=== PATIENT | female | born 1950 | race Caucasian/White ===

== ENCOUNTER 2021-11-13 15:16 | Inpatient (IN) | payer MEDICARE ==
[2021-11-13] MEDS ORDERED: HEPARIN SODIUM 1,000 UN/ML (10ML VL) IV ONE ×2 (15:51→16:16)
[2021-11-13] MEDS ORDERED: ATORVASTATIN 80 MG TAB PO STA (15:52)
[2021-11-13] MEDS ORDERED: HEPARIN SODIUM 1,000 UN/ML (10ML VL) ONE (15:55)
[2021-11-13] MEDS ORDERED: VERAPAMIL 2.5 MG/ML 2 ML AMP ONE (15:55)
[2021-11-13 16:04] LABS: Anisocytosis Slight; Basophils % (A) 1 %; Eosinophils # (A) 0.1 k/uL (0-0.7); Eosinophils % (A) 2 %; HCT 38.7 % (34.0-46.0); HGB 11.8 gm/dL (11.4-16.0); Hypochromasia Marked; Lymphocytes # (A) 0.8 k/uL (1.0-4.8); Lymphocytes % (A) 12 %; MCH 29.1 pg (25.0-35.0); MCHC 30.4 g/dL (31.0-37.0); MCV 95.6 fL (80.0-100.0); Mean Platelet Volume 7.7; Monocytes # (A) 0.2 k/uL (0-1.0); Monocytes % (A) 4 %; Neutrophils # (A) 5.5 k/uL (1.3-7.7); Neutrophils % (A) 80 %; Platelet Count 269 k/uL (150-450); RBC 4.05 m/uL (3.80-5.40); RDW 16.4 % (11.5-15.5); WBC 6.8 k/uL (3.8-10.6)
--- NOTE | 2021-11-13 16:04 | ED ---
Chest Pain HPI - General Chief Complaint: Chest Pain Stated Complaint: SAM Time Seen by Provider: 11/13/21 15:26 Source: patient, EMS Mode of arrival: EMS Limitations: no limitations - History of Present Illness Initial Comments: Patient complains of chest pain. Her pain has been intermittent all week. Now she states the pain became very severe and constant today. Pain is substernal. It doesn't radiate anywhere. It has been exertional in nature. She has chronic edema in the legs which is unchanged from prior. She is not having any palpitations or shortness of breath. She has no focal weakness. She has no lightheadedness or dizziness. She took no medicine for the chest pain prior to arrival. She has no paresthesias or weakness. - Related Data Allergies Allergy/AdvReac Type Severity Reaction Status Date / Time morphine AdvReac Hallucinati Verified 11/13/21 15:58 ons Review of Systems ROS Statement: Those systems with pertinent positive or pertinent negative responses have been documented in the HPI. ROS Other: All systems not noted in ROS Statement are negative. EKG Findings - EKG Comments: EKG Findings:: Twelve-lead EKG shows ventricular rate 101 bpm, normal [place] interval, normal QRS complexes, there is ST elevation in leads V1 and V2 with reciprocal depressions. Interpreted by me as ST elevation myocardial infarction. Past Medical History Past Medical History: Heart Failure History of Any Multi-Drug Resistant Organisms: None Reported Past Surgical History: Orthopedic Surgery Additional Past Surgical History / Comment(s): knee replacement, hip replacement Past Psychological History: No Psychological Hx Reported Smoking Status: Former smoker Past Alcohol Use History: None Reported Past Drug Use History: None Reported General Exam Limitations: no limitations General appearance: alert, in no apparent distress Head exam: Present: atraumatic, normocephalic, normal inspection Eye exam: Present: normal appearance, PERRL, EOMI. Absent: scleral icterus, conjunctival injection, periorbital swelling ENT exam: Present: normal exam, mucous membranes moist Neck exam: Present: normal inspection. Absent: tenderness, meningismus, lymphadenopathy Respiratory exam: Present: normal lung sounds bilaterally. Absent: respiratory distress, wheezes, rales, rhonchi, stridor Cardiovascular Exam: Present: regular rate, normal rhythm, normal heart sounds. Absent: systolic murmur, diastolic murmur, rubs, gallop, clicks GI/Abdominal exam: Present: soft, normal bowel sounds. Absent: distended, tenderness, guarding, rebound, rigid Extremities exam: Present: full ROM, normal capillary refill, pedal edema, other (Positive for bilateral lower charming lymphedema). Absent: tenderness, joint swelling Back exam: Present: normal inspection Neurological exam: Present: alert, oriented X3, CN II-XII intact Psychiatric exam: Present: normal affect, normal mood Skin exam: Present: warm, dry, intact, normal color. Absent: rash Course Vital Signs 11/13/21 11/13/21 15:19 15:23 Temperature 97.6 F Pulse Rate 107 H Respiratory 18 22 Rate Blood Pressure 122/89 O2 Sat by Pulse 99 Oximetry Chest Pain MDM - MDM Patient presents with chest pain. EKG is concerning for STEMI. I spoke with cardiology. Patient will be admitted to the hospital. Disposition Clinical Impression: ST elevation myocardial infarction (STEMI) Disposition: ADMITTED IP TO THIS HOSP Condition: Serious Is patient prescribed a controlled substance at d/c from ED?: No Referrals: Nonstaff,Physician [Primary Care Provider] - 1-2 days
[2021-11-13] MEDS ORDERED: TEMAZEPAM 15 MG CAP PO PRN (16:06)
[2021-11-13] MEDS ORDERED: MAG HYDROX/AL HYDROX/SIMETH 30 ML CUP PO PRN ×2 (16:06→17:19)
[2021-11-13] MEDS ORDERED: ONDANSETRON 4 MG/2 ML VIAL IVP PRN (16:06)
[2021-11-13] MEDS ORDERED: NALOXONE 0.4 MG/ML 1 ML VIAL IV PRN (16:06)
[2021-11-13 16:10] LABS: Albumin 3.6 g/dL (3.5-5.0); Calcium 8.5 mg/dL (8.4-10.2); Magnesium 1.6 mg/dL (1.6-2.3); Potassium 4.6 mmol/L (3.5-5.1); Total Bilirubin 1.9 mg/dL (0.2-1.3); Total Protein 7.1 g/dL (6.3-8.2)
[2021-11-13 16:12] LABS: INR 1.2 (<1.2); Partial Thromboplastin Time 23.9 sec (22.0-30.0); Prothrombin Time 12.7 sec (9.0-12.0)
[2021-11-13] MEDS ORDERED: LIDOCAINE 1% INJ 10MG/ML (30 ML VIAL-PF) SQ ONE (16:12)
[2021-11-13] MEDS ORDERED: VERAPAMIL SYRINGE (5 MG/10 ML) INTRAARTER ONE (16:13)
[2021-11-13] MEDS ORDERED: MIDAZOLAM 2 MG/2 ML VIAL IV ONE ×2 (16:14→16:23)
[2021-11-13] MEDS ORDERED: SODIUM CHLORIDE 0.9% 1,000 ML IV ONE (16:15)
[2021-11-13] MEDS ORDERED: fentaNYL (PF) 50 MCG/ML 2 ML AMP ONE (16:19)
[2021-11-13] MEDS: fentaNYL (PF) 50 MCG/ML 2 ML AMP IV ONE ×2 (16:21→16:31)
[2021-11-13] MEDS: PHENYLEPHRINE 10 MG/ML VIAL IV ONE ×3 (16:30→16:48)
[2021-11-13] MEDS ORDERED: TICAGRELOR 90 MG TAB ONE (16:41)
[2021-11-13] MEDS ORDERED: ONDANSETRON 4 MG/2 ML VIAL ONE (16:42)
[2021-11-13] MEDS ORDERED: ONDANSETRON 4 MG/2 ML VIAL IVP ONE (16:43)
[2021-11-13] MEDS ORDERED: TICAGRELOR 90 MG TAB PO ONE (16:44)
[2021-11-13] MEDS ORDERED: NOREPINEPHRINE 4 MG in SODIUM CHLORIDE 0.9% 250 ML IV ONE (16:54)
[2021-11-13] MEDS ORDERED: IOPAMIDOL-370 125ML BTL INJ ONE (16:58)
[2021-11-13] MEDS ORDERED: NITROGLYCERIN SL TABS 0.4 MG TAB SUBLINGUAL PRN (17:19)
[2021-11-13] MEDS ORDERED: ZOLPIDEM 5 MG TAB PO PRN (17:19)
[2021-11-13] MEDS ORDERED: ATROPINE SULFATE 0.1 MG/ML 10ML SYRINGE IV PRN (17:19)
[2021-11-13] MEDS ORDERED: RX INFO: IV CONTRAST WAS GIVEN 1 EACH MISC MISCELLANE PRN (17:19)
[2021-11-13] MEDS ORDERED: SODIUM CHLORIDE 0.9% 1,000 ML in EMPTY BAG 1 BAG IV SCH (17:30)
--- NOTE | 2021-11-13 17:34 | P.PCN ---
Date of Procedure: 11/13/21 Operative Findings: CARDIAC CATHETERIZATION AND PERCUTANEOUS CORONARY INTERVENTION PERFORMING PHYSICIAN: Maxim Santos MD, [facility] PROCEDURE PERFORMED: 1. Selective right and left coronary angiogram 2. Left heart catheterization 3. Successful stenting of proximal left anterior descending artery using 4.0 x 23 mm Xience MADIE which with an excellent angiographic results 4. Intravascular ultrasound of the left anterior descending artery 5. Aspiration thrombectomy from the left anterior descending artery INDICATION: Acute anterior ST patient myocardial infarction in this 71-year-old female patient with diabetes and hypertension and dyslipidemia COMPLICATION: None APPROACH: Right radial artery LEVEL OF SEDATION: Moderate with the sedation time off 58 minutes PROCEDURE DESCRIPTION: After obtaining an informed consent the patient was brought to the cardiac laborer [place]. The right radial artery was cannulated using micropuncture technique, the micropuncture wire passed easily then I placed a 6-Greek sheath. The patient was already given 4000 use of heparin IV in the emergency department and we gave her additional 4000 units of heparin IV. Subsequently she was given 2 mg of verapamil IA through the sheath. Selective right and left coronary angiogram was performed using JR4 for the right coronary artery and JL 3.5 for the left coronary system. After that I did intervene on the LAD. After that I did left heart catheterization using 6-Greek pigtail catheter. The procedure was completed without any complication SELECTIVE CORONARY ANGIOGRAM: The right coronary artery: Is chronically occluded by the proximal portion. Fills by collateral from the left coronary system. The RCA is extremely calcified Left main: Is angiographically normal. Bifurcates into a CXR LAD The left circumflex: Is a large caliber vessel. The proximal LCx has mild disease only. It gives rises into an OM branch which seems to be occluded. The left circumflex continues in the AV groove and seems to be occluded distally and seems to be also giving another OM branch which appeared to be occluded. The left anterior descending artery: The proximal LAD appeared to be occluded just after the bifurcation of a large diagonal branch which appeared to be severely diseased. HEMODYNAMICS: The LVEDP was 30 mmHg was no significant gradient across aortic valve PCI OF THE LAD: Anticoagulation was initiated using heparin with continuous ACT monitoring throughout the case. The left main was engaged using JL 3.5 guiding catheter. I did wire the LAD and cross the acute total occlusion using a run-through wire. I did aspiration thrombectomy from the LAD using an export catheter. Subsequently I did balloon angioplasty using 3.5 x 15 mm balloon. The balloon was inflated under 14 siva 2. Attempting advancing 4.0 x 23 mm stent was unsuccessful. I had to use a guide extension was guide liner as an adjunctive measure to get the stent to the proximal LAD. The stent was positioned under fluoroscopy guidance and deployed under 14 siva for 20 seconds. I did postdilated the stent using initially 3.5 mm balloon and subsequently 4.0 mm balloon. Both balloons where non-compliance. The following angiogram showed that the stent approximately appears to be not well deployed. For that reason I did intravascular ultrasound. The intravascular ultrasound showed that the stent is well opposed to the wall and the artery is extremely calcified. The angiogram after the intravascular ultrasound showed or shoulder area in the proximal LAD concerning for thrombus. The ACT was therapeutic. I decided to post-dilate that area again worded postrotation using other 40 by 15 mm balloon which was inflated twice inside the stented segment. The following angiogram showed good angiographic results and the procedure was completed without any complication CONCLUSION: #[address] patient myocardial infarction #2 acute total occlusion of the proximal LAD which is extremely calcified. I performed successful stenting of the proximal LAD. 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
--- NOTE | 2021-11-13 17:39 | P.CRDCN ---
History of Present Illness Consult date: 11/13/21 Chief complaint: Chest discomfort History of present illness: This is a 71-year-old female patient with morbid obesity as well as diabetes and hypertension and dyslipidemia as well as lower extremities arthritis presented to the emergency department complaining of chest discomfort. The patient has been experiencing discomfort for about a week and it was intermittent until last 24 hours when the pain gets worse and decided to come to the emergency department. The chest discomfort was substernal and did not radiate to the arms or neck or shoulders or back and was not associated with any sweating or shortness of breath or dizziness or lightheadedness or presyncope or syncope. The EKG in the emergency department revealed acute anterior ST patient myocardial infarction and for that reason the patient was brought to the cardiac labor commissioner emergently where she underwent a heart catheterization and that revealed acute total occlusion of the LAD with chronic total occlusion of the LCx and RCA. She underwent successful stenting of the LAD with a good angiographic results. The right and left coronary systems are extremely calcified. Also she was noted to have elevated left-sided filling pressure with LVEDP of 30 mmHg. The procedure was performed from right radial approach and the patient tolerated the procedure very well but she was experiencing severe lower back pain. She'll be going to the intensive care unit where she will be on dual antiplatelet therapy along with high intensity statin. An echocardiogram will be ordered to assess EF. Please note that the patient was hypotensive throughout the procedure and we have to start the patient on norepinephrine to support her pressure. She left the labor commissioner on norepinephri ne. Past Medical History Past Medical History: Heart Failure History of Any Multi-Drug Resistant Organisms: None Reported Past Surgical History: Orthopedic Surgery Additional Past Surgical History / Comment(s): knee replacement, hip replacement Past Psychological History: No Psychological Hx Reported Smoking Status: Former smoker Past Alcohol Use History: None Reported Past Drug Use History: None Reported Medications and Allergies Home Medications Medication Instructions Recorded Confirmed Type ALPRAZolam [Xanax] 0.5 mg PO HS 11/13/21 11/13/21 History Calcium Carbonate [Calcium] 600 mg PO DAILY 11/13/21 11/13/21 History Cholecalciferol [Vitamin D3 (25 25 mcg PO DAILY 11/13/21 11/13/21 History Mcg = 1000 Iu)] Ferrous Sulfate [Feosol] 325 mg PO DAILY 11/13/21 11/13/21 History HYDROcodone/APAP 10-325MG [Racine 1 tab PO Q6H PRN 11/13/21 11/13/21 History 10-325] lisinopriL [Zestril] 20 mg PO DAILY 11/13/21 11/13/21 History metFORMIN HCL 500 mg PO BID 11/13/21 11/13/21 History Allergies Allergy/AdvReac Type Severity Reaction Status Date / Time morphine AdvReac Hallucinati Verified 11/13/21 15:58 ons Physical Exam Vitals: Vital Signs Temp Pulse Resp BP Pulse Ox 11/13/21 15:23 22 11/13/21 15:19 97.6 F 107 H 18 122/89 99 Intake and Output 11/13/21 11/13/21 11/13/21 06:59 14:59 22:59 Intake Total 200 Balance 200 Intake: IV 200 Other: Weight 143.789 kg - Constitutional General appearance: no acute distress - Respiratory Respiratory: bilateral: diminished - Cardiovascular Rhythm: regular Heart sounds: normal: S1, S2 Abnormal Heart Sounds: systolic murmur Results 11/13/21 15:50 11/13/21 15:50 Cardiac Enzymes 11/13/21 11/13/21 Range/Units 15:50 15:50 AST 50 H (14-36) U/L Troponin I 0.750 H* (0.000-0.034) ng/mL Coagulation 11/13/21 Range/Units 15:50 PT 12.7 H (9.0-12.0) sec APTT 23.9 (22.0-30.0) sec CBC 11/13/21 Range/Units 15:50 WBC 6.8 (3.8-10.6) k/uL RBC 4.05 (3.80-5.40) m/uL Hgb 11.8 (11.4-16.0) gm/dL Hct 38.7 (34.0-46.0) % Plt Count 269 (150-450) k/uL Comprehensive Metabolic Panel 11/13/21 Range/Units 15:50 Sodium 135 L (137-145) mmol/L Potassium 4.6 (3.5-5.1) mmol/L Chloride 102 (98-107) mmol/L Carbon Dioxide 22 (22-30) mmol/L BUN 24 H (7-17) mg/dL Creatinine 0.81 (0.52-1.04) mg/dL Glucose 185 H (74-99) mg/dL Calcium 8.5 (8.4-10.2) mg/dL AST 50 H (14-36) U/L ALT 22 (4-34) U/L Alkaline Phosphatase 105 (38-126) U/L Total Protein 7.1 (6.3-8.2) g/dL Albumin 3.6 (3.5-5.0) g/dL Current Medications Generic Name Dose Route Start Last Admin Trade Name Freq PRN Reason Stop Dose Admin Hydrocodone Bitart/Acetaminophen 1 each 11/13/21 16:06 Hydrocodone/Apap 5-325mg 1 Each Tab PO Q4HR PRN Moderate Pain Al Hydroxide/Mg Hydroxide 15 ml 11/13/21 16:06 Mag Hydrox/Al Hydrox/Simeth 30 Ml Cup PO Q6HR PRN Indigestion Al Hydroxide/Mg Hydroxide 30 ml 11/13/21 17:19 Mag Hydrox/Al Hydrox/Simeth 30 Ml Cup PO Q4HR PRN Heartburn Alprazolam 0.5 mg 11/13/21 21:00 Alprazolam 0.5 Mg Tab PO HS [place] Aspirin 81 mg 11/14/21 09:00 Aspirin 81 Mg PO DAILY [place] Atropine Sulfate 0.5 mg 11/13/21 17:19 Atropine Sulfate 0.1 Mg/Ml 10ml Syringe IV ONCE PRN Symptomatic Bradycardia Calcium Carbonate/Glycine 500 mg 11/14/21 09:00 Calcium Carbonate 500 Mg Chewable PO DAILY REPLACED BY [facility] Cholecalciferol 25 mcg 11/14/21 09:00 Cholecalciferol 25 Mcg (1000 Iu) Tablet PO DAILY REPLACED BY [facility] Ferrous Sulfate 325 mg 11/14/21 09:00 Ferrous Sulfate 325 Mg Tab PO DAILY REPLACED BY [facility] Sodium Chloride 1,000 ml/ IV 1,000 mls @ 75 mls/hr 11/13/21 17:30 Solution IV 11/13/21 22:31 .[id number] REPLACED BY [facility] Metoprolol Succinate 12.5 mg 11/14/21 09:00 Metoprolol Succinate (Er) 25 Mg Tab.Er.24h PO DAILY REPLACED BY [facility] Miscellaneous Information 1 each 11/13/21 17:19 Rx Info: Iv Contrast Was Given 1 Each Misc MISCELLANE 11/15/21 17:19 DAILY PRN Per Protocol Naloxone HCl 0.2 mg 11/13/21 16:06 Naloxone 0.4 Mg/Ml 1 Ml Vial IV Q2M PRN Opioid Reversal Nitroglycerin 0.4 mg 11/13/21 17:19 Nitroglycerin Sl Tabs 0.4 Mg Tab SUBLINGUAL Q5M PRN Chest Pain Ondansetron HCl 4 mg 11/13/21 16:06 Ondansetron 4 Mg/2 Ml Vial IVP Q8HR PRN Nausea And Vomiting Temazepam 15 mg 11/13/21 16:06 Temazepam 15 Mg Cap PO HS PRN Insomnia Ticagrelor 90 mg 11/13/21 21:00 Ticagrelor 90 Mg Tab PO BID [place] Protocol Zolpidem Tartrate 5 mg 11/13/21 17:19 Zolpidem 5 Mg Tab PO HS PRN Insomnia Intake and Output 11/13/21 11/13/21 11/13/21 06:59 14:59 22:59 Intake Total 200 Balance 200 Intake: IV 200 Other: Weight 143.789 kg Patient Weight 11/14/21 06:59 Weight 143.789 kg 11/13/21 15:50 11/13/21 15:50 Assessment and Plan Assessment: Assessment #[address] patient myocardial infarction #2 acute total occlusion of the LAD. 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 Hold on any BHARTI inhibitor in view of the marginally low blood pressure #4 an echo to assess ejection fraction #5 monitor the kidney function and electrolytes #6 follow-up with the patient
[2021-11-13] MEDS: ALPRAZolam 0.5 MG TAB PO SCH (20:38)
[2021-11-13] MEDS: HYDROcodone/APAP 5-325MG 1 EACH TAB PO PRN (20:38)
[2021-11-13] MEDS: TICAGRELOR 90 MG TAB PO SCH (20:39)
[2021-11-13] MEDS ORDERED: metFORMIN 500 MG TAB PO SCH (21:00)
[2021-11-14 05:07] LABS: Appearance,Urine Clear (Clear); Bacteria,Urine Many /hpf; Bilirubin,Urine 1+ (Negative); Blood,Urine Small (Negative); Color,Urine Yellow; Glucose,Urine (UA) Negative (Negative); Ketones,Urine Negative (Negative); Leukocyte Esterase,Urine Small (Negative); Mucus,Urine Many /hpf; Nitrite,Urine Negative (Negative); PH, Urine 5.5 (5.0-8.0); Protein,Urine 1+ (Negative); RBC,Urine 13 /hpf (0-5); Squamous Epithelial Cell,Urine 3 /hpf (0-4); WBC,Urine 46 /hpf (0-5)
[2021-11-14 05:17] LABS: Specific Gravity,Urine >1.050 (1.001-1.035)
--- NOTE | 2021-11-14 07:36 | P.PN ---
Subjective Progress Note Date: 11/14/21 Principal diagnosis: Acute anterior ST elevation myocardial infarction The patient is a pleasant 71-year-old female patient was borderline diabetes and hypertension and dyslipidemia and obesity presented to the hospital with chest discomfort and was diagnosed with acute anterior ST patient myocardial infarction. She underwent a heart catheterization and that revealed chronic total occlusion of the RCA and LCx an acute total occlusion of the LAD and severe disease involving the large diagonal branch. She underwent successful angioplasty of the LAD which was extremely calcified with a good angiographic results by the end She was seen this morning beach she remains chest pain-free. She remains hemodynamically stable but she remains in normal sinus mechanism. She is on dual antiplatelet therapy along with high intensity statin. She is also on beta ian. We are waiting for the echocardiogram. The right radial site is soft and nontender. The patient can be transferred to the floor and will consider doing PCI of the diagonal either as an inpatient or as an outpatient. Objective - Vital Signs Vital signs: Vital Signs Temp 98.3 F 11/14/21 04:00 Pulse 81 11/14/21 07:00 Resp 12 11/14/21 07:00 BP 118/78 11/14/21 07:00 Pulse Ox 95 11/14/21 07:00 Intake & Output 11/13/21 11/14/21 11/14/21 18:59 06:59 18:59 Intake Total 275 900 75 Output Total 375 Balance 275 525 75 Weight 143.789 kg 142.7 kg Intake: IV 275 900 75 Sodium Chloride 0.9% 1, 75 900 75 000 ml In Empty Bag 1 bag @ 75 mls/hr IV .[id number] [facility] Rx#:[id number] Output: Urine 375 Other: Voiding Method External Catheter # Voids 0 0 0 - Constitutional General appearance: Present: no acute distress - Respiratory Respiratory: bilateral: diminished - Cardiovascular Rhythm: regular Heart sounds: normal: S1, S2 - Labs CBC & Chem 7: 11/13/21 15:50 11/13/21 15:50 Labs: Abnormal Lab Results - Last 24 Hours (Table) 11/13/21 11/13/21 11/13/21 Range/Units 15:50 15:50 15:50 MCHC 30.4 L (31.0-37.0) g/dL RDW 16.4 H (11.5-15.5) % Lymphocytes # 0.8 L (1.0-4.8) k/uL PT 12.7 H (9.0-12.0) sec INR 1.2 H (<1.2) D-Dimer 2.13 H (<0.60) mg/L FEU Sodium 135 L (137-145) mmol/L BUN 24 H (7-17) mg/dL Glucose 185 H (74-99) mg/dL Total Bilirubin 1.9 H (0.2-1.3) mg/dL AST 50 H (14-36) U/L Troponin I (0.000-0.034) ng/mL Ur Specific [place] (1.001-1.035) Urine Protein (Negative) Urine Blood (Negative) Urine Bilirubin (Negative) Ur Leukocyte Esterase (Negative) Urine RBC (0-5) /hpf Urine WBC (0-5) /hpf Urine Bacteria (None) /hpf Urine Mucus (None) /hpf 11/13/21 11/13/21 11/13/21 Range/Units 15:50 19:08 22:10 MCHC (31.0-37.0) g/dL RDW (11.5-15.5) % Lymphocytes # (1.0-4.8) k/uL PT (9.0-12.0) sec INR (<1.2) D-Dimer (<0.60) mg/L FEU Sodium (137-145) mmol/L BUN (7-17) mg/dL Glucose (74-99) mg/dL Total Bilirubin (0.2-1.3) mg/dL AST (14-36) U/L Troponin I 0.750 H* 101.000 H* 117.000 H* (0.000-0.034) ng/mL Ur Specific [place] (1.001-1.035) Urine Protein (Negative) Urine Blood (Negative) Urine Bilirubin (Negative) Ur Leukocyte Esterase (Negative) Urine RBC (0-5) /hpf Urine WBC (0-5) /hpf Urine Bacteria (None) /hpf Urine Mucus (None) /hpf 11/14/21 Range/Units 04:37 MCHC (31.0-37.0) g/dL RDW (11.5-15.5) % Lymphocytes # (1.0-4.8) k/uL PT (9.0-12.0) sec INR (<1.2) D-Dimer (<0.60) mg/L FEU Sodium (137-145) mmol/L BUN (7-17) mg/dL Glucose (74-99) mg/dL Total Bilirubin (0.2-1.3) mg/dL AST (14-36) U/L Troponin I (0.000-0.034) ng/mL Ur Specific [place] >1.050 H (1.001-1.035) Urine Protein 1+ H (Negative) Urine Blood Small H (Negative) Urine Bilirubin 1+ H (Negative) Ur Leukocyte Esterase Small H (Negative) Urine RBC 13 H (0-5) /hpf Urine WBC 46 H (0-5) /hpf Urine Bacteria Many H (None) /hpf Urine Mucus Many H (None) /hpf Assessment and Plan Assessment: Assessment #[address] patient myocardial infarction #2 acute total occlusion of the LAD. 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 Hold on any BHARTI inhibitor in view of the marginally low blood pressure #4 an echo to assess ejection fraction. The echo was not done this morning #5 monitor the kidney function and electrolytes #6 PCI of the diagonal either as an inpatient or as an outpatient
[2021-11-14 08:29] LABS: Calcium 8.4 mg/dL (8.4-10.2)
[2021-11-14 08:32] LABS: Potassium 4.9 mmol/L (3.5-5.1)
--- NOTE | 2021-11-14 08:36 | P.HPIM ---
History of Present Illness This is a pleasant 71 years old female with past medical history of diabetes mellitus and hypertension. Presents with chest pain found to have anterior septal ST elevation myocardial infarction with low voltage on the EKG with sign ificantly elevated troponin 0.701 and 117. ProBNP was also elevated at 8360. CBC, BMP and liver enzymes show no significant abnormality. Patient underwent urgent cardiac cath by retail planning manager team and found significant critical disease of her LAD status post PCI to LAD in successful stenting. Also patient has chronic disease of the RCA. Postoperatively patient was transiently hypotensive needed pressors. Patient currently on aspirin and Brillinta pt also had some urinary retention about 375 , she underwent straight cath, this could be due to medication effect, pt states normally she pees twice a day but now once a day ,she denies dysuria or urgency or increased frequency pt never smoked and she denies alcohol or illicit drug abuse UA looks concentrated sample Review of Systems CONSTITUTIONAL: No fever, no malaise, no fatigue. HEENT: No recent visual problems or hearing problems. Denied any sore throat. CARDIOVASCULAR: No orthopnea, PND, no palpitations, no syncope. PULMONARY: No shortness of breath, no cough, no hemoptysis. GASTROINTESTINAL: No diarrhea, no nausea, no vomiting, no abdominal pain. Normoactive bowel sounds. NEUROLOGICAL: No headaches, no weakness, no numbness. HEMATOLOGICAL: Denies any bleeding or petechiae. GENITOURINARY: Denies any burning micturition, frequency, or urgency. MUSCULOSKELETAL/RHEUMATOLOGICAL: Denies any joint pain, swelling, or any muscle pain. ENDOCRINE: Denies any polyuria or polydipsia. Past Medical History Past Medical History: Heart Failure, Diabetes Mellitus Additional Past Medical History / Comment(s): Patient told she is "borderline diabetic" History of Any Multi-Drug Resistant Organisms: None Reported Past Surgical History: Adenoidectomy, Appendectomy, Cholecystectomy, Orthopedic Surgery, Tonsillectomy, Tubal Ligation Additional Past Surgical History / Comment(s): knee replacement, hip replacement. Bone spurs removed left foot Smoking Status: Never smoker Medications and Allergies Home Medications Medication Instructions Recorded Confirmed Type ALPRAZolam [Xanax] 0.5 mg PO HS 11/13/21 11/13/21 History Calcium Carbonate [Calcium] 600 mg PO DAILY 11/13/21 11/13/21 History Cholecalciferol [Vitamin D3 (25 25 mcg PO DAILY 11/13/21 11/13/21 History Mcg = 1000 Iu)] Ferrous Sulfate [Feosol] 325 mg PO DAILY 11/13/21 11/13/21 History HYDROcodone/APAP 10-325MG [[place] 1 tab PO Q6H PRN 11/13/21 11/13/21 History 10-325] lisinopriL [Zestril] 20 mg PO DAILY 11/13/21 11/13/21 History metFORMIN HCL 500 mg PO BID 11/13/21 11/13/21 History Allergies Allergy/AdvReac Type Severity Reaction Status Date / Time morphine AdvReac Hallucinati Verified 11/13/21 15:58 ons Physical Exam Vitals: Vital Signs Temp Pulse Resp BP Pulse Ox 11/14/21 07:00 81 12 118/78 95 11/14/21 06:30 75 14 97 11/14/21 06:00 76 13 105/68 96 11/14/21 05:30 76 17 125/75 98 11/14/21 05:00 77 16 110/81 96 11/14/21 04:30 80 16 121/80 97 11/14/21 04:00 98.3 F 76 15 105/67 97 11/14/21 03:30 73 13 99/65 95 11/14/21 03:00 70 13 132/70 99 11/14/21 02:30 75 13 134/87 99 11/14/21 02:00 76 13 127/92 99 11/14/21 01:30 76 14 117/90 99 11/14/21 01:00 77 11 L 130/97 98 11/14/21 00:30 75 10 L 133/99 99 11/14/21 00:00 97.8 F 75 14 125/94 99 11/13/21 23:30 78 13 137/98 98 11/13/21 23:00 77 13 127/84 99 11/13/21 22:30 78 12 97/74 99 11/13/21 22:00 78 12 109/78 99 11/13/21 21:30 80 14 120/89 100 11/13/21 21:00 82 14 109/80 100 11/13/21 20:30 85 21 115/82 97 11/13/21 20:00 98.1 F 85 14 125/88 94 L 11/13/21 19:30 82 13 118/77 98 11/13/21 19:00 84 19 126/82 97 11/13/21 18:30 87 14 100 11/13/21 18:00 84 17 124/85 96 11/13/21 17:30 92 14 132/79 88 L 11/13/21 17:26 97.8 F 93 10 L 11/13/21 15:23 22 11/13/21 15:19 97.6 F 107 H 18 122/89 99 Intake and Output 11/13/21 11/14/21 11/14/21 22:59 06:59 14:59 Intake Total 575 600 75 Output Total 375 Balance 575 225 75 Intake: IV 575 600 75 Sodium Chloride 0.9% 1, 375 600 75 000 ml In Empty Bag 1 bag @ 75 mls/hr IV .[id number] REPLACED BY [facility] Rx#:[id number] Output: Urine 375 Other: Voiding Method External Catheter External Catheter # Voids 0 0 0 Weight 143.789 kg 142.7 kg -GENERAL: The patient is alert and oriented x3, not in any acute distress. obese HEENT: Pupils are round and equally reacting to light. EOMI. No scleral icterus. No conjunctival pallor. Normocephalic, atraumatic. No pharyngeal erythema. No thyromegaly. CARDIOVASCULAR: S1 and S2 present. No murmurs, rubs, or gallops. PULMONARY: Chest is clear to auscultation, no wheezing or crackles. ABDOMEN: Soft, nontender, nondistended, normoactive bowel sounds. No palpable organomegaly. MUSCULOSKELETAL: No joint swelling or deformity. EXTREMITIES: No cyanosis, clubbing, or pedal edema. NEUROLOGICAL: Gross neurological examination did not reveal any focal deficits. SKIN: No rashes. no petechiae. Results CBC & Chem 7: 11/13/21 15:50 11/13/21 15:50 Labs: Abnormal Lab Results - Last 24 Hours (Table) 11/13/21 11/13/21 11/13/21 Range/Units 15:50 15:50 15:50 MCHC 30.4 L (31.0-37.0) g/dL RDW 16.4 H (11.5-15.5) % Lymphocytes # 0.8 L (1.0-4.8) k/uL PT 12.7 H (9.0-12.0) sec INR 1.2 H (<1.2) D-Dimer 2.13 H (<0.60) mg/L FEU Sodium 135 L (137-145) mmol/L BUN 24 H (7-17) mg/dL Glucose 185 H (74-99) mg/dL Total Bilirubin 1.9 H (0.2-1.3) mg/dL AST 50 H (14-36) U/L Troponin I (0.000-0.034) ng/mL Ur Specific [place] (1.001-1.035) Urine Protein (Negative) Urine Blood (Negative) Urine Bilirubin (Negative) Ur Leukocyte Esterase (Negative) Urine RBC (0-5) /hpf Urine WBC (0-5) /hpf Urine Bacteria (None) /hpf Urine Mucus (None) /hpf 11/13/21 11/13/21 11/13/21 Range/Units 15:50 19:08 22:10 MCHC (31.0-37.0) g/dL RDW (11.5-15.5) % Lymphocytes # (1.0-4.8) k/uL PT (9.0-12.0) sec INR (<1.2) D-Dimer (<0.60) mg/L FEU Sodium (137-145) mmol/L BUN (7-17) mg/dL Glucose (74-99) mg/dL Total Bilirubin (0.2-1.3) mg/dL AST (14-36) U/L Troponin I 0.750 H* 101.000 H* 117.000 H* (0.000-0.034) ng/mL Ur Specific [place] (1.001-1.035) Urine Protein (Negative) Urine Blood (Negative) Urine Bilirubin (Negative) Ur Leukocyte Esterase (Negative) Urine RBC (0-5) /hpf Urine WBC (0-5) /hpf Urine Bacteria (None) /hpf Urine Mucus (None) /hpf 11/14/21 Range/Units 04:37 MCHC (31.0-37.0) g/dL RDW (11.5-15.5) % Lymphocytes # (1.0-4.8) k/uL PT (9.0-12.0) sec INR (<1.2) D-Dimer (<0.60) mg/L FEU Sodium (137-145) mmol/L BUN (7-17) mg/dL Glucose (74-99) mg/dL Total Bilirubin (0.2-1.3) mg/dL AST (14-36) U/L Troponin I (0.000-0.034) ng/mL Ur Specific [place] >1.050 H (1.001-1.035) Urine Protein 1+ H (Negative) Urine Blood Small H (Negative) Urine Bilirubin 1+ H (Negative) Ur Leukocyte Esterase Small H (Negative) Urine RBC 13 H (0-5) /hpf Urine WBC 46 H (0-5) /hpf Urine Bacteria Many H (None) /hpf Urine Mucus Many H (None) /hpf Thrombosis Risk Factor Assmnt - Choose All That Apply Each Factor Represents 1 point: Acute UT, Obesity (BMI >25), Swollen legs (current) Other Risk Factors: Yes Each Risk Factor Represents 2 Points: Age 61-74 years, Laparoscopic surgery, Major surgery Thrombosis Risk Factor Assessment Total Risk Factor Score: 9 Thrombosis Risk Factor Assessment Level: High Risk Assessment and Plan Assessment: Acute anterior ST elevation myocardial infarction status post PCI to LAD Diabetes mellitus Hypertension mild urinary retention morbid obesity with BMI of 47.8 Plan: This is a pleasant 71 years old female presents with STEMI status post PCI to LAD Continue with aspirin and [place] Continue with metoprolol Cardiology consult. retail planning manager are planing for another cardiac cath for the RCA keep checking bladder scan resend another sample of UA Labs and medication were reviewed.. Continue same treatment. Continue with symptomatic treatment. Resume home medication. Monitor lytes and vitals. DVT and GI prophylaxis. Further recommendations as per clinical course of the p atient DVT prophylaxis: Aspirin and Brillinta GI Prophylaxis: Beena Pt told me she wants to be a DNR, discussed with staff to inform cardiology team
[2021-11-14] MEDS: TICAGRELOR 90 MG TAB PO SCH ×2 (08:53→21:01)
[2021-11-14] MEDS: FERROUS SULFATE 325 MG TAB PO SCH (08:53)
[2021-11-14] MEDS: ASPIRIN 81 MG PO SCH (08:53)
[2021-11-14] MEDS: CHOLECALCIFEROL 25 MCG (1000 IU) TABLET PO SCH (08:53)
[2021-11-14] MEDS: METOPROLOL SUCCINATE (ER) 25 MG TAB.ER.24H PO SCH (08:54)
[2021-11-14] MEDS: CALCIUM CARBONATE 500 MG CHEWABLE PO SCH (08:56)
[2021-11-14] MEDS: HYDROcodone/APAP 5-325MG 1 EACH TAB PO PRN ×2 (08:59→21:04)
[2021-11-14] MEDS ORDERED: lisinopriL 20 MG TAB PO SCH (09:00)
[2021-11-14 10:58] VITALS: BMI 47.8
--- NOTE | 2021-11-14 14:41 | CA ---
Transthoracic Echo Report Name: Dayana Angel Age: 71 Gender: F : 1950 Exam Date: 11/14/2021 08:18 Exam Location: [facility] Ht (in): 68 Wt (lb): 314 Ordering Physician: Maxim Santos MD ([id number]) Attending/Referring Phys: [employer] Teacher Edith Richards RDCS Procedure CPT: Indications: stemi Cardiac Hx: Technical Quality: Good Contrast 1: Lumason Total Dose (mL): 1 Contrast 2: Total Dose (mL): MEASUREMENTS (Male / Female) Normal Values 2D ECHO LV Diastolic Diameter PLAX 5.6 cm 4.2 - 5.9 / 3.9 - 5.3 cm LV Systolic Diameter PLAX 5.2 cm IVS Diastolic Thickness 1.3 cm 0.6 - 1.0 / 0.6 - 0.9 cm LVPW Diastolic Thickness 1.3 cm 0.6 - 1.0 / 0.6 - 0.9 cm LV Relative Wall Thickness 0.5 RV Internal Dim ED PLAX 3.2 cm M-MODE Aortic Root Diameter MM 3.2 cm LA Systolic Diameter MM 4.3 cm LA Ao Ratio MM 1.4 MV E Point Septal Separation 2.5 cm AV Cusp Separation MM 2.0 cm DOPPLER AV Peak Velocity 64.5 cm/s AV Peak Gradient 1.7 mmHg MV Area PHT 3.2 cm??? MR Peak Velocity 278.5 cm/s MR Peak Gradient 31.0 mmHg Mitral E Point Velocity 66.9 cm/s Mitral A Point Velocity 31.5 cm/s Mitral E to A Ratio 2.1 MV Deceleration Time 240.5 ms TR Peak Velocity 151.7 cm/s TR Peak Gradient 9.2 mmHg Right Ventricular Systolic Press 14.2 mmHg FINDINGS Left Ventricle Mildly increased septal wall thickness. Moderately increased posterior wall thickness. Mildly increased left ventricular diastolic diameter. Left ventricular ejection fraction is estimated at 20-25% Global hypokinesis Right Ventricle The right ventricle is normal in size and function. Right Atrium The right atrium is normal in size. Left Atrium The left atrium is normal in size. Mitral Valve Structurally normal mitral valve without significant stenosis or prolapse. There is mild mitral regurgitation. Aortic Valve Structurally normal aortic valve without significant sclerosis or stenosis. There is no aortic regurgitation. Tricuspid Valve Structurally normal tricuspid valve without significant stenosis. Pulmonary artery systolic pressure is normal. Mild tricuspid regurgitation. Pulmonic Valve Structurally normal pulmonic valve without significant stenosis. There is no pulmonic regurgitation. Pericardium Normal pericardium without effusion. Aorta Normal aortic root dimension. CONCLUSIONS Severe LV dysfunction, anterior wall akinesis Mildly contractile inferior basal LV Previewed by: Dr. Dank Cuba MD (Electronically Signed) Final Date: 14 Nov 2021 14:40
[2021-11-14 20:53] LABS: Glucose,Whole Blood 170 mg/dL (75-99)
[2021-11-14] MEDS: ALPRAZolam 0.5 MG TAB PO SCH (21:01)
[2021-11-15 06:18] LABS: Glucose,Whole Blood 123 mg/dL (75-99)
[2021-11-15 08:13] LABS: Calcium 8.5 mg/dL (8.4-10.2); Potassium 4.6 mmol/L (3.5-5.1)
[2021-11-15] MEDS ORDERED: SPIRONOLACTONE 25 MG TAB PO SCH (09:00)
[2021-11-15] MEDS: SPIRONOLACTONE 25 MG TAB PO SCH (09:09)
[2021-11-15] MEDS: ATORVASTATIN 80 MG TAB PO SCH (09:10)
[2021-11-15] MEDS: CHOLECALCIFEROL 25 MCG (1000 IU) TABLET PO SCH (09:10)
[2021-11-15] MEDS: METOPROLOL SUCCINATE (ER) 25 MG TAB.ER.24H PO SCH (09:10)
[2021-11-15] MEDS: HYDROcodone/APAP 5-325MG 1 EACH TAB PO PRN ×2 (09:10→21:35)
[2021-11-15] MEDS: ASPIRIN 81 MG PO SCH (09:10)
[2021-11-15] MEDS: CALCIUM CARBONATE 500 MG CHEWABLE PO SCH (09:10)
[2021-11-15] MEDS: TICAGRELOR 90 MG TAB PO SCH (09:11)
[2021-11-15] MEDS: FERROUS SULFATE 325 MG TAB PO SCH (09:11)
[2021-11-15] MEDS ORDERED: CLOPIDOGREL 75 MG TAB PO STA (10:49)
[2021-11-15 11:49] LABS: Glucose,Whole Blood 134 mg/dL (75-99)
--- NOTE | 2021-11-15 13:44 | P.PN ---
Subjective This is a 71-year-old female patient with past medical history of morbid obesity, type 2 diabetes, hypertension, dyslipidemia and lower extremities a rthritis. She does not follow regularly with a applications consultant. Patient presented to the emergency department complaining of chest discomfort. EKG revealed acute anterior ST patient myocardial infarction. 11/13/2021 She underwent a heart catheterization with Dr. Santos and that revealed acute total occlusion of the LAD with chronic total occlusion of the LCx and RCA. She underwent successful stenting of the LAD with a good angiographic results. The right and left coronary systems are extremely calcified. Also she was noted to have elevated left-sided filling pressure with LVEDP of 30 mmHg. The patient was hypotensive throughout the procedure and was started on norepinephrine to support her pressure in cathodic protection technician when transferred to ICU. Echocardiogram revealed an EF of 2025%, global hypokinesis, mild contractile inferior basal LV. 11/15/2021 Patient seen at bedside, 3 S. cardiac stepdown unit. She is alert and oriented 3, no complaints this morning. She denies any chest pain or shortness of breath. She remains in normal sinus mechanism. She's currently maintained on dual antiplatelet therapy with aspirin and Brilinta. Metoprolol succinate 12.5 mg daily, atorvastatin 80 mg daily VITALS: Blood pressure 100/57, heart rate 76, afebrile, oxygen saturation is 100% on 1 L GENERAL: Well-appearing, well-nourished and in no acute distress. NECK: Supple without JVD or thyromegaly. LUNGS: Breath sounds clear to auscultation bilaterally. Respiration equal and unlabored. No wheezes, rales or rhonchi. HEART: Regular rate and rhythm without murmurs, rubs or gallops. S1 and S2 heard. EXTREMITIES: Normal range of motion, no edema. No clubbing or cyanosis. P eripheral pulses intact. SKIN: Right radial cath site clean dry intact 2+ pulses ASSESSMENT Acute anterior ST patient myocardial infarction Acute total occlusion of the LAD. 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 Patient will be switched to Plavix Aggressive cholesterol control with high intensity statin Start low dose 2.5mg lisinopril, monitor blood pressure Start spironolactone 12.5mg daily Monitor the kidney function and electrolytes Dr. Santos reviewed patient's cardiac cath films, PCI of the diagonal either as an inpatient or as an outpatient Monitor for additional 24 hours. Hopefully discharge tomorrow if stable. Nurse Practitioner note has been reviewed, I agree with a documented findings and plan of care. Patient was seen and examined. Objective - Vital Signs Vital signs: Vital Signs Temp 97.3 F L 11/15/21 08:00 Pulse 76 11/15/21 12:00 Resp 16 11/15/21 08:00 BP 100/57 11/15/21 12:00 Pulse Ox 100 11/15/21 12:00 Intake & Output 11/14/21 11/15/21 11/15/21 18:59 06:59 18:59 Intake Total 1235 240 Output Total 250 150 Balance 985 -150 240 Weight 142.7 kg 142.5 kg Intake: IV 375 Sodium Chloride 0.9% 1, 375 000 ml In Empty Bag 1 bag @ 75 mls/hr IV .[id number] [facility] Rx#:[id number] Oral 860 240 Output: Urine 250 150 Other: Voiding Method External Catheter External Catheter External Catheter # Voids 0 # Bowel Movements 1 - Labs CBC & Chem 7: 11/13/21 15:50 11/15/21 07:42 Labs: Abnormal Lab Results - Last 24 Hours (Table) 11/14/21 11/15/21 11/15/21 Range/Units 20:32 06:04 07:42 Sodium 136 L (137-145) mmol/L Carbon Dioxide 21 L (22-30) mmol/L BUN 29 H (7-17) mg/dL Glucose 120 H (74-99) mg/dL POC Glucose (mg/dL) 170 H 123 H (75-99) mg/dL 11/15/21 Range/Units 11:38 Sodium (137-145) mmol/L Carbon Dioxide (22-30) mmol/L BUN (7-17) mg/dL Glucose (74-99) mg/dL POC Glucose (mg/dL) 134 H (75-99) mg/dL Microbiology - Last 24 Hours (Table) 11/14/21 04:37 Urine Culture - Preliminary Urine,Voided
--- NOTE | 2021-11-15 13:49 | CDI ---
Documentation Clarification Form Date: 11/15/2021 01:33 PM From: Jackie Lopez RN CCDS Admit Date: 11/13/2021 04:06:00 PM Patient Name: Dayana Angel Visit Number: [id number] Discharge Date: ATTENTION: The Clinical Documentation Specialists (CDI) and [facility] Coding Staff appreciate your assistance in clarifying documentation. Please respond to the clarification below the line at the bottom and electronically sign. The CDI & [facility] Coding staff will review the response and follow-up if needed. Please note: Queries are made part of the Legal Health Record. If you have any questions, please contact the author of this message via ITS. Dr. Maxim Santos Your patient has the documented diagnosis of unspecified Heart failure, 11/13, Cardiology consult. Additional information regarding the type, acuity of CHF is requested. History/Risk Factors: 71-year-old female presents to the ED with chest pain found to have anterior septal ST elevation myocardial infarction. Medical History: Heart Failure, DM and HTN. 11/14, H&P. Clinical Indicators: VS/Pulse OX: 11/13 B/P 122/89; HR 107; Temp 97.6F Oral; SpO2 99% room air. BNP: 11/13 8360 Echocardiogram Results: 11/14 Mildly increased septal wall thickness. Moderately increased posterior wall thickness. Mildly increased left ventricular diastolic diameter. Left ventricular ejection fraction is estimated at 20-25% Global hypokinesis Treatment: 11/14 current Toprol xl 12.5mg PO Daily; 11/15 current Aldactone 25mg PO Daily. In your professional opinion, can you please clarify the acuity and type of heart failure if known? [ ] Chronic Systolic Heart Failure (reduced EF) [ ] Other, please specify [ ] Unable to determine (Template Last Revised: August 2020) MTDD
[2021-11-15 16:44] LABS: Glucose,Whole Blood 208 mg/dL (75-99)
[2021-11-15 20:55] LABS: Glucose,Whole Blood 171 mg/dL (75-99)
[2021-11-15] MEDS: ALPRAZolam 0.5 MG TAB PO SCH (21:36)
[2021-11-15] MEDS: INSULIN ASPART (NovoLOG) 100 UNIT/ML VIAL SQ SCH (21:36)
[2021-11-16] MEDS: INSULIN ASPART (NovoLOG) 100 UNIT/ML VIAL SQ SCH ×2 (06:14→11:55)
[2021-11-16 06:24] LABS: Glucose,Whole Blood 119 mg/dL (75-99)
[2021-11-16 07:52] VITALS: RESP 18
[2021-11-16] MEDS: CHOLECALCIFEROL 25 MCG (1000 IU) TABLET PO SCH (07:53)
[2021-11-16] MEDS: ATORVASTATIN 80 MG TAB PO SCH (07:53)
[2021-11-16] MEDS: ASPIRIN 81 MG PO SCH (07:53)
[2021-11-16] MEDS: METOPROLOL SUCCINATE (ER) 25 MG TAB.ER.24H PO SCH (07:54)
[2021-11-16] MEDS: SPIRONOLACTONE 25 MG TAB PO SCH (07:54)
[2021-11-16] MEDS: FERROUS SULFATE 325 MG TAB PO SCH (07:54)
[2021-11-16] MEDS: CALCIUM CARBONATE 500 MG CHEWABLE PO SCH (07:55)
--- NOTE | 2021-11-16 08:24 | P.PN ---
Subjective Progress Note Date: 11/16/21 Principal diagnosis: Acute anterior ST elevation myocardial infarction The patient is a pleasant 71-year-old female patient was borderline diabetes and hypertension and dyslipidemia and obesity presented to the hospital with chest discomfort and was diagnosed with acute anterior ST patient myocardial infarction. She underwent a heart catheterization and that revealed chronic total occlusion of the RCA and LCx an acute total occlusion of the LAD and severe disease involving the large diagonal branch. She underwent successful angioplasty of the LAD which was extremely calcified with a good angiographic results by the end She was seen this morning beach she is asymptomatic from a cardiac vascular standpoint of view, she is hemodynamically stable beach she would like to go home to have the angioplasty as an outpatient to be done on the diagonal branch. From the cardiac standpoint of view, the patient can be discharged home. I'll follow-up with the patient as an outpatient. She is to be discharged on dual antiplatelet therapy as well as high intensity statin. Objective - Vital Signs Vital signs: Vital Signs Temp 97.3 F L 11/16/21 07:50 Pulse 76 11/16/21 07:50 Resp 18 11/16/21 07:50 BP 101/56 11/16/21 07:50 Pulse Ox 100 11/16/21 07:50 Intake & Output 11/15/21 11/16/21 11/16/21 18:59 06:59 18:59 Intake Total 340 260 Output Total 350 Balance 340 -350 260 Weight 142 kg Intake: IV 20 Invasive Line 1 10 Invasive Line 2 10 Oral 340 240 Output: Urine 350 Other: Voiding Method External Catheter External Catheter External Catheter - Constitutional General appearance: Present: no acute distress - Respiratory Respiratory: bilateral: diminished - Cardiovascular Rhythm: regular Heart sounds: normal: S1, S2 - Labs CBC & Chem 7: 11/13/21 15:50 11/15/21 07:42 Labs: Abnormal Lab Results - Last 24 Hours (Table) 11/15/21 11/15/21 11/15/21 Range/Units 11:38 16:43 20:43 POC Glucose (mg/dL) 134 H 208 H 171 H (75-99) mg/dL 11/16/21 Range/Units 06:12 POC Glucose (mg/dL) 119 H (75-99) mg/dL Microbiology - Last 24 Hours (Table) 11/14/21 04:37 Urine Culture - Preliminary Urine,Voided Gram Neg Bacilli Assessment and Plan Assessment: Assessment #[address] patient myocardial infarction #2 acute total occlusion of the LAD. The patient underwent successful stenting of the LAD #3 chronic total occlusion of the LCx and RCA #4 morbid obesity #5 diabetes type 2 #6 hypertension #7 dyslipidemia #8 lower extremities arthritis #9 Chroni kidney disease #10 multiple comorbid conditions Plan #1 continue the current medical regimen including dual antiplatelet therapy #2 the patient would like to go home which is okay from a cardiac vascular standpoint #3 PCI of the diagonal to be done as an outpatient #4 follow-up with the patient
[2021-11-16] MEDS ORDERED: CLOPIDOGREL 75 MG TAB PO SCH (09:00)
[2021-11-16 11:27] VITALS: BP 113/72; PULSE 72; TEMP 97.6
[2021-11-16 11:43] LABS: Glucose,Whole Blood 173 mg/dL (75-99)
--- NOTE | 2021-11-21 07:17 | CDI ---
Documentation Clarification Form Date: 11/15/2021 01:33:00 PM From: Jackie Lopez RN, CCDS Admit Date: 11/13/2021 04:06:00 PM Patient Name: Dayana Angel Visit Number: [id number] Discharge Date: 11/16/2021 02:37:00 PM ATTENTION: The Clinical Documentation Specialists (CDI) and [facility] Coding Staff appreciate your assistance in clarifying documentation. Please respond to the clarification below the line at the bottom and electronically sign. The CDI & [facility] Coding staff will review the response and follow-up if needed. Please note: Queries are made part of the Legal Health Record. If you have any questions, please contact the author of this message via ITS. Dr. Maxim Santos: Please respond to this query in your documentation or on this form prior to signing. Your patient has the documented diagnosis of unspecified Heart failure, 11/13, Cardiology consult. Additional information regarding the type, acuity of CHF is requested. History/Risk Factors: 71-year-old female presents to the ED with chest pain found to have anterior septal ST elevation myocardial infarction. Medical History: Heart Failure, DM and HTN Clinical Indicators: VS/Pulse OX: 11/13 B/P 122/89; HR 107; Temp 97.6F Oral; SpO2 99% room air. BNP: 11/13 8360 Echocardiogram Results: 11/14 Mildly increased septal wall thickness. Moderately increased posterior wall thickness. Mildly increased left ventricular diastolic diameter. Left ventricular ejection fraction is estimated at 20-25% Global hypokinesis Treatment: 11/14 current Toprol xl 12.5mg PO Daily; 11/15 current Aldactone 25mg PO Daily. In your professional opinion, can you please clarify the acuity and type of heart failure if known? [ ] Chronic Systolic Heart Failure (reduced EF) [ ] Other, please specify [ ] Unable to determine (Template Last Revised: August 2020) KIERSTEND
--- NOTE | 2021-11-25 12:51 | CDI ---
Documentation Clarification Form Date: 11/15/2021 01:33 PM From: Jackie Lopez RN CCDS Admit Date: 11/13/2021 04:06:00 PM Patient Name: Dayana Angel Visit Number: [id number] Discharge Date: ATTENTION: The Clinical Documentation Specialists (CDI) and [facility] Coding Staff appreciate your assistance in clarifying documentation. Please respond to the clarification below the line at the bottom and electronically sign. The CDI & [facility] Coding staff will review the response and follow-up if needed. Please note: Queries are made part of the Legal Health Record. If you have any questions, please contact the author of this message via ITS. Dr. Maxim Santos Your patient has the documented diagnosis of unspecified Heart failure, 11/13, Cardiology consult. Additional information regarding the type, acuity of CHF is requested. History/Risk Factors: 71-year-old female presents to the ED with chest pain found to have anterior septal ST elevation myocardial infarction. Medical History: Heart Failure, DM and HTN. 11/14, H&P. Clinical Indicators: VS/Pulse OX: 11/13 B/P 122/89; HR 107; Temp 97.6F Oral; SpO2 99% room air. BNP: 11/13 8360 Echocardiogram Results: 11/14 Mildly increased septal wall thickness. Moderately increased posterior wall thickness. Mildly increased left ventricular diastolic diameter. Left ventricular ejection fraction is estimated at 20-25% Global hypokinesis Treatment: 11/14 current Toprol xl 12.5mg PO Daily; 11/15 current Aldactone 25mg PO Daily. In your professional opinion, can you please clarify the acuity and type of heart failure if known? [ ] Chronic Systolic Heart Failure (reduced EF) [ ] Other, please specify [ ] Unable to determine (Template Last Revised: August 2020) MTDD
== END 2021-11-16 14:37 | disposition home or self-care (01) | DRG 247 ==
LOC: EC 15:16 → 2SICU 16:06 → 3SCARD 11-14 17:26
PROVIDERS: ADMIT Hospitalist; ATTEND Hospitalist
PROC: B240ZZ3 Ultrasonography of Single Coronary Artery, Intravascular (ICD-10-PCS; 2021-11-13)
PROC: 027034Z Dilation of Coronary Artery, One Artery with Drug-eluting Intraluminal Device, Percutaneous Approach (ICD-10-PCS; principal; 2021-11-13 15:59)
PROC: 02C03ZZ Extirpation of Matter from Coronary Artery, One Artery, Percutaneous Approach (ICD-10-PCS; 2021-11-13 15:59)
PROC: 4A023N7 Measurement of Cardiac Sampling and Pressure, Left Heart, Percutaneous Approach (ICD-10-PCS; 2021-11-13 15:59)
PROC: B2111ZZ Fluoroscopy of Multiple Coronary Arteries using Low Osmolar Contrast (ICD-10-PCS; 2021-11-13 15:59)
DX: I21.09 ST elevation (STEMI) myocardial infarction involving other coronary artery of anterior wall (principal); Z68.42 Body mass index [BMI] 45.0-49.9, adult; E11.9 Type 2 diabetes mellitus without complications; R33.9 Retention of urine, unspecified; Z66 Do not resuscitate; I11.0 Hypertensive heart disease with heart failure; I50.9 Heart failure, unspecified; E66.01 Morbid (severe) obesity due to excess calories; I25.10 Atherosclerotic heart disease of native coronary artery without angina pectoris; M19.90 Unspecified osteoarthritis, unspecified site; E78.5 Hyperlipidemia, unspecified; N28.9 Disorder of kidney and ureter, unspecified; I25.5 Ischemic cardiomyopathy; Z79.82 Long term (current) use of aspirin; Z79.84 Long term (current) use of oral hypoglycemic drugs; Z79.899 Other long term (current) drug therapy; Z87.891 Personal history of nicotine dependence; Z96.649 Presence of unspecified artificial hip joint; Z96.659 Presence of unspecified artificial knee joint; Z90.49 Acquired absence of other specified parts of digestive tract; Z87.19 Personal history of other diseases of the digestive system
CPT/HCPCS: 36415; 80048; 80053; 81001; 83036; 83690; 83735; 83880; 84484; 85025; 85379; 85610; 85730; 87077; 87086; 87186; 92973; 92978; 93005; 93306; 93458; 94760; 99285

== ENCOUNTER 2021-12-04 08:00 | Day surgery (SDC) | payer MEDICARE ==
[~2021-12-04 08:00] MED LIST: ALPRAZolam 0.25 MG TAB PO PRN; ALPRAZolam 0.5 MG TAB PO PRN; ASPIRIN 325 MG TAB PO ONE; ATORVASTATIN 80 MG TAB PO ONE; HEPARIN SODIUM,PORCINE 10,000 UNIT in SODIUM CHLORIDE 0.9% 1,000 ML IRRIGATION PRN; HEPARIN SODIUM,PORCINE 2,500 UNIT in SODIUM CHLORIDE 0.9% 250 ML IRRIGATION PRN; NITROGLYCERIN SL TABS 0.4 MG TAB SUBLINGUAL PRN
[2021-12-04] MEDS: SODIUM CHLORIDE 0.9% 1,000 ML in EMPTY BAG 1 BAG IV SCH ×3 (08:35→21:33)
[2021-12-04 08:48] LABS: Glucose,Whole Blood 119 mg/dL (75-99)
[2021-12-04 09:10] LABS: Calcium 8.5 mg/dL (8.4-10.2)
[2021-12-04] MEDS ORDERED: HEPARIN SODIUM 1,000 UN/ML (10ML VL) ONE (09:26)
[2021-12-04 09:28] LABS: Potassium 4.3 mmol/L (3.5-5.1)
[2021-12-04] MEDS ORDERED: MIDAZOLAM 2 MG/2 ML VIAL IVP ONE (09:40)
[2021-12-04] MEDS ORDERED: LIDOCAINE 1% INJ 10MG/ML (5 ML VIAL-PF) SQ ONE (09:42)
[2021-12-04] MEDS ORDERED: VERAPAMIL SYRINGE (5 MG/10 ML) INTRAARTER ONE (09:44)
[2021-12-04] MEDS: HEPARIN SODIUM 1,000 UN/ML (10ML VL) IVP ONE ×3 (09:45→11:42)
[2021-12-04] MEDS ORDERED: HYDROmorphone 0.5 MG/0.5 ML SYRINGE IVP ONE ×2 (09:58→10:57)
[2021-12-04] MEDS ORDERED: fentaNYL (PF) 50 MCG/ML 2 ML AMP ONE (10:10)
[2021-12-04] MEDS: fentaNYL (PF) 50 MCG/ML 2 ML AMP IVP ONE ×2 (10:12→10:37)
[2021-12-04] MEDS ORDERED: IOPAMIDOL-370 125ML BTL INJ ONE (10:51)
[2021-12-04] MEDS ORDERED: LIDOCAINE 1% INJ 10MG/ML (30 ML VIAL-PF) SQ ONE (11:00)
[2021-12-04] MEDS ORDERED: niCARdipine 25 MG/10 ML VIAL ONE (11:53)
[2021-12-04] MEDS ORDERED: CLOPIDOGREL 75 MG TAB ONE (12:02)
[2021-12-04] MEDS ORDERED: IOPAMIDOL-370 100ML BTL INJ ONE (12:03)
[2021-12-04] MEDS ORDERED: CLOPIDOGREL 75 MG TAB PO ONE (12:03)
[2021-12-04] MEDS ORDERED: ZOLPIDEM 5 MG TAB PO PRN (12:12)
[2021-12-04] MEDS ORDERED: MAG HYDROX/AL HYDROX/SIMETH 30 ML CUP PO PRN (12:12)
[2021-12-04] MEDS ORDERED: RX INFO: IV CONTRAST WAS GIVEN 1 EACH MISC MISCELLANE PRN (12:12)
[2021-12-04] MEDS ORDERED: ATROPINE SULFATE 0.1 MG/ML 10ML SYRINGE IV PRN (12:12)
[2021-12-04] MEDS ORDERED: NITROGLYCERIN SL TABS 0.4 MG TAB SUBLINGUAL PRN (12:12)
[2021-12-04] MEDS ORDERED: SODIUM CHLORIDE 0.9% 1,000 ML in EMPTY BAG 1 BAG IV SCH (12:15)
--- NOTE | 2021-12-04 12:37 | P.PCN ---
Date of Procedure: 12/04/21 Operative Findings: PERCUTANEOUS CORONARY INTERVENTION Performing physician Maxim Santos M.D. Procedure Performed: 1. Successful stenting of the first diagonal branch which is a large diagonal using 3.0 x 23 mm Xience drug-eluting stent with an excellent angiographic results. 2. An atherectomy of the first diagonal branch using the orbital atherectomy device 3. Selective right common femoral artery angiogram 4. Ultrasound-guided access of the right common femoral artery 5. Extremely complex and long case Indication: This is a pleasant 71-year-old female patient was admitted to the hospital a few weeks ago with acute anterior ST patient myocardial infarction which she underwent a PCI of the LAD and was found to have heavily calcified lesion involving a large diagonal branch which work as a dual LAD system. She was brought today for an intervention Approach: Right common femoral artery and right radial artery Complications: None Level of Sedation: Moderate with a sedation length of 2 hours and 48 minutes Procedure Discussion: After obtaining an informed consent the patient was brought to the cardiac landscape laborer. The right radial artery was cannulated using puncture technique, a micropuncture wire passed easily then I placed a 6-Kiswahili 11 cm sheath at the right radial artery. Subsequently the patient was given 6000 use of heparin intra-venous and 2 mg of verapamil into arterial. I did engage the left main using an EBU 3.5 guiding catheter. I did wire the first diagonal branch using a run-through wire. Subsequently I did exchange my run-through wire into the atherectomy wire using microcatheter. After that I did 1 run of atherectomy of the first diagonal branch using a low-speed and atherectomy was for about 15 seconds. Subsequently attempting doing balloon angioplasty of the first diagonal branch was performed after I wire the diagonal again using a yevgeniy wire with a whisper wire. Balloon angioplasty initially was performed using 2.5 mm balloon and subsequently using 3 mm balloon. Attempting advancing the stent which was 3.0 x 23 mm was unsuccessful in spite of using the guide liner and also in spite of changing or wire into a mail man wire. The guide was not giving me a good support and because of that I decided to abort the right radial approach and go from the femoral artery. The right common femoral artery was cannulated using micropuncture technique, under ultrasound guidance, the micropuncture wire passed easily then place a 23 cm bright tip sheath at the right common femoral artery. After that I did engage the left main using an EBU 3.75 guiding catheter. After that guidewire and the first diagonal branch of the LAD using a whisper wire. I did attempt again balloon angioplasty and that was unsuccessful using 3 mm noncompliant balloon. Because of that I decided to do atherectomy of the first diagonal branch. I did do atherectomy after a change my run-through wire into atherectomy wire. I did atherectomy this time and her low-speed 3 times. After that I was able to the deliver 3.0 x 23 mm stent into the first diagonal branch where the stent was positioned under fluoroscopy guidance and deployed under its nominal pressure. The following angiogram showed an excellent angiographic results and the procedure was completed without any complications Postprocedure Management: 1. Dual antiplatelet therapy 2. Aggressive cholesterol control 3. Risk factors modification
[2021-12-04] MEDS: HYDROcodone/APAP 10-325MG 1 EACH TAB PO PRN (16:48)
[2021-12-04 17:45] LABS: Glucose,Whole Blood 149 mg/dL (75-99)
[2021-12-04 19:48] LABS: Glucose,Whole Blood 176 mg/dL (75-99)
[2021-12-04] MEDS ORDERED: METOPROLOL SUCCINATE (ER) 25 MG TAB.ER.24H PO SCH (21:00)
[2021-12-04] MEDS ORDERED: ATORVASTATIN 80 MG TAB PO SCH (21:00)
[2021-12-04] MEDS ORDERED: CLOPIDOGREL 75 MG TAB PO SCH (21:00)
[2021-12-04] MEDS ORDERED: SPIRONOLACTONE 25 MG TAB PO SCH (21:00)
[2021-12-04] MEDS ORDERED: ALPRAZolam 0.5 MG TAB PO SCH (21:00)
[2021-12-05] MEDS: SODIUM CHLORIDE 0.9% 1,000 ML in EMPTY BAG 1 BAG IV SCH (07:10)
[2021-12-05 07:35] LABS: Glucose,Whole Blood 140 mg/dL (75-99)
[2021-12-05] MEDS: HYDROcodone/APAP 10-325MG 1 EACH TAB PO PRN (08:25)
[2021-12-05 08:41] VITALS: BP 109/73; PULSE 77; RESP 18; TEMP 98.6
--- NOTE | 2021-12-05 08:55 | P.DS ---
Providers Attending physician: Maxim Santos Consults: 12/04/21 12:12 Consult Physician Routine Consulting Provider: [facility] Consult Reason/Comments: Post Interventional patient Do you want consulting provider notified?: Already Contacted Primary care physician: Gio Dong MD Hospital Course: The patient is a pleasant 71-year-old female patient with underwent yesterday successful stenting of a very large diagonal branch of the LAD with a good angiographic results with no complication from right radial and the right common femoral approach. The patient was seen this morning beach she is asymptomatic beach she is hemodynamically stable. The patient is going to be discharged home on dual antiplatelet therapy and he'll follow-up with the patient in the office as an outpatient Plan - Discharge Summary Discharge Rx Participant: No New Discharge Prescriptions: No Action Ferrous Sulfate [Iron (65 MG Elemental)] 325 mg PO DAILY Calcium Carbonate [Calcium] 600 mg PO DAILY HYDROcodone/APAP 10-325MG [[place] 10-325] 1 tab PO Q6H PRN PRN Reason: Pain lisinopriL [Zestril] 20 mg PO DAILY Furosemide [Lasix] 20 mg PO DAILY Metoprolol Succinate (ER) [Toprol XL] 12.5 mg PO HS Atorvastatin [Lipitor] 80 mg PO HS metFORMIN HCL 500 mg PO BID ALPRAZolam [Xanax] 0.5 mg PO HS Cholecalciferol [Vitamin D3 (25 Mcg = 1000 Iu)] 25 mcg PO DAILY Aspirin 81 mg PO DAILY 90 Days #90 tab Spironolactone [Aldactone] 25 mg PO HS Clopidogrel [Plavix] 75 mg PO HS Discharge Medication List ALPRAZolam [Xanax] 0.5 mg PO HS 11/13/21 [History] Calcium Carbonate [Calcium] 600 mg PO DAILY 11/13/21 [History] Cholecalciferol [Vitamin D3 (25 Mcg = 1000 Iu)] 25 mcg PO DAILY 11/13/21 [History] Ferrous Sulfate [Iron (65 MG Elemental)] 325 mg PO DAILY 11/13/21 [History] HYDROcodone/APAP 10-325MG [[place] 10-325] 1 tab PO Q6H PRN 11/13/21 [History] metFORMIN HCL 500 mg PO BID 11/13/21 [History] Aspirin 81 mg PO DAILY 90 Days #90 tab 11/15/21 [Rx] Furosemide [Lasix] 20 mg PO DAILY 12/03/21 [History] Spironolactone [Aldactone] 25 mg PO HS 12/03/21 [History] lisinopriL [Zestril] 20 mg PO DAILY 12/03/21 [History] Atorvastatin [Lipitor] 80 mg PO HS 12/04/21 [History] Clopidogrel [Plavix] 75 mg PO HS 12/04/21 [History] Metoprolol Succinate (ER) [Toprol XL] 12.5 mg PO HS 12/04/21 [History]
[2021-12-05] MEDS ORDERED: CHOLECALCIFEROL 25 MCG (1000 IU) TABLET PO SCH (09:00)
[2021-12-05] MEDS ORDERED: lisinopriL 20 MG TAB PO SCH (09:00)
[2021-12-05] MEDS ORDERED: FUROSEMIDE 20 MG TAB PO SCH (09:00)
[2021-12-05] MEDS ORDERED: ASPIRIN 81 MG PO SCH (09:00)
[2021-12-05] MEDS ORDERED: CALCIUM CARBONATE 500 MG CHEWABLE PO SCH (09:00)
[2021-12-05] MEDS ORDERED: FERROUS SULFATE 325 MG TAB PO SCH (09:00)
== END 2021-12-05 10:00 | disposition home or self-care (01) ==
LOC: CATHCVL 08:00 → 6NMEDSUR 12:37 → CATHCVL 12-05 10:00
PROVIDERS: ATTEND Internal Medicine Interventional Cardiology
DX: I25.10 Atherosclerotic heart disease of native coronary artery without angina pectoris (principal); I21.09 ST elevation (STEMI) myocardial infarction involving other coronary artery of anterior wall; Z79.02 Long term (current) use of antithrombotics/antiplatelets; Z79.82 Long term (current) use of aspirin; Z79.84 Long term (current) use of oral hypoglycemic drugs; Z95.5 Presence of coronary angioplasty implant and graft; Z20.822 Contact with and (suspected) exposure to COVID-19
CPT/HCPCS: 37227; 75710; 92924; 80048; 82565; 87635; C9602; C1769 ×7; C1760; C1887 ×5; C1894 ×2; C1725 ×3; C1724; C1874; J2250; J2001 ×2; J3010; J1644; J1170; Q9967 ×2

== ENCOUNTER 2021-12-28 09:39 | Inpatient (IN) | payer MEDICARE ==
--- NOTE | 2021-12-28 09:48 | ED ---
General Adult HPI - General Chief complaint: Shortness of Breath Stated complaint: sob Time Seen by Provider: 12/28/21 09:41 Source: patient, RN notes reviewed Mode of arrival: EMS Limitations: no limitations - History of Present Illness Initial comments: Patient is a pleasant 71-year-old female presenting to the emergency department with difficulty in breathing. Patient was in the hospital a month ago with heart attack. Patient states her breathing has progressively worsened since that time. Rare cough. No fever. Patient does have mild leg swelling however that is fairly chronic for her. No chest pain. Symptoms do worsen with exertion. - Related Data Home Medications Medication Instructions Recorded Confirmed ALPRAZolam [Xanax] 0.5 mg PO HS 11/13/21 12/04/21 Calcium Carbonate [Calcium] 600 mg PO DAILY 11/13/21 12/04/21 Cholecalciferol [Vitamin D3 (25 25 mcg PO DAILY 11/13/21 12/04/21 Mcg = 1000 Iu)] Ferrous Sulfate [Iron (65 MG 325 mg PO DAILY 11/13/21 12/04/21 Elemental)] HYDROcodone/APAP 10-325MG [[place] 1 tab PO Q6H PRN 11/13/21 12/04/21 10-325] Furosemide [Lasix] 20 mg PO DAILY 12/03/21 12/04/21 Spironolactone [Aldactone] 25 mg PO HS 12/03/21 12/04/21 lisinopriL [Zestril] 20 mg PO DAILY 12/03/21 12/04/21 Atorvastatin [Lipitor] 80 mg PO HS 12/04/21 12/04/21 Clopidogrel [Plavix] 75 mg PO HS 12/04/21 12/04/21 Metoprolol Succinate (ER) [Toprol 12.5 mg PO HS 12/04/21 12/04/21 XL] Previous Rx's Medication Instructions Recorded Aspirin 81 mg PO DAILY 90 Days #90 tab 11/15/21 Allergies Allergy/AdvReac Type Severity Reaction Status Date / Time adhesive tape AdvReac skin Verified 12/03/21 08:19 blisters morphine AdvReac Hallucinati Verified 11/13/21 15:58 ons Review of Systems ROS Statement: Those systems with pertinent positive or pertinent negative responses have been documented in the HPI. ROS Other: All systems not noted in ROS Statement are negative. Constitutional: Denies: fever Eyes: Denies: eye pain ENT: Denies: ear pain Respiratory: Reports: as per HPI, dyspnea Cardiovascular: Denies: chest pain Endocrine: Denies: fatigue Gastrointestinal: Denies: abdominal pain Genitourinary: Denies: dysuria Musculoskeletal: Denies: back pain Skin: Denies: rash Neurological: Denies: weakness Past Medical History Past Medical History: Heart Failure, Diabetes Mellitus, Hyperlipidemia, Hypertension, Myocardial Infarction ([place]) Additional Past Medical History / Comment(s): Patient told she is "borderline diabetic", recent adm. w/chest pain & had Heart attack per pt. Last Myocardial Infarction Date:: 11-13-21 History of Any Multi-Drug Resistant Organisms: None Reported Past Surgical History: Adenoidectomy, Appendectomy, Bariatric Surgery, Cholecystectomy, Heart Catheterization With Stent, Joint Replacement, Orthopedic Surgery, Tonsillectomy, Tubal Ligation Additional Past Surgical History / Comment(s): left knee replacement, left hip replacement. Bone spurs removed left foot, gastric bypass, tummy tuck Past Anesthesia/Blood Transfusion Reactions: No Reported Reaction Date of Last Stent Placement:: 11-13-21 Past Psychological History: Anxiety, Depression Smoking Status: Never smoker Past Alcohol Use History: None Reported Past Drug Use History: None Reported General Exam Limitations: no limitations General appearance: alert, in no apparent distress Head exam: Present: normocephalic Eye exam: Present: normal appearance Neck exam: Present: normal inspection Respiratory exam: Present: decreased breath sounds (Bilateral bases) Cardiovascular Exam: Present: regular rate, normal rhythm GI/Abdominal exam: Present: soft. Absent: tenderness Extremities exam: Present: pedal edema. Absent: calf tenderness Neurological exam: Present: alert Psychiatric exam: Present: normal affect, normal mood Skin exam: Present: normal color Course Vital Signs 12/28/21 12/28/21 09:41 11:13 Temperature 99.2 F Pulse Rate 121 H 112 H Respiratory 30 H 26 H Rate Blood Pressure 135/94 117/65 O2 Sat by Pulse 98 98 Oximetry EKG Findings - EKG Comments: EKG Findings:: Sinus rhythm at 67. CT 181. QRS 95. QT 310. QTc 325. Right axis. Septal Q waves. No acute ST change. Medical Decision Making - Medical Decision Making Patient reevaluated and updated. Case was discussed with Dr. He, who will admit covering hospital call. Cardiology will be placed on consult. Patient will need V/Q scan. - Lab Data Result diagrams: 12/28/21 10:39 Lab Results 12/28/21 12/28/21 12/28/21 Range/Units 10:21 10:21 10:39 WBC 10.3 (3.8-10.6) k/uL RBC 4.20 (3.80-5.40) m/uL Hgb 12.2 (11.4-16.0) gm/dL Hct 39.2 (34.0-46.0) % MCV 93.4 (80.0-100.0) fL MCH 29.0 (25.0-35.0) pg MCHC 31.1 (31.0-37.0) g/dL RDW 17.6 H (11.5-15.5) % Plt Count 257 (150-450) k/uL MPV 8.0 Neutrophils % 90 % Lymphocytes % 5 % Monocytes % 4 % Eosinophils % 1 % Basophils % 1 % Neutrophils # 9.2 H (1.3-7.7) k/uL Lymphocytes # 0.5 L (1.0-4.8) k/uL Monocytes # 0.4 (0-1.0) k/uL Eosinophils # 0.1 (0-0.7) k/uL Basophils # 0.1 (0-0.2) k/uL Hypochromasia Marked Anisocytosis Slight PT (9.0-12.0) sec INR (<1.2) APTT (22.0-30.0) sec D-Dimer (<0.60) mg/L FEU Plasma Lactic Acid Myles (0.7-2.0) mmol/L NT-Pro-B Natriuret Pep pg/mL Coronavirus (PCR) Not Detected (Not Detectd) Influenza Type A RNA Not Detected (Not Detectd) Influenza Type B (PCR) Not Detected (Not Detectd) 12/28/21 12/28/21 12/28/21 Range/Units 10:39 10:39 10:39 WBC (3.8-10.6) k/uL RBC (3.80-5.40) m/uL Hgb (11.4-16.0) gm/dL Hct (34.0-46.0) % MCV (80.0-100.0) fL MCH (25.0-35.0) pg MCHC (31.0-37.0) g/dL RDW (11.5-15.5) % Plt Count (150-450) k/uL MPV Neutrophils % % Lymphocytes % % Monocytes % % Eosinophils % % Basophils % % Neutrophils # (1.3-7.7) k/uL Lymphocytes # (1.0-4.8) k/uL Monocytes # (0-1.0) k/uL Eosinophils # (0-0.7) k/uL Basophils # (0-0.2) k/uL Hypochromasia Anisocytosis PT 11.9 (9.0-12.0) sec INR 1.1 (<1.2) APTT 22.8 (22.0-30.0) sec D-Dimer 6.19 H (<0.60) mg/L FEU Plasma Lactic Acid Myles 2.5 H* (0.7-2.0) mmol/L NT-Pro-B Natriuret Pep 8840 pg/mL Coronavirus (PCR) (Not Detectd) Influenza Type A RNA (Not Detectd) Influenza Type B (PCR) (Not Detectd) - Radiology Data Radiology results: image reviewed (Chest x-ray shows CHF, left effusion) Disposition Clinical Impression: Congestive heart failure Disposition: ADMITTED IP TO THIS HOSP Is patient prescribed a controlled substance at d/c from ED?: No Referrals: Nonstaff,Physician [Primary Care Provider] - 1-2 days Time of Disposition: 12:43
--- NOTE | 2021-12-28 11:13 | XR ---
EXAMINATION TYPE: XR chest 2V DATE OF EXAM: 12/28/2021 COMPARISON: NONE HISTORY: Difficulty breathing, shortness of breath TECHNIQUE: Frontal and lateral views of the chest are obtained. FINDINGS: Interstitium and central vascularity are prominent. Heart is enlarged. There is blunting t he left costophrenic angle, the left hemidiaphragm is obscured due to increased retrocardiac density. There are overlying artifacts. IMPRESSION: Correlate for pulmonary venous hypertension and interstitial edema, congestive heart shashi lure, probable left pleural effusion and associated edema versus atelectasis, difficult to exclude pn eumonia
[2021-12-28] MEDS ORDERED: HYDROcodone/APAP 5-325MG 1 EACH TAB PO STA (11:19)
[2021-12-28 11:26] LABS: Anisocytosis Slight; Basophils # (A) 0.1 k/uL (0-0.2); Basophils % (A) 1 %; Eosinophils # (A) 0.1 k/uL (0-0.7); Eosinophils % (A) 1 %; HCT 39.2 % (34.0-46.0); HGB 12.2 gm/dL (11.4-16.0); Hypochromasia Marked; Lymphocytes # (A) 0.5 k/uL (1.0-4.8); Lymphocytes % (A) 5 %; MCHC 31.1 g/dL (31.0-37.0); MCV 93.4 fL (80.0-100.0); Monocytes # (A) 0.4 k/uL (0-1.0); Monocytes % (A) 4 %; Neutrophils # (A) 9.2 k/uL (1.3-7.7); Neutrophils % (A) 90 %; Platelet Count 257 k/uL (150-450); RDW 17.6 % (11.5-15.5); WBC 10.3 k/uL (3.8-10.6)
[2021-12-28 11:50] LABS: INR 1.1 (<1.2); Partial Thromboplastin Time 22.8 sec (22.0-30.0); Prothrombin Time 11.9 sec (9.0-12.0)
[2021-12-28] MEDS ORDERED: ASPIRIN 325 MG TAB PO STA (12:43)
[2021-12-28] MEDS ORDERED: FUROSEMIDE 10 MG/ML 4 ML VIAL IV SCH (12:45)
[2021-12-28 13:12] LABS: ALT 10 U/L (4-34); AST 22 U/L (14-36); African American GFR (CKD) >90 (>60 ml/min/1.73 sqM); Albumin 3.7 g/dL (3.5-5.0); Alkaline Phosphatase 195 U/L (38-126); Anion Gap 8 mmol/L; Blood Urea Nitrogen 12 mg/dL (7-17); Calcium 8.6 mg/dL (8.4-10.2); Carbon Dioxide 26 mmol/L (22-30); Chloride 102 mmol/L (98-107); Glucose 129 mg/dL (74-99); Non-African American GFR(CKD) >90 (>60 ml/min/1.73 sqM); Potassium 4.1 mmol/L (3.5-5.1); Sodium 136 mmol/L (137-145); Total Bilirubin 2.5 mg/dL (0.2-1.3); Total Protein 7.3 g/dL (6.3-8.2)
[2021-12-28] MEDS: NITROGLYCERIN OINT 1 INCH/GM PACKET TOPICAL SCH ×3 (13:59→20:59)
[2021-12-28] MEDS: lisinopriL 20 MG TAB PO SCH (17:12)
--- NOTE | 2021-12-28 17:14 | CT ---
EXAMINATION TYPE: CT chest angio for PE DATE OF EXAM: 12/28/2021 COMPARISON: None HISTORY: SOB, CHF CT DLP: 767 mGycm Automated exposure control for dose reduction was used. CONTRAST: Performed with IV Contrast, patient injected with 100 mL of Isovue 370. Images obtained from the thoracic inlet through the diaphragm with IV contrast. There are Three-D pos tprocessed images. There are moderate-sized bilateral pleural effusions. Heart is enlarged. No pericardial effusion. The re are no hilar masses. No mediastinal adenopathy. There is normal contrast opacification of the pulmonary arteries. No filling defect. There is some pu lmonary interstitial edema. Bony thorax is intact. No compression fracture. Sternum appears intact. There is moderate arthritic c hange in the shoulder joints. There is some contrast refluxed into the inferior vena cava and the hep atic veins. IMPRESSION: No evidence of pulmonary embolism. Congestive heart failure with pleural effusions and pulmonary interstitial and airspace edema. Atelec tasis at the lung bases.
[2021-12-28] MEDS: FUROSEMIDE 10 MG/ML 4 ML VIAL IV SCH (17:38)
[2021-12-28] MEDS ORDERED: HEPARIN SODIUM 1,000 UN/ML (10ML VL) IV ONE (20:22)
[2021-12-28] MEDS ORDERED: HEPARIN SODIUM 1,000 UN/ML (10ML VL) IV PRN (20:22)
[2021-12-28] MEDS ORDERED: HEPARIN SOD,PORK IN 0.45% NACL 25,000 UNIT in 0.45% NACL 1 250ML.BAG IV SCH (20:30)
[2021-12-28] MEDS: CLOPIDOGREL 75 MG TAB PO SCH (20:59)
[2021-12-28] MEDS: ATORVASTATIN 80 MG TAB PO SCH (20:59)
[2021-12-28] MEDS: METOPROLOL SUCCINATE (ER) 25 MG TAB.ER.24H PO SCH (20:59)
[2021-12-28] MEDS: SPIRONOLACTONE 25 MG TAB PO SCH (20:59)
[2021-12-28] MEDS: HYDROcodone/APAP 10-325MG 1 EACH TAB PO PRN (23:03)
[2021-12-28 23:20] LABS: INR 1.4 (<1.2); Prothrombin Time 14.8 sec (9.0-12.0)
[2021-12-28 23:25] LABS: Anisocytosis Slight; Basophils % (A) 0 %; Eosinophils % (A) 0 %; HCT 36.2 % (34.0-46.0); HGB 11.3 gm/dL (11.4-16.0); Hypochromasia Marked; Lymphocytes # (A) 0.5 k/uL (1.0-4.8); Lymphocytes % (A) 5 %; MCHC 31.2 g/dL (31.0-37.0); MCV 92.9 fL (80.0-100.0); Mean Platelet Volume 7.8; Monocytes # (A) 0.4 k/uL (0-1.0); Monocytes % (A) 3 %; Neutrophils # (A) 9.2 k/uL (1.3-7.7); Neutrophils % (A) 90 %; Platelet Count 269 k/uL (150-450); RBC 3.89 m/uL (3.80-5.40); RDW 17.9 % (11.5-15.5); WBC 10.2 k/uL (3.8-10.6)
--- NOTE | 2021-12-29 01:25 | P.HPIM ---
History of Present Illness H&P Date: 12/28/21 Chief Complaint: Shortness of breath patient is a 71-year-old malewith a known history of hypertension, hyperlipidemia, history of [place] and prior history of cardiac catheterization with stent placement, coronary artery disease, osteoarthritis, anxiety/depression and other medical problems presents to ER with complaints of shortness of breath started since morning along with chest discomfort. Patient did have prior coronary disease showed occluded LAD with chronic total occlusion of the circumflex artery and right coronary artery with heavy calcified vessels. Patient is also having increasing leg swelling. No fever no chills. No cough or sputum production. On admission chest x-ray showed correlate for pulmonary vascular hypertension and interstitial edema. Congestive heart failure probable left pleural effusion and associated edema versus atelectasis. Difficult to exclude pneumonia. Laboratory showed WBC 10.3 hemoglobin 12.1 platelets 257 lymphocytes 0.5 D-dimer was elevated. 6.19 Sodium 136 potassium 4.1 chloride 102 bicarb is 26 BUN 12 and creatinine 0.59 blood sugar is 129 lactic acid 2.5 Troponin 0.089 and proBNP 8840. Protein level 3.7 and coronavirus PCR not detected. Patient was tachycardic and tachypneic on admission. CT angio of the chest showed no evidence of pulmonary embolism. Congestive heart failure with pleural effusions and pulmonary interstitial and airspace edema. Review of Systems Constitutional: Patient denies any fever or chills . no Generalized weakness. Abdomen: Patient denied any nausea or vomiting or abd. pain Cardiovascular: Patient did have chest tightness. Shortness of breath. Denies leg swelling. No palpitations. Respiratory: patient denied any cough is from production. Does have shortness of breath Neurologic: Patient denied any numbness or tingling headache. Musculoskeletal: Patient denies any complaints of joint swelling or deformity. Skin: Negative Psychiatric: Negative Endocrine: No heat or cold intolerance. No recent weight gain. Genitourinary: No dysuria or hematuria. All other 14 point ROS negative except the above Past Medical History Past Medical History: Heart Failure, Diabetes Mellitus, Hyperlipidemia, Hypertension, Myocardial Infarction ([place]) Additional Past Medical History / Comment(s): Patient told she is "borderline diabetic", recent adm. w/chest pain & had Heart attack per pt. Last Myocardial Infarction Date:: 11-13-21 History of Any Multi-Drug Resistant Organisms: None Reported Past Surgical History: Adenoidectomy, Appendectomy, Bariatric Surgery, Cholecystectomy, Heart Catheterization With Stent, Joint Replacement, Orthopedic Surgery, Tonsillectomy, Tubal Ligation Additional Past Surgical History / Comment(s): left knee replacement, left hip replacement. Bone spurs removed left foot, gastric bypass, tummy tuck Past Anesthesia/Blood Transfusion Reactions: No Reported Reaction Date of Last Stent Placement:: 11-13-21 Past Psychological History: Anxiety, Depression Smoking Status: Never smoker Past Alcohol Use History: None Reported Past Drug Use History: None Reported Medications and Allergies Home Medications Medication Instructions Recorded Confirmed Type ALPRAZolam [Xanax] 0.5 mg PO HS 11/13/21 12/28/21 History Calcium Carbonate [Calcium] 600 mg PO DAILY 11/13/21 12/28/21 History Cholecalciferol [Vitamin D3 (25 25 mcg PO DAILY 11/13/21 12/28/21 History Mcg = 1000 Iu)] Ferrous Sulfate [Iron (65 MG 325 mg PO DAILY 11/13/21 12/28/21 History Elemental)] HYDROcodone/APAP 10-325MG [[place] 1 tab PO Q6H PRN 11/13/21 12/28/21 History 10-325] Furosemide [Lasix] 20 mg PO DAILY 12/03/21 12/28/21 History Spironolactone [Aldactone] 12.5 mg PO HS 12/03/21 12/28/21 History Atorvastatin [Lipitor] 80 mg PO HS 12/04/21 12/28/21 History Clopidogrel [Plavix] 75 mg PO HS 12/04/21 12/28/21 History Metoprolol Succinate (ER) [Toprol 12.5 mg PO HS 12/04/21 12/28/21 History XL] Aspirin 81 mg PO HS 12/28/21 12/28/21 History Allergies Allergy/AdvReac Type Severity Reaction Status Date / Time adhesive tape AdvReac skin Verified 12/28/21 12:59 blisters morphine AdvReac Hallucinati Verified 12/28/21 12:59 ons Physical Exam Vitals: Vital Signs Temp Pulse Resp BP Pulse Ox 12/28/21 11:13 112 H 26 H 117/65 98 12/28/21 09:41 99.2 F 121 H 30 H 135/94 98 Intake and Output 12/28/21 12/28/21 12/28/21 06:59 14:59 22:59 Other: Weight 133.628 kg PHYSICAL EXAMINATION: Patient is lying in the bed comfortably, no acute distress, awake alert and oriented.. HEENT: Normocephalic. Neck is supple. Pupils reactive. Nostrils clear. Oral cavity is moist. Neck reveals no JVD, carotid bruits, or thyromegaly. CHEST EXAMINATION: Trachea is central. Symmetrical expansion. Bibasilar diminished sounds.. CARDIAC: Normal S1, S2 with no gallops. No murmurs ABDOMEN: Soft. Bowel sounds present. Nontender. No organomegaly. No abdominal bruits. Extremities: Bilateral lower extremity 3+ edema. No clubbing or cyanosis Neurologically awake, alert, oriented x3 with well-coordinated movements. No focal deficits noted Skin: No rash or skin lesions. Psychiatric: Coperative. Nonsuicidal, anxious. Musculoskeletal: No joint swelling or deformity. Normal range of motion. Results CBC & Chem 7: 12/29/21 02:57 12/29/21 02:57 Labs: Abnormal Lab Results - Last 24 Hours (Table) 12/28/21 12/28/21 12/28/21 Range/Units 10:39 10:39 10:39 RDW 17.6 H (11.5-15.5) % Neutrophils # 9.2 H (1.3-7.7) k/uL Lymphocytes # 0.5 L (1.0-4.8) k/uL D-Dimer 6.19 H (<0.60) mg/L FEU Sodium (137-145) mmol/L Glucose (74-99) mg/dL Plasma Lactic Acid Myles 2.5 H* (0.7-2.0) mmol/L Total Bilirubin (0.2-1.3) mg/dL Alkaline Phosphatase (38-126) U/L Troponin I (0.000-0.034) ng/mL 12/28/21 12/28/21 Range/Units 12:26 12:26 RDW (11.5-15.5) % Neutrophils # (1.3-7.7) k/uL Lymphocytes # (1.0-4.8) k/uL D-Dimer (<0.60) mg/L FEU Sodium 136 L (137-145) mmol/L Glucose 129 H (74-99) mg/dL Plasma Lactic Acid Myles (0.7-2.0) mmol/L Total Bilirubin 2.5 H (0.2-1.3) mg/dL Alkaline Phosphatase 195 H (38-126) U/L Troponin I 0.089 H* (0.000-0.034) ng/mL Thrombosis Risk Factor Assmnt - DVT/VTE Prophylaxis DVT/VTE Prophylaxis: Pharmacologic Prophylaxis ordered Assessment and Plan Assessment: Acute on chronic congestive heart failure Acute non-ST elevated [place] Lactic acidosis Acute hypoxic aspiratory failure requiring oxygen 2 L via nasal cannula. Prior history of cardiac catheterization and stent placement Hypertension Hyperlipidemia Diabetes type 2 [id number] Anxiety/depression DVT prophylaxis Plan: Patient was started on heparin drip and current with telemetry monitoring and serial EKG and troponins. Continue the aspirin and Plavix and statins. Current with metoprolol. Patient will be continued on IV diuresis with Lasix 40 mg every 12 and follow-up renal function. Cardiology is on board. Prognosis is guarded. Discussed with her family member at bedside in detail. Time with Patient: Greater than 30
[2021-12-29 03:49] LABS: Anisocytosis Slight; Basophils % (A) 0 %; Eosinophils % (A) 0 %; HCT 34.7 % (34.0-46.0); HGB 11.1 gm/dL (11.4-16.0); Hypochromasia Marked; Lymphocytes # (A) 0.6 k/uL (1.0-4.8); Lymphocytes % (A) 8 %; MCH 29.7 pg (25.0-35.0); MCV 92.8 fL (80.0-100.0); Monocytes # (A) 0.2 k/uL (0-1.0); Monocytes % (A) 3 %; Neutrophils % (A) 87 %; Platelet Count 258 k/uL (150-450); RBC 3.74 m/uL (3.80-5.40); RDW 18.2 % (11.5-15.5)
[2021-12-29 04:00] LABS: African American GFR (CKD) >90 (>60 ml/min/1.73 sqM); Anion Gap 6 mmol/L; Blood Urea Nitrogen 14 mg/dL (7-17); Carbon Dioxide 28 mmol/L (22-30); Chloride 98 mmol/L (98-107); Glucose 140 mg/dL (74-99); Non-African American GFR(CKD) 85 (>60 ml/min/1.73 sqM); Potassium 3.9 mmol/L (3.5-5.1); Sodium 132 mmol/L (137-145)
[2021-12-29] MEDS: FUROSEMIDE 10 MG/ML 4 ML VIAL IV SCH ×2 (05:05→17:46)
[2021-12-29 06:52] LABS: INR 1.2 (<1.2); Partial Thromboplastin Time 28.9 sec (22.0-30.0)
[2021-12-29] MEDS: HYDROcodone/APAP 10-325MG 1 EACH TAB PO PRN ×2 (08:50→20:25)
[2021-12-29] MEDS: lisinopriL 20 MG TAB PO SCH (08:50)
[2021-12-29] MEDS: ASPIRIN 325 MG TAB PO SCH (08:50)
[2021-12-29] MEDS: NITROGLYCERIN OINT 1 INCH/GM PACKET TOPICAL SCH ×2 (08:56→12:33)
[2021-12-29] MEDS ORDERED: FUROSEMIDE 10 MG/ML 4 ML VIAL IV STA (11:13)
--- NOTE | 2021-12-29 11:16 | P.CRDCN ---
History of Present Illness History of present illness: 71-year-old lady with history of coronary artery disease status post cardiac catheterization and angioplasty of an acutely occluded left anterior descending coronary artery with chronic total occlusion of the circumflex coronary artery and right coronary artery with heavily calcified vessels who sees Dr. Quispe for her cardiac needs came in to hospital with shortness of breath and chest di scomfort. She ruled in for myocardial infarction. Troponin and initial presentation was 0.08 subsequently came back at 1.6 and 5.6 at the time of my evaluation she appears comfortable at rest and free of chest pain. I advised her to undergo cardiac catheterization to rule out reocclusion of the LAD. In EKG shows evidence of prior anterolateral myocardial infarction. Her creatinine is normal. Patient is an optimal medical therapy including aspirin Plavix Lipitor and Toprol along with Aldactone. Her chest x-ray shows evidence of congestive heart failure with pleural effusions she received diuretics with improvement in his symptoms. I will give her another dose of Lasix this morning. Patient understands risk benefits and alternatives for cardiac cath. We're going to do a femoral catheter Dr. Quispe had problems doing angioplasty radially. Review of systems: 14 out of 14 review of systems has been performed pertinent set as documented in history of presenting illness General: The patient is awake and alert, in no distress, and does not appear acutely ill. Skin: Skin is warm and dry and no rashes or lesions are noted. Eye: Pupils are equal, round and reactive to light, extra-ocular movements are intact; there is normal conjunctiva bilaterally. Ears, nose, mouth and throat: There are moist mucous membranes and no oral lesions. Neck: The neck is supple, there is no tenderness or JVD. Cardiovascular: There is a regular rate and rhythm. No murmur, rub or gallop is appreciated. Respiratory: Diminished air entry bilaterally I do not hear any crackles or rhonchi. Gastrointestinal: Soft, non-distended, non-tender abdomen without masses or organomegaly noted. There is no rebound or guarding present. Bowel sounds are unremarkable. Back: There is no tenderness to palpation in the midline. There is no obvious deformity. Musculoskeletal: Normal ROM, no tenderness, There is no pedal edema. There is no calf tenderness or swelling. Extremities: Bilateral moderate edema chronic stasis changes pigmentation Vascular: Femoral pulse is normal. Posterior tibial pulses are normal .Dorsalis pedis is palpable. Neurological: CN II-XII intact. There are no obvious motor or sensory deficits. Speech is normal. Psychiatric: Cooperative, appropriate mood & affect, normal judgment. Lab data showed an elevated troponin hemoglobin is 11.3 creatinine is normal Assessment and plan: Acute non-ST segment elevation AL Ischemic cardiomyopathy with acute exacerbation of chronic systolic heart failure I will schedule a cardiac catheterization today Past Medical History Past Medical History: Heart Failure, Diabetes Mellitus, Hyperlipidemia, Hypertension, Myocardial Infarction (AL) Additional Past Medical History / Comment(s): Patient told she is "borderline diabetic", recent adm. w/chest pain & had Heart attack per pt. Last Myocardial Infarction Date:: 11-13-21 History of Any Multi-Drug Resistant Organisms: None Reported Past Surgical History: Adenoidectomy, Appendectomy, Bariatric Surgery, Cholecystectomy, Heart Catheterization With Stent, Joint Replacement, Orthopedic Surgery, Tonsillectomy, Tubal Ligation Additional Past Surgical History / Comment(s): left knee replacement, left hip replacement. Bone spurs removed left foot, gastric bypass, tummy tuck Past Anesthesia/Blood Transfusion Reactions: No Reported Reaction Date of Last Stent Placement:: 11-13-21 Past Psychological History: Anxiety, Depression Smoking Status: Never smoker Past Alcohol Use History: None Reported Past Drug Use History: None Reported Medications and Allergies Home Medications Medication Instructions Recorded Confirmed Type ALPRAZolam [Xanax] 0.5 mg PO HS 11/13/21 12/28/21 History Calcium Carbonate [Calcium] 600 mg PO DAILY 11/13/21 12/28/21 History Cholecalciferol [Vitamin D3 (25 25 mcg PO DAILY 11/13/21 12/28/21 History Mcg = 1000 Iu)] Ferrous Sulfate [Iron (65 MG 325 mg PO DAILY 11/13/21 12/28/21 History Elemental)] HYDROcodone/APAP 10-325MG [[place] 1 tab PO Q6H PRN 11/13/21 12/28/21 History 10-325] Furosemide [Lasix] 20 mg PO DAILY 12/03/21 12/28/21 History Spironolactone [Aldactone] 12.5 mg PO HS 12/03/21 12/28/21 History Atorvastatin [Lipitor] 80 mg PO HS 12/04/21 12/28/21 History Clopidogrel [Plavix] 75 mg PO HS 12/04/21 12/28/21 History Metoprolol Succinate (ER) [Toprol 12.5 mg PO HS 12/04/21 12/28/21 History XL] Aspirin 81 mg PO HS 12/28/21 12/28/21 History Allergies Allergy/AdvReac Type Severity Reaction Status Date / Time adhesive tape AdvReac skin Verified 12/28/21 12:59 blisters morphine AdvReac Hallucinati Verified 12/28/21 12:59 ons Physical Exam Vitals: Vital Signs Temp Pulse Pulse Pulse Resp BP BP 12/29/21 08:00 98.0 F 70 18 144/78 12/29/21 04:00 98.1 F 79 16 93/56 12/29/21 00:00 98.5 F 93 18 101/68 12/28/21 20:00 98.2 F 97 18 123/80 12/28/21 16:00 98.0 F 77 18 144/78 12/28/21 13:36 98.0 F 80 18 111/67 12/28/21 11:13 112 H 26 H 117/65 Pulse Ox 12/29/21 08:00 98 12/29/21 04:00 95 12/29/21 00:00 94 L 12/28/21 20:00 96 12/28/21 16:00 97 12/28/21 13:36 94 L 12/28/21 11:13 98 Intake and Output 12/28/21 12/29/21 12/29/21 22:59 06:59 14:59 Intake Total 130 51.550 32.317 Output Total 200 400 Balance -70 -348.450 32.317 Intake: IV 10 Invasive Line 1 10 Intake, IV Titration 51.550 32.317 Amount Heparin Sod,Pork in 0.45% 51.550 32.317 NaCl 25,000 unit In 0.45 % NaCl 1 250ml.bag @ 7. 4834 UNITS/KG/HR 10 mls/ hr IV .[facility]H [facility] Rx#: [id number] Oral 120 Output: Urine 200 400 Other: Voiding Method External Catheter External Catheter External Catheter # Voids 3 Weight 102 kg Results 12/29/21 02:57 12/29/21 02:57 Cardiac Enzymes 12/28/21 12/28/21 12/28/21 Range/Units 12:26 12:26 15:32 AST 22 (14-36) U/L Troponin I 0.089 H* 1.690 H* (0.000-0.034) ng/mL 12/28/21 Range/Units 18:46 AST (14-36) U/L Troponin I 5.600 H* (0.000-0.034) ng/mL Coagulation 12/28/21 12/28/21 12/29/21 Range/Units 10:39 22:27 05:56 PT 11.9 14.8 H 13.0 H (9.0-12.0) sec APTT 22.8 106.0 H* 28.9 (22.0-30.0) sec CBC 12/28/21 12/28/21 12/29/21 Range/Units 10:39 22:30 02:57 WBC 10.3 10.2 8.0 (3.8-10.6) k/uL RBC 4.20 3.89 3.74 L (3.80-5.40) m/uL Hgb 12.2 11.3 L 11.1 L (11.4-16.0) gm/dL Hct 39.2 36.2 34.7 (34.0-46.0) % Plt Count 257 269 258 (150-450) k/uL Comprehensive Metabolic Panel 12/28/21 12/29/21 Range/Units 12:26 02:57 Sodium 136 L 132 L (137-145) mmol/L Potassium 4.1 3.9 (3.5-5.1) mmol/L Chloride 102 98 (98-107) mmol/L Carbon Dioxide 26 28 (22-30) mmol/L BUN 12 14 (7-17) mg/dL Creatinine 0.59 0.71 (0.52-1.04) mg/dL Glucose 129 H 140 H (74-99) mg/dL Calcium 8.6 8.0 L (8.4-10.2) mg/dL AST 22 (14-36) U/L ALT 10 (4-34) U/L Alkaline Phosphatase 195 H (38-126) U/L Total Protein 7.3 (6.3-8.2) g/dL Albumin 3.7 (3.5-5.0) g/dL Current Medications Generic Name Dose Route Start Last Admin Trade Name Freq PRN Reason Stop Dose Admin Hydrocodone Bitart/Acetaminophen 1 each 12/28/21 12:46 12/29/21 08:50 Hydrocodone/Apap 10-325mg 1 Each Tab PO 1 each Q6H PRN Administration Pain Aspirin 325 mg 12/29/21 09:00 12/29/21 08:50 Aspirin 325 Mg Tab PO 325 mg DAILY [facility] Administration Atorvastatin Calcium 80 mg 12/28/21 21:00 12/28/21 20:59 Atorvastatin 80 Mg Tab PO 80 mg HS [facility] Administration Clopidogrel Bisulfate 75 mg 12/28/21 21:00 12/28/21 20:59 Clopidogrel 75 Mg Tab PO 75 mg HS [facility] Administration Furosemide 40 mg 12/28/21 16:30 12/29/21 05:05 Furosemide 10 Mg/Ml 4 Ml Vial IV 40 mg Q12H [facility] Administration Heparin Sodium (Porcine) 0 unit 12/28/21 20:22 12/29/21 06:59 Heparin Sodium 1,000 Un/Ml (10ml Vl) IV 4,000 unit PER PROTOCOL PRN Administration Low PTT Protocol Heparin Sodium/Sodium Chloride 250 mls @ 10 mls/hr 12/28/21 20:30 12/29/21 10:13 25,000 unit/ Sodium Chloride IV 0 units/kg/hr .Q24H [facility] 0 mls/hr Titration Protocol 7.4834 UNITS/KG/HR Lisinopril 20 mg 12/28/21 13:00 12/29/21 08:50 Lisinopril 20 Mg Tab PO 20 mg DAILY [facility] Administration Metoprolol Succinate 12.5 mg 12/28/21 21:00 12/28/21 20:59 Metoprolol Succinate (Er) 25 Mg Tab.Er.24h PO 12.5 mg HS [facility] Administration Nitroglycerin 1 inch 12/28/21 13:00 12/29/21 08:56 Nitroglycerin Oint 1 Inch/Gm Packet TOPICAL 1 inch QID [facility] Administration Spironolactone 25 mg 12/28/21 21:00 12/28/21 20:59 Spironolactone 25 Mg Tab PO 25 mg HS [facility] Administration Intake and Output 12/28/21 12/29/21 12/29/21 22:59 06:59 14:59 Intake Total 130 51.550 32.317 Output Total 200 400 Balance -70 -348.450 32.317 Intake: IV 10 Invasive Line 1 10 Intake, IV Titration 51.550 32.317 Amount Heparin Sod,Pork in 0.45% 51.550 32.317 NaCl 25,000 unit In 0.45 % NaCl 1 250ml.bag @ 7. 4834 UNITS/KG/HR 10 mls/ hr IV .Q24H [facility] Rx#: [id number] Oral 120 Output: Urine 200 400 Other: Voiding Method External Catheter External Catheter External Catheter # Voids 3 Weight 102 kg 12/29/21 02:57 12/29/21 02:57
[2021-12-29] MEDS ORDERED: IV FLUID CONTINUATION 900 ML IV ONE ×4 (11:23)
[2021-12-29] MEDS ORDERED: fentaNYL (PF) 50 MCG/ML 2 ML AMP ONE ×2 (11:36→13:17)
[2021-12-29] MEDS ORDERED: MIDAZOLAM 2 MG/2 ML VIAL IV ONE (11:57)
[2021-12-29] MEDS: LIDOCAINE 1% INJ 10MG/ML (30 ML VIAL-PF) SQ ONE ×2 (11:58→12:08)
[2021-12-29] MEDS: fentaNYL (PF) 50 MCG/ML 2 ML AMP IV ONE ×3 (11:58→13:00)
[2021-12-29] MEDS ORDERED: HEPARIN SODIUM 1,000 UN/ML (10ML VL) ONE (12:23)
[2021-12-29] MEDS: HEPARIN SODIUM 1,000 UN/ML (10ML VL) IV ONE ×5 (12:24→13:21)
[2021-12-29] MEDS ORDERED: IOPAMIDOL-370 125ML BTL INJ ONE (12:51)
[2021-12-29] MEDS ORDERED: fentaNYL (PF) 50 MCG/ML 2 ML AMP IV ONE (13:18)
[2021-12-29] MEDS ORDERED: IOPAMIDOL-370 100ML BTL INJ ONE (13:32)
[2021-12-29] MEDS ORDERED: ATROPINE SULFATE 0.1 MG/ML 10ML SYRINGE IV PRN (14:01)
[2021-12-29] MEDS ORDERED: NITROGLYCERIN SL TABS 0.4 MG TAB SUBLINGUAL PRN (14:01)
[2021-12-29] MEDS ORDERED: RX INFO: IV CONTRAST WAS GIVEN 1 EACH MISC MISCELLANE PRN (14:01)
[2021-12-29] MEDS ORDERED: MAG HYDROX/AL HYDROX/SIMETH 30 ML CUP PO PRN (14:01)
[2021-12-29] MEDS ORDERED: ZOLPIDEM 5 MG TAB PO PRN (14:01)
--- NOTE | 2021-12-29 14:01 | P.PRCINT ---
Percutaneous Coronary Int. - Percutaneous Coronary Intervention Percutaneous Coronary Intervention: PROCEDURES PERFORMED: Left heart catheterization, left coronary angiography, PCI diagonal 1 branch with a 2.75 x 8mm Xience MADIE, IVUS diagonal 1 branch INDICATION: Non-STEMI HISTORY: Patient is a pleasant 71-year-old female with history of coronary artery disease with previous anterior STEMI in November 2021 status post PCI of the LAD and staged PCI of the diagonal branch. 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 Previous with her STEMI she had chest pain however she presented more with shortness of breath and was found to have rising troponins with non-STEMI. She denied any actual chest pain. There was difficulty with prior procedure from a radial approach requiring transition to a femoral approach previously and therefore decision was made to perform femoral approach to begin with. CONSENT:I have discussed the risks, benefits and alternative therapies for the above-mentioned procedure and for both sedation/analgesia as well as necessary blood product administration, if indicated, as they pertain to this patient. The patient has indicated understanding and acceptance of the risks and procedures discussed. PROCEDURE: After the risks, benefits and alternatives of the above mentioned pro cedure explained in detail with the patient, informed consent was obtained. Patient was taken to the catheterization lab and prepped and draped in usual fashion. 1% lidocaine was used to anesthetize the right femoral artery. A long 6-Northern Irish sheath was placed in the right femoral artery using modified Seldinger technique, ultrasound and micropuncture. Left coronary angiography was performed with a 6-Northern Irish JL 4.0 catheter and right coronary angiography was not performed as this is known to be 100% occluded from prior images. The 6-Northern Irish FL4 catheter was inserted into the left ventricle and pressure measurements were obtained. The decision was made to perform PCI of the diagonal branch. It was unclear if this was an acute occlusion given mainly shortness breath symptoms with elevated LVEDP, heart failure and otherwise diffuse disease. Decision was made to attempt wiring. Initial wiring with a 0.014 BMW wire was unsuccessful with occlusion not appearing like an acute thrombus. Decision was made to attempt wiring with a 0.014 whisper wire with a supra-cross microcatheter. The whisper wire was advanced into the distal diagonal branch with some manipulation. Next serial balloon angioplasties were performed with a 1.0, 1.5, 2.5 balloons. Finally balloon angioplasty was performed with a 3.0 balloon. Despite ballooning there is still poor flow. Therefore IVUS was performed which showed intravascular placement of by her with diffuse proximal disease and fairly small caliber vessel with stent appearing well opposed with reference vessel 2.75 x 2.75mm. Therefore a 2.75 x 8 mm Xience MADIE was placed overlapping the proximal diagonal stent. The wire was pulled. There was still some distal poor flow and diffuse disease however felt best treated medically. This may be related to heart failure, elevated LVEDP. Unable to give nitroglycerin given decreased blood pressures. The wire was pulled and final angiograms were performed. Pre- intervention there was YOSELYN 0 flow and 100% stenosis and postintervention there was less than 10% stenosis of the stented portion and diffuse 40-50% stenosis more distally with YOSELYN 2-3 flow. A right femoral angiogram showed adequate anatomy for closure. A 6-Northern Irish Angio-Seal was placed and hemostasis was achieved. Patient did have a significant amount of back pain throughout the procedure appearing to be orthopedic in nature and had difficulty lying flat for the procedure. Patient was transported back to the post catheterization holding area in stable condition. Conscious Sedation: Patient was monitored under the direct supervision of vision of myself for conscious sedation using Versed and fentanyl for a total duration of 87 minutes HEMODYNAMICS: Aorta: 87/60 LV: 84/14, LVEDP 26 SELECTIVE CORONARY ARTERIOGRAPHY: LEFT MAIN: The left main is a large caliber vessel which bifurcates into the LAD and circumflex. There is no significant stenosis. LEFT ANTERIOR DESCENDING CORONARY ARTERY: LAD is a large caliber vessel which wraps around to the apex. There is a mid LAD stent which is patent with diffuse more distal 30-40% mid LAD stenosis. The diagonal 1 branch is 100% occluded proximally. LEFT CIRCUMFLEX CORONARY ARTERY: Left circumflex is a moderate caliber vessel. There is 100% occlusion of the mid circumflex. There are [id number] collaterals. RIGHT CORONARY ARTERY: The right coronary artery was not imaged secondary to being known to being 100% occluded. FINAL IMPRESSION: 1. CAD as described above including 30-40% mid LAD stenosis, diagonal 1 branch 100% occluded, mid circumflex 100% occluded, RCA 100% occluded. 2. S/p PCI diagonal 1 branch with a 2.75 x 8mm Xience MADIE, IVUS diagonal 1 branch 3. Elevated left sided filling pressures 4. Borderline blood pressures noted throughout the procedure PLAN: 1. Aggressive risk factor modification per most recent ACC/AHA guidelines. 2. Continue dual antiplatelets for 12 months. 3. Continue aggressive diuresis.
[2021-12-29] MEDS: METOPROLOL SUCCINATE (ER) 25 MG TAB.ER.24H PO SCH (20:22)
[2021-12-29] MEDS: CLOPIDOGREL 75 MG TAB PO SCH (20:23)
[2021-12-29] MEDS: ATORVASTATIN 80 MG TAB PO SCH (20:23)
[2021-12-29] MEDS: SPIRONOLACTONE 25 MG TAB PO SCH (20:23)
--- NOTE | 2021-12-29 23:41 | P.PN ---
Subjective Progress Note Date: 12/29/21 patient is a 71-year-old malewith a known history of hypertension, hyperlipidemia, history of NV and prior history of cardiac catheterization with stent placement, coronary artery disease, osteoarthritis, anxiety/depression and other medical problems presents to ER with complaints of shortness of breath s tarted since morning along with chest discomfort. Patient did have prior coronary disease showed occluded LAD with chronic total occlusion of the circumflex artery and right coronary artery with heavy calcified vessels. Patient is also having increasing leg swelling. No fever no chills. No cough or sputum production. On admission chest x-ray showed correlate for pulmonary vascular hypertension and interstitial edema. Congestive heart failure probable left pleural effusion and associated edema versus atelectasis. Difficult to exclude pneumonia. Laboratory showed WBC 10.3 hemoglobin 12.1 platelets 257 lymphocytes 0.5 D-dimer was elevated. 6.19 Sodium 136 potassium 4.1 chloride 102 bicarb is 26 BUN 12 and creatinine 0.59 blood sugar is 129 lactic acid 2.5 Troponin 0.089 and proBNP 8840. Protein level 3.7 and coronavirus PCR not detected. Patient was tachycardic and tachypneic on admission. CT angio of the chest showed no evidence of pulmonary embolism. Congestive heart failure with pleural effusions and pulmonary interstitial and airspace edema. 12/29/2021 Patient is lying in bed. Awake alert and oriented x3. Patient underwent left heart catheterization with PCI diagonal 1 branch. Denies any complaints of chest pain or shortness of breath. Shortness of breath did improve compared to yesterday. No nausea vomiting or diarrhea. Still having significant leg swelling. Laboratory data showed sodium 132 potassium 3.9 chloride 98 bicarb is 28 BUN 14 and creatinine 0.71 lactic acid improved to 2.2. Patient is on gentle IV hydration. Otherwise patient is being continued on Lasix 40 mg every 12, aspirin Plavix and statins and metoprolol. Cardiology is on board. Current medications reviewed. Objective - Vital Signs Vital signs: Vital Signs Temp 98.0 F 12/29/21 08:00 Pulse 64 12/29/21 17:46 Resp 18 12/29/21 17:46 BP 144/79 12/29/21 17:46 Pulse Ox 93 L 12/29/21 17:46 FiO2 Intake & Output 12/29/21 12/29/21 12/30/21 06:59 18:59 06:59 Intake Total 61.550 532.317 Output Total 400 650 Balance -338.450 -117.683 Weight 102 kg Intake: IV 10 500 Invasive Line 1 10 Intake, IV Titration 51.550 32.317 Amount Heparin Sod,Pork in 0.45% 51.550 32.317 NaCl 25,000 unit In 0.45 % NaCl 1 250ml.bag @ 7. 4834 UNITS/KG/HR 10 mls/ hr IV .Q24H [facility] Rx#: [id number] Output: Urine 400 650 Other: Voiding Method External Catheter External Catheter # Voids 3 - Exam PHYSICAL EXAMINATION: Patient is lying in the bed comfortably, no acute distress, awake alert and oriented.. HEENT: Normocephalic. Neck is supple. Pupils reactive. Nostrils clear. Oral cavity is moist. Neck reveals no JVD, carotid bruits, or thyromegaly. CHEST EXAMINATION: Trachea is central. Symmetrical expansion. Bibasilar diminished sounds.. CARDIAC: Normal S1, S2 with no gallops. No murmurs ABDOMEN: Soft. Bowel sounds present. Nontender. No organomegaly. No abdominal bruits. Extremities: Bilateral lower extremity 3+ edema. No clubbing or cyanosis Neurologically awake, alert, oriented x3 with well-coordinated movements. No focal deficits noted Skin: No rash or skin lesions. Psychiatric: Coperative. Nonsuicidal, anxious. Musculoskeletal: No joint swelling or deformity. Normal range of motion. - Labs CBC & Chem 7: 12/29/21 02:57 12/29/21 02:57 Labs: Abnormal Lab Results - Last 24 Hours (Table) 12/28/21 12/28/21 12/28/21 Range/Units 22:22 22:27 22:30 RBC (3.80-5.40) m/uL Hgb 11.3 L (11.4-16.0) gm/dL RDW 17.9 H (11.5-15.5) % Neutrophils # 9.2 H (1.3-7.7) k/uL Lymphocytes # 0.5 L (1.0-4.8) k/uL PT 14.8 H (9.0-12.0) sec INR 1.4 H (<1.2) APTT 106.0 H* (22.0-30.0) sec Sodium (137-145) mmol/L Glucose (74-99) mg/dL Plasma Lactic Acid Myles 2.9 H* (0.7-2.0) mmol/L Calcium (8.4-10.2) mg/dL 12/29/21 12/29/21 12/29/21 Range/Units 02:57 02:57 02:57 RBC 3.74 L (3.80-5.40) m/uL Hgb 11.1 L (11.4-16.0) gm/dL RDW 18.2 H (11.5-15.5) % Neutrophils # (1.3-7.7) k/uL Lymphocytes # 0.6 L (1.0-4.8) k/uL PT (9.0-12.0) sec INR (<1.2) APTT (22.0-30.0) sec Sodium 132 L (137-145) mmol/L Glucose 140 H (74-99) mg/dL Plasma Lactic Acid Myles 2.2 H* (0.7-2.0) mmol/L Calcium 8.0 L (8.4-10.2) mg/dL 12/29/21 12/29/21 12/29/21 Range/Units 05:56 05:56 10:07 RBC (3.80-5.40) m/uL Hgb (11.4-16.0) gm/dL RDW (11.5-15.5) % Neutrophils # (1.3-7.7) k/uL Lymphocytes # (1.0-4.8) k/uL PT 13.0 H (9.0-12.0) sec INR 1.2 H (<1.2) APTT (22.0-30.0) sec Sodium (137-145) mmol/L Glucose (74-99) mg/dL Plasma Lactic Acid Myles 2.2 H* 2.2 H* (0.7-2.0) mmol/L Calcium (8.4-10.2) mg/dL Assessment and Plan Assessment: Acute on chronic congestive heart failureSystolic dysfunction. Ischemic cardiomyopathy Acute non-ST elevated NV Status postcardiac catheterization and stent placement on 12/29/2021. Lactic acidosis Acute hypoxic aspiratory failure requiring oxygen 2 L via nasal cannula. Prior history of cardiac catheterization and stent placement Hypertension Hyperlipidemia Diabetes type 2 [id number] Anxiety/depression DVT prophylaxis Plan: Patient was started on heparin drip and current with telemetry monitoring and serial EKG and troponins. Continue the aspirin and Plavix and statins. Current with metoprolol. Patient will be continued on IV diuresis with Lasix 40 mg every 12 and follow-up renal function. Cardiology is on board. Patient is status post cardiac catheterization and stent placement. Follow-up renal function closely. Prognosis is guarded. Time with Patient: Greater than 30
[2021-12-30] MEDS ORDERED: MIDODRINE 5 MG TAB PO ONE (04:20)
[2021-12-30] MEDS: lisinopriL 20 MG TAB PO SCH ×2 (08:17→10:08)
[2021-12-30] MEDS: ASPIRIN 325 MG TAB PO SCH (08:17)
[2021-12-30 09:25] LABS: Anisocytosis Slight; Basophils # (A) 0.1 k/uL (0-0.2); Basophils % (A) 1 %; Eosinophils # (A) 0.1 k/uL (0-0.7); Eosinophils % (A) 1 %; HCT 34.6 % (34.0-46.0); HGB 10.7 gm/dL (11.4-16.0); Hypochromasia Marked; Lymphocytes # (A) 0.8 k/uL (1.0-4.8); Lymphocytes % (A) 11 %; MCH 28.8 pg (25.0-35.0); MCHC 30.8 g/dL (31.0-37.0); MCV 93.4 fL (80.0-100.0); Mean Platelet Volume 7.5; Monocytes # (A) 0.3 k/uL (0-1.0); Monocytes % (A) 5 %; Neutrophils # (A) 5.4 k/uL (1.3-7.7); Neutrophils % (A) 80 %; Platelet Count 246 k/uL (150-450); WBC 6.8 k/uL (3.8-10.6)
[2021-12-30 09:36] LABS: Calcium 7.9 mg/dL (8.4-10.2); Potassium 3.8 mmol/L (3.5-5.1)
[2021-12-30] MEDS: FUROSEMIDE 10 MG/ML 4 ML VIAL IV SCH ×2 (10:08→18:24)
--- NOTE | 2021-12-30 13:20 | P.PN ---
Subjective Progress Note Date: 12/30/21 HISTORY OF PRESENT ILLNESS: This is a 71-year-old female who sees Dr. Santos on an outpatient basis. She underwent cardiac cath yesterday with Dr. Peters and Dr. Cohen revealing 30-40 % mid LAD stenosis, diagonal 1 branch 100% occluded, mid circumflex 100% occluded, RCA 100% occluded. Patient underwent stenting to the diagonal 1 branch. Patient examined this morning at the bedside. Patient denies any chest pain or pressure. She denies shortness of breath. She continues to remain edematous. She is on IV Lasix. Blood pressures are soft with a recent reading of 95/62. Echo from November 2021 revealed EF 20-25%. PHYSICAL EXAM: VITAL SIGNS: Reviewed. GENERAL: Well-developed in no acute distress. NECK: Supple. No JVD or thyromegaly LUNGS: Respirations even and unlabored. Lungs essentially clear to auscultation bilaterally. HEART: Regular rate and rhythm. S1 and S2 heard. EXTREMITIES: Normal range of motion. No clubbing or cyanosis. Peripheral puls es intact. 3+ bilateral lower extremity edema. Right groin cath site with no hematoma noted. ASSESSMENT: Non-STEMI Acute on chronic heart failure with reduced ejection fraction Coronary artery disease Ischemic cardiomyopathy PLAN: Continue current cardiac medications Continue IV lasix Monitor blood pressure Consider BHARTI/ARB when BP able to tolerate Further recommendations pending patient course Nurse practitioner note has been reviewed by physician. Signing provider agrees with the documented findings, assessment, and plan of care. Objective - Vital Signs Vital signs: Vital Signs Temp 98.0 F 12/30/21 12:02 Pulse 70 12/30/21 12:02 Resp 18 12/30/21 12:02 BP 95/62 12/30/21 12:02 Pulse Ox 95 12/30/21 12:02 FiO2 Intake & Output 12/29/21 12/30/21 12/30/21 18:59 06:59 18:59 Intake Total 532.317 580 Output Total 650 750 70 Balance -117.683 -750 510 Weight 97 kg Intake: IV 500 Intake, IV Titration 32.317 Amount Heparin Sod,Pork in 0.45% 32.317 NaCl 25,000 unit In 0.45 % NaCl 1 250ml.bag @ 7. 4834 UNITS/KG/HR 10 mls/ hr IV .Q24H [facility] Rx#: [id number] Oral 580 Output: Urine 650 750 70 Other: Voiding Method External Catheter External Catheter External Catheter # Bowel Movements 1 - Labs CBC & Chem 7: 12/30/21 08:47 12/30/21 08:47 Labs: Abnormal Lab Results - Last 24 Hours (Table) 12/30/21 12/30/21 Range/Units 08:47 08:47 RBC 3.70 L (3.80-5.40) m/uL Hgb 10.7 L (11.4-16.0) gm/dL MCHC 30.8 L (31.0-37.0) g/dL RDW 18.0 H (11.5-15.5) % Lymphocytes # 0.8 L (1.0-4.8) k/uL Sodium 133 L (137-145) mmol/L Chloride 97 L (98-107) mmol/L BUN 21 H (7-17) mg/dL Glucose 154 H (74-99) mg/dL Calcium 7.9 L (8.4-10.2) mg/dL
--- NOTE | 2021-12-30 14:10 | CA ---
Transthoracic Echo Report Name: Dayana Angel Age: 71 Gender: F : 1950 Exam Date: 12/30/2021 09:16 Exam Location: [facility] Ht (in): 68 Wt (lb): 213 Ordering Physician: Agustina Damon Attending/Referring Phys: Personal Financial Planner Linda Triana RDCS Procedure CPT: Indications: chf Cardiac Hx: Echo done 11/14/21 Limited study for lv function Technical Quality: Very technically difficult study Contrast 1: Lumason Total Dose (mL): 3 Contrast 2: Total Dose (mL): MEASUREMENTS (Male / Female) Normal Values 2D ECHO LV Diastolic Diameter PLAX 5.4 cm 4.2 - 5.9 / 3.9 - 5.3 cm IVS Diastolic Thickness 1.8 cm 0.6 - 1.0 / 0.6 - 0.9 cm LVPW Diastolic Thickness 2.2 cm 0.6 - 1.0 / 0.6 - 0.9 cm LV Relative Wall Thickness 0.7 FINDINGS Left Ventricle Severely reduced global left ventricular systolic function. Left ventricular ejection fraction is estimated at 20%. Right Ventricle Right Atrium Left Atrium Mitral Valve Moderate mitral regurgitation. Aortic Valve Tricuspid Valve Pulmonic Valve Pericardium Aorta CONCLUSIONS Dilated left ventricle with reduced LV systolic function, severe Previewed by: Dr. Dank Cuba MD (Electronically Signed) Final Date: 30 December 2021 14:09
[2021-12-30 14:22] VITALS: BMI 32.5
[2021-12-30] MEDS: FLUDROCORTISONE 0.1 MG TAB PO SCH ×2 (14:32→20:18)
--- NOTE | 2021-12-30 15:23 | PN ---
PROGRESS NOTE DATE OF SERVICE: 12/30/2021. This 71-year-old woman who was admitted after CHF acute exacerbation, also had ischemic cardiomyopathy. The patient also had a stent placement. No chest pain. No palpitations. No fever. The patient is having relative hypotension. PHYSICAL EXAMINATION: Pulse is 70, blood pressure 95/62, respirations 18. HEENT: Conjunctivae normal. Neck is no JVD. Cardiovascular system: S1, S2 muffled. Respiratory: A few scattered rhonchi. Abdomen: Soft. Nervous system: No focal deficits. LABS: Reviewed. Sodium 133. ASSESSMENT: 1. Congestive heart failure, acute exacerbation with acute on chronic systolic dysfunction. 2. Acute zdx-QO-pthwoes-elevation myocardial infarction status post cardiac cath and stenting. 3. Hypertension. 4. Hyperlipidemia. 5. History of multiple medical issues. RECOMMENDATIONS AND DISCUSSION: Recommend to continue current medications, add Florinef to the current regimen. Monitor blood pressure closely. Otherwise continue with Lasix. Continue the rest of medications. Guarded prognosis because of multiple complex medical issues and further recommendations to follow. MMODL / IJN: [id number] /
[2021-12-30] MEDS: CLOPIDOGREL 75 MG TAB PO SCH (20:17)
[2021-12-30] MEDS: ATORVASTATIN 80 MG TAB PO SCH (20:17)
[2021-12-30] MEDS: METOPROLOL SUCCINATE (ER) 25 MG TAB.ER.24H PO SCH (20:18)
[2021-12-30] MEDS: SPIRONOLACTONE 25 MG TAB PO SCH (20:18)
[2021-12-30] MEDS: HYDROcodone/APAP 10-325MG 1 EACH TAB PO PRN (20:21)
[2021-12-31] MEDS: FUROSEMIDE 10 MG/ML 4 ML VIAL IV SCH ×2 (06:02→17:22)
[2021-12-31] MEDS: FLUDROCORTISONE 0.1 MG TAB PO SCH ×2 (09:15→22:09)
[2021-12-31] MEDS: ASPIRIN 81 MG PO SCH (09:16)
[2021-12-31] MEDS: HYDROcodone/APAP 10-325MG 1 EACH TAB PO PRN ×2 (09:21→20:14)
[2021-12-31 10:22] LABS: Calcium 8.3 mg/dL (8.4-10.2); Potassium 3.9 mmol/L (3.5-5.1)
--- NOTE | 2021-12-31 13:19 | P.PN ---
Subjective Progress Note Date: 12/31/21 HISTORY OF PRESENT ILLNESS: This is a 71-year-old female who sees Dr. Santos on an outpatient basis. She underwent cardiac cath yesterday with Dr. Peters and Dr. Cohen revealing 30-40 % mid LAD stenosis, diagonal 1 branch 100% occluded, mid circumflex 100% occluded, RCA 100% occluded. Patient underwent stenting to the diagonal 1 branch. Patient examined this morning at the bedside. Patient denies any chest pain or pressure. She denies shortness of breath. She continues to remain edematous. She is on IV Lasix. Blood pressures are soft with a recent reading of 95/62. Echo from November 2021 revealed EF 20-25%. 12/31/2021 Patient examined this morning at the bedside. Patient denies chest pain or pressure. She denies shortness of breath. Her lower extremities remain edemat ous. She is maintained on IV Lasix 40 mg IV every 12 hours. PHYSICAL EXAM: VITAL SIGNS: Reviewed. GENERAL: Well-developed in no acute distress. NECK: Supple. No JVD or thyromegaly LUNGS: Respirations even and unlabored. Lungs essentially clear to auscultation bilaterally. HEART: Regular rate and rhythm. S1 and S2 heard. EXTREMITIES: Normal range of motion. No clubbing or cyanosis. Peripheral pulses intact. 3+ bilateral lower extremity edema. Right groin cath site with no hematoma noted. ASSESSMENT: Non-STEMI, status post PCI to diagonal 1 branch Acute on chronic heart failure with reduced ejection fraction Coronary artery disease Ischemic cardiomyopathy PLAN: Continue current cardiac medications Continue IV lasix Monitor blood pressure Consider BHARTI/ARB when BP able to tolerate Further recommendations pending patient course Nurse practitioner note has been reviewed by physician. Signing provider agrees with the documented findings, assessment, and plan of care. Objective - Vital Signs Vital signs: Vital Signs Temp 97.6 F 12/31/21 12:00 Pulse 95 12/31/21 12:00 Resp 16 12/31/21 12:00 BP 105/71 12/31/21 12:00 Pulse Ox 95 12/31/21 12:00 FiO2 Intake & Output 12/30/21 12/31/21 12/31/21 18:59 06:59 18:59 Intake Total 580 Output Total 70 300 Balance 510 -300 Weight 97 kg 107.5 kg Intake: Oral 580 Output: Urine 70 300 Other: Voiding Method External Catheter External Catheter External Catheter # Voids 1 # Bowel Movements 1 - Labs CBC & Chem 7: 12/30/21 08:47 12/31/21 09:32 Labs: Abnormal Lab Results - Last 24 Hours (Table) 12/31/21 Range/Units 09:32 Sodium 132 L (137-145) mmol/L Chloride 95 L (98-107) mmol/L BUN 26 H (7-17) mg/dL Creatinine 1.27 H (0.52-1.04) mg/dL Glucose 158 H (74-99) mg/dL Calcium 8.3 L (8.4-10.2) mg/dL
--- NOTE | 2021-12-31 14:11 | P.PN ---
Subjective Progress Note Date: 12/31/21 This is a pleasant 71-year-old female who was recently admitted with congestive heart failure acute exacerbation also with ischemic cardiomyopathy and cardiology following closely. Patient is status post cardiac catheterization with stent placement during this admission. Patient is continued on IV Lasix and blood pressures are soft and continues on telemetry monitoring with continued close monitoring of vital signs. She continues with lower extremity swelling and edema and encourage the patient elevated while at rest and will repeat labs. Patient is afebrile and denies any worsening shortness of breath or chest pains. Patient denies palpitations. Recommend continue holding anam at this time. Labs: Sodium is 132, potassium 3.9, BUN 26, creatinine 1.27, calcium 8.3 Review of systems: Constitutional: No reports of fatigue, fever, or chills Cardiovascular: No reports of chest pain or palpitations Respiratory: No reports of worsening shortness of breath or cough GI: No reports of nausea, no reports of of vomiting, no reports of diarrhea : No reports of dysuria or retention Neurovascular: reports of generalized weakness with continued lower extremity swelling All medications have been reviewed Active Medications Hydrocodone Bitart/Acetaminophen (Hydrocodone/Apap 10-325mg 1 Each Tab) 1 each PO Q6H PRN PRN Reason: Pain Last Admin: 12/31/21 09:21 Dose: 1 each Al Hydroxide/Mg Hydroxide (Mag Hydrox/Al Hydrox/Simeth 30 Ml Cup) 30 ml PO Q4HR PRN PRN Reason: Heartburn Aspirin (Aspirin 81 Mg) 81 mg PO DAILY [facility] Last Admin: 12/31/21 09:16 Dose: 81 mg Atorvastatin Calcium (Atorvastatin 80 Mg Tab) 80 mg PO HS [facility] Last Admin: 12/30/21 20:17 Dose: 80 mg Atropine Sulfate (Atropine Sulfate 0.1 Mg/Ml 10ml Syringe) 0.5 mg IV ONCE PRN PRN Reason: Symptomatic Bradycardia Clopidogrel Bisulfate (Clopidogrel 75 Mg Tab) 75 mg PO HS [facility] Last Admin: 12/30/21 20:17 Dose: 75 mg Fludrocortisone Acetate (Fludrocortisone 0.1 Mg Tab) 0.1 mg PO BID [facility] Last Admin: 12/31/21 09:15 Dose: 0.1 mg Furosemide (Furosemide 10 Mg/Ml 4 Ml Vial) 40 mg IV Q12H [facility] Last Admin: 12/31/21 06:02 Dose: 40 mg Metoprolol Succinate (Metoprolol Succinate (Er) 25 Mg Tab.Er.24h) 12.[address] [facility] Last Admin: 12/30/21 20:18 Dose: 12.5 mg Miscellaneous Information (Rx Info: Iv Contrast Was Given 1 Each Misc) 1 each MISCELLANE DAILY PRN PRN Reason: Per Protocol Stop: 12/31/21 14:01 Nitroglycerin (Nitroglycerin Sl Tabs 0.4 Mg Tab) 0.4 mg SUBLINGUAL Q5M PRN PRN Reason: Chest Pain Spironolactone (Spironolactone 25 Mg Tab) [address] [facility] Last Admin: 12/30/21 20:18 Dose: 25 mg Zolpidem Tartrate (Zolpidem 5 Mg Tab) 5 mg PO HS PRN PRN Reason: Insomnia PHYSICAL EXAMINATION: GENERAL: The patient is alert and oriented x4, obese. Well developed, well nourished. HEENT: Pupils are round and equally reacting to light. EOMI. no scleral icterus. No conjunctival pallor. Normocephalic, atraumatic. No pharyngeal erythema. No thyromegaly. CARDIOVASCULAR: S1 and S2 muffled PULMONARY: diminished breath sounds bilaterally with no wheezing or rhonchi noted. ABDOMEN: soft. Nontender on exam. obese. non-distended, normoactive bowel so unds. No palpable organomegaly. MUSCULOSKELETAL: No joint swelling or deformity. EXTREMITIES: No cyanosis, clubbing, bilateral lower extremity edema noted NEUROLOGICAL: Gross neurological examination did not reveal any focal deficits. SKIN: No rashes. Assessment: Congestive heart failure, acute exacerbation with acute on chronic systolic dysfunction Acute non-ST segment elevation myocardial infarction, status post cardiac catheterization and stenting Hypertension Hyperlipidemia History of multiple medical issues GI prophylaxis DVT prophylaxis Full code Plan: Recommend to continue with current medications and management with cardiology following. Patient is continued on IV Lasix for volume overload and continues with lower extremity edema and will continue IV Lasix twice daily and monitor electrolytes and kidney functions closely. Creatinine mildly elevated most likely secondary to diuresis and will continue to monitor. Encouraged increase activity as tolerated. Blood pressure on the softer side and patient is continued on Cortef. Due to multiple complex medical issues, prognosis is guarded. Possible discharge in 24-48 hours. The impression and plan of care has been dictated by Ghada Wolf, nurse practitioner as directed. MD Jt I have performed a history and examination and MDM of this patient, discussed the same with the dictator, and agree with the dictator's assessment and plan as written ,documented as a scribe. Based on total visit time, I have performed more than 50% of the visit. Any additional findings or plans will be noted. Objective - Vital Signs Vital signs: Vital Signs Temp 97.6 F 12/31/21 12:00 Pulse 95 12/31/21 12:00 Resp 16 12/31/21 12:00 BP 105/71 12/31/21 12:00 Pulse Ox 95 12/31/21 12:00 FiO2 Intake & Output 12/30/21 12/31/21 12/31/21 18:59 06:59 18:59 Intake Total 580 Output Total 70 300 Balance 510 -300 Weight 97 kg 107.5 kg Intake: Oral 580 Output: Urine 70 300 Other: Voiding Method External Catheter External Catheter External Catheter # Voids 1 # Bowel Movements 1 - Labs CBC & Chem 7: 12/30/21 08:47 12/31/21 09:32 Labs: Abnormal Lab Results - Last 24 Hours (Table) 12/31/21 Range/Units 09:32 Sodium 132 L (137-145) mmol/L Chloride 95 L (98-107) mmol/L BUN 26 H (7-17) mg/dL Creatinine 1.27 H (0.52-1.04) mg/dL Glucose 158 H (74-99) mg/dL Calcium 8.3 L (8.4-10.2) mg/dL
[2021-12-31] MEDS: ATORVASTATIN 80 MG TAB PO SCH (20:12)
[2021-12-31] MEDS: CLOPIDOGREL 75 MG TAB PO SCH (20:12)
[2021-12-31] MEDS: SPIRONOLACTONE 25 MG TAB PO SCH (20:12)
[2021-12-31] MEDS: METOPROLOL SUCCINATE (ER) 25 MG TAB.ER.24H PO SCH (20:12)
[2022-01-01] MEDS: FUROSEMIDE 10 MG/ML 4 ML VIAL IV SCH (05:58)
[2022-01-01 08:39] LABS: Calcium 8.3 mg/dL (8.4-10.2); Potassium 4.3 mmol/L (3.5-5.1)
[2022-01-01] MEDS ORDERED: FUROSEMIDE 40 MG TAB PO SCH (09:32)
[2022-01-01] MEDS: ASPIRIN 81 MG PO SCH (09:46)
[2022-01-01] MEDS: FLUDROCORTISONE 0.1 MG TAB PO SCH (09:46)
[2022-01-01] MEDS: HYDROcodone/APAP 10-325MG 1 EACH TAB PO PRN (09:48)
--- NOTE | 2022-01-01 11:24 | P.PN ---
Subjective Progress Note Date: 01/01/22 HISTORY OF PRESENT ILLNESS: This is a 71-year-old female who sees Dr. Santos on an outpatient basis. She underwent cardiac cath yesterday with Dr. Peters and Dr. Cohen revealing 30-40 % mid LAD stenosis, diagonal 1 branch 100% occluded, mid circumflex 100% occluded, RCA 100% occluded. Patient underwent stenting to the diagonal 1 branch. Patient examined this morning at the bedside. Patient denies any chest pain or pressure. She denies shortness of breath. She continues to remain edematous. She is on IV Lasix. Blood pressures are soft with a recent reading of 95/62. Echo from November 2021 revealed EF 20-25%. 12/31/2021 Patient examined this morning at the bedside. Patient denies chest pain or pressure. She denies shortness of breath. Her lower extremities remain edemat ous. She is maintained on IV Lasix 40 mg IV every 12 hours. 01/01/2022 Patient examined this morning at the bedside. Patient denies chest pain or pressure prior to denies shortness of breath. Her lower extremity edema has improved. She remains on IV Lasix. PHYSICAL EXAM: VITAL SIGNS: Reviewed. GENERAL: Well-developed in no acute distress. NECK: Supple. No JVD or thyromegaly LUNGS: Respirations even and unlabored. Lungs essentially clear to auscultation bilaterally. HEART: Regular rate and rhythm. S1 and S2 heard. EXTREMITIES: Normal range of motion. No clubbing or cyanosis. Peripheral pulses intact. 2+ bilateral lower extremity edema. Right groin cath site with no hematoma noted. ASSESSMENT: Non-STEMI, status post PCI to diagonal 1 branch Acute on chronic heart failure with reduced ejection fraction Coronary artery disease Ischemic cardiomyopathy PLAN: Continue current cardiac medications Discontinue IV Lasix. Begin oral Lasix 40 mg twice a day Consider BHARTI/ARB when BP able to tolerate Patient is stable for discharge home today from a cardiac standpoint with close outpatient follow-up Further recommendations pending patient course Nurse practitioner note has been reviewed by physician. Signing provider agrees with the documented findings, assessment, and plan of care. Objective - Vital Signs Vital signs: Vital Signs Temp 97.5 F L 01/01/22 08:00 Pulse 80 01/01/22 08:00 Resp 17 01/01/22 08:00 BP 110/71 01/01/22 08:00 Pulse Ox 98 01/01/22 08:00 FiO2 21 12/31/21 19:41 Intake & Output 12/31/21 01/01/22 01/01/22 18:59 06:59 18:59 Intake Total 540 240 Output Total 500 650 400 Balance 40 -650 -160 Weight 100 kg Intake: Oral 540 240 Output: Urine 500 650 400 Other: Voiding Method External Catheter External Catheter External Catheter - Labs CBC & Chem 7: 12/30/21 08:47 01/01/22 07:26 Labs: Abnormal Lab Results - Last 24 Hours (Table) 01/01/22 Range/Units 07:26 Sodium 134 L (137-145) mmol/L Chloride 97 L (98-107) mmol/L BUN 28 H (7-17) mg/dL Creatinine 1.15 H (0.52-1.04) mg/dL Glucose 117 H (74-99) mg/dL Calcium 8.3 L (8.4-10.2) mg/dL
[2022-01-01 11:33] LABS: Glucose,Whole Blood 171 mg/dL (70-110)
[2022-01-01 14:05] VITALS: BP 108/72; PULSE 77; TEMP 98.1
[2022-01-01 14:41] VITALS: RESP 18
--- NOTE | 2022-01-02 10:18 | P.DS ---
Providers Date of admission: 12/28/21 12:46 Expected date of discharge: 01/01/22 Attending physician: Marcelina He Consults: 12/28/21 12:43 Consult Physician Routine Consulting Provider: Mynor Ayala Consult Reason/Comments: chf Do you want consulting provider notified?: Yes 12/29/21 14:01 Consult Physician Routine Consulting Provider: [facility] Consult Reason/Comments: Post Interventional Patient Do you want consulting provider notified?: Already Contacted Primary care physician: Physician Nonstaff Hospital Course: Final diagnosis Congestive heart failure, acute exacerbation with acute on chronic systolic dysfunction Acute non-ST segment elevation myocardial infarction, status post cardiac catheterization and stenting Hypertension Hyperlipidemia History of multiple medical issues GI prophylaxis DVT prophylaxis Full code Discharge disposition Patient is being discharged in a stable condition with guarded prognosis to home. Patient will follow-up with Dr. Diallo in the outpatient setting upon discharge. Patient is to follow-up with cardiology in 1-2 weeks. Patient will continue on Lasix 40 mg twice daily and also Florinef 0.1 mg twice a day. Total time taken is greater than 35 minutes. Hospital course This is a 71-year-old female who was recently admitted with CHF exacerbation and also ischemic cardiomyopathy and cardiology evaluated the patient. Patient was maintained on IV Lasix for volume overload and also is status post cardiac catheterization with stent placement. Patient's blood pressures have been on the lower side and has been started on Florinef and will continue recommending close outpatient follow-up with primary care provider. Patient reports she does not currently have one and resources were provided. Patient reports to feeling much better and continues with lower extremity edema encourage the patient to Harpreet wrap from the toes up to the knees and elevate while at rest. Patient is requesting to go home. Daughter at the bedside and questions and concerns were answered. Currently no reports of chest pain, shortness of breath, or palpitations. Patient is afebrile. No reports of nausea or vomiting and patient is tolerating diet. Patient will be discharged home today. Guarded prognosis. On exam vital signs are stable. Cardio S1, S2 are muffled. Respiratory system shows diminished breath sounds at the bases with no wheezing with some scattered rhonchi noted. Abdomen is soft and obese, and nontender. Nervous system shows no focal deficits. Please refer to medication reconciliation sheet for a list of medications. The impression and plan of care has been dictated by Ghada Wolf, Nurse Practitioner as directed. Dr. Manish MD I have performed a history and examination and MDM of this patient, discussed the same with the dictator, and agree with the dictator's assessment and plan as written ,documented as a scribe. Based on total visit time, I have performed more than 50% of the visit. Patient Condition at Discharge: Stable Plan - Discharge Summary Discharge Rx Participant: No New Discharge Prescriptions: New Spironolactone [Aldactone] 25 mg PO HS #30 tab Fludrocortisone [Florinef] 0.1 mg PO BID 30 Days #60 tab Furosemide [Lasix] 40 mg PO BID@0900,1600 30 Days #60 tab Mag Hydrox/Al Hydrox/Simeth [Maalox] 30 ml PO Q4HR PRN ml PRN Reason: Heartburn Continue Ferrous Sulfate [Iron (65 MG Elemental)] 325 mg PO DAILY Calcium Carbonate [Calcium] 600 mg PO DAILY HYDROcodone/APAP 10-325MG [Collyer 10-325] 1 tab PO Q6H PRN PRN Reason: Pain Metoprolol Succinate (ER) [Toprol XL] 12.5 mg PO HS Atorvastatin [Lipitor] 80 mg PO HS ALPRAZolam [Xanax] 0.5 mg PO HS Cholecalciferol [Vitamin D3 (25 Mcg = 1000 Iu)] 25 mcg PO DAILY Clopidogrel [Plavix] 75 mg PO HS Aspirin 81 mg PO HS Discontinued Furosemide [Lasix] 20 mg PO DAILY Spironolactone [Aldactone] 12.5 mg PO HS Discharge Medication List ALPRAZolam [Xanax] 0.5 mg PO HS 11/13/21 [History] Calcium Carbonate [Calcium] 600 mg PO DAILY 11/13/21 [History] Cholecalciferol [Vitamin D3 (25 Mcg = 1000 Iu)] 25 mcg PO DAILY 11/13/21 [History] Ferrous Sulfate [Iron (65 MG Elemental)] 325 mg PO DAILY 11/13/21 [History] HYDROcodone/APAP 10-325MG [Collyer 10-325] 1 tab PO Q6H PRN 11/13/21 [History] Atorvastatin [Lipitor] 80 mg PO HS 12/04/21 [History] Clopidogrel [Plavix] 75 mg PO HS 12/04/21 [History] Metoprolol Succinate (ER) [Toprol XL] 12.5 mg PO HS 12/04/21 [History] Aspirin 81 mg PO HS 12/28/21 [History] Fludrocortisone [Florinef] 0.1 mg PO BID 30 Days #60 tab 01/01/22 [Rx] Furosemide [Lasix] 40 mg PO BID@0900,1600 30 Days #60 tab 01/01/22 [Rx] Mag Hydrox/Al Hydrox/Simeth [Maalox] 30 ml PO Q4HR PRN ml 01/01/22 [Rx] Spironolactone [Aldactone] 25 mg PO HS #30 tab 01/01/22 [Rx] Follow up Appointment(s)/Referral(s): [facility] [NON-STAFF] - Rafa Diallo MD [STAFF PHYSICIAN] - 1-2 Days Robert Peters MD [STAFF PHYSICIAN] - 1 Week Ambulatory/Diagnostic Orders: Complete Blood Count w/diff [LAB.AMB] Time Frame: 3 Days, Location: None Selected Activity/Diet/Wound Care/Special Instructions: Activity Limited until follow-up Follow-up with cardiology in one week Follow-up with primary care provider and establish this week Recommend repeat labs in 2-3 days Continue heart healthy diet Continue taking medications as prescribed Continue to monitor blood pressure readings daily and keep a diary of the readings and bring with you to primary care follow-up along with cardiology follow-up Discharge Disposition: HOME SELF-CARE
== END 2022-01-01 15:43 | disposition home or self-care (01) | DRG 246 ==
LOC: EC 09:39 → 3SCARD 12:46
PROVIDERS: ADMIT Internal Medicine; ATTEND Internal Medicine
PROC: B211YZZ Fluoroscopy of Multiple Coronary Arteries using Other Contrast (ICD-10-PCS; 2021-12-29)
PROC: B215YZZ Fluoroscopy of Left Heart using Other Contrast (ICD-10-PCS; 2021-12-29)
PROC: 027034Z Dilation of Coronary Artery, One Artery with Drug-eluting Intraluminal Device, Percutaneous Approach (ICD-10-PCS; principal; 2021-12-29 10:51)
PROC: B240ZZ3 Ultrasonography of Single Coronary Artery, Intravascular (ICD-10-PCS; 2021-12-29 10:51)
PROC: 4A023N7 Measurement of Cardiac Sampling and Pressure, Left Heart, Percutaneous Approach (ICD-10-PCS; 2021-12-29 10:51)
DX: I21.4 Non-ST elevation (NSTEMI) myocardial infarction (principal); I50.23 Acute on chronic systolic (congestive) heart failure; J96.01 Acute respiratory failure with hypoxia; E87.2 Acidosis; I11.0 Hypertensive heart disease with heart failure; E11.9 Type 2 diabetes mellitus without complications; Z68.33 Body mass index [BMI] 33.0-33.9, adult; E66.9 Obesity, unspecified; E78.5 Hyperlipidemia, unspecified; F32.A Depression, unspecified; F41.9 Anxiety disorder, unspecified; I25.10 Atherosclerotic heart disease of native coronary artery without angina pectoris; I25.5 Ischemic cardiomyopathy; Z96.642 Presence of left artificial hip joint; Z96.652 Presence of left artificial knee joint; Z20.822 Contact with and (suspected) exposure to COVID-19; I25.2 Old myocardial infarction; Z79.02 Long term (current) use of antithrombotics/antiplatelets; Z79.82 Long term (current) use of aspirin; Z79.899 Other long term (current) drug therapy; Z95.5 Presence of coronary angioplasty implant and graft; Z98.51 Tubal ligation status; Z98.84 Bariatric surgery status
CPT/HCPCS: 36415; 71046; 71275; 80048; 80053; 83605; 83880; 84484; 85025; 85379; 85610; 85730; 87502; 87635; 92978; 93005; 93308; 93458; 94760; 96374; 99285

== ENCOUNTER 2022-01-20 08:29 | Inpatient (IN) | payer MEDICARE ==
[2022-01-20 09:35] LABS: Anisocytosis Slight; Basophils % (A) 0 %; Eosinophils # (A) 0.2 k/uL (0-0.7); Eosinophils % (A) 2 %; HCT 37.3 % (34.0-46.0); HGB 11.7 gm/dL (11.4-16.0); Hypochromasia Marked; Lymphocytes # (A) 0.7 k/uL (1.0-4.8); Lymphocytes % (A) 11 %; MCH 28.8 pg (25.0-35.0); MCHC 31.4 g/dL (31.0-37.0); MCV 91.9 fL (80.0-100.0); Mean Platelet Volume 8.5; Monocytes # (A) 0.4 k/uL (0-1.0); Monocytes % (A) 7 %; Neutrophils % (A) 77 %; Platelet Count 224 k/uL (150-450); RBC 4.06 m/uL (3.80-5.40); RDW 18.5 % (11.5-15.5); WBC 6.6 k/uL (3.8-10.6)
[2022-01-20 09:41] LABS: INR 1.2 (<1.2); Partial Thromboplastin Time 25.7 sec (22.0-30.0)
[2022-01-20 09:53] LABS: ALT 85 U/L (4-34); AST 165 U/L (14-36); African American GFR (CKD) 55 (>60 ml/min/1.73 sqM); Albumin 3.2 g/dL (3.5-5.0); Alcohol <10 mg/dL; Alkaline Phosphatase 292 U/L (38-126); Anion Gap 8 mmol/L; Blood Urea Nitrogen 23 mg/dL (7-17); Calcium 8.5 mg/dL (8.4-10.2); Carbon Dioxide 30 mmol/L (22-30); Chloride 99 mmol/L (98-107); Glucose 109 mg/dL (74-99); Magnesium 1.9 mg/dL (1.6-2.3); Non-African American GFR(CKD) 47 (>60 ml/min/1.73 sqM); Sodium 137 mmol/L (137-145); Total Bilirubin 3.4 mg/dL (0.2-1.3); Total Protein 6.9 g/dL (6.3-8.2)
--- NOTE | 2022-01-20 10:03 | ED ---
General Adult HPI - General Chief complaint: Weakness Stated complaint: Increased weakness Time Seen by Provider: 01/20/22 08:35 Source: patient, EMS, RN notes reviewed, old records reviewed Mode of arrival: EMS - History of Present Illness Initial comments: 71-year-old female presenting with generalized weakness. Symptoms have been progressive over the past several weeks but specifically worsened in the past 5 days. She denies any focal numbness or weakness. She denies fever. Denies pain complaints, no chest pain or abdominal pain. Patient does admit to depression and suicidal thoughts. She denies a suicidal plan. She states that she wants to be able to take care of her who is ill but she physically cannot do it. She states that he would be better off if she were . - Related Data Home Medications Medication Instructions Recorded Confirmed ALPRAZolam [Xanax] 0.5 mg PO HS 11/13/21 01/20/22 Calcium Carbonate [Calcium] 600 mg PO DAILY 11/13/21 01/20/22 Cholecalciferol [Vitamin D3 (25 25 mcg PO DAILY 11/13/21 01/20/22 Mcg = 1000 Iu)] Ferrous Sulfate [Iron (65 MG 325 mg PO DAILY 11/13/21 01/20/22 Elemental)] HYDROcodone/APAP 10-325MG [[place] 1 tab PO Q6H PRN 11/13/21 01/20/22 10-325] Atorvastatin [Lipitor] 80 mg PO HS 12/04/21 01/20/22 Clopidogrel [Plavix] 75 mg PO HS 12/04/21 01/20/22 Metoprolol Succinate (ER) [Toprol 12.5 mg PO HS 12/04/21 01/20/22 XL] Aspirin 81 mg PO HS 12/28/21 01/20/22 Mag Hydrox/Al Hydrox/Simeth 30 ml PO Q4H PRN 01/20/22 01/20/22 [Maalox] Previous Rx's Medication Instructions Recorded Fludrocortisone [Florinef] 0.1 mg PO BID 30 Days #60 tab 01/01/22 Furosemide [Lasix] 40 mg PO BID@0900,1600 30 Days #60 01/01/22 tab Spironolactone [Aldactone] 25 mg PO HS #30 tab 01/01/22 Allergies Allergy/AdvReac Type Severity Reaction Status Date / Time adhesive tape AdvReac skin Verified 01/20/22 09:50 blisters morphine AdvReac Hallucinati Verified 01/20/22 09:50 ons Review of Systems ROS Statement: Those systems with pertinent positive or pertinent negative responses have been documented in the HPI. ROS Other: All systems not noted in ROS Statement are negative. Past Medical History Past Medical History: Heart Failure, Diabetes Mellitus, Hyperlipidemia, Hypertension, Myocardial Infarction ([place]) Additional Past Medical History / Comment(s): Patient told she is "borderline diabetic", recent adm. w/chest pain & had Heart attack per pt. Last Myocardial Infarction Date:: 11-13-21 History of Any Multi-Drug Resistant Organisms: None Reported Past Surgical History: Adenoidectomy, Appendectomy, Bariatric Surgery, Cholecystectomy, Heart Catheterization With Stent, Joint Replacement, Orthopedic Surgery, Tonsillectomy, Tubal Ligation Additional Past Surgical History / Comment(s): left knee replacement, left hip replacement. Bone spurs removed left foot, gastric bypass, tummy tuck Past Anesthesia/Blood Transfusion Reactions: No Reported Reaction Date of Last Stent Placement:: 11-13-21 Past Psychological History: Anxiety, Depression Smoking Status: Never smoker Past Alcohol Use History: None Reported Past Drug Use History: None Reported General Exam General appearance: alert, in no apparent distress Head exam: Present: atraumatic, normocephalic Eye exam: Present: normal appearance, PERRL ENT exam: Present: mucous membranes dry Neck exam: Present: normal inspection. Absent: tenderness, meningismus Respiratory exam: Present: normal lung sounds bilaterally. Absent: respiratory distress Cardiovascular Exam: Present: regular rate, normal rhythm GI/Abdominal exam: Present: soft. Absent: distended, tenderness, guarding, rebound Extremities exam: Present: normal capillary refill, pedal edema. Absent: calf tenderness Neurological exam: Present: alert, oriented X3, CN II-XII intact. Absent: motor sensory deficit Psychiatric exam: Present: normal affect, normal mood Skin exam: Present: warm, dry, intact Course Vital Signs 01/20/22 08:35 Temperature 98.1 F Pulse Rate 82 Respiratory 18 Rate Blood Pressure 119/71 O2 Sat by Pulse 98 Oximetry EKG Findings - EKG Comments: EKG Findings:: EKG: Sinus rhythm low voltage rate of 76, LA interval 206, QRS duration 113, QTC [address] segment elevation. Medical Decision Making - Medical Decision Making 71-year-old female presented with increased generalized weakness, and suicidal ideation. Patient does not have a specific suicidal plan. She is unable to ambulate secondary to weakness. She's had a deterioration over the past one to 2 months. She has had multiple cardiac stenting for coronary artery disease. She is currently not expressing any chest pain. Her EKG is low-voltage without ST segment elevation, her workup does reveal a mild elevated troponin although this is down trending. Given the patient's increased weakness as well as her suicidal thoughts she will be admitted to internal medicine with psychiatry placed on consult. Case discussed with Dr. Summers. Patient does have elevated bilirubin and liver enzymes of uncertain etiology at this time. No abdominal pain, no fever. No vomiting. - Lab Data Result diagrams: 01/20/22 09:15 01/20/22 09:15 Lab Results 01/20/22 01/20/22 01/20/22 Range/Units 09:15 09:15 09:15 WBC 6.6 (3.8-10.6) k/uL RBC 4.06 (3.80-5.40) m/uL Hgb 11.7 (11.4-16.0) gm/dL Hct 37.3 (34.0-46.0) % MCV 91.9 (80.0-100.0) fL MCH 28.8 (25.0-35.0) pg MCHC 31.4 (31.0-37.0) g/dL RDW 18.5 H (11.5-15.5) % Plt Count 224 (150-450) k/uL MPV 8.5 Neutrophils % 77 % Lymphocytes % 11 % Monocytes % 7 % Eosinophils % 2 % Basophils % 0 % Neutrophils # 5.0 (1.3-7.7) k/uL Lymphocytes # 0.7 L (1.0-4.8) k/uL Monocytes # 0.4 (0-1.0) k/uL Eosinophils # 0.2 (0-0.7) k/uL Basophils # 0.0 (0-0.2) k/uL Hypochromasia Marked Anisocytosis Slight PT 13.0 H (9.0-12.0) sec INR 1.2 H (<1.2) APTT 25.7 (22.0-30.0) sec Sodium 137 (137-145) mmol/L Potassium 4.0 (3.5-5.1) mmol/L Chloride 99 (98-107) mmol/L Carbon Dioxide 30 (22-30) mmol/L Anion Gap 8 mmol/L BUN 23 H (7-17) mg/dL Creatinine 1.15 H (0.52-1.04) mg/dL Est GFR (CKD-EPI)AfAm 55 (>60 ml/min/1.73 sqM) Est GFR (CKD-EPI)NonAf 47 (>60 ml/min/1.73 sqM) Glucose 109 H (74-99) mg/dL Plasma Lactic Acid Myles (0.7-2.0) mmol/L Calcium 8.5 (8.4-10.2) mg/dL Magnesium 1.9 (1.6-2.3) mg/dL Total Bilirubin 3.4 H (0.2-1.3) mg/dL AST 165 H (14-36) U/L ALT 85 H (4-34) U/L Alkaline Phosphatase 292 H (38-126) U/L Troponin I (0.000-0.034) ng/mL Total Protein 6.9 (6.3-8.2) g/dL Albumin 3.2 L (3.5-5.0) g/dL Serum Alcohol <10 mg/dL 01/20/22 01/20/22 Range/Units 09:15 09:15 WBC (3.8-10.6) k/uL RBC (3.80-5.40) m/uL Hgb (11.4-16.0) gm/dL Hct (34.0-46.0) % MCV (80.0-100.0) fL MCH (25.0-35.0) pg MCHC (31.0-37.0) g/dL RDW (11.5-15.5) % Plt Count (150-450) k/uL MPV Neutrophils % % Lymphocytes % % Monocytes % % Eosinophils % % Basophils % % Neutrophils # (1.3-7.7) k/uL Lymphocytes # (1.0-4.8) k/uL Monocytes # (0-1.0) k/uL Eosinophils # (0-0.7) k/uL Basophils # (0-0.2) k/uL Hypochromasia Anisocytosis PT (9.0-12.0) sec INR (<1.2) APTT (22.0-30.0) sec Sodium (137-145) mmol/L Potassium (3.5-5.1) mmol/L Chloride (98-107) mmol/L Carbon Dioxide (22-30) mmol/L Anion Gap mmol/L BUN (7-17) mg/dL Creatinine (0.52-1.04) mg/dL Est GFR (CKD-EPI)AfAm (>60 ml/min/1.73 sqM) Est GFR (CKD-EPI)NonAf (>60 ml/min/1.73 sqM) Glucose (74-99) mg/dL Plasma Lactic Acid Myles 1.6 (0.7-2.0) mmol/L Calcium (8.4-10.2) mg/dL Magnesium (1.6-2.3) mg/dL Total Bilirubin (0.2-1.3) mg/dL AST (14-36) U/L ALT (4-34) U/L Alkaline Phosphatase (38-126) U/L Troponin I 0.078 H* (0.000-0.034) ng/mL Total Protein (6.3-8.2) g/dL Albumin (3.5-5.0) g/dL Serum Alcohol mg/dL Disposition Clinical Impression: Generalized weakness, Suicidal ideation Disposition: ADMITTED IP TO [facility] Condition: Stable Is patient prescribed a controlled substance at d/c from ED?: No Referrals: Nonstaff,Physician [Primary Care Provider] - 1-2 days Time of Disposition: 10:54
[2022-01-20] MEDS ORDERED: NALOXONE 0.4 MG/ML 1 ML VIAL IV PRN (10:34)
[2022-01-20] MEDS ORDERED: ALPRAZolam 0.5 MG TAB PO PRN (11:33)
[2022-01-20] MEDS ORDERED: MAG HYDROX/AL HYDROX/SIMETH 30 ML CUP PO PRN (11:33)
--- NOTE | 2022-01-20 11:56 | P.HPIM ---
History of Present Illness Patient very pleasant 71-year-old female came in with complaints of generalized weakness and the was depressed because of her chronic medical problems and that she has to take care of her and patient has not been ablating very well. Patient had suicidal ideations but no real plan. Patient does have history of congestive heart failure EF of around 20% ischemic cardiomyopathy. Patient is also on fludrocortisone for low blood pressure because of which she is not taking lisinopril. Patient is on 40 mg twice a day of Lasix. Patient was comparing of shortness of breath orthopnea denied any syncope and paroxysmal nocturnal dyspnea patient is single and swelling in bilateral bilateral lower extremities with with more redness in the left lower extreme edema but this redness in the left lower x-ray is chronic. Patient denied any chest pain at this time. REVIEW OF SYSTEMS: CONSTITUTIONAL: No fever, no malaise, no fatigue. HEENT: No recent visual problems or hearing problems. Denied any sore throat. CARDIOVASCULAR: As mentioned in HPI PULMONARY: No shortness of breath, no cough, no hemoptysis. GASTROINTESTINAL: No diarrhea, no nausea, no vomiting, no abdominal pain. NEUROLOGICAL: No headaches, no weakness, no numbness. HEMATOLOGICAL: Denies any bleeding or petechiae. GENITOURINARY: Denies any burning micturition, frequency, or urgency. MUSCULOSKELETAL/RHEUMATOLOGICAL: Denies any joint pain,or any muscle pain. ENDOCRINE: Denies any polyuria or polydipsia. The rest of the 14-point review of systems is negative. PHYSICAL EXAMINATION: GENERAL: The patient is alert and oriented x3, not in any acute distress. Morbidly obese HEENT: Pupils are round and equally reacting to light. EOMI. No scleral icterus. No conjunctival pallor. Normocephalic, atraumatic. No pharyngeal erythema. No thyromegaly. CARDIOVASCULAR: S1 and S2 present. No murmurs, rubs, or gallops. PULMONARY: Chest is clear to auscultation, no wheezing or crackles. ABDOMEN: Soft, nontender, nondistended, normoactive bowel sounds. No palpable organomegaly. MUSCULOSKELETAL: No joint swelling or deformity. EXTREMITIES: No cyanosis, clubbing, significant bilateral lower extremity edema with the redness in the left lower x-ray today which is chronic and patient also has abdominal wall edema NEUROLOGICAL: Gross neurological examination did not reveal any focal deficits. SKIN: Left lower extremity redness which is chronic appears to be secondary to venous stasis. Assessment and plan -Congestive heart failure chronic systolic dysfunction, ejection fraction of 20%, ischemic cardiomyopathy with acute exacerbation patient is volume overload patient was started on IV Lasix, continue with Aldactone because of low blood pressure issues patient's BHARTI inhibitor was discontinued during her last hospital patient patient is also on fludrocortisone which can cause fluid retention, we'll cut down the dose of fludrocortisone to once a day if blood pressure tolerates, we will slowly discontinue that as well. -Transaminases secondary to hepatic congestion x-ray did improve with IV Lasix -Left lower extremity redness there is no fever or leukocytosis will obtain pro- calcitonin my suspicion for cellulitis is low this is chronic venous stasis there is no local is of temperature. -Mildly elevated troponin secondary probably secondary to congestive heart failure -Depression and suicidal ideation: Psychiatry was consulted -mild acute renal failure. Prerenal azotemia secondary to be discharged failure expected to improve with Lasix -Coronary artery disease and extent happened after diabetes mellitus Have gastroesophageal reflux disease -Hyperlipidemia -Obesity - DVT prophylaxis: Subcutaneous heparin Past Medical History Past Medical History: Coronary Artery Disease (CAD), Heart Failure, Diabetes Mellitus, GERD/Reflux, Hyperlipidemia, Hypertension, Myocardial Infarction ([place]), Pneumonia Additional Past Medical History / Comment(s): Pt recently admitted to [facility] on 12/28/21 with exacerbation CHF/[place]. Other hx: Pt states she now has low blood p ressure, chronic back and bilateral hip pain, osteoporosis, bilateral lower leg edema/redness which is worse in the L leg, difficulty walking pt states d/t previous L knee and L hip replacements. Last Myocardial Infarction Date:: 12/29/21 History of Any Multi-Drug Resistant Organisms: None Reported Past Surgical History: Adenoidectomy, Appendectomy, Bariatric Surgery, Cholecystectomy, Heart Catheterization With Stent, Joint Replacement, Orthopedic Surgery, Tonsillectomy, Tubal Ligation Additional Past Surgical History / Comment(s): Gastric stapling, panniculectomy, total L hip and L knee replacements, bone spurs removed L foot, Past Anesthesia/Blood Transfusion Reactions: No Reported Reaction Date of Last Stent Placement:: 12/29/21 Past Psychological History: Anxiety, Depression Additional Psychological History / Comment(s): Pt resides with her spouse who has health issues. Pt states she receives home care thru [facility]. She has a cleaning person once a week. Pt states she has increased depression and had suicidal thought recently but no plan. She states her depression is in creased d/t not being able to assist her spouse as much as she would like. Smoking Status: Never smoker Past Alcohol Use History: None Reported Past Drug Use History: None Reported Medications and Allergies Home Medications Medication Instructions Recorded Confirmed Type ALPRAZolam [Xanax] 0.5 mg PO HS 11/13/21 01/20/22 History Calcium Carbonate [Calcium] 600 mg PO DAILY 11/13/21 01/20/22 History Cholecalciferol [Vitamin D3 (25 25 mcg PO DAILY 11/13/21 01/20/22 History Mcg = 1000 Iu)] Ferrous Sulfate [Iron (65 MG 325 mg PO DAILY 11/13/21 01/20/22 History Elemental)] HYDROcodone/APAP 10-325MG [[place] 1 tab PO Q6H PRN 11/13/21 01/20/22 History 10-325] Atorvastatin [Lipitor] 80 mg PO HS 12/04/21 01/20/22 History Clopidogrel [Plavix] 75 mg PO HS 12/04/21 01/20/22 History Metoprolol Succinate (ER) [Toprol 12.5 mg PO HS 12/04/21 01/20/22 History XL] Aspirin 81 mg PO HS 12/28/21 01/20/22 History Fludrocortisone [Florinef] 0.1 mg PO BID 30 Days #60 tab 01/01/22 01/20/22 Rx Furosemide [Lasix] 40 mg PO BID@0900,1600 30 Days #60 01/01/22 01/20/22 Rx tab Spironolactone [Aldactone] 25 mg PO HS #30 tab 01/01/22 01/20/22 Rx Mag Hydrox/Al Hydrox/Simeth 30 ml PO Q4H PRN 01/20/22 01/20/22 History [Maalox] Allergies Allergy/AdvReac Type Severity Reaction Status Date / Time adhesive tape AdvReac skin Verified 01/20/22 09:50 blisters morphine AdvReac Hallucinati Verified 01/20/22 09:50 ons Physical Exam Vitals: Vital Signs Temp Pulse Resp BP Pulse Ox 01/20/22 08:35 98.1 F 82 18 119/71 98 Intake and Output 01/19/22 01/20/22 01/20/22 22:59 06:59 14:59 Other: Weight 141.974 kg Results CBC & Chem 7: 01/20/22 09:15 01/20/22 09:15 Labs: Abnormal Lab Results - Last 24 Hours (Table) 01/20/22 01/20/22 01/20/22 Range/Units 09:15 09:15 09:15 RDW 18.5 H (11.5-15.5) % Lymphocytes # 0.7 L (1.0-4.8) k/uL PT 13.0 H (9.0-12.0) sec INR 1.2 H (<1.2) BUN 23 H (7-17) mg/dL Creatinine 1.15 H (0.52-1.04) mg/dL Glucose 109 H (74-99) mg/dL Total Bilirubin 3.4 H (0.2-1.3) mg/dL AST 165 H (14-36) U/L ALT 85 H (4-34) U/L Alkaline Phosphatase 292 H (38-126) U/L Troponin I (0.000-0.034) ng/mL Albumin 3.2 L (3.5-5.0) g/dL 01/20/22 Range/Units 09:15 RDW (11.5-15.5) % Lymphocytes # (1.0-4.8) k/uL PT (9.0-12.0) sec INR (<1.2) BUN (7-17) mg/dL Creatinine (0.52-1.04) mg/dL Glucose (74-99) mg/dL Total Bilirubin (0.2-1.3) mg/dL AST (14-36) U/L ALT (4-34) U/L Alkaline Phosphatase (38-126) U/L Troponin I 0.078 H* (0.000-0.034) ng/mL Albumin (3.5-5.0) g/dL
[2022-01-20] MEDS: FUROSEMIDE 10 MG/ML 4 ML VIAL IV SCH ×2 (12:26→21:00)
--- NOTE | 2022-01-20 12:29 | XR ---
EXAMINATION TYPE: XR chest 2V DATE OF EXAM: 01/20/2022 COMPARISON: Chest x-ray and CTA chest December 28, 2021 HISTORY: CHF. TECHNIQUE: Frontal and lateral views of the chest are obtained. FINDINGS: There is persistent cardiomegaly and low lung volumes. The osseous structures are intact . Persistent small to moderate size left greater than right pleural effusions and associated left bas ilar opacity favoring compressive atelectasis. Advanced degenerative change bilateral glenohumeral chidi ints redemonstrated. IMPRESSION: Findings consistent with CHF exacerbation remain present as detailed above. No significa nt change from prior studies.
[2022-01-20] MEDS: HEPARIN SODIUM,PORCINE/PF 5,000 UNIT/0.5 ML SYRINGE SQ SCH (15:50)
[2022-01-20 18:59] LABS: Appearance,Urine Clear (Clear); Bacteria,Urine Rare /hpf; Bilirubin,Urine Negative (Negative); Blood,Urine Trace (Negative); Color,Urine Light Yellow; Glucose,Urine (UA) Negative (Negative); Ketones,Urine Negative (Negative); Leukocyte Esterase,Urine Negative (Negative); Nitrite,Urine Negative (Negative); PH, Urine 5.5 (5.0-8.0); Protein,Urine Trace (Negative); RBC,Urine 1 /hpf (0-5); Specific Gravity,Urine 1.005 (1.001-1.035); Squamous Epithelial Cell,Urine 1 /hpf (0-4); Urobilinogen,Urine <2.0 mg/dL (<2.0); WBC,Urine 2 /hpf (0-5)
[2022-01-20 19:04] LABS: Amphetamine Screen,Urine Not Detected (NotDetected); Barbiturate Screen,Urine Not Detected (NotDetected); Benzodiazepines Screen,Urine Detected (NotDetected); Cocaine Screen,Urine Not Detected (NotDetected); Methadone Screen, Urine Not Detected (NotDetected); Opiate Screen,Urine Detected (NotDetected); Oxycodone Screen, Urine Not Detected (NotDetected); Phencyclidine Screen,Urine Not Detected (NotDetected); Tricyclic Antidepressant,Urine Not Detected (NotDetected); Urn Cannabinoid Scrn Not Detected (NotDetected)
[2022-01-20 20:19] LABS: Glucose,Whole Blood 124 mg/dL (70-110)
[2022-01-20] MEDS: ASPIRIN 81 MG PO SCH (20:59)
[2022-01-20] MEDS: METOPROLOL SUCCINATE (ER) 25 MG TAB.ER.24H PO SCH (20:59)
[2022-01-20] MEDS: ATORVASTATIN 80 MG TAB PO SCH (21:00)
[2022-01-20] MEDS: CLOPIDOGREL 75 MG TAB PO SCH (21:00)
[2022-01-20] MEDS: HYDROcodone/APAP 10-325MG 1 EACH TAB PO PRN (21:00)
[2022-01-20] MEDS ORDERED: SPIRONOLACTONE 25 MG TAB PO SCH (21:00)
[2022-01-21] MEDS: HEPARIN SODIUM,PORCINE/PF 5,000 UNIT/0.5 ML SYRINGE SQ SCH ×3 (00:02→16:21)
[2022-01-21 06:03] LABS: Glucose,Whole Blood 144 mg/dL (70-110)
--- NOTE | 2022-01-21 07:16 | CONS ---
CONSULTATION PURPOSE FOR CONSULTATION: Evaluate for depression with suicide statements. HISTORY OF PRESENTING ILLNESS: The patient is a 71-year-old female. She was admitted for generalized weakness. In addition Dr. Summers indicated in his admission note the following: That the patient "was depressed because of her chronic medical problems and that she has to take care of her , the patient had suicide ideations, but no real plan." When I talked to the patient, she noted that she has had significant stress in her home situation. Her is essentially bed ridden. He suffered some major medical problems in the last few years and has been significantly impaired since then. In addition, the patient herself is wheelchair bound and only has limited capacity to manage her home situation. Her essentially is in bed around the clock. She checks in with him to provide emotional support. She notes that additional stressor she has dealt with include that her younger son in 2019 from renal disease. Following that, her mother in 2020. After that there were at least 1 or 2 other family members who . She has had chronic grief because of all of this. In regard to issues of depression state, the patient states that going back in years she has not had any prior difficulties with anxiety or depression issues. She had never been on any psychiatric medications. She notes currently that she is on [place], which she said she takes once a day and Xanax that she takes twice a day. She says that she has been on these medications for several years, probably going back to around 2016. When I asked the patient about depression issues, she acknowledged that she has been struggling with depression. She was able as noted above to clearly layout stress issues that have been impacting her of late. She notes that from time to time she will see her son out of the corner of her eyes. She states that she sleeps fair. She sleeps in a lift chair. Her appetite has been fair. She is homebound. She says she has the physical therapist that comes into work with her, though she does not feel that she has made much progress with that. She also has a home nurse who comes on a regular basis. She said because of the struggles she and her have been having in the past year, they began looking for an assisted living situation. She said that she and family had called over 100 facilities and there were no units available. She states that her might do better if she was not around because of her limitation. She also acknowledged that she would probably do better if her was not in the home for essentially the same reason. She said that her would not tolerate moving into a nursing facility. The patient stated that just recently the couple had installed a ramp to be able to get out of the house, which cost them 3000 dollars. It has just been put in place and they have not used it as yet. She notes that she has a friend and a [id number] who will do shopping for her. She says in spite of being in a wheel chair, she is able to do the cooking at home. She and her have 2 sons that live nearby and have regular contacts. When I asked about thoughts she might have of committing suicide, she acknowledges that she has had those thoughts but has no intent or plan and that she understands that he if she were to harm herself, it would be that much more difficult for her . She says the only reason those thoughts come up for her is just relating to some of the frustration she experiences on a day-to- day basis. She acknowledges that she has some crying spells. She can have anxiety some of the time. She does feel Xanax helps her with that. My understanding is that other than Xanax, the patient has not taken other psychotropic medication. MENTAL STATUS EXAM: The patient was lying in bed. She gave fairly good eye contact. She was a little restless. She answered questions with direct responses. Her thoughts were clear and coherent. She was somewhat spontaneous. She was interactive. She had an anxious at times, tense affect. She had a friendly manner. Her mood was reserved. She seemed to be dealing in a realistic manner with some of the stress that she faces. She was somewhat distressed. There was no clear indication of thought disorder. She acknowledges that she has had thoughts about self-harm, though recognizes that it is not something that she would initiate nor has she had any plans or intent in that regard. She was oriented and alert. It is noteworthy that family members have noted that the patient has been having some slurring of speech in recent times. I did not note slurring when I talked to her. ASSESSMENT: The patient likely meets criteria for acute stress disorder and/or depression. There might be consideration for initiating an antidepressant. The problem would be that her long-term use of Xanax and opioid pain medications would likely make it that any antidepressant would be ineffective if she were to begin to reduce the dose of her or Xanax and narcotic. She would have withdrawal symptoms that could be quite difficult for her. She would need to be off those medications for matter of weeks before she would likely benefit from any antidepressant therapy. Chronic pain issues could be better managed long-term if she were off opioid pain medications, though generally it takes beyond 6 or 8 weeks of withdrawal before there is improvement from the standpoint of pain issues. The thing would be Xanax as far as it's negative affects in aggravating anxiety and depression issues. The slurring of speech that has been noted by her family is very likely related to her use of those 2 medications. Whether or not she is using those medications strictly as prescribed or whether she is taking and additional months would be important issue to clarify. The patient would benefit from some individual psychotherapy. Whether or not that could be arranged in her home setting is a question, whether or not she has the setup and capabilities for virtual sessions would be something to be addressed. There might be consideration for the patient starting a low-dose medication for high stress state such as Zyprexa. If that were the case. I would recommend starting 2.5 mg twice a day. If she were started on Zyprexa, it would be useful to see if that could allow her to reduce or stop the use of Xanax. If she could get off Xanax that would be a very helpful situation for her both in terms of her own mood issues as well as her general functioning and it does carry risks for memory and motor impairment which both are significant negatives for her. It is noted that I will not be available to continue to follow her. It would not be unreasonable to give her a trial of Zyprexa 2.5 mg twice a day. Generally, Zyprexa is a reasonably well-tolerated low dose and could show moderate amount of benefit in terms of her mood and outlook. I would couple that with either reduction or discontinuation of Xanax altogether. If there are further issues that need to be addressed, please re-consult Psychiatry. MMODL / IJN: [id number] /
[2022-01-21 07:51] LABS: Anisocytosis Slight; HCT 34.7 % (34.0-46.0); HGB 10.9 gm/dL (11.4-16.0); Hypochromasia Marked; MCH 28.6 pg (25.0-35.0); MCHC 31.5 g/dL (31.0-37.0); MCV 90.8 fL (80.0-100.0); Mean Platelet Volume 7.9; Platelet Count 234 k/uL (150-450); RBC 3.82 m/uL (3.80-5.40); RDW 18.5 % (11.5-15.5); WBC 6.8 k/uL (3.8-10.6)
[2022-01-21 08:06] LABS: Calcium 8.1 mg/dL (8.4-10.2); Magnesium 1.8 mg/dL (1.6-2.3); Potassium 3.8 mmol/L (3.5-5.1)
[2022-01-21] MEDS ORDERED: FLUDROCORTISONE 0.1 MG TAB PO SCH (09:00)
[2022-01-21] MEDS: CHOLECALCIFEROL 25 MCG (1000 IU) TABLET PO SCH (09:20)
[2022-01-21] MEDS: CALCIUM CARB-VIT D 500 MG-5 MCG TAB PO SCH (09:20)
[2022-01-21] MEDS: polyethylene glycoL 3350 17 GM POWD.PACK PO SCH (09:21)
[2022-01-21] MEDS: FUROSEMIDE 10 MG/ML 4 ML VIAL IV SCH ×2 (09:21→16:21)
[2022-01-21] MEDS: HYDROcodone/APAP 10-325MG 1 EACH TAB PO PRN ×2 (09:26→20:20)
[2022-01-21] MEDS ORDERED: Magnesium Replacement Protocol 1 EACH MISC MISCELLANE PRN (09:28)
[2022-01-21 12:05] LABS: Glucose,Whole Blood 117 mg/dL (70-110)
[2022-01-21] MEDS: MAGNESIUM SULFATE-D5W PMX 1 GM in DEXTROSE/WATER 1 100ML.BAG IVPB SCH ×2 (12:06→16:21)
[2022-01-21] MEDS: INSULIN ASPART (NovoLOG) 100 UNIT/ML VIAL SQ SCH ×3 (12:07→20:31)
--- NOTE | 2022-01-21 13:10 | CONS ---
CONSULTATION HISTORY OF PRESENT ILLNESS: This is a 71-year-old lady with a known history of ischemic cardiomyopathy with chronic systolic heart failure, came into the hospital feeling weak, tired, increasing shortness of breath, was found to have significant increase in lower extremity edema and also was in heart failure. She has received diuretics, feels better. Blood pressure is about 104 and she is on a small dose of Florinef. She came in mostly with generalized weakness, progressively worsening shortness of breath and lower extremity edema. 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 She herself has poor ejection fraction, recent cardiac cath with known multivessel disease. Dr. Santos sees her in the outpatient setting. On January 28 of this year she underwent stenting of the major diagonal branch that was totally occluded. She has a 30% to 40% mid LAD disease, a totally occluded mid circumflex and totally occluded RCA. She has ejection fraction in the range of 20-25 percent. At the time of my evaluation, she actually feels better. Her breathing has somewhat improved. Echocardiogram from December 30 revealed ejection fraction of about 20% with enlargement of left ventricle. PAST MEDICAL HISTORY: Remarkable for CAD, multivessel heart failure, ejection fraction 20-25 percent, diabetes, hypertension, hyperlipidemia. MEDICATIONS: Medications at home include: Florinef 0.1 mg daily, Aldactone 25 mg daily, Lasix 40 mg b.i.d., magnesium supplements, Xanax, atorvastatin 80 mg daily, Plavix 75 mg daily, aspirin 81 mg daily, metoprolol succinate 12.5 mg daily. PHYSICAL EXAMINATION: On examination, blood pressure is 104/60, pulse rate is 70 per minute. EKG revealed a sinus mechanism with poor R-wave progression suggestive of old anterior OK, nonspecific ST changes noted. LABORATORY DATA: Suggests a BNP of 14,000, troponin of 0.07. There is JVD of 1 cm. No carotid bruit. S1-S2 heard normally but distantly, short systolic murmur left sternal border. Lungs reveal fine rales over both bases. Abdomen is soft. Lower extremities revealed bilateral moderate to severe edema. Diminished pulses. Central nervous system grossly no focal deficits. IMPRESSION: 1. Exacerbation of systolic heart failure. 2. Ischemic cardiomyopathy. 3. Hypertension. 4. Hypercholesterolemia. 5. History of some autonomic dysfunction on Florinef. 6. History of recent stenting of major diagonal branch. RECOMMENDATIONS: I am recommending that we will discontinue Florinef, decrease Aldactone, continue Lasix at 40 mg q.8 hours and check a BMP in the morning. Prognosis remains guarded. Discussed my thoughts in detail with the patient. MMSHAQUILLEL / IJN: [id number] /
--- NOTE | 2022-01-21 15:23 | P.PN ---
Subjective Progress Note Date: 01/21/22 Patient very pleasant 71-year-old female came in with complaints of generalized weakness and the was depressed because of her chronic medical problems and that she has to take care of her and patient has not been ablating very well. Patient had suicidal ideations but no real plan. Patient does have history of congestive heart failure EF of around 20% ischemic cardiomyopathy. Patient is also on fludrocortisone for low blood pressure because of which she is not taking lisinopril. Patient is on 40 mg twice a day of Lasix. Patient was comparing of shortness of breath orthopnea denied any syncope and paroxysmal nocturnal dyspnea patient is single and swelling in bilateral bilateral lower ex tremities with with more redness in the left lower extreme edema but this redness in the left lower x-ray is chronic. Patient denied any chest pain at this time. 01/21/2022 Patient evaluated today resting in bed. She continues with peripheral edema pitting, and is maintained on IV lasix 40 mg which has been increased to [id number]. Negative 2.4 L of fluid in the last 24 hours. She does report breathing better however has not been up out of bed. She denies suicidal ideations today and has been evaluated by psychiatry. She is agreeable to rehab on discharge when medically stable. She does report feeling like she had slurred speech at home and was concerned with upper extremity weakness, we will check a brain CT. She does take xanax at night and also norco for pain management possible medication effect. There is no focal neurological deficit. She has equal strength bilateral upper extremities. Labs today showing hgb 10.9, BUN 22, creat 1.18, blood glucose in the 120s, magnesium 1.8. Review of Systems Constitutional: Denied any fatigue denied any fever. Cardio vascular: denied any chest pain, palpitations Gastrointestinal: denied any nausea, vomiting, diarrhea Pulmonary: Denied any shortness of breath cough Neurologic denied any new focal deficits All inpatient medications were reviewed and appropriate changes in these medications as dictated in the interval history and assessment and plan. PHYSICAL EXAMINATION: GENERAL: The patient is alert and oriented x3, not in any acute distress. Morbidly obese HEENT: Pupils are round and equally reacting to light. EOMI. No scleral icterus. No conjunctival pallor. Normocephalic, atraumatic. No pharyngeal erythema. No thyromegaly. CARDIOVASCULAR: S1 and S2 present. No murmurs, rubs, or gallops. PULMONARY: Diminshed, no wheezing noted. ABDOMEN: Soft, nontender, nondistended, normoactive bowel sounds. No palpable organomegaly. MUSCULOSKELETAL: No joint swelling or deformity. EXTREMITIES: No cyanosis, clubbing, significant bilateral lower extremity edema with the redness in the left lower x-ray today which is chronic and patient also has abdominal wall edema NEUROLOGICAL: Gross neurological examination did not reveal any focal deficits. SKIN: Left lower extremity redness which is chronic appears to be secondary to venous stasis. Assessment and plan -Congestive heart failure chronic systolic dysfunction, ejection fraction of 20%, ischemic cardiomyopathy with acute exacerbation patient is volume overload patient was started on IV Lasix, continue with Aldactone because of low blood pressure issues patient's BHARTI inhibitor was discontinued during her last hospital stay. Patient is also on fludrocortisone which can cause fluid retention, fludrocortisone has been decreased to once a day blood pressure in the low 100s systolic. We will continue to monitor blood pressure and if tolerating may discontinue fludrocortisone. -Transaminases secondary to hepatic congestion, will repeat levels tomorrow -Left lower extremity redness there is no fever or leukocytosis, procalcitonin 0.31 suspicion for cellulitis is low this is chronic venous stasis -Mildly elevated troponin probably secondary to congestive heart failure -Depression and suicidal ideation: Psychiatry was consulted, patient denies suicidal ideations currently, feelings of depression related to current life stressors. -Mild acute renal failure. Prerenal azotemia secondary to heart failure expected to improve with Lasix -Coronary artery disease -Diabetes mellitus -Gastroesophageal reflux disease -Hyperlipidemia -Obesity -DVT prophylaxis: Subcutaneous heparin -GI prophylaxis: Full Code Subacute rehab on discharge when medically stable The impression and plan of care has been dictated by Cate Corrales Nurse Practitioner as directed. Dr. Melina MD I have performed a history and physical examination and medical decision making of this patient, discussed the same with the dictator, and agree with the dictators assessment and plan as written, documented as a scribe. Based on total visit time, I have performed more than 50% of this visit. Objective - Vital Signs Vital signs: Vital Signs Temp 97.8 F 01/21/22 04:00 Pulse 78 01/21/22 04:00 Resp 16 01/21/22 04:00 BP 96/51 01/21/22 04:00 Pulse Ox 94 L 01/21/22 04:00 FiO2 Intake & Output 01/20/22 01/21/22 01/21/22 18:59 06:59 18:59 Intake Total 240 570 Output Total 1425 600 Balance -1185 -30 Weight 141.974 kg Intake: Oral 240 570 Output: Urine 1425 600 Other: Voiding Method Bedpan Diaper External Catheter - Labs CBC & Chem 7: 01/21/22 07:05 01/21/22 07:05 Labs: Abnormal Lab Results - Last 24 Hours (Table) 01/20/22 01/20/22 01/20/22 Range/Units 09:15 09:15 09:15 Hgb (11.4-16.0) gm/dL RDW 18.5 H (11.5-15.5) % Lymphocytes # 0.7 L (1.0-4.8) k/uL PT 13.0 H (9.0-12.0) sec INR 1.2 H (<1.2) Carbon Dioxide (22-30) mmol/L BUN 23 H (7-17) mg/dL Creatinine 1.15 H (0.52-1.04) mg/dL Glucose 109 H (74-99) mg/dL POC Glucose (mg/dL) (70-110) mg/dL Calcium (8.4-10.2) mg/dL Total Bilirubin 3.4 H (0.2-1.3) mg/dL AST 165 H (14-36) U/L ALT 85 H (4-34) U/L Alkaline Phosphatase 292 H (38-126) U/L Troponin I (0.000-0.034) ng/mL Albumin 3.2 L (3.5-5.0) g/dL Procalcitonin (0.02-0.09) ng/mL Urine Protein (Negative) Urine Blood (Negative) Urine Bacteria (None) /hpf Urine Opiates Screen (NotDetected) U Benzodiazepines Scrn (NotDetected) 01/20/22 01/20/22 01/20/22 Range/Units 09:15 09:15 18:28 Hgb (11.4-16.0) gm/dL RDW (11.5-15.5) % Lymphocytes # (1.0-4.8) k/uL PT (9.0-12.0) sec INR (<1.2) Carbon Dioxide (22-30) mmol/L BUN (7-17) mg/dL Creatinine (0.52-1.04) mg/dL Glucose (74-99) mg/dL POC Glucose (mg/dL) (70-110) mg/dL Calcium (8.4-10.2) mg/dL Total Bilirubin (0.2-1.3) mg/dL AST (14-36) U/L ALT (4-34) U/L Alkaline Phosphatase (38-126) U/L Troponin I 0.078 H* (0.000-0.034) ng/mL Albumin (3.5-5.0) g/dL Procalcitonin 0.31 H (0.02-0.09) ng/mL Urine Protein Trace H (Negative) Urine Blood Trace H (Negative) Urine Bacteria Rare H (None) /hpf Urine Opiates Screen Detected H (NotDetected) U Benzodiazepines Scrn Detected H (NotDetected) 01/20/22 01/21/22 01/21/22 Range/Units 20:16 05:46 07:05 Hgb 10.9 L (11.4-16.0) gm/dL RDW 18.5 H (11.5-15.5) % Lymphocytes # (1.0-4.8) k/uL PT (9.0-12.0) sec INR (<1.2) Carbon Dioxide (22-30) mmol/L BUN (7-17) mg/dL Creatinine (0.52-1.04) mg/dL Glucose (74-99) mg/dL POC Glucose (mg/dL) 124 H 144 H (70-110) mg/dL Calcium (8.4-10.2) mg/dL Total Bilirubin (0.2-1.3) mg/dL AST (14-36) U/L ALT (4-34) U/L Alkaline Phosphatase (38-126) U/L Troponin I (0.000-0.034) ng/mL Albumin (3.5-5.0) g/dL Procalcitonin (0.02-0.09) ng/mL Urine Protein (Negative) Urine Blood (Negative) Urine Bacteria (None) /hpf Urine Opiates Screen (NotDetected) U Benzodiazepines Scrn (NotDetected) 01/21/22 Range/Units 07:05 Hgb (11.4-16.0) gm/dL RDW (11.5-15.5) % Lymphocytes # (1.0-4.8) k/uL PT (9.0-12.0) sec INR (<1.2) Carbon Dioxide 32 H (22-30) mmol/L BUN 22 H (7-17) mg/dL Creatinine 1.18 H (0.52-1.04) mg/dL Glucose 120 H (74-99) mg/dL POC Glucose (mg/dL) (70-110) mg/dL Calcium 8.1 L (8.4-10.2) mg/dL Total Bilirubin (0.2-1.3) mg/dL AST (14-36) U/L ALT (4-34) U/L Alkaline Phosphatase (38-126) U/L Troponin I (0.000-0.034) ng/mL Albumin (3.5-5.0) g/dL Procalcitonin (0.02-0.09) ng/mL Urine Protein (Negative) Urine Blood (Negative) Urine Bacteria (None) /hpf Urine Opiates Screen (NotDetected) U Benzodiazepines Scrn (NotDetected) Assessment and Plan Time with Patient: Less than 30
[2022-01-21 16:38] LABS: Glucose,Whole Blood 160 mg/dL (70-110)
--- NOTE | 2022-01-21 18:39 | CT ---
EXAMINATION TYPE: CT brain wo con CT DLP: 1231.4 mGycm, Automated exposure control for dose reduction was used. DATE OF EXAM: 01/21/2022 4:00 PM COMPARISON: None. CLINICAL INDICATION:Female, 71 years old with history of slurred speech at home, ams TECHNIQUE: Brain: Multiple axial CT images of the brain were obtained without IV contrast. FINDINGS: Brain: Motion limits evaluation. Extra-axial spaces: No abnormal extra-axial fluid collections. Ventricular system: Within normal limits Cerebral parenchyma: Area within the right posterior medial frontal lobe white matter hypodensity. No acute intraparenchymal hemorrhage or mass effect. The alcocer-white junction is well differentiated. Cerebellum: Unremarkable. Mass effect: No evidence of midline shift. Intracranial vasculature: unremarkable Soft tissues: Normal. Calvarium/osseous structures: No depressed skull fracture. Paranasal sinuses and mastoid air cells: Mild scattered paranasal sinus disease. Visualized orbits: Orbital contents are intact. IMPRESSION: 1. No acute intracranial process. 2. Nonspecific white matter changes, in the right frontal lobe near the skull vertex Likely secondar y to chronic small vessel ischemic disease.
[2022-01-21 20:07] LABS: Glucose,Whole Blood 129 mg/dL (70-110)
[2022-01-21] MEDS: ATORVASTATIN 80 MG TAB PO SCH (20:17)
[2022-01-21] MEDS: ASPIRIN 81 MG PO SCH (20:17)
[2022-01-21] MEDS: METOPROLOL SUCCINATE (ER) 25 MG TAB.ER.24H PO SCH (20:18)
[2022-01-21] MEDS: CLOPIDOGREL 75 MG TAB PO SCH (20:20)
[2022-01-21] MEDS ORDERED: SPIRONOLACTONE 25 MG TAB PO SCH (21:00)
[2022-01-22] MEDS: HEPARIN SODIUM,PORCINE/PF 5,000 UNIT/0.5 ML SYRINGE SQ SCH ×4 (00:24→23:31)
[2022-01-22] MEDS: FUROSEMIDE 10 MG/ML 4 ML VIAL IV SCH ×3 (00:24→10:44)
[2022-01-22] MEDS: HYDROcodone/APAP 10-325MG 1 EACH TAB PO PRN ×2 (03:46→21:33)
[2022-01-22 06:29] LABS: Glucose,Whole Blood 105 mg/dL (70-110)
[2022-01-22] MEDS: INSULIN ASPART (NovoLOG) 100 UNIT/ML VIAL SQ SCH ×4 (06:56→21:31)
[2022-01-22] MEDS: FAMOTIDINE 20 MG TAB PO SCH (08:27)
[2022-01-22] MEDS: CHOLECALCIFEROL 25 MCG (1000 IU) TABLET PO SCH (08:27)
[2022-01-22] MEDS: CALCIUM CARB-VIT D 500 MG-5 MCG TAB PO SCH (08:27)
[2022-01-22] MEDS: polyethylene glycoL 3350 17 GM POWD.PACK PO SCH (08:28)
[2022-01-22 08:59] LABS: Albumin 3.1 g/dL (3.5-5.0); Magnesium 1.8 mg/dL (1.6-2.3); Potassium 3.5 mmol/L (3.5-5.1); Total Protein 6.7 g/dL (6.3-8.2)
[2022-01-22] MEDS ORDERED: POTASSIUM CHLORIDE ER 20 MEQ TAB.ER PO STA (09:19)
[2022-01-22] MEDS ORDERED: Magnesium Replacement Protocol 1 EACH MISC MISCELLANE PRN (09:19)
[2022-01-22] MEDS: MAGNESIUM SULFATE-D5W PMX 1 GM in DEXTROSE/WATER 1 100ML.BAG IVPB SCH ×2 (10:20→11:43)
[2022-01-22] MEDS ORDERED: FUROSEMIDE 10 MG/ML 2 ML VIAL IV ONE (10:41)
[2022-01-22 11:17] VITALS: BMI 35.0
[2022-01-22] MEDS: MIDODRINE 5 MG TAB PO SCH ×2 (11:43→17:26)
[2022-01-22 11:48] LABS: Glucose,Whole Blood 167 mg/dL (70-110)
--- NOTE | 2022-01-22 15:15 | P.PN ---
Subjective Progress Note Date: 01/22/22 Patient very pleasant 71-year-old female came in with complaints of generalized weakness and the was depressed because of her chronic medical problems and that she has to take care of her and patient has not been ablating very well. Patient had suicidal ideations but no real plan. Patient does have history of congestive heart failure EF of around 20% ischemic cardiomyopathy. Patient is also on fludrocortisone for low blood pressure because of which she is not taking lisinopril. Patient is on 40 mg twice a day of Lasix. Patient was comparing of shortness of breath orthopnea denied any syncope and paroxysmal nocturnal dyspnea patient is single and swelling in bilateral bilateral lower ex tremities with with more redness in the left lower extreme edema but this redness in the left lower x-ray is chronic. Patient denied any chest pain at this time. 01/21/2022 Patient evaluated today resting in bed. She continues with peripheral edema pitting, and is maintained on IV lasix 40 mg which has been increased to [id number]. Negative 2.4 L of fluid in the last 24 hours. She does report breathing better however has not been up out of bed. She denies suicidal ideations today and has been evaluated by psychiatry. She is agreeable to rehab on discharge when medically stable. She does report feeling like she had slurred speech at home and was concerned with upper extremity weakness, we will check a brain CT. She does take xanax at night and also norco for pain management possible medication effect. There is no focal neurological deficit. She has equal strength bilateral upper extremities. Labs today showing hgb 10.9, BUN 22, creat 1.18, blood glucose in the 120s, magnesium 1.8. 01/22/2022 Patient is sitting up in bed. Peripheral edema has improved some, she continues with lower extremity edema left greater than right. Patient was maintained on IV lasix overnight and has been transitioned this morning to oral lasix. She is in negative fluid balance for the last 24 hours. Labs today showing sodium 135, potassium 3.5, BUN 20, creatinine 1.22, blood glucose 120s, magnesium 1.8, liver enzymes are elevated and stable today. Vitals are reviewed she is afebrile, heart rate 61, blood pressure 98/55, 95% room air. Aldactone has been adjusted to be given in the morning and not at bedtime. Brain CT is negative for focal deficits showing nonspecific white matter changes in the right frontal lobe likely chronic small vessel ischemia. No focal neurological deficits she is alert x 3. Review of Systems Constitutional: Denied any fatigue denied any fever. Cardio vascular: denied any chest pain, palpitations Gastrointestinal: denied any nausea, vomiting, diarrhea Pulmonary: Denied any shortness of breath cough Neurologic denied any new focal deficits All inpatient medications were reviewed and appropriate changes in these medications as dictated in the interval history and assessment and plan. PHYSICAL EXAMINATION: GENERAL: The patient is alert and oriented x3, not in any acute distress. Morbidly obese HEENT: Pupils are round and equally reacting to light. EOMI. No scleral icterus. No conjunctival pallor. Normocephalic, atraumatic. No pharyngeal erythema. No thyromegaly. CARDIOVASCULAR: S1 and S2 present. No murmurs, rubs, or gallops. PULMONARY: Diminshed, no wheezing noted. ABDOMEN: Soft, nontender, nondistended, normoactive bowel sounds. No palpable organomegaly. MUSCULOSKELETAL: No joint swelling or deformity. EXTREMITIES: No cyanosis, clubbing, significant bilateral lower extremity edema with the redness in the left lower x-ray today which is chronic and patient also has abdominal wall edema NEUROLOGICAL: Gross neurological examination did not reveal any focal deficits. SKIN: Left lower extremity redness which is chronic appears to be secondary to venous stasis. Assessment and plan -Congestive heart failure chronic systolic dysfunction, ejection fraction of 20%, ischemic cardiomyopathy with acute exacerbation patient is volume overload patient was started on IV Lasix, continue with Aldactone because of low blood pressure issues patient's BHARTI inhibitor was discontinued during her last hospital stay. Patient is also on fludrocortisone which can cause fluid retention, fludrocortisone has been decreased to once a day blood pressure in the low 100s systolic. We will continue to monitor blood pressure and if tolerating may discontinue fludrocortisone. She has been transitioned back to oral lasix. -Transaminases secondary to hepatic congestion, will repeat levels tomorrow, abdomen ultrasound ordered -Left lower extremity redness there is no fever or leukocytosis, procalcitonin 0.31 suspicion for cellulitis is low this is chronic venous stasis -Mildly elevated troponin probably secondary to congestive heart failure -Depression and suicidal ideation: Psychiatry was consulted, patient denies suicidal ideations currently, feelings of depression related to current life stressors. -Mild acute renal failure. Prerenal azotemia secondary to heart failure expected to improve with Lasix -Coronary artery disease -Diabetes mellitus -Gastroesophageal reflux disease -Hyperlipidemia -Obesity -DVT prophylaxis: Subcutaneous heparin -GI prophylaxis: Full Code Subacute rehab on discharge when medically stable, possible discharge in the next 24 hours. The impression and plan of care has been dictated by Cate Corrales, Nurse Practitioner as directed. Dr. Melina MD I have performed a history and physical examination and medical decision making of this patient, discussed the same with the dictator, and agree with the dictators assessment and plan as written, documented as a scribe. Based on total visit time, I have performed more than 50% of this visit. Objective - Vital Signs Vital signs: Vital Signs Temp 97.2 F L 01/22/22 12:00 Pulse 61 01/22/22 12:00 Resp 17 01/22/22 12:00 BP 98/55 01/22/22 12:00 Pulse Ox 95 01/22/22 12:00 FiO2 Intake & Output 01/21/22 01/22/22 01/22/22 18:59 06:59 18:59 Intake Total 930 Output Total 1050 1150 Balance -120 -1150 Weight 104.5 kg 104.5 kg Intake: Oral 930 Output: Urine 1050 1150 Other: Voiding Method Bedpan Bedpan Bedpan Diaper Diaper Diaper External Catheter External Catheter External Catheter - Labs CBC & Chem 7: 01/21/22 07:05 01/22/22 08:07 Labs: Abnormal Lab Results - Last 24 Hours (Table) 01/21/22 01/21/22 01/22/22 Range/Units 16:29 20:06 08:07 Sodium 135 L (137-145) mmol/L Chloride 95 L (98-107) mmol/L Carbon Dioxide 33 H (22-30) mmol/L BUN 20 H (7-17) mg/dL Creatinine 1.22 H (0.52-1.04) mg/dL Glucose 128 H (74-99) mg/dL POC Glucose (mg/dL) 160 H 129 H (70-110) mg/dL Calcium 8.0 L (8.4-10.2) mg/dL Total Bilirubin 3.0 H (0.2-1.3) mg/dL AST 157 H (14-36) U/L ALT 91 H (4-34) U/L Alkaline Phosphatase 290 H (38-126) U/L Albumin 3.1 L (3.5-5.0) g/dL 01/22/22 Range/Units 11:46 Sodium (137-145) mmol/L Chloride (98-107) mmol/L Carbon Dioxide (22-30) mmol/L BUN (7-17) mg/dL Creatinine (0.52-1.04) mg/dL Glucose (74-99) mg/dL POC Glucose (mg/dL) 167 H (70-110) mg/dL Calcium (8.4-10.2) mg/dL Total Bilirubin (0.2-1.3) mg/dL AST (14-36) U/L ALT (4-34) U/L Alkaline Phosphatase (38-126) U/L Albumin (3.5-5.0) g/dL
[2022-01-22 16:33] LABS: Glucose,Whole Blood 129 mg/dL (70-110)
[2022-01-22] MEDS: FUROSEMIDE 40 MG TAB PO SCH (17:26)
[2022-01-22 19:53] LABS: Glucose,Whole Blood 124 mg/dL (70-110)
--- NOTE | 2022-01-22 19:57 | PN ---
PROGRESS NOTE The patient is slightly hypotensive today. I stopped the Florinef yesterday. However, her breathing is easier. I am going to switch her to oral Lasix, increase activity, add midodrine 5 mg t.i.d. She has ischemic cardiomyopathy, multivessel PCI, poor overall prognosis. Vitals are stable. JVD 1 cm. No carotid bruit. S1-S2 heard normally. Short systolic murmur noted. Lungs reveal improved air entry. Abdomen is soft. Lower extremities reveal diminished pulses. Plan is to place her on midodrine, switch her from IV to oral Lasix, gradual increase activity and hopefully discharge soon. Prognosis remains poor. MMODL / IJN: [id number] /
[2022-01-22] MEDS: ATORVASTATIN 80 MG TAB PO SCH (21:30)
[2022-01-22] MEDS: METOPROLOL SUCCINATE (ER) 25 MG TAB.ER.24H PO SCH (21:30)
[2022-01-22] MEDS: CLOPIDOGREL 75 MG TAB PO SCH (21:30)
[2022-01-22] MEDS: ASPIRIN 81 MG PO SCH (21:30)
[2022-01-23 06:00] LABS: Glucose,Whole Blood 131 mg/dL (70-110)
[2022-01-23] MEDS: MIDODRINE 5 MG TAB PO SCH ×3 (06:27→16:53)
[2022-01-23] MEDS: INSULIN ASPART (NovoLOG) 100 UNIT/ML VIAL SQ SCH ×4 (06:29→20:24)
[2022-01-23] MEDS: HEPARIN SODIUM,PORCINE/PF 5,000 UNIT/0.5 ML SYRINGE SQ SCH ×3 (08:41→23:10)
[2022-01-23] MEDS: polyethylene glycoL 3350 17 GM POWD.PACK PO SCH (08:42)
[2022-01-23] MEDS: SPIRONOLACTONE 25 MG TAB PO SCH (08:42)
[2022-01-23] MEDS: CALCIUM CARB-VIT D 500 MG-5 MCG TAB PO SCH (08:42)
[2022-01-23] MEDS: FAMOTIDINE 20 MG TAB PO SCH (08:42)
[2022-01-23] MEDS: FUROSEMIDE 40 MG TAB PO SCH (08:42)
[2022-01-23] MEDS: CHOLECALCIFEROL 25 MCG (1000 IU) TABLET PO SCH (08:42)
--- NOTE | 2022-01-23 08:50 | US ---
EXAMINATION TYPE: US abdomen complete DATE OF EXAM: 01/23/2022 COMPARISON: NONE CLINICAL HISTORY: elevated LFT's. Exam done portable EXAM MEASUREMENTS: Liver Length: 16.7 cm Gallbladder Wall: 0.2 cm CBD: 0.4 cm Spleen: n/a Right Kidney: 10.4 x 5.3 x 5.7 cm Left Kidney: n/a Difficult and limited study due to morbidly obese patient Pancreas: visualized portions wnl, limited by overlying midline bowel gas Liver: heterogeneous Gallbladder: wnl Evidence for sonographic Guerrero's sign: yes CBD: wnl Spleen: not seen due to patient position and body habitus Right Kidney: wnl Left Kidney: not seen due to patient position and body habitus Upper IVC: wnl Abd Aorta: proximal portion wnl, mid and distal portions obscured by overlying midline bowel gas The intrahepatic portion of the IVC and proximal abdominal aorta are within normal limits. There is no evidence of cholelithiasis. Common bile duct is unremarkable. The visualized portions of the garner creas are homogenous. The spleen is unremarkable. Kidneys are symmetric and free of hydronephrosis. No renal lesions are seen. IMPRESSION: Mild hepatic steatosis suggested.
[2022-01-23 09:33] LABS: Albumin 2.9 g/dL (3.5-5.0); Calcium 7.8 mg/dL (8.4-10.2); Magnesium 2.1 mg/dL (1.6-2.3); Potassium 3.5 mmol/L (3.5-5.1); Total Bilirubin 2.8 mg/dL (0.2-1.3); Total Protein 6.5 g/dL (6.3-8.2)
[2022-01-23 11:51] LABS: Glucose,Whole Blood 119 mg/dL (70-110)
--- NOTE | 2022-01-23 13:47 | P.PN ---
Subjective Progress Note Date: 01/23/22 Patient very pleasant 71-year-old female came in with complaints of generalized weakness and the was depressed because of her chronic medical problems and that she has to take care of her and patient has not been ablating very well. Patient had suicidal ideations but no real plan. Patient does have history of congestive heart failure EF of around 20% ischemic cardiomyopathy. Patient is also on fludrocortisone for low blood pressure because of which she is not taking lisinopril. Patient is on 40 mg twice a day of Lasix. Patient was comparing of shortness of breath orthopnea denied any syncope and paroxysmal nocturnal dyspnea patient is single and swelling in bilateral bilateral lower ex tremities with with more redness in the left lower extreme edema but this redness in the left lower x-ray is chronic. Patient denied any chest pain at this time. 01/21/2022 Patient evaluated today resting in bed. She continues with peripheral edema pitting, and is maintained on IV lasix 40 mg which has been increased to [id number]. Negative 2.4 L of fluid in the last 24 hours. She does report breathing better however has not been up out of bed. She denies suicidal ideations today and has been evaluated by psychiatry. She is agreeable to rehab on discharge when medically stable. She does report feeling like she had slurred speech at home and was concerned with upper extremity weakness, we will check a brain CT. She does take xanax at night and also norco for pain management possible medication effect. There is no focal neurological deficit. She has equal strength bilateral upper extremities. Labs today showing hgb 10.9, BUN 22, creat 1.18, blood glucose in the 120s, magnesium 1.8. 01/22/2022 Patient is sitting up in bed. Peripheral edema has improved some, she continues with lower extremity edema left greater than right. Patient was maintained on IV lasix overnight and has been transitioned this morning to oral lasix. She is in negative fluid balance for the last 24 hours. Labs today showing sodium 135, potassium 3.5, BUN 20, creatinine 1.22, blood glucose 120s, magnesium 1.8, liver enzymes are elevated and stable today. Vitals are reviewed she is afebrile, heart rate 61, blood pressure 98/55, 95% room air. Aldactone has been adjusted to be given in the morning and not at bedtime. Brain CT is negative for focal deficits showing nonspecific white matter changes in the right frontal lobe likely chronic small vessel ischemia. No focal neurological deficits she is alert x 3. 01/23/2022 Patient evaluated today resting in bed. Pending insurance authorization for rehab. Lower extremity edema is stable. We will give a dose of IV lasix today. Florinef has been discontinued and patient is started on midodrine 5 mg three times a day. Blood pressure is marginal in the mid 90s. She denies dizziness/lightheadedness. She received potassium supplement today. Abdominal ultrasound completed showing no cholelisthiasis, no hydronephrosis, no renal lesions. There is mild hepatic steatosis. No further work up from psychiatric standpoint and she continues to deny suicidal ideations. Plan for tentative discharge to rehab tomorrow. Temp 98, heart rate 70, blood pressure 95/53, 95% room air. Labs reviewed; sodium 132, potassium 3.5, BUN 21, creatinine 1.19, calcium 7.8, magnesium 2.1, liver enzymes stable. Review of Systems Constitutional: Denied any fatigue denied any fever. Cardio vascular: denied any chest pain, palpitations Gastrointestinal: denied any nausea, vomiting, diarrhea Pulmonary: Denied any shortness of breath cough Neurologic denied any new focal deficits All inpatient medications were reviewed and appropriate changes in these medications as dictated in the interval history and assessment and plan. PHYSICAL EXAMINATION: GENERAL: The patient is alert and oriented x3, not in any acute distress. Morbidly obese HEENT: Pupils are round and equally reacting to light. EOMI. No scleral icterus. No conjunctival pallor. Normocephalic, atraumatic. No pharyngeal erythema. No thyromegaly. CARDIOVASCULAR: S1 and S2 present. No murmurs, rubs, or gallops. PULMONARY: Diminshed, no wheezing noted. ABDOMEN: Soft, nontender, nondistended, normoactive bowel sounds. No palpable organomegaly. MUSCULOSKELETAL: No joint swelling or deformity. EXTREMITIES: No cyanosis, clubbing, significant bilateral lower extremity edema pitting left greater than right with chronic redness to left lower extremity. NEUROLOGICAL: Gross neurological examination did not reveal any focal deficits. SKIN: Left lower extremity redness which is chronic appears to be secondary to venous stasis. Assessment and plan -Congestive heart failure chronic systolic dysfunction, ejection fraction of 20%, ischemic cardiomyopathy with acute exacerbation patient is volume overload patient was started on IV Lasix, Aldactone has been decreased, because of low blood pressure issues patient's BHARTI inhibitor was discontinued during her last hospital stay. She has been started on midodrine three times a day. -Elevated LFT's abdominal ultrasound showing hepatic steatosis there is also possible component of hepatic congestion from fluid overload. -Left lower extremity redness there is no fever or leukocytosis, procalcitonin 0.31, suspicion for cellulitis is low, this is chronic venous stasis -Mildly elevated troponin probably secondary to congestive heart failure -Depression and suicidal ideation: Psychiatry was consulted, patient denies suicidal ideations currently, feelings of depression related to current life stressors. -Mild acute renal failure. Prerenal azotemia secondary to heart failure expected to improve with Lasix -Coronary artery disease -Diabetes mellitus -Gastroesophageal reflux disease -Hyperlipidemia -Obesity -DVT prophylaxis: Subcutaneous heparin -GI prophylaxis: Pepcid Full Code Subacute rehab on discharge when medically stable, possible discharge in the next 24 hours. Continue IV lasix overnight and repeat labs in the morning. The impression and plan of care has been dictated by Cate Corrales, Nurse Practitioner as directed. Dr. Melina MD I have performed a history and physical examination and medical decision making of this patient, discussed the same with the dictator, and agree with the dictators assessment and plan as written, documented as a scribe. Based on total visit time, I have performed more than 50% of this visit. Objective - Vital Signs Vital signs: Vital Signs Temp 98 F 01/23/22 12:00 Pulse 70 01/23/22 12:00 Resp 17 01/23/22 12:00 BP 95/53 01/23/22 12:00 Pulse Ox 95 01/23/22 12:00 FiO2 Intake & Output 01/22/22 01/23/22 01/23/22 18:59 06:59 18:59 Intake Total 120 Output Total 400 800 200 Balance -400 -680 -200 Weight 104.5 kg 103.5 kg Intake: Oral 120 Output: Urine 400 800 200 Other: Voiding Method Bedpan Bedpan Bedpan Diaper Diaper Diaper External Catheter External Catheter External Catheter - Labs CBC & Chem 7: 01/21/22 07:05 01/23/22 08:13 Labs: Abnormal Lab Results - Last 24 Hours (Table) 01/22/22 01/22/22 01/23/22 Range/Units 16:31 19:52 05:58 Sodium (137-145) mmol/L Chloride (98-107) mmol/L BUN (7-17) mg/dL Creatinine (0.52-1.04) mg/dL Glucose (74-99) mg/dL POC Glucose (mg/dL) 129 H 124 H 131 H (70-110) mg/dL Calcium (8.4-10.2) mg/dL Total Bilirubin (0.2-1.3) mg/dL AST (14-36) U/L ALT (4-34) U/L Alkaline Phosphatase (38-126) U/L Albumin (3.5-5.0) g/dL 01/23/22 01/23/22 Range/Units 08:13 11:49 Sodium 132 L (137-145) mmol/L Chloride 95 L (98-107) mmol/L BUN 21 H (7-17) mg/dL Creatinine 1.19 H (0.52-1.04) mg/dL Glucose 107 H (74-99) mg/dL POC Glucose (mg/dL) 119 H (70-110) mg/dL Calcium 7.8 L (8.4-10.2) mg/dL Total Bilirubin 2.8 H (0.2-1.3) mg/dL AST 130 H (14-36) U/L ALT 82 H (4-34) U/L Alkaline Phosphatase 328 H (38-126) U/L Albumin 2.9 L (3.5-5.0) g/dL Assessment and Plan Time with Patient: Less than 30
[2022-01-23 16:43] LABS: Glucose,Whole Blood 130 mg/dL (70-110)
--- NOTE | 2022-01-23 18:24 | PN ---
PROGRESS NOTE Mrs. Angel has ischemic cardiomyopathy and yesterday I adjusted her medications. Blood pressure today is 95 systolic. She is feeling much better, sitting up and reading. I am going to make some adjustment in medications, increase activity. She can be discharged on oral Lasix and see Dr. Santos in two weeks. Vitals are stable. JVD 1 cm. No carotid bruit. S1-S2 heard normally, regular. Short systolic murmur noted. Lungs revealed decent air entry. Abdomen and lower extremity exam is unchanged. MMODL / IJN: [id number] /
[2022-01-23] MEDS: FUROSEMIDE 10 MG/ML 4 ML VIAL IV SCH (20:23)
[2022-01-23] MEDS: METOPROLOL SUCCINATE (ER) 25 MG TAB.ER.24H PO SCH (20:23)
[2022-01-23] MEDS: ASPIRIN 81 MG PO SCH (20:24)
[2022-01-23] MEDS: CLOPIDOGREL 75 MG TAB PO SCH (20:24)
[2022-01-23] MEDS: ATORVASTATIN 80 MG TAB PO SCH (20:24)
[2022-01-23] MEDS: HYDROcodone/APAP 10-325MG 1 EACH TAB PO PRN (20:26)
[2022-01-23 20:32] LABS: Glucose,Whole Blood 162 mg/dL (70-110)
[2022-01-24 05:59] LABS: Glucose,Whole Blood 120 mg/dL (70-110)
[2022-01-24] MEDS: INSULIN ASPART (NovoLOG) 100 UNIT/ML VIAL SQ SCH ×4 (06:23→20:58)
[2022-01-24] MEDS: MIDODRINE 5 MG TAB PO SCH ×3 (06:23→17:17)
[2022-01-24 07:24] LABS: Anisocytosis Slight; HCT 35.3 % (34.0-46.0); HGB 10.9 gm/dL (11.4-16.0); Hypochromasia Moderate; MCH 27.5 pg (25.0-35.0); MCHC 30.8 g/dL (31.0-37.0); MCV 89.2 fL (80.0-100.0); Platelet Count 249 k/uL (150-450); RBC 3.95 m/uL (3.80-5.40); RDW 18.4 % (11.5-15.5); WBC 5.6 k/uL (3.8-10.6)
[2022-01-24 07:43] LABS: Albumin 2.9 g/dL (3.5-5.0); Bilirubin, Conjugated 0.3 mg/dL (0.0-0.3); Bilirubin, Delta 1.4 mg/dL (0.0-0.2); Bilirubin,Unconjugated 0.9 mg/dL (0.0-1.1); Calcium 7.8 mg/dL (8.4-10.2); Potassium 3.6 mmol/L (3.5-5.1); Total Bilirubin 2.6 mg/dL (0.2-1.3); Total Protein 6.5 g/dL (6.3-8.2)
[2022-01-24] MEDS: FAMOTIDINE 20 MG TAB PO SCH (09:11)
[2022-01-24] MEDS: SPIRONOLACTONE 25 MG TAB PO SCH (09:11)
[2022-01-24] MEDS: HEPARIN SODIUM,PORCINE/PF 5,000 UNIT/0.5 ML SYRINGE SQ SCH ×2 (09:11→15:35)
[2022-01-24] MEDS: CHOLECALCIFEROL 25 MCG (1000 IU) TABLET PO SCH (09:11)
[2022-01-24] MEDS: FUROSEMIDE 10 MG/ML 4 ML VIAL IV SCH ×2 (09:11→20:58)
[2022-01-24] MEDS: CALCIUM CARB-VIT D 500 MG-5 MCG TAB PO SCH (09:12)
[2022-01-24] MEDS: polyethylene glycoL 3350 17 GM POWD.PACK PO SCH (09:12)
[2022-01-24 11:43] LABS: Glucose,Whole Blood 178 mg/dL (70-110)
[2022-01-24 13:12] LABS: Eosinophils # (M) 0.22 k/uL (0-0.7); Lymphocytes # (M) 1.23 k/uL (1.0-4.8); Monocytes # (M) 0.45 k/uL (0-1.0); Neutrophils % (M) 66 %; Nucleated Red Blood Cells 0 /100 WBC (0-0); Total Cells Counted 100
--- NOTE | 2022-01-24 13:24 | XR ---
EXAMINATION TYPE: XR chest 1V DATE OF EXAM: 01/24/2022 COMPARISON: Chest x-ray 01/20/[address] chest and chest x-ray 12/28/2021 HISTORY: Shortness of breath TECHNIQUE: Single frontal view of the chest is obtained. FINDINGS: There is persistent abnormal attenuation in the retrocardiac region, the left hemidiaphrag m and left heart border obscured, this blunting the left costophrenic angle. No evident pneumothorax. Aorta is dense. Arthropathy is present within the shoulders. There are overlying leads. Cardiac medi astinal silhouette is likely stable. There is some improvement in interstitium, aeration within the l ungs. IMPRESSION: Probable left lower lobe atelectasis versus pneumonia and associated effusion. There is some improvement in volume status. Cardiomegaly.
[2022-01-24 16:48] LABS: Glucose,Whole Blood 108 mg/dL (70-110)
[2022-01-24] MEDS: PIPERACILLIN-TAZOBACTAM 3.375 GM in SODIUM CHLORIDE 0.9% 100 ML IVPB SCH (17:17)
[2022-01-24] MEDS: HYDROcodone/APAP 10-325MG 1 EACH TAB PO PRN (17:23)
[2022-01-24 17:36] LABS: Appearance,Urine Clear (Clear); Bacteria,Urine Rare /hpf; Bilirubin,Urine Negative (Negative); Blood,Urine Small (Negative); Color,Urine Yellow; Glucose,Urine (UA) Negative (Negative); Ketones,Urine Negative (Negative); Leukocyte Esterase,Urine Negative (Negative); Mucus,Urine Rare /hpf; Nitrite,Urine Negative (Negative); Protein,Urine 1+ (Negative); RBC,Urine <1 /hpf (0-5); Specific Gravity,Urine 1.008 (1.001-1.035); Squamous Epithelial Cell,Urine 2 /hpf (0-4); WBC,Urine 2 /hpf (0-5)
--- NOTE | 2022-01-24 18:48 | P.PN ---
Subjective Patient very pleasant 71-year-old female came in with complaints of generalized weakness and the was depressed because of her chronic medical problems and that she has to take care of her and patient has not been ablating very well. Patient had suicidal ideations but no real plan. Patient does have history of congestive heart failure EF of around 20% ischemic cardiomyopathy. Patient is also on fludrocortisone for low blood pressure because of which she is not taking lisinopril. Patient is on 40 mg twice a day of Lasix. Patient was comparing of shortness of breath orthopnea denied any syncope and paroxysmal nocturnal dyspnea patient is single and swelling in bilateral bilateral lower extremities with with more redness in the left lower extreme edema but this redness in the left lower x-ray is chronic. Patient denied any chest pain at this time. 01/21/2022 Patient evaluated today resting in bed. She continues with peripheral edema pitting, and is maintained on IV lasix 40 mg which has been increased to [id number]. Negative 2.4 L of fluid in the last 24 hours. She does report breathing better however has not been up out of bed. She denies suicidal ideations today and has been evaluated by psychiatry. She is agreeable to rehab on discharge when medically stable. She does report feeling like she had slurred speech at [facility] and was concerned with upper extremity weakness, we will check a brain CT. She does take xanax at night and also norco for pain management possible medication effect. There is no focal neurological deficit. She has equal strength bilateral upper extremities. Labs today showing hgb 10.9, BUN 22, creat 1.18, blood glucose in the 120s, magnesium 1.8. 01/22/2022 Patient is sitting up in bed. Peripheral edema has improved some, she continues with lower extremity edema left greater than right. Patient was maintained on IV lasix overnight and has been transitioned this morning to oral lasix. She is in negative fluid balance for the last 24 hours. Labs today showing sodium 135, potassium 3.5, BUN 20, creatinine 1.22, blood glucose 120s, magnesium 1.8, liver enzymes are elevated and stable today. Vitals are reviewed she is afebrile, heart rate 61, blood pressure 98/55, 95% room air. Aldactone has been adjusted to be given in the morning and not at bedtime. Brain CT is negative for focal d eficits showing nonspecific white matter changes in the right frontal lobe likely chronic small vessel ischemia. No focal neurological deficits she is alert x 3. 01/23/2022 Patient evaluated today resting in bed. Pending insurance authorization for rehab. Lower extremity edema is stable. We will give a dose of IV lasix today. Florinef has been discontinued and patient is started on midodrine 5 mg three times a day. Blood pressure is marginal in the mid 90s. She denies dizziness/lightheadedness. She received potassium supplement today. Abdominal ultrasound completed showing no cholelisthiasis, no hydronephrosis, no renal lesions. There is mild hepatic steatosis. No further work up from psychiatric standpoint and she continues to deny suicidal ideations. Plan for tentative discharge to rehab tomorrow. Temp 98, heart rate 70, blood pressure 95/53, 95% room air. Labs reviewed; sodium 132, potassium 3.5, BUN 21, creatinine 1.19, calcium 7.8, magnesium 2.1, liver enzymes stable. 01/24/2022 Patient today still complaining of from shortness of breath. She is on room air and laps looks stable however her creatinine worsened to 1.25. Chest x-ray showing small left lower lobe pneumonia Patient was started on Zosyn. Liver enzymes elevated and liver ultrasound showing mild hepatic steatosis and possible condition. Reproduction Specialist already. The patient for discharge Patient is started on low-dose Zyprexa by psychiatrist and patient is already feeling better Objective - Vital Signs Vital signs: Vital Signs Temp 97.9 F 01/24/22 08:38 Pulse 66 01/24/22 11:11 Resp 18 01/24/22 11:11 BP 124/84 01/24/22 11:11 Pulse Ox 98 01/24/22 11:11 FiO2 Intake & Output 01/23/22 01/24/22 01/24/22 18:59 06:59 18:59 Intake Total 270 250 220 Output Total 200 500 Balance 70 -250 220 Intake: Oral 270 250 220 Output: Urine 200 500 Other: Voiding Method Bedpan Bedpan Bedpan Diaper Diaper Diaper External Catheter External Catheter External Catheter # Bowel Movements 3 - Exam GENERAL: The patient is alert and oriented x3, not in any acute distress. Well developed, well nourished. HEENT: Pupils are round and equally reacting to light. EOMI. No scleral icterus. No conjunctival pallor. Normocephalic, atraumatic. No pharyngeal erythema. No thyromegaly. S1 and S2 present. No murmurs, rubs, or gallops. -PULMONARY: Chest is clear to auscultation, no wheezing, Bilateral crepitation ABDOMEN: Soft, nontender, nondistended, normoactive bowel sounds. No palpable organomegaly. MUSCULOSKELETAL: No joint swelling or deformity. EXTREMITIES: No cyanosis, clubbing, or pedal edema. NEUROLOGICAL: Gross neurological examination did not reveal any focal deficits. SKIN: No rashes. no petechiae. - Labs CBC & Chem 7: 01/24/22 06:48 01/24/22 06:48 Labs: Abnormal Lab Results - Last 24 Hours (Table) 01/23/22 01/23/22 01/24/22 Range/Units 16:37 20:11 05:53 Hgb (11.4-16.0) gm/dL MCHC (31.0-37.0) g/dL RDW (11.5-15.5) % Sodium (137-145) mmol/L Chloride (98-107) mmol/L BUN (7-17) mg/dL Creatinine (0.52-1.04) mg/dL Glucose (74-99) mg/dL POC Glucose (mg/dL) 130 H 162 H 120 H (70-110) mg/dL Calcium (8.4-10.2) mg/dL Total Bilirubin (0.2-1.3) mg/dL Delta Bilirubin (0.0-0.2) mg/dL AST (14-36) U/L ALT (4-34) U/L Alkaline Phosphatase (38-126) U/L Albumin (3.5-5.0) g/dL Procalcitonin (0.02-0.09) ng/mL 01/24/22 01/24/22 01/24/22 Range/Units 06:48 06:48 06:48 Hgb 10.9 L (11.4-16.0) gm/dL MCHC 30.8 L (31.0-37.0) g/dL RDW 18.4 H (11.5-15.5) % Sodium 133 L (137-145) mmol/L Chloride 96 L (98-107) mmol/L BUN 22 H (7-17) mg/dL Creatinine 1.25 H (0.52-1.04) mg/dL Glucose 116 H (74-99) mg/dL POC Glucose (mg/dL) (70-110) mg/dL Calcium 7.8 L (8.4-10.2) mg/dL Total Bilirubin 2.6 H (0.2-1.3) mg/dL Delta Bilirubin 1.4 H (0.0-0.2) mg/dL AST 100 H (14-36) U/L ALT 69 H (4-34) U/L Alkaline Phosphatase 334 H (38-126) U/L Albumin 2.9 L (3.5-5.0) g/dL Procalcitonin 0.45 H (0.02-0.09) ng/mL 01/24/22 Range/Units 11:41 Hgb (11.4-16.0) gm/dL MCHC (31.0-37.0) g/dL RDW (11.5-15.5) % Sodium (137-145) mmol/L Chloride (98-107) mmol/L BUN (7-17) mg/dL Creatinine (0.52-1.04) mg/dL Glucose (74-99) mg/dL POC Glucose (mg/dL) 178 H (70-110) mg/dL Calcium (8.4-10.2) mg/dL Total Bilirubin (0.2-1.3) mg/dL Delta Bilirubin (0.0-0.2) mg/dL AST (14-36) U/L ALT (4-34) U/L Alkaline Phosphatase (38-126) U/L Albumin (3.5-5.0) g/dL Procalcitonin (0.02-0.09) ng/mL Assessment and Plan Assessment: -Congestive heart failure chronic systolic dysfunction, ejection fraction of 20%, ischemic cardiomyopathy with acute exacerbation patient is volume overload patient was started on IV Lasix, Aldactone has been decreased, because of low blood pressure issues patient's BHARTI inhibitor was discontinued during her last hospital stay. She has been started on midodrine three times a day. -Possible left lower lobe pneumonia, hospital-acquired -Elevated LFT's abdominal ultrasound showing hepatic steatosis there is also possible component of hepatic congestion from fluid overload. -Left lower extremity redness there is no fever or leukocytosis, procalcitonin 0.31, suspicion for cellulitis is low, this is chronic venous stasis -Mildly elevated troponin probably secondary to congestive heart failure -Depression and suicidal ideation: Psychiatry was consulted, patient denies suicidal ideations currently, feelings of depression related to current life stressors. -Mild acute renal failure. Prerenal azotemia secondary to heart failure expected to improve with Lasix -Coronary artery disease -Diabetes mellitus -Gastroesophageal reflux disease -Hyperlipidemia -Obesity Plan: This is a pleasant 71 years old female who presents with CHF and pneumonia Continue with IV Lasix Continue with [facility] team. 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 Continue same treatment. Continue with symptomatic treatment. Resume home medication. Monitor lytes and vitals. DVT and GI prophylaxis. Further recommendations as per clinical course of the patient DVT prophylaxis: Subcutaneous heparin GI Prophylaxis: Pepcid PT/OT: BJ Prognosis is guarded
[2022-01-24 19:37] LABS: Glucose,Whole Blood 155 mg/dL (70-110)
--- NOTE | 2022-01-24 19:40 | PN ---
PROGRESS NOTE Mrs. Angel is feeling better. Blood pressure is good. I am increasing the beta ian from 12.5 to 25 mg metoprolol succinate. S1-S2 heard normally. Short systolic murmur noted. Lungs reveal improved entry. Abdomen and lower extremity exam unchanged. Plan is to continue IV Lasix today and switch her to oral Lasix tomorrow and then discharge when okay with Dr. Summers. MMODL / IJN: [id number] /
[2022-01-24] MEDS: METOPROLOL SUCCINATE (ER) 25 MG TAB.ER.24H PO SCH (20:58)
[2022-01-24] MEDS: CLOPIDOGREL 75 MG TAB PO SCH (20:58)
[2022-01-24] MEDS: ASPIRIN 81 MG PO SCH (20:58)
[2022-01-24] MEDS: ATORVASTATIN 80 MG TAB PO SCH (20:58)
[2022-01-25] MEDS: PIPERACILLIN-TAZOBACTAM 3.375 GM in SODIUM CHLORIDE 0.9% 100 ML IVPB SCH ×4 (00:49→23:50)
[2022-01-25] MEDS: HEPARIN SODIUM,PORCINE/PF 5,000 UNIT/0.5 ML SYRINGE SQ SCH ×4 (00:49→23:50)
[2022-01-25 05:57] LABS: Glucose,Whole Blood 120 mg/dL (70-110)
[2022-01-25] MEDS: INSULIN ASPART (NovoLOG) 100 UNIT/ML VIAL SQ SCH ×4 (06:29→20:40)
[2022-01-25] MEDS: HYDROcodone/APAP 10-325MG 1 EACH TAB PO PRN ×2 (06:33→20:40)
[2022-01-25] MEDS: MIDODRINE 5 MG TAB PO SCH ×3 (06:33→16:35)
[2022-01-25 08:34] LABS: Albumin 2.9 g/dL (3.5-5.0); Bilirubin, Conjugated 0.3 mg/dL (0.0-0.3); Bilirubin, Delta 1.3 mg/dL (0.0-0.2); Bilirubin,Unconjugated 0.9 mg/dL (0.0-1.1); Potassium 3.3 mmol/L (3.5-5.1); Total Bilirubin 2.5 mg/dL (0.2-1.3); Total Protein 6.5 g/dL (6.3-8.2)
[2022-01-25] MEDS: polyethylene glycoL 3350 17 GM POWD.PACK PO SCH ×2 (10:29→10:36)
[2022-01-25] MEDS: CALCIUM CARB-VIT D 500 MG-5 MCG TAB PO SCH (10:29)
[2022-01-25] MEDS: CHOLECALCIFEROL 25 MCG (1000 IU) TABLET PO SCH (10:30)
[2022-01-25] MEDS: FUROSEMIDE 20 MG TAB PO SCH ×2 (10:30→16:35)
[2022-01-25] MEDS: SPIRONOLACTONE 25 MG TAB PO SCH (10:30)
[2022-01-25] MEDS: FAMOTIDINE 20 MG TAB PO SCH (10:30)
[2022-01-25 11:49] LABS: Glucose,Whole Blood 177 mg/dL (70-110)
--- NOTE | 2022-01-25 13:21 | P.PN ---
Subjective Progress Note Date: 01/25/22 This is Mark Lubin NP, I'm dictating on behalf of Dr. Cuba's H&P and A&P. Patient was interviewed and examined. Patient is a pleasant 71-year-old female who initially presented to the hospital with generalized weakness and elevated troponins. Patient is doing excellent today, she reports no chest pain or shortness of breath at this time. Patient's labs and vital signs are acceptable, and from a cardiac standpoint the patient is ready for discharge. The only change we will make is we will increase her oral Lasix to 60 mg twice a day, she should be discharged on this. GENERAL: Well-appearing, well-nourished and in no acute distress. NECK: Supple without JVD or thyromegaly. LUNGS: Breath sounds clear to auscultation bilaterally. Respiration equal and unlabored. No wheezes, rales or rhonchi. HEART: Regular rate and rhythm without murmurs, rubs or gallops. S1 and S2 heard. EXTREMITIES: Normal range of motion, no edema. No clubbing or cyanosis. Peripheral pulses intact and strong. VITALS: Temp 97.9, pulse 59, respirations 18, blood pressure 117/63, O2 sats ration 95% on room air TELEMETRY: Normal sinus rhythm LABS: Sodium 132, potassium 3.3, BUN 23, creatinine 1.25, calcium 8.0, magnesium 2.0 IMPRESSION: 1. Systolic heart failure 2. Ischemic cardiomyopathy 3. Hypertension 4. Hypercholesterolemia PLAN: Discontinue IV Lasix, start patient on furosemide 60 mg by mouth twice a day. From a cardiac standpoint the patient may be discharged Present hesitate to reconsult us if any further recommendations are needed. Objective - Vital Signs Vital signs: Vital Signs Temp 97.9 F 01/25/22 12:00 Pulse 59 L 01/25/22 12:00 Resp 18 01/25/22 12:00 BP 117/63 01/25/22 12:00 Pulse Ox 95 01/25/22 12:00 FiO2 Intake & Output 01/24/22 01/25/22 01/25/22 18:59 06:59 18:59 Intake Total 220 10 240 Output Total 450 700 350 Balance -230 -690 -110 Weight 103.5 kg Intake: IV 10 Invasive Line 1 10 Oral 220 240 Output: Urine 450 700 350 Other: Voiding Method Bedpan Bedpan Diaper Diaper External Catheter External Catheter # Bowel Movements 3 - Labs CBC & Chem 7: 01/24/22 06:48 01/25/22 08:03 Labs: Abnormal Lab Results - Last 24 Hours (Table) 01/24/22 01/24/22 01/25/22 Range/Units 17:06 19:35 05:56 Sodium (137-145) mmol/L Potassium (3.5-5.1) mmol/L Chloride (98-107) mmol/L Carbon Dioxide (22-30) mmol/L BUN (7-17) mg/dL Creatinine (0.52-1.04) mg/dL Glucose (74-99) mg/dL POC Glucose (mg/dL) 155 H 120 H (70-110) mg/dL Calcium (8.4-10.2) mg/dL Total Bilirubin (0.2-1.3) mg/dL Delta Bilirubin (0.0-0.2) mg/dL AST (14-36) U/L ALT (4-34) U/L Alkaline Phosphatase (38-126) U/L Albumin (3.5-5.0) g/dL Urine Protein 1+ H (Negative) Urine Blood Small H (Negative) Urine Bacteria Rare H (None) /hpf Urine Mucus Rare H (None) /hpf 01/25/22 01/25/22 Range/Units 08:03 11:47 Sodium 132 L (137-145) mmol/L Potassium 3.3 L (3.5-5.1) mmol/L Chloride 93 L (98-107) mmol/L Carbon Dioxide 33 H (22-30) mmol/L BUN 23 H (7-17) mg/dL Creatinine 1.25 H (0.52-1.04) mg/dL Glucose 150 H (74-99) mg/dL POC Glucose (mg/dL) 177 H (70-110) mg/dL Calcium 8.0 L (8.4-10.2) mg/dL Total Bilirubin 2.5 H (0.2-1.3) mg/dL Delta Bilirubin 1.3 H (0.0-0.2) mg/dL AST 76 H (14-36) U/L ALT 53 H (4-34) U/L Alkaline Phosphatase 316 H (38-126) U/L Albumin 2.9 L (3.5-5.0) g/dL Urine Protein (Negative) Urine Blood (Negative) Urine Bacteria (None) /hpf Urine Mucus (None) /hpf
[2022-01-25] MEDS: FUROSEMIDE 10 MG/ML 4 ML VIAL IV SCH (15:21)
--- NOTE | 2022-01-25 16:36 | P.PN ---
Subjective Patient very pleasant 71-year-old female came in with complaints of generalized weakness and the was depressed because of her chronic medical problems and that she has to take care of her and patient has not been ablating very well. Patient had suicidal ideations but no real plan. Patient does have history of congestive heart failure EF of around 20% ischemic cardiomyopathy. Patient is also on fludrocortisone for low blood pressure because of which she is not taking lisinopril. Patient is on 40 mg twice a day of Lasix. Patient was comparing of shortness of breath orthopnea denied any syncope and paroxysmal nocturnal dyspnea patient is single and swelling in bilateral bilateral lower extremities with with more redness in the left lower extreme edema but this redness in the left lower x-ray is chronic. Patient denied any chest pain at this time. 01/21/2022 Patient evaluated today resting in bed. She continues with peripheral edema pitting, and is maintained on IV lasix 40 mg which has been increased to [id number]. Negative 2.4 L of fluid in the last 24 hours. She does report breathing better however has not been up out of bed. She denies suicidal ideations today and has been evaluated by psychiatry. She is agreeable to rehab on discharge when medically stable. She does report feeling like she had slurred speech at [facility] and was concerned with upper extremity weakness, we will check a brain CT. She does take xanax at night and also norco for pain management possible medication effect. There is no focal neurological deficit. She has equal strength bilateral upper extremities. Labs today showing hgb 10.9, BUN 22, creat 1.18, blood glucose in the 120s, magnesium 1.8. 01/22/2022 Patient is sitting up in bed. Peripheral edema has improved some, she continues with lower extremity edema left greater than right. Patient was maintained on IV lasix overnight and has been transitioned this morning to oral lasix. She is in negative fluid balance for the last 24 hours. Labs today showing sodium 135, potassium 3.5, BUN 20, creatinine 1.22, blood glucose 120s, magnesium 1.8, liver enzymes are elevated and stable today. Vitals are reviewed she is afebrile, heart rate 61, blood pressure 98/55, 95% room air. Aldactone has been adjusted to be given in the morning and not at bedtime. Brain CT is negative for focal d eficits showing nonspecific white matter changes in the right frontal lobe likely chronic small vessel ischemia. No focal neurological deficits she is alert x 3. 01/23/2022 Patient evaluated today resting in bed. Pending insurance authorization for rehab. Lower extremity edema is stable. We will give a dose of IV lasix today. Florinef has been discontinued and patient is started on midodrine 5 mg three times a day. Blood pressure is marginal in the mid 90s. She denies dizziness/lightheadedness. She received potassium supplement today. Abdominal ultrasound completed showing no cholelisthiasis, no hydronephrosis, no renal lesions. There is mild hepatic steatosis. No further work up from psychiatric standpoint and she continues to deny suicidal ideations. Plan for tentative discharge to rehab tomorrow. Temp 98, heart rate 70, blood pressure 95/53, 95% room air. Labs reviewed; sodium 132, potassium 3.5, BUN 21, creatinine 1.19, calcium 7.8, magnesium 2.1, liver enzymes stable. 01/24/2022 Patient today still complaining of from shortness of breath. She is on room air and laps looks stable however her creatinine worsened to 1.25. Chest x-ray showing small left lower lobe pneumonia Patient was started on Zosyn. Liver enzymes elevated and liver ultrasound showing mild hepatic steatosis and possible condition. 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 The patient for discharge Patient is started on low-dose Zyprexa by psychiatrist and patient is already feeling better 01/25/2022 Patient with no dyspnea while his intubated, patient is not walking. Patient has distant breath sounds because of his habitus. No significant leg edema. Patient was not also on home oxygen as he states today. Patient is improving and his IV Lasix switched to oral dose 60 mg twice daily from tomorrow by dietetics director. Continue on Zosyn for possible pneumonia Repeat chest x-ray in the morning Follow-up liver enzymes and hepatitis panel Patient agrees to subacute rehab Objective - Vital Signs Vital signs: Vital Signs Temp 98.1 F 01/25/22 03:03 Pulse 67 01/25/22 03:03 Resp 16 01/25/22 03:03 BP 117/64 01/25/22 03:03 Pulse Ox 97 01/25/22 03:03 FiO2 Intake & Output 01/24/22 01/25/22 01/25/22 18:59 06:59 18:59 Intake Total 220 10 Output Total 450 700 Balance -230 -690 Weight 103.5 kg Intake: IV 10 Invasive Line 1 10 Oral 220 Output: Urine 450 700 Other: Voiding Method Bedpan Bedpan Diaper Diaper External Catheter External Catheter # Bowel Movements 3 - Exam GENERAL: The patient is alert and oriented x3, not in any acute distress. Well developed, well nourished. HEENT: Pupils are round and equally reacting to light. EOMI. No scleral icterus. No conjunctival pallor. Normocephalic, atraumatic. No pharyngeal erythema. No thyromegaly. S1 and S2 present. No murmurs, rubs, or gallops. -PULMONARY: Chest is clear to auscultation, no wheezing, Bilateral crepitation ABDOMEN: Soft, nontender, nondistended, normoactive bowel sounds. No palpable organomegaly. MUSCULOSKELETAL: No joint swelling or deformity. EXTREMITIES: No cyanosis, clubbing, or pedal edema. NEUROLOGICAL: Gross neurological examination did not reveal any focal deficits. SKIN: No rashes. no petechiae. - Labs CBC & Chem 7: 01/24/22 06:48 01/25/22 08:03 Labs: Abnormal Lab Results - Last 24 Hours (Table) 01/24/22 01/24/22 01/24/22 Range/Units 06:48 11:41 17:06 Sodium (137-145) mmol/L Potassium (3.5-5.1) mmol/L Chloride (98-107) mmol/L Carbon Dioxide (22-30) mmol/L BUN (7-17) mg/dL Creatinine (0.52-1.04) mg/dL Glucose (74-99) mg/dL POC Glucose (mg/dL) 178 H (70-110) mg/dL Calcium (8.4-10.2) mg/dL Total Bilirubin (0.2-1.3) mg/dL Delta Bilirubin (0.0-0.2) mg/dL AST (14-36) U/L ALT (4-34) U/L Alkaline Phosphatase (38-126) U/L Albumin (3.5-5.0) g/dL Procalcitonin 0.45 H (0.02-0.09) ng/mL Urine Protein 1+ H (Negative) Urine Blood Small H (Negative) Urine Bacteria Rare H (None) /hpf Urine Mucus Rare H (None) /hpf 01/24/22 01/25/22 01/25/22 Range/Units 19:35 05:56 08:03 Sodium 132 L (137-145) mmol/L Potassium 3.3 L (3.5-5.1) mmol/L Chloride 93 L (98-107) mmol/L Carbon Dioxide 33 H (22-30) mmol/L BUN 23 H (7-17) mg/dL Creatinine 1.25 H (0.52-1.04) mg/dL Glucose 150 H (74-99) mg/dL POC Glucose (mg/dL) 155 H 120 H (70-110) mg/dL Calcium 8.0 L (8.4-10.2) mg/dL Total Bilirubin 2.5 H (0.2-1.3) mg/dL Delta Bilirubin 1.3 H (0.0-0.2) mg/dL AST 76 H (14-36) U/L ALT 53 H (4-34) U/L Alkaline Phosphatase 316 H (38-126) U/L Albumin 2.9 L (3.5-5.0) g/dL Procalcitonin (0.02-0.09) ng/mL Urine Protein (Negative) Urine Blood (Negative) Urine Bacteria (None) /hpf Urine Mucus (None) /hpf Assessment and Plan Assessment: -Congestive heart failure chronic systolic dysfunction, ejection fraction of 20%, ischemic cardiomyopathy with acute exacerbation patient is volume overload patient was started on IV Lasix, Aldactone has been decreased, because of low blood pressure issues patient's BHARTI inhibitor was discontinued during her last hospital stay. She has been started on midodrine three times a day. -Possible left lower lobe pneumonia, hospital-acquired -Elevated LFT's abdominal ultrasound showing hepatic steatosis there is also possible component of hepatic congestion from fluid overload. -Left lower extremity redness there is no fever or leukocytosis, procalcitonin 0.31, suspicion for cellulitis is low, this is chronic venous stasis -Mildly elevated troponin probably secondary to congestive heart failure -Depression and suicidal ideation: Psychiatry was consulted, patient denies suicidal ideations currently, feelings of depression related to current life stressors. -Mild acute renal failure. Prerenal azotemia secondary to heart failure expected to improve with Lasix -Coronary artery disease -Diabetes mellitus -Gastroesophageal reflux disease -Hyperlipidemia -Obesity Plan: This is a pleasant 71 years old female who presents with CHF and pneumonia Change IV Lasix and total dose Continue with [facility] team. Patient will require ECF for rehab upon discharge, patient agrees wire preparation worker on the case Labs and medication were reviewed.. Continue same treatment. Continue with symptomatic treatment. Resume home medication. Monitor lytes and vitals. DVT and GI prophylaxis. Further recommendations as per clinical course of the patient DVT prophylaxis: Subcutaneous heparin GI Prophylaxis: Pepcid PT/OT: BJ Prognosis is guarded
[2022-01-25 16:42] LABS: Glucose,Whole Blood 158 mg/dL (70-110)
[2022-01-25 18:52] LABS: Hepatitis A Antibody IgM Nonreactive (Nonreactive); Hepatitis B Core IgM Nonreactive (Nonreactive); Hepatitis B Surface Antigen Nonreactive (Nonreactive); Hepatitis C IgG Antibody Nonreactive (Nonreactive)
[2022-01-25 20:32] LABS: Glucose,Whole Blood 145 mg/dL (70-110)
[2022-01-25] MEDS: CLOPIDOGREL 75 MG TAB PO SCH (20:40)
[2022-01-25] MEDS: ASPIRIN 81 MG PO SCH (20:40)
[2022-01-25] MEDS: ATORVASTATIN 80 MG TAB PO SCH (20:40)
[2022-01-25] MEDS: METOPROLOL SUCCINATE (ER) 25 MG TAB.ER.24H PO SCH (20:45)
[2022-01-26 06:00] LABS: Glucose,Whole Blood 104 mg/dL (70-110)
[2022-01-26] MEDS: MIDODRINE 5 MG TAB PO SCH ×3 (06:30→17:39)
[2022-01-26] MEDS: INSULIN ASPART (NovoLOG) 100 UNIT/ML VIAL SQ SCH ×4 (06:31→20:58)
[2022-01-26 08:05] LABS: Albumin 3.1 g/dL (3.5-5.0); Anisocytosis Slight; Basophils % (A) 1 %; Bilirubin, Conjugated 0.2 mg/dL (0.0-0.3); Bilirubin, Delta 1.5 mg/dL (0.0-0.2); Calcium 8.1 mg/dL (8.4-10.2); Eosinophils # (A) 0.2 k/uL (0-0.7); Eosinophils % (A) 4 %; HCT 36.8 % (34.0-46.0); HGB 11.4 gm/dL (11.4-16.0); Hypochromasia Moderate; Lymphocytes # (A) 1.3 k/uL (1.0-4.8); Lymphocytes % (A) 24 %; MCH 27.7 pg (25.0-35.0); MCHC 30.9 g/dL (31.0-37.0); MCV 89.6 fL (80.0-100.0); Magnesium 1.9 mg/dL (1.6-2.3); Mean Platelet Volume 8.3; Monocytes # (A) 0.4 k/uL (0-1.0); Monocytes % (A) 8 %; Neutrophils % (A) 58 %; Platelet Count 264 k/uL (150-450); Potassium 3.8 mmol/L (3.5-5.1); RBC 4.11 m/uL (3.80-5.40); RDW 18.4 % (11.5-15.5); Total Bilirubin 2.7 mg/dL (0.2-1.3); WBC 5.3 k/uL (3.8-10.6)
[2022-01-26] MEDS: polyethylene glycoL 3350 17 GM POWD.PACK PO SCH (09:14)
[2022-01-26] MEDS: CHOLECALCIFEROL 25 MCG (1000 IU) TABLET PO SCH (09:55)
[2022-01-26] MEDS: FUROSEMIDE 20 MG TAB PO SCH ×2 (09:55→17:39)
[2022-01-26] MEDS: CALCIUM CARB-VIT D 500 MG-5 MCG TAB PO SCH (09:55)
[2022-01-26] MEDS: HEPARIN SODIUM,PORCINE/PF 5,000 UNIT/0.5 ML SYRINGE SQ SCH ×3 (09:55→23:24)
[2022-01-26] MEDS: FAMOTIDINE 20 MG TAB PO SCH (09:55)
[2022-01-26] MEDS: PIPERACILLIN-TAZOBACTAM 3.375 GM in SODIUM CHLORIDE 0.9% 100 ML IVPB SCH ×3 (09:55→23:24)
[2022-01-26] MEDS: SPIRONOLACTONE 25 MG TAB PO SCH (09:55)
[2022-01-26 11:35] LABS: Glucose,Whole Blood 148 mg/dL (70-110)
--- NOTE | 2022-01-26 15:37 | P.PN ---
Subjective Patient very pleasant 71-year-old female came in with complaints of generalized weakness and the was depressed because of her chronic medical problems and that she has to take care of her and patient has not been ablating very well. Patient had suicidal ideations but no real plan. Patient does have history of congestive heart failure EF of around 20% ischemic cardiomyopathy. Patient is also on fludrocortisone for low blood pressure because of which she is not taking lisinopril. Patient is on 40 mg twice a day of Lasix. Patient was comparing of shortness of breath orthopnea denied any syncope and paroxysmal nocturnal dyspnea patient is single and swelling in bilateral bilateral lower extremities with with more redness in the left lower extreme edema but this redness in the left lower x-ray is chronic. Patient denied any chest pain at this time. 01/21/2022 Patient evaluated today resting in bed. She continues with peripheral edema pitting, and is maintained on IV lasix 40 mg which has been increased to [id number]. Negative 2.4 L of fluid in the last 24 hours. She does report breathing better however has not been up out of bed. She denies suicidal ideations today and has been evaluated by psychiatry. She is agreeable to rehab on discharge when medically stable. She does report feeling like she had slurred speech at [facility] and was concerned with upper extremity weakness, we will check a brain CT. She does take xanax at night and also norco for pain management possible medication effect. There is no focal neurological deficit. She has equal strength bilateral upper extremities. Labs today showing hgb 10.9, BUN 22, creat 1.18, blood glucose in the 120s, magnesium 1.8. 01/22/2022 Patient is sitting up in bed. Peripheral edema has improved some, she continues with lower extremity edema left greater than right. Patient was maintained on IV lasix overnight and has been transitioned this morning to oral lasix. She is in negative fluid balance for the last 24 hours. Labs today showing sodium 135, potassium 3.5, BUN 20, creatinine 1.22, blood glucose 120s, magnesium 1.8, liver enzymes are elevated and stable today. Vitals are reviewed she is afebrile, heart rate 61, blood pressure 98/55, 95% room air. Aldactone has been adjusted to be given in the morning and not at bedtime. Brain CT is negative for focal d eficits showing nonspecific white matter changes in the right frontal lobe likely chronic small vessel ischemia. No focal neurological deficits she is alert x 3. 01/23/2022 Patient evaluated today resting in bed. Pending insurance authorization for rehab. Lower extremity edema is stable. We will give a dose of IV lasix today. Florinef has been discontinued and patient is started on midodrine 5 mg three times a day. Blood pressure is marginal in the mid 90s. She denies dizziness/lightheadedness. She received potassium supplement today. Abdominal ultrasound completed showing no cholelisthiasis, no hydronephrosis, no renal lesions. There is mild hepatic steatosis. No further work up from psychiatric standpoint and she continues to deny suicidal ideations. Plan for tentative discharge to rehab tomorrow. Temp 98, heart rate 70, blood pressure 95/53, 95% room air. Labs reviewed; sodium 132, potassium 3.5, BUN 21, creatinine 1.19, calcium 7.8, magnesium 2.1, liver enzymes stable. 01/24/2022 Patient today still complaining of from shortness of breath. She is on room air and laps looks stable however her creatinine worsened to 1.25. Chest x-ray showing small left lower lobe pneumonia Patient was started on Zosyn. Liver enzymes elevated and liver ultrasound showing mild hepatic steatosis and possible condition. 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 The patient for discharge Patient is started on low-dose Zyprexa by psychiatrist and patient is already feeling better 01/25/2022 Patient with no dyspnea while his intubated, patient is not walking. Patient has distant breath sounds because of his habitus. No significant leg edema. Patient was not also on home oxygen as he states today. Patient is improving and his IV Lasix switched to oral dose 60 mg twice daily from tomorrow by route aide. Continue on Zosyn for possible pneumonia Repeat chest x-ray in the morning Follow-up liver enzymes and hepatitis panel Patient agrees to subacute rehab 01/26/2022 Patient fluid overload status improved, her Lasix switched to oral dose and she tolerates as well. Check labs in the morning. Her dyspnea also improving. Hepatitis panel is negative and liver enzymes trending down. Repeat chest x-ray Patient also pending placement Objective - Vital Signs Vital signs: Vital Signs Temp 97.9 F 01/26/22 08:00 Pulse 64 01/26/22 08:00 Resp 17 01/26/22 08:00 BP 103/62 01/26/22 08:00 Pulse Ox 97 01/26/22 08:00 FiO2 Intake & Output 01/25/22 01/26/22 01/26/22 18:59 06:59 18:59 Intake Total 360 236 Output Total 750 1475 300 Balance -390 -1131 -64 Intake: Oral 360 236 Output: Urine 750 1475 300 Other: Voiding Method Diaper Diaper External Catheter External Catheter - Exam GENERAL: The patient is alert and oriented x3, not in any acute distress. Well developed, well nourished. HEENT: Pupils are round and equally reacting to light. EOMI. No scleral icterus. No conjunctival pallor. Normocephalic, atraumatic. No pharyngeal erythema. No thyromegaly. S1 and S2 present. No murmurs, rubs, or gallops. -PULMONARY: Chest is clear to auscultation, no wheezing, Bilateral crepitation ABDOMEN: Soft, nontender, nondistended, normoactive bowel sounds. No palpable organomegaly. MUSCULOSKELETAL: No joint swelling or deformity. EXTREMITIES: No cyanosis, clubbing, or pedal edema. NEUROLOGICAL: Gross neurological examination did not reveal any focal deficits. SKIN: No rashes. no petechiae. - Labs CBC & Chem 7: 01/26/22 07:20 01/26/22 07:20 Labs: Abnormal Lab Results - Last 24 Hours (Table) 01/25/22 01/25/22 01/25/22 Range/Units 11:47 16:41 20:31 MCHC (31.0-37.0) g/dL RDW (11.5-15.5) % Sodium (137-145) mmol/L Chloride (98-107) mmol/L BUN (7-17) mg/dL Creatinine (0.52-1.04) mg/dL Glucose (74-99) mg/dL POC Glucose (mg/dL) 177 H 158 H 145 H (70-110) mg/dL Calcium (8.4-10.2) mg/dL Total Bilirubin (0.2-1.3) mg/dL Delta Bilirubin (0.0-0.2) mg/dL AST (14-36) U/L ALT (4-34) U/L Alkaline Phosphatase (38-126) U/L Albumin (3.5-5.0) g/dL 01/26/22 01/26/22 Range/Units 07:20 07:20 MCHC 30.9 L (31.0-37.0) g/dL RDW 18.4 H (11.5-15.5) % Sodium 133 L (137-145) mmol/L Chloride 96 L (98-107) mmol/L BUN 21 H (7-17) mg/dL Creatinine 1.16 H (0.52-1.04) mg/dL Glucose 114 H (74-99) mg/dL POC Glucose (mg/dL) (70-110) mg/dL Calcium 8.1 L (8.4-10.2) mg/dL Total Bilirubin 2.7 H (0.2-1.3) mg/dL Delta Bilirubin 1.5 H (0.0-0.2) mg/dL AST 62 H (14-36) U/L ALT 47 H (4-34) U/L Alkaline Phosphatase 351 H (38-126) U/L Albumin 3.1 L (3.5-5.0) g/dL Assessment and Plan Assessment: -Congestive heart failure chronic systolic dysfunction, ejection fraction of 20%, ischemic cardiomyopathy with acute exacerbation patient is volume overload patient was started on IV Lasix, Aldactone has been decreased, because of low blood pressure issues patient's BHARTI inhibitor was discontinued during her last hospital stay. She has been started on midodrine three times a day. -Possible left lower lobe pneumonia, hospital-acquired -Elevated LFT's abdominal ultrasound showing hepatic steatosis there is also possible component of hepatic congestion from fluid overload. -Left lower extremity redness there is no fever or leukocytosis, procalcitonin 0.31, suspicion for cellulitis is low, this is chronic venous stasis -Mildly elevated troponin probably secondary to congestive heart failure -Depression and suicidal ideation: Psychiatry was consulted, patient denies suicidal ideations currently, feelings of depression related to current life stressors. -Mild acute renal failure. Prerenal azotemia secondary to heart failure expected to improve with Lasix -Coronary artery disease -Diabetes mellitus -Gastroesophageal reflux disease -Hyperlipidemia -Obesity Plan: This is a pleasant 71 years old female who presents with CHF and pneumonia Continue with oral Lasix Continue with [facility] team. Patient will require ECF for rehab upon discharge, patient agrees telephone worker on the case Labs and medication were reviewed.. Continue same treatment. Continue with symptomatic treatment. Resume home medication. Monitor lytes and vitals. DVT and GI prophylaxis. Further recommendations as per clinical course of the patient DVT prophylaxis: Subcutaneous heparin GI Prophylaxis: Pepcid PT/OT: BJ Patient is clinically stable. telephone worker on the case for prior authorization for placement
--- NOTE | 2022-01-26 16:05 | XR ---
EXAMINATION TYPE: XR chest 1V DATE OF EXAM: 01/26/2022 COMPARISON: 01/24/2022 HISTORY: Short of breath TECHNIQUE: Single view FINDINGS: There is blunting left costophrenic angle. Heart is enlarged. There are chest leads. Thorac ic aorta is atheromatous. There is increased airspace density left lower lobe. IMPRESSION: Left pleural effusion. Left lower lobe infiltrate. No heart failure seen. No significant change compared to recent exam.
[2022-01-26 16:41] LABS: Glucose,Whole Blood 116 mg/dL (70-110)
[2022-01-26 20:02] LABS: Glucose,Whole Blood 169 mg/dL (70-110)
[2022-01-26] MEDS: ASPIRIN 81 MG PO SCH (20:58)
[2022-01-26] MEDS: CLOPIDOGREL 75 MG TAB PO SCH (20:58)
[2022-01-26] MEDS: ATORVASTATIN 80 MG TAB PO SCH (20:58)
[2022-01-26] MEDS: HYDROcodone/APAP 10-325MG 1 EACH TAB PO PRN (20:59)
[2022-01-26] MEDS: METOPROLOL SUCCINATE (ER) 25 MG TAB.ER.24H PO SCH (21:03)
[2022-01-27 06:35] LABS: Glucose,Whole Blood 137 mg/dL (70-110)
[2022-01-27] MEDS: MIDODRINE 5 MG TAB PO SCH ×3 (06:52→16:36)
[2022-01-27] MEDS: INSULIN ASPART (NovoLOG) 100 UNIT/ML VIAL SQ SCH ×4 (06:54→20:45)
[2022-01-27] MEDS: HEPARIN SODIUM,PORCINE/PF 5,000 UNIT/0.5 ML SYRINGE SQ SCH ×3 (09:05→23:47)
[2022-01-27] MEDS: PIPERACILLIN-TAZOBACTAM 3.375 GM in SODIUM CHLORIDE 0.9% 100 ML IVPB SCH (09:05)
[2022-01-27] MEDS: FUROSEMIDE 20 MG TAB PO SCH ×2 (09:06→16:35)
[2022-01-27] MEDS: SPIRONOLACTONE 25 MG TAB PO SCH (09:06)
[2022-01-27] MEDS: CALCIUM CARB-VIT D 500 MG-5 MCG TAB PO SCH (09:06)
[2022-01-27] MEDS: CHOLECALCIFEROL 25 MCG (1000 IU) TABLET PO SCH (09:06)
[2022-01-27] MEDS: FAMOTIDINE 20 MG TAB PO SCH (09:06)
[2022-01-27] MEDS: HYDROcodone/APAP 10-325MG 1 EACH TAB PO PRN ×2 (09:06→20:47)
[2022-01-27] MEDS: polyethylene glycoL 3350 17 GM POWD.PACK PO SCH (09:07)
[2022-01-27 11:31] LABS: Glucose,Whole Blood 175 mg/dL (70-110)
--- NOTE | 2022-01-27 15:51 | P.DS ---
Providers Date of admission: 01/20/22 10:34 Attending physician: Lan Summers Consults: 01/20/22 10:34 Consult Physician Routine Consulting Provider: Jose L Valerio Consult Reason/Comments: Depression and suicidal ideation Do you want consulting provider notified?: Yes 01/20/22 11:47 Consult Physician Routine Consulting Provider: Lynn Hooper Consult Reason/Comments: CHF Do you want consulting provider notified?: Yes Primary care physician: Physician Nonstaff Hospital Course: Diagnosis -Congestive heart failure chronic systolic dysfunction, ejection fraction of 20%, ischemic cardiomyopathy with acute exacerbation patient is volume overload patient was started on IV Lasix, Aldactone has been decreased, because of low blood pressure issues patient's BHARTI inhibitor was discontinued during her last hospital stay. She has been started on midodrine three times a day. -Possible left lower lobe pneumonia, hospital-acquired -Elevated LFT's abdominal ultrasound showing hepatic steatosis there is also possible component of hepatic congestion from fluid overload. -Left lower extremity redness there is no fever or leukocytosis, procalcitonin 0.31, suspicion for cellulitis is low, this is chronic venous stasis -Mildly elevated troponin probably secondary to congestive heart failure -Depression and suicidal ideation: Psychiatry was consulted, patient denies suicidal ideations currently, feelings of depression related to current life stressors. -Mild acute renal failure. Prerenal azotemia secondary to heart failure expected to improve with Lasix -Coronary artery disease -Diabetes mellitus -Gastroesophageal reflux disease -Hyperlipidemia -Obesity Full Code Discharge Disposition Patient is stable for discharge to rehab in guarded prognosis. She will repeat labs in 2 days outpatient to monitor sodium, liver enzymes. Follow up recommended with cardiology. Continue on oral lasix twice a day, patient will also complete a short course of oral augmentin outpatient. Continue with incentive spirometer. Hospital Course This is a 71-year-old female came in with complaints of generalized weakness and depression because of her chronic medical problems and that she has to take care of her and patient has not been ambulating very well at home, she also reports issues with cooking meals. Patient had suicidal ideations but no real plan. She was evaluated by psychiatry and no inpatient treatment was recommended. She has denied suicidal ideations since admission. Patient does have history of congestive heart failure EF of around 20% ischemic cardiomyopathy. Patient is also on fludrocortisone for low blood pressure because of which she is not taking lisinopril. Patient is on 40 mg twice a day of Lasix. Patient was comparing of shortness of breath orthopnea denied any syncope and paroxysmal nocturnal dyspnea patient is single and swelling in bilateral bilateral lower extremities with with more redness in the left lower extreme edema but this redness in the left lower extremity is chronic. Patient denied any chest pain at this time. Fludrocortisone has been discontinued and patient was started on midodrine this hospital stay. She also was treated in [facility] with IV lasix and has lost about 35 lbs. She has been transitioned to oral lasix at 60 mg po daily. Patient did have some evidence for possible left lower lobe pneumonia and was started on IV zosyn while in patient and incentive spirometer was ordered she will complete a short course of oral augmentin on discharge. Procalcitonin and was found elevated at 0.31 and then trended upwards to 0.45 which she was started on IV Zosyn and then improved down to 0.30. She has had elevated liver enzymes and abdominal ultrasound was completed showing hepatic steatosis. No evidence for gallstones, no acute cholecystitis. Bile duct unremarkable. Patient educated on diet modification. She had repeat chest xray completed showing left pleural effusion and left lower lobe infiltrate stable from previous exam. Cardiology will see patient in follow-up outpatient. 01/27/2022 Patient evaluated today sitting up in bed. No chest pain, no shortness of breath. Denies fever. No nausea, vomiting, diarrhea. Bowels are moving. Lower extremity edema is stable and has improved slightly. Can BHARTI wrap left lower extremity. Patient is tolerating diet. She will be given incentive spirometer on discharge. She may be discharged today and follow up with cardiology outpatient. Plan is for rehab on discharge. Her lungs are clear, diminished. S1 and S2 auscultated, abdomen is soft and nontender. She has no cough. Focal neurological exam is negative. She is pleasant, continues to deny suicidal ideations. She is agreeable to rehab and is anxious for discharge. Labs today show white count 5.3, hemoglobin 11.4, sodium 133, potassium 3.8, BUN 21, creatinine 1.16, blood glucoses in the 160s. Magnesium is 1.9, liver enzymes are improving AST 62, ALT 47, alk phos 351. She is afebrile, heart rate 76 blood pressure 114/71, 98% room air. Please see medication reconciliation for a list of current medication. Thank you for allowing us to participate in the care of this patient. The impression and plan of care has been dictated by Cate Corrales, Nurse Practitioner as directed. Dr. Melina MD I have performed a history and physical examination and medical decision making of this patient, discussed the same with the dictator, and agree with the dictators assessment and plan as written, documented as a scribe. Based on total visit time, I have performed more than 50% of this visit. Patient Condition at Discharge: Stable Plan - Discharge Summary Discharge Rx Participant: No New Discharge Prescriptions: New INSULIN ASPART (NovoLOG) [NovoLOG (formulary)] 0 unit SQ ACHS each Midodrine [ProAmatine] 5 mg PO AC-TID #90 tab Spironolactone [Aldactone] 12.5 mg PO DAILY #30 tablet Potassium Chloride ER [K-Dur 10] 10 meq PO DAILY #30 tab Furosemide [Lasix] 60 mg PO BID@0900,1600 tab polyethylene glycoL 3350 [Miralax] 17 gm PO DAILY packet Famotidine [Pepcid] 20 mg PO DAILY tab Amoxic-Pot Clav 875-125Mg [Augmentin 875-125] 1 tab PO Q12HR 3 Days #6 tab Continue Ferrous Sulfate [Iron (65 MG Elemental)] 325 mg PO DAILY Calcium Carbonate [Calcium] 600 mg PO DAILY Metoprolol Succinate (ER) [Toprol XL] 12.5 mg PO HS Atorvastatin [Lipitor] 80 mg PO HS Cholecalciferol [Vitamin D3 (25 Mcg = 1000 Iu)] 25 mcg PO DAILY Clopidogrel [Plavix] 75 mg PO HS Aspirin 81 mg PO HS Mag Hydrox/Al Hydrox/Simeth [Maalox] 30 ml PO Q4H PRN PRN Reason: Heartburn Changed ALPRAZolam [Xanax] 0.25 mg PO HS #3 tab HYDROcodone/APAP 10-325MG [[place] 10-325] 1 tab PO Q8H PRN #3 tab PRN Reason: Pain Discontinued Spironolactone [Aldactone] 25 mg PO HS #30 tab Fludrocortisone [Florinef] 0.1 mg PO BID 30 Days #60 tab Furosemide [Lasix] 40 mg PO BID@0900,1600 30 Days #60 tab Discharge Medication List Calcium Carbonate [Calcium] 600 mg PO DAILY 11/13/21 [History] Cholecalciferol [Vitamin D3 (25 Mcg = 1000 Iu)] 25 mcg PO DAILY 11/13/21 [History] Ferrous Sulfate [Iron (65 MG Elemental)] 325 mg PO DAILY 11/13/21 [History] Atorvastatin [Lipitor] 80 mg PO HS 12/04/21 [History] Clopidogrel [Plavix] 75 mg PO HS 12/04/21 [History] Metoprolol Succinate (ER) [Toprol XL] 12.5 mg PO HS 12/04/21 [History] Aspirin 81 mg PO HS 12/28/21 [History] Mag Hydrox/Al Hydrox/Simeth [Maalox] 30 ml PO Q4H PRN 01/20/22 [History] ALPRAZolam [Xanax] 0.25 mg PO HS #3 tab 01/23/22 [Rx] Famotidine [Pepcid] 20 mg PO DAILY tab 01/23/22 [Rx] HYDROcodone/APAP 10-325MG [[place] 10-325] 1 tab PO Q8H PRN #3 tab 01/23/22 [Rx] INSULIN ASPART (NovoLOG) [NovoLOG (formulary)] 0 unit SQ ACHS each 01/23/22 [Rx] Midodrine [ProAmatine] 5 mg PO AC-TID #90 tab 01/23/22 [Rx] Potassium Chloride ER [K-Dur 10] 10 meq PO DAILY #30 tab 01/23/22 [Rx] Spironolactone [Aldactone] 12.5 mg PO DAILY #30 tablet 01/23/22 [Rx] polyethylene glycoL 3350 [Miralax] 17 gm PO DAILY packet 01/23/22 [Rx] Amoxic-Pot Clav 875-125Mg [Augmentin 875-125] 1 tab PO Q12HR 3 Days #6 tab 01/27/22 [Rx] Furosemide [Lasix] 60 mg PO BID@0900,1600 tab 01/27/22 [Rx] Follow up Appointment(s)/Referral(s): Maxim Santos MD [STAFF PHYSICIAN] - 2 Weeks Rafa Diallo MD [STAFF PHYSICIAN] - 1 Week [place],Physician [Primary Care Provider] - 1-2 days [facility] [place], [NON-STAFF] - Ambulatory/Diagnostic Orders: Comprehensive Metabolic Panel [LAB.AMB] Time Frame: 3 Days, Location: None Selected Activity/Diet/Wound Care/Special Instructions: PCP Gio Wellington Discharge Disposition: TRANSFER TO SNF/ECF
[2022-01-27 16:17] LABS: Glucose,Whole Blood 164 mg/dL (70-110)
[2022-01-27 19:50] LABS: Glucose,Whole Blood 153 mg/dL (70-110)
[2022-01-27] MEDS: METOPROLOL SUCCINATE (ER) 25 MG TAB.ER.24H PO SCH (20:44)
[2022-01-27] MEDS: CLOPIDOGREL 75 MG TAB PO SCH (20:44)
[2022-01-27] MEDS: ASPIRIN 81 MG PO SCH (20:44)
[2022-01-27] MEDS: ATORVASTATIN 80 MG TAB PO SCH (20:44)
[2022-01-27 23:59] VITALS: RESP 18
[2022-01-28] MEDS: INSULIN ASPART (NovoLOG) 100 UNIT/ML VIAL SQ SCH (06:15)
[2022-01-28 06:16] LABS: Glucose,Whole Blood 123 mg/dL (70-110)
[2022-01-28] MEDS: MIDODRINE 5 MG TAB PO SCH (06:17)
[2022-01-28 08:04] VITALS: BP 114/76; TEMP 97.4
[2022-01-28 08:53] LABS: Calcium 8.1 mg/dL (8.4-10.2)
[2022-01-28] MEDS: FAMOTIDINE 20 MG TAB PO SCH (09:32)
[2022-01-28] MEDS: HEPARIN SODIUM,PORCINE/PF 5,000 UNIT/0.5 ML SYRINGE SQ SCH (09:32)
[2022-01-28] MEDS: CHOLECALCIFEROL 25 MCG (1000 IU) TABLET PO SCH (09:32)
[2022-01-28] MEDS: CALCIUM CARB-VIT D 500 MG-5 MCG TAB PO SCH (09:32)
[2022-01-28] MEDS: polyethylene glycoL 3350 17 GM POWD.PACK PO SCH (09:33)
[2022-01-28] MEDS: SPIRONOLACTONE 25 MG TAB PO SCH (09:33)
[2022-01-28] MEDS: FUROSEMIDE 20 MG TAB PO SCH (09:33)
[2022-01-28] MEDS: HYDROcodone/APAP 10-325MG 1 EACH TAB PO PRN (09:49)
[2022-01-28 10:29] VITALS: PULSE 60
--- NOTE | 2022-01-28 15:21 | P.DS ---
Providers Date of admission: 01/20/22 10:34 Attending physician: Lan Summers Consults: 01/20/22 10:34 Consult Physician Routine Consulting Provider: Jose L Valerio Consult Reason/Comments: Depression and suicidal ideation Do you want consulting provider notified?: Yes 01/20/22 11:47 Consult Physician Routine Consulting Provider: Lynn Hooper Consult Reason/Comments: CHF Do you want consulting provider notified?: Yes Primary care physician: Physician Nonstaff Hospital Course: Diagnosis -Congestive heart failure chronic systolic dysfunction, ejection fraction of 20%, ischemic cardiomyopathy with acute exacerbation patient is volume overload patient was started on IV Lasix, Aldactone has been decreased, because of low blood pressure issues patient's BHARTI inhibitor was discontinued during her last hospital stay. She has been started on midodrine three times a day. -Possible left lower lobe pneumonia, hospital-acquired -Elevated LFT's abdominal ultrasound showing hepatic steatosis there is also possible component of hepatic congestion from fluid overload. -Left lower extremity redness there is no fever or leukocytosis, procalcitonin 0.31, suspicion for cellulitis is low, this is chronic venous stasis -Mildly elevated troponin probably secondary to congestive heart failure -Depression and suicidal ideation: Psychiatry was consulted, patient denies suicidal ideations currently, feelings of depression related to current life stressors. -Mild acute renal failure. Prerenal azotemia secondary to heart failure expected to improve with Lasix -Coronary artery disease -Diabetes mellitus -Gastroesophageal reflux disease -Hyperlipidemia -Obesity Full Code Discharge Disposition Patient is stable for discharge to rehab in guarded prognosis. She will repeat labs in 2 days outpatient to monitor sodium, liver enzymes. Follow up recommended with cardiology. Continue on oral lasix twice a day, patient will also complete a short course of oral augmentin outpatient. Continue with incentive spirometer. Hospital Course This is a 71-year-old female came in with complaints of generalized weakness and depression because of her chronic medical problems and that she has to take care of her and patient has not been ambulating very well at home, she also reports issues with cooking meals. Patient had suicidal ideations but no real plan. She was evaluated by psychiatry and no inpatient treatment was recommended. She has denied suicidal ideations since admission. Patient does have history of congestive heart failure EF of around 20% ischemic cardiomyopathy. Patient is also on fludrocortisone for low blood pressure because of which she is not taking lisinopril. Patient is on 40 mg twice a day of Lasix. Patient was comparing of shortness of breath orthopnea denied any syncope and paroxysmal nocturnal dyspnea patient is single and swelling in bilateral bilateral lower extremities with with more redness in the left lower extreme edema but this redness in the left lower extremity is chronic. Patient denied any chest pain at this time. Fludrocortisone has been discontinued and patient was started on midodrine this hospital stay. She also was treated in [facility] with IV lasix and has lost about 35 lbs. She has been transitioned to oral lasix at 60 mg po daily. Patient did have some evidence for possible left lower lobe pneumonia and was started on IV zosyn while in patient and incentive spirometer was ordered she will complete a short course of oral augmentin on discharge. Procalcitonin and was found elevated at 0.31 and then trended upwards to 0.45 which she was started on IV Zosyn and then improved down to 0.30. She has had elevated liver enzymes and abdominal ultrasound was completed showing hepatic steatosis. No evidence for gallstones, no acute cholecystitis. Bile duct unremarkable. Patient educated on diet modification. She had repeat chest xray completed showing left pleural effusion and left lower lobe infiltrate stable from previous exam. Cardiology will see patient in follow-up outpatient. 01/27/2022 Patient evaluated today sitting up in bed. No chest pain, no shortness of breath. Denies fever. No nausea, vomiting, diarrhea. Bowels are moving. Lower extremity edema is stable and has improved slightly. Can BHARTI wrap left lower extremity. Patient is tolerating diet. She will be given incentive spirometer on discharge. She may be discharged today and follow up with cardiology outpatient. Plan is for rehab on discharge. Her lungs are clear, diminished. S1 and S2 auscultated, abdomen is soft and nontender. She has no cough. Focal neurological exam is negative. She is pleasant, continues to deny suicidal ideations. She is agreeable to rehab and is anxious for discharge. Labs today show white count 5.3, hemoglobin 11.4, sodium 133, potassium 3.8, BUN 21, creatinine 1.16, blood glucoses in the 160s. Magnesium is 1.9, liver enzymes are improving AST 62, ALT 47, alk phos 351. She is afebrile, heart rate 76 blood pressure 114/71, 98% room air. 01/28/2022 Patient will be discharge to rehab today, authorization has been obtained. She is afebrile, heart rate 68, blood pressure 114/76, 96% on room air. No acute events overnight. Labs stable. Repeat labs in 2 to 3 days outpatient. Discharge on 3 days of oral antibiotics and was given incentive spirometer. Follow up with cardiology and patient has been referred to see Dr Diallo at [facility] on discharge. Please see medication reconciliation for a list of current medication. Thank you for allowing us to participate in the care of this patient. The impression and plan of care has been dictated by Cate Corrales, Nurse Practitioner as directed. Dr. Melina MD I have performed a history and physical examination and medical decision making of this patient, discussed the same with the dictator, and agree with the dictators assessment and plan as written, documented as a scribe. Based on total visit time, I have performed more than 50% of this visit. Patient Condition at Discharge: Stable Plan - Discharge Summary Discharge Rx Participant: No New Discharge Prescriptions: New INSULIN ASPART (NovoLOG) [NovoLOG (formulary)] 0 unit SQ ACHS each Midodrine [ProAmatine] 5 mg PO AC-TID #90 tab Spironolactone [Aldactone] 12.5 mg PO DAILY #30 tablet Potassium Chloride ER [K-Dur 10] 10 meq PO DAILY #30 tab Furosemide [Lasix] 60 mg PO BID@0900,1600 tab polyethylene glycoL 3350 [Miralax] 17 gm PO DAILY packet Famotidine [Pepcid] 20 mg PO DAILY tab Amoxic-Pot Clav 875-125Mg [Augmentin 875-125] 1 tab PO Q12HR 3 Days #6 tab Continue Ferrous Sulfate [Iron (65 MG Elemental)] 325 mg PO DAILY Calcium Carbonate [Calcium] 600 mg PO DAILY Metoprolol Succinate (ER) [Toprol XL] 12.5 mg PO HS Atorvastatin [Lipitor] 80 mg PO HS Cholecalciferol [Vitamin D3 (25 Mcg = 1000 Iu)] 25 mcg PO DAILY Clopidogrel [Plavix] 75 mg PO HS Aspirin 81 mg PO HS Mag Hydrox/Al Hydrox/Simeth [Maalox] 30 ml PO Q4H PRN PRN Reason: Heartburn Changed ALPRAZolam [Xanax] 0.25 mg PO HS #3 tab HYDROcodone/APAP 10-325MG [[place] 10-325] 1 tab PO Q8H PRN #3 tab PRN Reason: Pain Discontinued Spironolactone [Aldactone] 25 mg PO HS #30 tab Fludrocortisone [Florinef] 0.1 mg PO BID 30 Days #60 tab Furosemide [Lasix] 40 mg PO BID@0900,1600 30 Days #60 tab Discharge Medication List Calcium Carbonate [Calcium] 600 mg PO DAILY 11/13/21 [History] Cholecalciferol [Vitamin D3 (25 Mcg = 1000 Iu)] 25 mcg PO DAILY 11/13/21 [History] Ferrous Sulfate [Iron (65 MG Elemental)] 325 mg PO DAILY 11/13/21 [History] Atorvastatin [Lipitor] 80 mg PO HS 12/04/21 [History] Clopidogrel [Plavix] 75 mg PO HS 12/04/21 [History] Metoprolol Succinate (ER) [Toprol XL] 12.5 mg PO HS 12/04/21 [History] Aspirin 81 mg PO HS 12/28/21 [History] Mag Hydrox/Al Hydrox/Simeth [Maalox] 30 ml PO Q4H PRN 01/20/22 [History] ALPRAZolam [Xanax] 0.25 mg PO HS #3 tab 01/23/22 [Rx] Famotidine [Pepcid] 20 mg PO DAILY tab 01/23/22 [Rx] HYDROcodone/APAP 10-325MG [[place] 10-325] 1 tab PO Q8H PRN #3 tab 01/23/22 [Rx] INSULIN ASPART (NovoLOG) [NovoLOG (formulary)] 0 unit SQ ACHS each 01/23/22 [Rx] Midodrine [ProAmatine] 5 mg PO AC-TID #90 tab 01/23/22 [Rx] Potassium Chloride ER [K-Dur 10] 10 meq PO DAILY #30 tab 01/23/22 [Rx] Spironolactone [Aldactone] 12.5 mg PO DAILY #30 tablet 01/23/22 [Rx] polyethylene glycoL 3350 [Miralax] 17 gm PO DAILY packet 01/23/22 [Rx] Amoxic-Pot Clav 875-125Mg [Augmentin 875-125] 1 tab PO Q12HR 3 Days #6 tab 01/27/22 [Rx] Furosemide [Lasix] 60 mg PO BID@0900,1600 tab 01/27/22 [Rx] Follow up Appointment(s)/Referral(s): Maxim Santos MD [STAFF PHYSICIAN] - 2 Weeks Rafa Diallo MD [STAFF PHYSICIAN] - 1 Week Nonstaff,Physician [Primary Care Provider] - 1-2 days [facility], [NON-STAFF] - Ambulatory/Diagnostic Orders: Comprehensive Metabolic Panel [LAB.AMB] Time Frame: 3 Days, Location: None Selected Activity/Diet/Wound Care/Special Instructions: PCP Gio Wellington Continue on oral lasix twice a day Continue with weight monitoring and keep log for follow up with cardiology. Discharge Disposition: TRANSFER TO SNF/ECF
== END 2022-01-28 10:24 | DRG 291 ==
LOC: EC 08:29 → 3SCARD 10:34
PROVIDERS: ADMIT Internal Medicine; ATTEND Internal Medicine
DX: I11.0 Hypertensive heart disease with heart failure (principal); I50.23 Acute on chronic systolic (congestive) heart failure; J18.9 Pneumonia, unspecified organism; N17.9 Acute kidney failure, unspecified; R45.851 Suicidal ideations; E11.9 Type 2 diabetes mellitus without complications; E66.9 Obesity, unspecified; Z68.34 Body mass index [BMI] 34.0-34.9, adult; Z28.310 Unvaccinated for COVID-19; Z28.21 Immunization not carried out because of patient refusal; R77.8 Other specified abnormalities of plasma proteins; Y95 Nosocomial condition; E78.00 Pure hypercholesterolemia, unspecified; F32.A Depression, unspecified; F41.9 Anxiety disorder, unspecified; I95.9 Hypotension, unspecified; F43.0 Acute stress reaction; K76.1 Chronic passive congestion of liver; I25.82 Chronic total occlusion of coronary artery; G89.29 Other chronic pain; K76.0 Fatty (change of) liver, not elsewhere classified; I25.10 Atherosclerotic heart disease of native coronary artery without angina pectoris; R26.2 Difficulty in walking, not elsewhere classified; I25.5 Ischemic cardiomyopathy; R47.81 Slurred speech; K21.9 Gastro-esophageal reflux disease without esophagitis; M81.0 Age-related osteoporosis without current pathological fracture; Z79.02 Long term (current) use of antithrombotics/antiplatelets; I25.2 Old myocardial infarction; Z79.82 Long term (current) use of aspirin; Z79.891 Long term (current) use of opiate analgesic; Z79.899 Other long term (current) drug therapy; Z95.5 Presence of coronary angioplasty implant and graft; Z98.84 Bariatric surgery status; Z99.3 Dependence on wheelchair; Z71.3 Dietary counseling and surveillance; Z87.01 Personal history of pneumonia (recurrent)
CPT/HCPCS: 36415; 70450; 71045; 71046; 76700; 80048; 80053; 80074; 80076; 80306; 80320; 81001; 83605; 83735; 83880; 84145; 84484; 85025; 85027; 85610; 85730; 93005; 94760; 96374; 99285

== ENCOUNTER 2022-03-20 12:29 | Emergency (ER) | payer MEDICARE ==
[2022-03-20] MEDS ORDERED: SODIUM CHLORIDE 0.9% 500 ML 500 ML IV STA (12:40)
[2022-03-20] MEDS ORDERED: IBUPROFEN 600 MG TAB PO STA (12:40)
[2022-03-20] MEDS ORDERED: ACETAMINOPHEN TAB 500 MG TAB PO STA (12:40)
[2022-03-20 12:42] VITALS: RESP 18
--- NOTE | 2022-03-20 12:46 | ED ---
General Adult HPI - General Chief complaint: Weakness Stated complaint: Fall Time Seen by Provider: 03/20/22 12:29 Source: patient, EMS, RN notes reviewed, old records reviewed Mode of arrival: EMS - History of Present Illness Initial comments: This 71-year-old female who presents emergency Department because she is aching all over and she was tested positive for COVID. Patient's primary medical care doctor asked him if bring her to the emergency department. Patient states she feels achy all over and a little bit weaker than normal. Patient denies any difficulty breathing or shortness of breath. Patient states she thinks she has a fever. Patient denies any significant cough. Patient states she's a little bit congested. Patient denies any abdominal pain patient denies nausea vomiting diarrhea. Patient denies any dysuria hematuria urinary frequency. - Related Data Home Medications Medication Instructions Recorded Confirmed Calcium Carbonate [Calcium] 600 mg PO DAILY 11/13/21 01/20/22 Cholecalciferol [Vitamin D3 (25 25 mcg PO DAILY 11/13/21 01/20/22 Mcg = 1000 Iu)] Ferrous Sulfate [Iron (65 MG 325 mg PO DAILY 11/13/21 01/20/22 Elemental)] Atorvastatin [Lipitor] 80 mg PO HS 12/04/21 01/20/22 Clopidogrel [Plavix] 75 mg PO HS 12/04/21 01/20/22 Metoprolol Succinate (ER) [Toprol 12.5 mg PO HS 12/04/21 01/20/22 XL] Aspirin 81 mg PO HS 12/28/21 01/20/22 Mag Hydrox/Al Hydrox/Simeth 30 ml PO Q4H PRN 01/20/22 01/20/22 [Maalox] Previous Rx's Medication Instructions Recorded ALPRAZolam [Xanax] 0.25 mg PO HS #3 tab 01/23/22 Famotidine [Pepcid] 20 mg PO DAILY tab 01/23/22 HYDROcodone/APAP 10-325MG [[place] 1 tab PO Q8H PRN #3 tab 01/23/22 10-325] INSULIN ASPART (NovoLOG) [NovoLOG 0 unit SQ ACHS each 01/23/22 (formulary)] Midodrine [ProAmatine] 5 mg PO AC-TID #90 tab 01/23/22 Potassium Chloride ER [K-Dur 10] 10 meq PO DAILY #30 tab 01/23/22 Spironolactone [Aldactone] 12.5 mg PO DAILY #30 tablet 01/23/22 polyethylene glycoL 3350 [Miralax] 17 gm PO DAILY packet 01/23/22 Amoxic-Pot Clav 875-125Mg 1 tab PO Q12HR 3 Days #6 tab 01/27/22 [Augmentin 875-125] Furosemide [Lasix] 60 mg PO BID@0900,1600 tab 01/27/22 dexAMETHasone [Decadron] 6 mg PO DAILY #5 tab 03/20/22 Allergies Allergy/AdvReac Type Severity Reaction Status Date / Time adhesive tape AdvReac skin Verified 01/20/22 09:50 blisters morphine AdvReac Hallucinati Verified 01/20/22 09:50 ons Review of Systems ROS Statement: Those systems with pertinent positive or pertinent negative responses have been documented in the HPI. ROS Other: All systems not noted in ROS Statement are negative. Past Medical History Past Medical History: Coronary Artery Disease (CAD), Heart Failure, Diabetes Mellitus, GERD/Reflux, Hyperlipidemia, Hypertension, Myocardial Infarction ([place]), Pneumonia Additional Past Medical History / Comment(s): Pt recently admitted to [facility] on 12/28/21 with exacerbation CHF/[place]. Other hx: Pt states she now has low blood pressure, chronic back and bilateral hip pain, osteoporosis, bilateral lower leg edema/redness which is worse in the L leg, difficulty walking pt states d/t previous L knee and L hip replacements. Last Myocardial Infarction Date:: 12/29/21 History of Any Multi-Drug Resistant Organisms: None Reported Past Surgical History: Adenoidectomy, Appendectomy, Bariatric Surgery, Cholecystectomy, Heart Catheterization With Stent, Joint Replacement, Orthopedic Surgery, Tonsillectomy, Tubal Ligation Additional Past Surgical History / Comment(s): Gastric stapling, panniculectomy, total L hip and L knee replacements, bone spurs removed L foot, Past Anesthesia/Blood Transfusion Reactions: No Reported Reaction Date of Last Stent Placement:: 12/29/21 Past Psychological History: Anxiety, Depression Smoking Status: Never smoker Past Alcohol Use History: None Reported Past Drug Use History: None Reported - Past Family History Father Family Medical History: COPD Additional Family Medical History / Comment(s): End stage COPD Mother Family Medical History: Congestive Heart Failure (CHF) Additional Family Medical History / Comment(s): Mother of CHF General Exam - General Exam Comments Initial Comments: GENERAL: Patient is well-developed and well-nourished. Patient is nontoxic and well-hydrated and is in mild distress. ENT: Neck is soft and supple. No significant lymphadenopathy is noted. Oropharynx is clear. Moist mucous membranes. Neck has full range of motion without eliciting any pain. EYES: The sclera were anicteric and conjunctiva were pink and moist. Extraocular movements were intact and pupils were equal round and reactive to light. Eyelids were unremarkable. PULMONARY: Unlabored respirations. Good breath sounds bilaterally. No audible rales rhonchi or wheezing was noted. CARDIOVASCULAR: There is a regular rate and rhythm without any murmurs gallops or rubs. ABDOMEN: Soft and nontender with normal bowel sounds. SKIN: Skin is clear with no lesions or rashes and otherwise unremarkable. NEUROLOGIC: Patient is alert and oriented x3. Cranial nerves II through XII are grossly intact. Motor and sensory are also intact. Normal speech, volume and content. Symmetrical smile. MUSCULOSKELETAL: Normal extremities with adequate strength and full range of motion. LYMPHATICS: No significant lymphadenopathy is noted PSYCHIATRIC: Normal psychiatric evaluation. Course Vital Signs 03/20/22 12:32 Temperature 100.3 F H Pulse Rate 98 Respiratory 18 Rate Blood Pressure 107/65 O2 Sat by Pulse 96 Oximetry Medical Decision Making - Medical Decision Making EKG shows sinus rhythm with occasional PVC at 94 bpm MS interval 270 QRS is 113 QT interval 360 QTC is 411. Patient's EKG shows no ST segment elevation or depression. Patient's chest x-ray pleural effusion with probable pulmonary edema unchanged from previous x-ray I spoke with Dr. Albert agreed to admit the patient admitted the patient will be worse. After patient was going to be admitted she then refused to be admitted and wanted to be discharged home. - Lab Data Result diagrams: 03/20/22 13:01 03/20/22 13:01 Lab Results 03/20/22 03/20/22 Range/Units 13: 13:01 WBC 4.6 (3.8-10.6) k/uL RBC 3.86 (3.80-5.40) m/uL Hgb 10.7 L (11.4-16.0) gm/dL Hct 35.4 (34.0-46.0) % MCV 91.5 (80.0-100.0) fL MCH 27.6 (25.0-35.0) pg MCHC 30.2 L (31.0-37.0) g/dL RDW 17.7 H (11.5-15.5) % Plt Count 179 (150-450) k/uL MPV 8.3 Neutrophils % 83 % Lymphocytes % 8 % Monocytes % 7 % Eosinophils % 1 % Basophils % 0 % Neutrophils # 3.8 (1.3-7.7) k/uL Lymphocytes # 0.4 L (1.0-4.8) k/uL Monocytes # 0.3 (0-1.0) k/uL Eosinophils # 0.0 (0-0.7) k/uL Basophils # 0.0 (0-0.2) k/uL Hypochromasia Moderate Anisocytosis Slight Sodium 129 L (137-145) mmol/L Potassium 3.9 (3.5-5.1) mmol/L Chloride 94 L (98-107) mmol/L Carbon Dioxide 22 (22-30) mmol/L Anion Gap 13 mmol/L BUN 17 (7-17) mg/dL Creatinine 0.94 (0.52-1.04) mg/dL Est GFR (CKD-EPI)AfAm 70 (>60 ml/min/1.73 sqM) Est GFR (CKD-EPI)NonAf 61 (>60 ml/min/1.73 sqM) Glucose 130 H (74-99) mg/dL Calcium 8.1 L (8.4-10.2) mg/dL Total Bilirubin 3.0 H (0.2-1.3) mg/dL AST 40 H (14-36) U/L ALT 13 (4-34) U/L Alkaline Phosphatase 298 H (38-126) U/L Total Protein 7.4 (6.3-8.2) g/dL Albumin 3.3 L (3.5-5.0) g/dL Disposition Clinical Impression: COVID-19, Acute pulmonary edema, Pleural effusion Disposition: ADMITTED IP TO THIS HOSP Instructions (If sedation given, give patient instructions): COVID-19 (Coronavirus Disease 2019) (ED) Prescriptions: dexAMETHasone [Decadron] 6 mg PO DAILY #5 tab Is patient prescribed a controlled substance at d/c from ED?: No Referrals: Jose L Fall DO [Primary Care Provider] - 1-2 days Time of Disposition: 14:09
[2022-03-20 13:27] LABS: Anisocytosis Slight; Basophils % (A) 0 %; Eosinophils % (A) 1 %; HCT 35.4 % (34.0-46.0); HGB 10.7 gm/dL (11.4-16.0); Hypochromasia Moderate; Lymphocytes # (A) 0.4 k/uL (1.0-4.8); Lymphocytes % (A) 8 %; MCH 27.6 pg (25.0-35.0); MCHC 30.2 g/dL (31.0-37.0); MCV 91.5 fL (80.0-100.0); Mean Platelet Volume 8.3; Monocytes # (A) 0.3 k/uL (0-1.0); Monocytes % (A) 7 %; Neutrophils # (A) 3.8 k/uL (1.3-7.7); Neutrophils % (A) 83 %; Platelet Count 179 k/uL (150-450); RBC 3.86 m/uL (3.80-5.40); RDW 17.7 % (11.5-15.5); WBC 4.6 k/uL (3.8-10.6)
[2022-03-20 13:42] LABS: Albumin 3.3 g/dL (3.5-5.0); Calcium 8.1 mg/dL (8.4-10.2); Potassium 3.9 mmol/L (3.5-5.1); Total Protein 7.4 g/dL (6.3-8.2)
--- NOTE | 2022-03-20 13:49 | XR ---
EXAMINATION TYPE: XR chest 2V DATE OF EXAM: 03/20/2022 COMPARISON: Chest x-ray January 26, 2022. CTA chest December 28, 2021 HISTORY: Weakness. TECHNIQUE: Frontal and lateral views of the chest are obtained. FINDINGS: Osseous structures remain demineralized. Advanced degenerative changes bilateral joints re demonstrated. Persistent cardiomegaly with small to moderate size left greater than right pleural eff usions. Bilateral hilar prominence consistent with underlying pulmonary artery hypertension redemonst rated. IMPRESSION: Findings consistent with CHF exacerbation redemonstrated. Cardiomegaly with small to mode rate size left and small size right pleural effusion is again seen.
[2022-03-20] MEDS ORDERED: FUROSEMIDE 10 MG/ML 2 ML VIAL IV STA (14:10)
[2022-03-20] MEDS ORDERED: dexAMETHasone 2 MG TAB PO STA (14:10)
[2022-03-20 15:17] VITALS: BP 106/52; PULSE 92; TEMP 98.9
[2022-03-21] MEDS ORDERED: dexAMETHasone 2 MG TAB PO SCH (09:00)
== END 2022-03-20 15:36 | disposition other institution (70) ==
LOC: EC 12:29
DX: U07.1 COVID-19 (principal); J90 Pleural effusion, not elsewhere classified; I25.10 Atherosclerotic heart disease of native coronary artery without angina pectoris; Z79.82 Long term (current) use of aspirin; Z82.49 Family history of ischemic heart disease and other diseases of the circulatory system; I11.0 Hypertensive heart disease with heart failure; Z91.048 Other nonmedicinal substance allergy status; Z88.6 Allergy status to analgesic agent
CPT/HCPCS: 36415; 93005; 80053; 85025; 71046; 99285; 96360; J8540

== ENCOUNTER 2022-03-21 14:52 | Inpatient (IN) | payer MEDICARE ==
--- NOTE | 2022-03-21 15:37 | ED ---
Weakness HPI - General Chief complaint: Weakness Stated complaint: falls Time Seen by Provider: 03/21/22 15:16 Source: patient, RN notes reviewed Mode of arrival: EMS Limitations: no limitations - History of Present Illness Initial comments: 71-year-old female here with complaints of generalized weakness and frequent falls she states she fell twice today and 3 times last several days. She denies any overt fevers chills nausea vomiting sweats she does states she has decreased oral intake. She states she was diagnosed with colon and 19 for days ago. She states her also has the same. She states she is to take care of herself. She denies any injury from the falls. She states she does have a hip that has chronic problems however. Review of old charting appearance patient was seen yesterday in this emergency department at anytime she was to be admitted she had a temperature 100.3. She was diagnoses: 19 CHF and pleural effusions at that time. MD Complaint: generalized weakness, difficulty walking - Related Data Home Medications Medication Instructions Recorded Confirmed Calcium Carbonate [Calcium] 600 mg PO DAILY 11/13/21 03/21/22 Cholecalciferol [Vitamin D3 (25 25 mcg PO DAILY 11/13/21 03/21/22 Mcg = 1000 Iu)] Ferrous Sulfate [Iron (65 MG 325 mg PO DAILY 11/13/21 03/21/22 Elemental)] Atorvastatin [Lipitor] 80 mg PO HS 12/04/21 03/21/22 Clopidogrel [Plavix] 75 mg PO HS 12/04/21 03/21/22 Metoprolol Succinate (ER) [Toprol 12.5 mg PO HS 12/04/21 03/21/22 XL] Aspirin 81 mg PO HS 12/28/21 03/21/22 ALPRAZolam [Xanax] 0.5 mg PO HS 03/21/22 03/21/22 Calcium Carbonate [Tums] 500 mg PO TID PRN 03/21/22 03/21/22 HYDROcodone/APAP 10-325MG [[place] 1 tab PO Q6H PRN 03/21/22 03/21/22 10-325] metFORMIN HCL [Glucophage] 500 mg PO BID 03/21/22 03/21/22 Previous Rx's Medication Instructions Recorded Midodrine [ProAmatine] 5 mg PO AC-TID #90 tab 01/23/22 Potassium Chloride ER [K-Dur 10] 10 meq PO DAILY #30 tab 01/23/22 Spironolactone [Aldactone] 12.5 mg PO DAILY #30 tablet 01/23/22 polyethylene glycoL 3350 [Miralax] 17 gm PO DAILY packet 01/23/22 Furosemide [Lasix] 60 mg PO BID@0900,1600 tab 01/27/22 dexAMETHasone [Decadron] 6 mg PO DAILY #5 tab 03/20/22 Allergies Allergy/AdvReac Type Severity Reaction Status Date / Time adhesive tape Allergy skin Verified 03/21/22 19:30 blisters morphine AdvReac Hallucinati Verified 03/21/22 19:30 ons Review of Systems ROS Statement: Those systems with pertinent positive or pertinent negative responses have been documented in the HPI. ROS Other: All systems not noted in ROS Statement are negative. Past Medical History Past Medical History: Coronary Artery Disease (CAD), Heart Failure, Diabetes Mellitus, GERD/Reflux, Hyperlipidemia, Hypertension, Myocardial Infarction ([place]), Pneumonia Additional Past Medical History / Comment(s): Pt recently admitted to [facility] on 12/28/21 with exacerbation CHF/[place]. Other hx: Pt states she now has low blood pressure, chronic back and bilateral hip pain, osteoporosis, bilateral lower leg edema/redness which is worse in the L leg, difficulty walking pt states d/t previous L knee and L hip replacements. Last Myocardial Infarction Date:: 12/29/21 History of Any Multi-Drug Resistant Organisms: None Reported Past Surgical History: Adenoidectomy, Appendectomy, Bariatric Surgery, Cholecystectomy, Heart Catheterization With Stent, Joint Replacement, Orthopedic Surgery, Tonsillectomy, Tubal Ligation Additional Past Surgical History / Comment(s): Gastric stapling, panniculectomy, total L hip and L knee replacements, bone spurs removed L foot, Past Anesthesia/Blood Transfusion Reactions: No Reported Reaction Date of Last Stent Placement:: 12/29/21 Past Psychological History: Anxiety, Depression Smoking Status: Never smoker Past Alcohol Use History: None Reported Past Drug Use History: None Reported - Past Family History Father Family Medical History: COPD Additional Family Medical History / Comment(s): End stage COPD Mother Family Medical History: Congestive Heart Failure (CHF) Additional Family Medical History / Comment(s): Mother of CHF General Exam Limitations: no limitations General appearance: in no apparent distress Head exam: Present: atraumatic, normocephalic, normal inspection Eye exam: Present: normal appearance, PERRL, EOMI. Absent: scleral icterus, conjunctival injection, periorbital swelling ENT exam: Present: mucous membranes dry Neck exam: Present: normal inspection. Absent: tenderness, meningismus, lymphadenopathy Respiratory exam: Present: decreased breath sounds. Absent: respiratory distress, wheezes, rales, rhonchi, stridor Cardiovascular Exam: Present: regular rate, normal rhythm, normal heart sounds. Absent: systolic murmur, diastolic murmur, rubs, gallop, clicks GI/Abdominal exam: Present: soft, normal bowel sounds. Absent: distended, tende rness, guarding, rebound, rigid Rectal exam: Present: deferred Extremities exam: Present: full ROM, normal capillary refill, pedal edema (Bilateral edema). Absent: tenderness, joint swelling, calf tenderness Back exam: Present: normal inspection, full ROM. Absent: tenderness Neurological exam: Present: alert, oriented X3, CN II-XII intact Psychiatric exam: Present: normal affect, normal mood Skin exam: Present: warm, dry, normal color, other (Lower extremity edema with evidence of weeping). Absent: rash Course Vital Signs 03/21/22 03/21/22 03/21/22 14:56 15:08 17:21 Temperature 98.4 F 98 F Pulse Rate 80 67 78 Respiratory 16 16 18 Rate Blood Pressure 105/71 145/87 100/72 O2 Sat by Pulse 97 96 98 Oximetry 03/21/22 19:06 Temperature 98 F Pulse Rate 72 Respiratory 20 Rate Blood Pressure 100/60 O2 Sat by Pulse 99 Oximetry Medical Decision Making - Medical Decision Making I did discuss the findings with patient as well as with Ghada who is covering for Dr. Summers. Patient will be admitted she will be placed on IV heparin also Lasix treatment for CHF as well as suspected pulmonary embolus. Dr. Christensen will be consulted also. - Lab Data Result diagrams: 03/21/22 16:38 03/21/22 16:38 Lab Results 03/21/22 03/21/22 03/21/22 Range/Units 16:38 16:38 16:38 WBC 12.1 H (3.8-10.6) k/uL RBC 4.31 (3.80-5.40) m/uL Hgb 12.3 (11.4-16.0) gm/dL Hct 39.5 (34.0-46.0) % MCV 91.6 (80.0-100.0) fL MCH 28.5 (25.0-35.0) pg MCHC 31.1 (31.0-37.0) g/dL RDW 17.8 H (11.5-15.5) % Plt Count 220 (150-450) k/uL MPV 8.8 Neutrophils % 89 % Lymphocytes % 6 % Monocytes % 4 % Eosinophils % 1 % Basophils % 0 % Neutrophils # 10.7 H (1.3-7.7) k/uL Lymphocytes # 0.7 L (1.0-4.8) k/uL Monocytes # 0.4 (0-1.0) k/uL Eosinophils # 0.1 (0-0.7) k/uL Basophils # 0.0 (0-0.2) k/uL Hypochromasia Moderate Anisocytosis Slight D-Dimer 3.03 H (<0.60) mg/L FEU Sodium 132 L (137-145) mmol/L Potassium 4.5 (3.5-5.1) mmol/L Chloride 97 L (98-107) mmol/L Carbon Dioxide 19 L (22-30) mmol/L Anion Gap 16 mmol/L BUN 22 H (7-17) mg/dL Creatinine 0.89 (0.52-1.04) mg/dL Est GFR (CKD-EPI)AfAm 74 (>60 ml/min/1.73 sqM) Est GFR (CKD-EPI)NonAf 65 (>60 ml/min/1.73 sqM) Glucose 147 H (74-99) mg/dL Lactic Ac Sepsis Rflx Plasma Lactic Acid Myles (0.7-2.0) mmol/L Calcium 8.6 (8.4-10.2) mg/dL Magnesium 1.8 (1.6-2.3) mg/dL Total Bilirubin 3.0 H (0.2-1.3) mg/dL AST 43 H (14-36) U/L ALT 15 (4-34) U/L Alkaline Phosphatase 263 H (38-126) U/L Troponin I (0.000-0.034) ng/mL NT-Pro-B Natriuret Pep pg/mL Total Protein 8.3 H (6.3-8.2) g/dL Albumin 3.9 (3.5-5.0) g/dL Lipase 121 (23-300) U/L Urine Color Urine Appearance (Clear) Urine pH (5.0-8.0) Ur Specific [place] (1.001-1.035) Urine Protein (Negative) Urine Glucose (UA) (Negative) Urine Ketones (Negative) Urine Blood (Negative) Urine Nitrite (Negative) Urine Bilirubin (Negative) Urine Urobilinogen (<2.0) mg/dL Ur Leukocyte Esterase (Negative) Urine RBC (0-5) /hpf Urine WBC (0-5) /hpf Ur Squamous Epith Cells (0-4) /hpf Urine Bacteria (None) /hpf Hyaline Casts (0-2) /lpf Urine Mucus (None) /hpf 03/21/22 03/21/22 03/21/22 Range/Units 16:38 16:38 16:38 WBC (3.8-10.6) k/uL RBC (3.80-5.40) m/uL Hgb (11.4-16.0) gm/dL Hct (34.0-46.0) % MCV (80.0-100.0) fL MCH (25.0-35.0) pg MCHC (31.0-37.0) g/dL RDW (11.5-15.5) % Plt Count (150-450) k/uL MPV Neutrophils % % Lymphocytes % % Monocytes % % Eosinophils % % Basophils % % Neutrophils # (1.3-7.7) k/uL Lymphocytes # (1.0-4.8) k/uL Monocytes # (0-1.0) k/uL Eosinophils # (0-0.7) k/uL Basophils # (0-0.2) k/uL Hypochromasia Anisocytosis D-Dimer (<0.60) mg/L FEU Sodium (137-145) mmol/L Potassium (3.5-5.1) mmol/L Chloride (98-107) mmol/L Carbon Dioxide (22-30) mmol/L Anion Gap mmol/L BUN (7-17) mg/dL Creatinine (0.52-1.04) mg/dL Est GFR (CKD-EPI)AfAm (>60 ml/min/1.73 sqM) Est GFR (CKD-EPI)NonAf (>60 ml/min/1.73 sqM) Glucose (74-99) mg/dL Lactic Ac Sepsis Rflx Plasma Lactic Acid [place] 2.3 H* (0.7-2.0) mmol/L Calcium (8.4-10.2) mg/dL Magnesium (1.6-2.3) mg/dL Total Bilirubin (0.2-1.3) mg/dL AST (14-36) U/L ALT (4-34) U/L Alkaline Phosphatase (38-126) U/L Troponin I 0.026 (0.000-0.034) ng/mL NT-Pro-B Natriuret Pep 71475 pg/mL Total Protein (6.3-8.2) g/dL Albumin (3.5-5.0) g/dL Lipase (23-300) U/L Urine Color Urine Appearance (Clear) Urine pH (5.0-8.0) Ur Specific [place] (1.001-1.035) Urine Protein (Negative) Urine Glucose (UA) (Negative) Urine Ketones (Negative) Urine Blood (Negative) Urine Nitrite (Negative) Urine Bilirubin (Negative) Urine Urobilinogen (<2.0) mg/dL Ur Leukocyte Esterase (Negative) Urine RBC (0-5) /hpf Urine WBC (0-5) /hpf Ur Squamous Epith Cells (0-4) /hpf Urine Bacteria (None) /hpf Hyaline Casts (0-2) /lpf Urine Mucus (None) /hpf 03/21/22 03/21/22 Range/Units 16:59 18:49 WBC (3.8-10.6) k/uL RBC (3.80-5.40) m/uL Hgb (11.4-16.0) gm/dL Hct (34.0-46.0) % MCV (80.0-100.0) fL MCH (25.0-35.0) pg MCHC (31.0-37.0) g/dL RDW (11.5-15.5) % Plt Count (150-450) k/uL MPV Neutrophils % % Lymphocytes % % Monocytes % % Eosinophils % % Basophils % % Neutrophils # (1.3-7.7) k/uL Lymphocytes # (1.0-4.8) k/uL Monocytes # (0-1.0) k/uL Eosinophils # (0-0.7) k/uL Basophils # (0-0.2) k/uL Hypochromasia Anisocytosis D-Dimer (<0.60) mg/L FEU Sodium (137-145) mmol/L Potassium (3.5-5.1) mmol/L Chloride (98-107) mmol/L Carbon Dioxide (22-30) mmol/L Anion Gap mmol/L BUN (7-17) mg/dL Creatinine (0.52-1.04) mg/dL Est GFR (CKD-EPI)AfAm (>60 ml/min/1.73 sqM) Est GFR (CKD-EPI)NonAf (>60 ml/min/1.73 sqM) Glucose (74-99) mg/dL Lactic Ac Sepsis Rflx Y Plasma Lactic Acid Myles (0.7-2.0) mmol/L Calcium (8.4-10.2) mg/dL Magnesium (1.6-2.3) mg/dL Total Bilirubin (0.2-1.3) mg/dL AST (14-36) U/L ALT (4-34) U/L Alkaline Phosphatase (38-126) U/L Troponin I (0.000-0.034) ng/mL NT-Pro-B Natriuret Pep pg/mL Total Protein (6.3-8.2) g/dL Albumin (3.5-5.0) g/dL Lipase (23-300) U/L Urine Color Yellow Urine Appearance Cloudy H (Clear) Urine pH 6.0 (5.0-8.0) Ur Specific [place] 1.017 (1.001-1.035) Urine Protein 2+ H (Negative) Urine Glucose (UA) Negative (Negative) Urine Ketones Negative (Negative) Urine Blood Small H (Negative) Urine Nitrite Negative (Negative) Urine Bilirubin 1+ H (Negative) Urine Urobilinogen 3.0 (<2.0) mg/dL Ur Leukocyte Esterase Large H (Negative) Urine RBC 3 (0-5) /hpf Urine WBC 58 H (0-5) /hpf Ur Squamous Epith Cells <1 (0-4) /hpf Urine Bacteria Few H (None) /hpf Hyaline Casts 1 (0-2) /lpf Urine Mucus Rare H (None) /hpf - EKG Data -: EKG Interpreted by Me EKG shows normal: sinus rhythm EKG Comments: Sinus rhythm a 78. Interval 203 QRS duration 113 daily since QTC 422/455. Deviation low-voltage poor R-wave progression this is compared with EKG dated 03/20/22 - Radiology Data Radiology results: report reviewed (Imaging reviewed as well as report and I did discuss the case with radiologist. Patient has evidence of CHF and left pleural effusion additionally CAT scan shows filling defects on both sides but no evidence of heart strain unclear for sure whether there is actually embolus .), image reviewed Critical Care Time Critical Care Time: Yes Total Critical Care Time: 39 Critical Care Time: This includes initial presentation with history physical discussed with paramedics discussed with the admitting physician bookkeeper assistant as well as reviewing old charts documentation the above. Also admission orders. Disposition Clinical Impression: Congestive heart failure, Pulmonary embolus, Pleural effusion, Dyspnea, COVID- 19, Failure to thrive in adult Disposition: ADMITTED IP TO THIS HOSP Condition: Fair Referrals: Jose L Fall DO [Primary Care Provider] - 1-2 days Decision Date: 03/21/22 Decision Time: 20:15
[2022-03-21 16:52] LABS: Anisocytosis Slight; Basophils % (A) 0 %; Eosinophils # (A) 0.1 k/uL (0-0.7); Eosinophils % (A) 1 %; HCT 39.5 % (34.0-46.0); HGB 12.3 gm/dL (11.4-16.0); Hypochromasia Moderate; Lymphocytes # (A) 0.7 k/uL (1.0-4.8); Lymphocytes % (A) 6 %; MCH 28.5 pg (25.0-35.0); MCHC 31.1 g/dL (31.0-37.0); MCV 91.6 fL (80.0-100.0); Mean Platelet Volume 8.8; Monocytes # (A) 0.4 k/uL (0-1.0); Monocytes % (A) 4 %; Neutrophils # (A) 10.7 k/uL (1.3-7.7); Neutrophils % (A) 89 %; Platelet Count 220 k/uL (150-450); RBC 4.31 m/uL (3.80-5.40); RDW 17.8 % (11.5-15.5); WBC 12.1 k/uL (3.8-10.6)
[2022-03-21] MEDS ORDERED: SODIUM CHLORIDE 0.9% 1,000 ML IV STA (17:00)
[2022-03-21] MEDS ORDERED: SODIUM CHLORIDE 0.9% 500 ML 500 ML IV STA (17:00)
[2022-03-21 17:04] LABS: Albumin 3.9 g/dL (3.5-5.0); Calcium 8.6 mg/dL (8.4-10.2); Magnesium 1.8 mg/dL (1.6-2.3); Total Protein 8.3 g/dL (6.3-8.2)
[2022-03-21 17:24] LABS: Potassium 4.5 mmol/L (3.5-5.1)
--- NOTE | 2022-03-21 18:32 | XR ---
EXAMINATION TYPE: XR chest 2V DATE OF EXAM: 03/21/2022 5:42 PM COMPARISON: Chest radiographs from 12/28/2021 TECHNIQUE: XR chest 2V Frontal and lateral views of the chest. CLINICAL INDICATION:Female, 71 years old with history of Weakness; FINDINGS: Lungs/Pleura: Moderate left pleural fusion with associated atelectasis. No evidence of right pleural effusion. Pulmonary vascularity: Pulmonary vascular congestion. Heart/mediastinum: Cardiomediastinal silhouette is enlarged and stable. Musculoskeletal: Degenerative changes of the shoulder joints. IMPRESSION: Cardiomegaly, pulmonary vascular congestion and left pleural effusion. Correlate with BNP for congest donna heart failure.
[2022-03-21] MEDS ORDERED: FUROSEMIDE 10 MG/ML 4 ML VIAL IV STA (18:54)
[2022-03-21 19:03] LABS: Appearance,Urine Cloudy (Clear); Bacteria,Urine Few /hpf; Bilirubin,Urine 1+ (Negative); Blood,Urine Small (Negative); Color,Urine Yellow; Glucose,Urine (UA) Negative (Negative); Hyaline Casts,Urine 1 /lpf (0-2); Ketones,Urine Negative (Negative); Leukocyte Esterase,Urine Large (Negative); Mucus,Urine Rare /hpf; Nitrite,Urine Negative (Negative); Protein,Urine 2+ (Negative); RBC,Urine 3 /hpf (0-5); Specific Gravity,Urine 1.017 (1.001-1.035); Squamous Epithelial Cell,Urine <1 /hpf (0-4); WBC,Urine 58 /hpf (0-5)
--- NOTE | 2022-03-21 20:23 | CT ---
EXAMINATION TYPE: CT angio chest CT DLP: 810.2 mGycm, Automated exposure control for dose reduction was used. DATE OF EXAM: 03/21/2022 7:42 PM COMPARISON: Chest x-ray 03/21/2022, chest x-ray 03/20/2022, CTA chest 12/28/2021 CLINICAL INDICATION:Female, 71 years old with history of PE suspected; poss PE. covid + and weakness TECHNIQUE/CONTRAST: CTA scan of the thorax is performed with IV Contrast, patient injected with 100 mL of Isovue 370, pul monary embolism protocol. MIP images are created and reviewed. FINDINGS: Pulmonary Artery: Filling defects noted within a segmental left lower lobe pulmonary artery with dist al extension into the subsegmental lower lobe branches (series 401, image [id number]). Small filling defec ts are noted within distal subsegmental right lower lobe pulmonary arteries (series 401, image 88) th jasper may relate to pulmonary emboli versus mixing of contrast. Dilated main pulmonary artery, suggesti ng component of underlying hypertension. No evidence for right heart strain. Lungs/Pleura: Small left pleural effusion with passive atelectasis. Trace right pleural effusion with atelectasis. Multifocal subsegmental atelectasis. Airway: Large airways are patent. Heart: The heart is moderately enlarged for size. No pericardial effusion.. Reflux of contrast is not ed into the IVC and proximal hepatic veins. Vasculature: Mild atherosclerotic calcifications are present throughout the aorta and its branches. Mediastinum: No gross evidence of adenopathy. Musculoskeletal: No acute osseous abnormalities. T10 vertebral body hemangioma. Soft Tissues: Mild anasarca. Lower neck: No significant findings. Upper Abdomen: Reflux of intravenous contrast into the proximal hepatic veins. Postsurgical changes t o the stomach. Notify: Findings were related to Dr. Cassy Zaragoza by Dr. Kandice Dove at 8:20 PM 03/21/2022. IMPRESSION: 1. Filling defects within the lower lobe segmental pulmonary artery extension into the distal subsegm ental branches, concerning for pulmonary artery versus suboptimal bolus opacification. No evidence fo r right heart strain. 2. Questionable right subsegmental pulmonary emboli versus suboptimal contrast opacification. 3. Moderate left pleural effusion. 4. Cardiomegaly with mild pulmonary vascular congestion.
[2022-03-21] MEDS ORDERED: HEPARIN SODIUM 1,000 UN/ML (10ML VL) IV ONE (20:47)
[2022-03-21] MEDS ORDERED: HEPARIN SODIUM 1,000 UN/ML (10ML VL) IV PRN (20:47)
[2022-03-21] MEDS ORDERED: CALCIUM CARBONATE 500 MG CHEWABLE PO PRN (20:50)
[2022-03-21 21:56] LABS: Anisocytosis Slight; Basophils % (A) 0 %; Eosinophils # (A) 0.1 k/uL (0-0.7); Eosinophils % (A) 1 %; HCT 38.7 % (34.0-46.0); HGB 11.6 gm/dL (11.4-16.0); Hypochromasia Marked; Lymphocytes # (A) 0.7 k/uL (1.0-4.8); Lymphocytes % (A) 6 %; MCH 27.9 pg (25.0-35.0); MCHC 30.1 g/dL (31.0-37.0); MCV 92.6 fL (80.0-100.0); Mean Platelet Volume 8.8; Monocytes # (A) 0.5 k/uL (0-1.0); Monocytes % (A) 4 %; Neutrophils # (A) 10.4 k/uL (1.3-7.7); Neutrophils % (A) 89 %; Platelet Count 196 k/uL (150-450); RBC 4.17 m/uL (3.80-5.40); RDW 17.5 % (11.5-15.5); WBC 11.8 k/uL (3.8-10.6)
[2022-03-21 22:10] LABS: INR 1.2 (<1.2); Partial Thromboplastin Time 28.9 sec (22.0-30.0); Prothrombin Time 12.8 sec (9.0-12.0)
[2022-03-21] MEDS: CLOPIDOGREL 75 MG TAB PO SCH (23:03)
[2022-03-21] MEDS: ALPRAZolam 0.5 MG TAB PO SCH (23:03)
[2022-03-21] MEDS: ATORVASTATIN 80 MG TAB PO SCH (23:03)
[2022-03-21] MEDS: HEPARIN SOD,PORK IN 0.45% NACL 25,000 UNIT in 0.45% NACL 1 250ML.BAG IV SCH (23:04)
[2022-03-22] MEDS: FUROSEMIDE 40 MG TAB PO SCH ×4 (02:22→23:54)
[2022-03-22 08:11] LABS: Anisocytosis Slight; Basophils # (A) 0.1 k/uL (0-0.2); Basophils % (A) 1 %; Eosinophils % (A) 0 %; HCT 39.3 % (34.0-46.0); HGB 11.4 gm/dL (11.4-16.0); Hypochromasia Marked; Lymphocytes # (A) 0.7 k/uL (1.0-4.8); Lymphocytes % (A) 5 %; MCH 26.8 pg (25.0-35.0); MCHC 28.9 g/dL (31.0-37.0); MCV 92.8 fL (80.0-100.0); Monocytes # (A) 0.5 k/uL (0-1.0); Monocytes % (A) 4 %; Neutrophils # (A) 11.8 k/uL (1.3-7.7); Neutrophils % (A) 89 %; Platelet Count 169 k/uL (150-450); RBC 4.24 m/uL (3.80-5.40); RDW 17.6 % (11.5-15.5); WBC 13.2 k/uL (3.8-10.6)
[2022-03-22] MEDS: HEPARIN SOD,PORK IN 0.45% NACL 25,000 UNIT in 0.45% NACL 1 250ML.BAG IV SCH (08:31)
[2022-03-22] MEDS: CALCIUM CARBONATE 500 MG CHEWABLE PO SCH (09:19)
[2022-03-22] MEDS: dexAMETHasone 2 MG TAB PO SCH (09:19)
[2022-03-22] MEDS: FERROUS SULFATE 325 MG TAB PO SCH (09:20)
[2022-03-22] MEDS: ASPIRIN 325 MG TAB PO SCH (09:20)
[2022-03-22] MEDS: CHOLECALCIFEROL 25 MCG (1000 IU) TABLET PO SCH (09:20)
[2022-03-22] MEDS: APIXABAN 5 MG TAB PO SCH ×2 (11:25→21:48)
--- NOTE | 2022-03-22 13:40 | P.CNPUL ---
History of Present Illness Consult date: 03/22/22 Requesting physician: Bogdan E Sheet Reason for consult: dyspnea, pulmonary embolism, abnormal CXR/CT Chief complaint: Generalized weakness, falls History of present illness: This is 71-year-old female patient of those with Dr. Fall as her primary care provider. She has a history of hyperlipidemia, hypertension, diabetes mellitus, coronary artery disease with previous stent placement, morbid obesity status post gastric stapling and panniculectomy, osteoarthritis, anxiety/depression. Nonsmoker. She had been hospitalized in January 2022 after being found to have severe ischemic cardiomyopathy with ejection fraction of 20% and congestive heart failure. She presented here to the emergency room on 03/20/2022 with weakness fatigue and was found to be CoVID positive. Chest x-ray revealed pleural effusion and suspected pulmonary edema the patient refused to be admitted at that time. She re-presented to the hospital again yesterday 03/21/2022 with falls and ongoing weakness. This time she did agree to be admitted. Her also tested positive for COVID-19 and was hospitalized as well. She is seen today in the emergency department. She is sitting up in a stretcher. Awake and alert in no acute distress. She is maintaining O2 saturations in the 90s on 3 L/m per nasal cannula. Afebrile. Hemodynamically stable. Chest x-ray reveals cardiomegaly, pulmonary vascular congestion and left pleural effusion. CT angiogram revealed filling defects within the lower lobe subtle mental pulmonary arteries extending in the distal circumflex segmental branches. No evidence of right heart strain. Moderate left pleural effusion. Cardiomegaly with mild pulmonary vascular congestion. White count 13.2. His hemoglobin 11.4. Lymphocytes 0.7. Urinalysis with bacteria and elevated leukocytes. She had been initiated on a heparin drip. Given IV diuretics. Review of Systems REVIEW OF SYSTEMS: CONSTITUTIONAL: Positive for generalized weakness, falls. Denies any recent significant weight loss or weight gain. EYES: Denies change in vision. EARS, NOSE, MOUTH, THROAT: Denies headaches, denies sore throat. CARDIOVASCULAR: Denies chest pain, palpitations or syncopal episodes. RESPIRATORY: As it of 4 shortness of breath, cough, congestion no hemoptysis. GASTROINTESTINAL: Denies change in appetite, denies abdominal pain GENITOURINARY: Denies hematuria, denies infections. MUSKULOSKELETAL: Denies pain, denies swelling. INTEGUMENTARY: Denies rash, denies eczema. NEUROLOGICAL: Denies recent memory loss, no recent seizure activity. PSYCHIATRIC: Denies anxiety, denies depression. HEMATOLOGIC/LYMPHATIC: Denies anemia, denies enlarged lymph nodes. Past Medical History Past Medical History: Coronary Artery Disease (CAD), Heart Failure, Diabetes Mellitus, GERD/Reflux, Hyperlipidemia, Hypertension, Myocardial Infarction ([place]), Pneumonia Additional Past Medical History / Comment(s): Pt recently admitted to [facility] on 12/28/21 with exacerbation CHF/[place]. Other hx: Pt states she now has low blood pressure, chronic back and bilateral hip pain, osteoporosis, bilateral lower leg edema/redness which is worse in the L leg, difficulty walking pt states d/t previous L knee and L hip replacements. Last Myocardial Infarction Date:: 12/29/21 History of Any Multi-Drug Resistant Organisms: None Reported Past Surgical History: Adenoidectomy, Appendectomy, Bariatric Surgery, Cholecystectomy, Heart Catheterization With Stent, Joint Replacement, Orthopedic Surgery, Tonsillectomy, Tubal Ligation Additional Past Surgical History / Comment(s): Gastric stapling, panniculectomy, total L hip and L knee replacements, bone spurs removed L foot, Past Anesthesia/Blood Transfusion Reactions: No Reported Reaction Date of Last Stent Placement:: 12/29/21 Past Psychological History: Anxiety, Depression Smoking Status: Never smoker Past Alcohol Use History: None Reported Past Drug Use History: None Reported - Past Family History Father Family Medical History: COPD Additional Family Medical History / Comment(s): End stage COPD Mother Family Medical History: Congestive Heart Failure (CHF) Additional Family Medical History / Comment(s): Mother of CHF Medications and Allergies Home Medications Medication Instructions Recorded Confirmed Type Calcium Carbonate [Calcium] 600 mg PO DAILY 11/13/21 03/21/22 History Cholecalciferol [Vitamin D3 (25 25 mcg PO DAILY 11/13/21 03/21/22 History Mcg = 1000 Iu)] Ferrous Sulfate [Iron (65 MG 325 mg PO DAILY 11/13/21 03/21/22 History Elemental)] Atorvastatin [Lipitor] 80 mg PO HS 12/04/21 03/21/22 History Clopidogrel [Plavix] 75 mg PO HS 12/04/21 03/21/22 History Metoprolol Succinate (ER) [Toprol 12.5 mg PO HS 12/04/21 03/21/22 History XL] Aspirin 81 mg PO HS 12/28/21 03/21/22 History Midodrine [ProAmatine] 5 mg PO AC-TID #90 tab 01/23/22 03/21/22 Rx Potassium Chloride ER [K-Dur 10] 10 meq PO DAILY #30 tab 01/23/22 03/21/22 Rx Spironolactone [Aldactone] 12.5 mg PO DAILY #30 tablet 01/23/22 03/21/22 Rx polyethylene glycoL 3350 [Miralax] 17 gm PO DAILY packet 01/23/22 03/21/22 Rx Furosemide [Lasix] 60 mg PO BID@0900,1600 tab 01/27/22 03/21/22 Rx dexAMETHasone [Decadron] 6 mg PO DAILY #5 tab 03/20/22 03/21/22 Rx ALPRAZolam [Xanax] 0.5 mg PO HS 03/21/22 03/21/22 History Calcium Carbonate [Tums] 500 mg PO TID PRN 03/21/22 03/21/22 History HYDROcodone/APAP 10-325MG [[place] 1 tab PO Q6H PRN 03/21/22 03/21/22 History 10-325] metFORMIN HCL [Glucophage] 500 mg PO BID 03/21/22 03/21/22 History Allergies Allergy/AdvReac Type Severity Reaction Status Date / Time adhesive tape Allergy skin Verified 03/21/22 19:30 blisters morphine AdvReac Hallucinati Verified 03/21/22 19:30 ons Physical Exam Vitals: Vital Signs Temp Pulse Pulse Resp BP BP Pulse Ox 03/22/22 11:00 18 109/66 03/22/22 10:00 79 18 109/68 03/22/22 09:00 70 20 113/71 03/22/22 08:37 72 21 113/71 03/22/22 05:28 97.9 F 73 18 121/84 97 03/22/22 02:27 97.7 F 71 14 111/87 98 03/22/22 01:00 97.6 F 71 16 120/90 98 03/21/22 21:00 86 16 145/86 96 03/21/22 19:06 98 F 72 20 100/60 99 03/21/22 17:21 78 18 100/72 98 03/21/22 15:08 98 F 67 16 145/87 96 03/21/22 14:56 98.4 F 80 16 105/71 97 Intake and Output 03/21/22 03/22/22 03/22/22 22:59 06:59 14:59 Intake Total 226.167 Output Total 325 700 Balance -325 -473.833 Intake: Intake, IV Titration 226.167 Amount Heparin Sod,Pork in 0.45% 226.167 NaCl 25,000 unit In 0.45 % NaCl 1 250ml.bag @ 16. 463 UNITS/KG/HR 23 mls/hr IV .[id number] [facility] Rx#: [id number] Output: Urine 325 700 GENERAL EXAM: Alert, 71-year-old female, on 3 L nasal cannula, comfortable in no apparent distress. HEAD: Normocephalic. EYES: Normal reaction of pupils, equal size. NOSE: Clear with pink turbinates. THROAT: No erythema or exudates. NECK: No masses, no JVD. CHEST: No chest wall deformity. LUNGS: Equal air entry with crackles in the left lung base. CVS: S1 and S2 normal with no audible murmur, regular rhythm. ABDOMEN: No hepatosplenomegaly, normal bowel sounds, no guarding or rigidity. SPINE: No scoliosis or deformity SKIN: Cellulitis lower extremities CENTRAL NERVOUS SYSTEM: No focal deficits, tone is normal in all 4 extremities. EXTREMITIES: Chronic lymphedema and cellulitis of the lower extremities. No clubbing, no cyanosis. Peripheral pulses are intact. Results - Laboratory Findings CBC and BMP: 03/22/22 06:50 03/21/22 16:38 PT/INR, D-dimer PT 12.8 sec (9.0-12.0) H 03/21/22 21:35 INR 1.2 (<1.2) H 03/21/22 21:35 D-Dimer 3.03 mg/L FEU (<0.60) H 03/21/22 16:38 Abnormal lab findings: Abnormal Labs 03/21/22 03/21/22 03/21/22 16:38 16:38 16:38 WBC 12.1 H MCHC RDW 17.8 H Neutrophils # 10.7 H Lymphocytes # 0.7 L PT INR APTT D-Dimer 3.03 H Sodium 132 L Chloride 97 L Carbon Dioxide 19 L BUN 22 H Glucose 147 H Plasma Lactic Acid Myles Total Bilirubin 3.0 H AST 43 H Alkaline Phosphatase 263 H Total Protein 8.3 H Urine Appearance Urine Protein Urine Blood Urine Bilirubin Ur Leukocyte Esterase Urine WBC Urine Bacteria Urine Mucus Coronavirus (PCR) 03/21/22 03/21/22 03/21/22 16:38 18:49 21:35 WBC 11.8 H MCHC 30.1 L RDW 17.5 H Neutrophils # 10.4 H Lymphocytes # 0.7 L PT INR APTT D-Dimer Sodium Chloride Carbon Dioxide BUN Glucose Plasma Lactic Acid Myles 2.3 H* Total Bilirubin AST Alkaline Phosphatase Total Protein Urine Appearance Cloudy H Urine Protein 2+ H Urine Blood Small H Urine Bilirubin 1+ H Ur Leukocyte Esterase Large H Urine WBC 58 H Urine Bacteria Few H Urine Mucus Rare H Coronavirus (PCR) 03/21/22 03/22/22 03/22/22 21:35 02:30 06:50 WBC 13.2 H MCHC 28.9 L RDW 17.6 H Neutrophils # 11.8 H Lymphocytes # 0.7 L PT 12.8 H INR 1.2 H APTT D-Dimer Sodium Chloride Carbon Dioxide BUN Glucose Plasma Lactic Acid Myles Total Bilirubin AST Alkaline Phosphatase Total Protein Urine Appearance Urine Protein Urine Blood Urine Bilirubin Ur Leukocyte Esterase Urine WBC Urine Bacteria Urine Mucus Coronavirus (PCR) Detected A 03/22/22 06:50 WBC MCHC RDW Neutrophils # Lymphocytes # PT INR APTT >200.0 H* D-Dimer Sodium Chloride Carbon Dioxide BUN Glucose Plasma Lactic Acid Myles Total Bilirubin AST Alkaline Phosphatase Total Protein Urine Appearance Urine Protein Urine Blood Urine Bilirubin Ur Leukocyte Esterase Urine WBC Urine Bacteria Urine Mucus Coronavirus (PCR) - Diagnostic Findings Chest x-ray: image reviewed CT scan - chest: image reviewed Assessment and Plan Assessment: Generalized weakness and falls secondary to COVID-19 infection, urinary tract infection Acute hypoxemic respiratory failure secondary to systolic congestive heart failure exacerbation, pulmonary emboli Pulmonary embolism of the left lower lobe pulmonary artery with distal extension subsegmental lower lobe branches. No evidence of right heart strain Acute exacerbation of chronic systolic congestive heart failure with severely reduced left ventricular systolic function with ejection fraction 20% Left pleural effusion secondary to above Chronic lower extremity lymph edema and cellulitis Urinary tract infection History of coronary disease with previous stent placement Diabetes mellitus Gastric esophageal reflux disease Hyperlipidemia History of anxiety/depression with previous suicidal ideation History of obesity with previous gastric sleeve and panniculectomy Plan: The patient was seen and evaluated Chest x-ray, CAT scan and labs reviewed Discontinue heparin drip, initiate Eliquis Add ceftriaxone Continue Decadron Titrate the FiO2 as tolerated Increase her activity as tolerated We will continue to follow and make further recommendations based on her clinical status I have personally seen and examined the patient, performed the documentation and the assessment and plan as written. Number of minutes spent on the visit: 20.
--- NOTE | 2022-03-22 19:53 | P.HPIM ---
History of Present Illness This is a pleasant 71 years old male with past medical history of Coronary Artery Disease status post stent , chronic Heart Failure, Diabetes Mellitus, GERD/Reflux, Hyperlipidemia, Hypertension, , chronic back and bilateral hip pain , osteoporosis, bilateral lower leg edema/redness which is worse in the L leg, difficulty walking pt states d/t previous L knee and L hip replacements. Patient is awake and alert to time, place and person. Patient states she fell 2 times yesterday and actually he tells within over the last 2 days. She was going to the bathroom when she tripped and fell. She denies dysuria but she noticed increased frequency of urination Patient has recent history of cardiac cath last November where she has several stents 3 stents placed for her. Currently she denies chest pain or dyspnea, no abdominal pain or nausea or vomiting. No headache or dizziness or weakness or numbness. She has chronic numbness in her right arm and they told her that due to carpal tunnel syndrome but this is for many years. Patient states over the last 6 months she's been bedridden. Currently she is has external catheter placed for her. States that since his been discharged also she's been complaining of from exertional dyspnea for example when she does her laundry she become more winded than usual Vitals are stable. Labs showing mild leukocytosis 13.2, rest of CBC is unremarkable. INR 1.2. Urinalysis is suspicious for infection d-dimer is high 3.0. ProBNP EKG showing normal sinus rhythm at [address]-T changes. CT of the chest: Filling defect within the lower lobe segments pulmonary artery extending into the distal subsegmental branches concerning for pulmonary artery versus suboptimal bolus opacification with no evidence of right heart strain. Questionable right suboptimal pulmonary verbalized with moderate left pleural effusion. Cardiomegaly with mild pulmonary vascular congestion In the emergency room patient was started on heparin drip, received normal saline and then switched to Eliquis Review of Systems Review of systems CONSTITUTIONAL: No fever, no malaise, no fatigue. HEENT: No recent visual problems or hearing problems. Denied any sore throat. CARDIOVASCULAR: No orthopnea, PND, no palpitations, no syncope. PULMONARY: No shortness of breath, no cough, no hemoptysis. GASTROINTESTINAL: No diarrhea, no nausea, no vomiting, no abdominal pain. Normoactive bowel sounds. NEUROLOGICAL: No headaches, no weakness, no numbness. HEMATOLOGICAL: Denies any bleeding or petechiae. GENITOURINARY: Denies any burning micturition, frequency, or urgency. MUSCULOSKELETAL/RHEUMATOLOGICAL: Denies any joint pain, swelling, or any muscle pain. ENDOCRINE: Denies any polyuria or polydipsia. Past Medical History Past Medical History: Coronary Artery Disease (CAD), Heart Failure, Diabetes Mellitus, GERD/Reflux, Hyperlipidemia, Hypertension, Myocardial Infarction ([place]), Pneumonia Additional Past Medical History / Comment(s): Pt recently admitted to [facility] on with exacerbation CHF/[place]. Other hx: Pt states she now has low blood pressure, chronic back and bilateral hip pain, osteoporosis, bilateral lower leg edema/redness which is worse in the L leg, difficulty walking pt states d/t previous L knee and L hip replacements. Last Myocardial Infarction Date:: 12/29/21 History of Any Multi-Drug Resistant Organisms: None Reported Past Surgical History: Adenoidectomy, Appendectomy, Bariatric Surgery, Cholecystectomy, Heart Catheterization With Stent, Joint Replacement, Orthopedic Surgery, Tonsillectomy, Tubal Ligation Additional Past Surgical History / Comment(s): Gastric stapling, panniculectomy, total L hip and L knee replacements, bone spurs removed L foot, Past Anesthesia/Blood Transfusion Reactions: No Reported Reaction Date of Last Stent Placement:: 12/29/21 Past Psychological History: Anxiety, Depression Smoking Status: Never smoker Past Alcohol Use History: None Reported Past Drug Use History: None Reported - Past Family History Father Family Medical History: COPD Additional Family Medical History / Comment(s): End stage COPD Mother Family Medical History: Congestive Heart Failure (CHF) Additional Family Medical History / Comment(s): Mother of CHF Medications and Allergies Home Medications Medication Instructions Recorded Confirmed Type Calcium Carbonate [Calcium] 600 mg PO DAILY 11/13/21 03/21/22 History Cholecalciferol [Vitamin D3 (25 25 mcg PO DAILY 11/13/21 03/21/22 History Mcg = 1000 Iu)] Ferrous Sulfate [Iron (65 MG 325 mg PO DAILY 11/13/21 03/21/22 History Elemental)] Atorvastatin [Lipitor] 80 mg PO HS 12/04/21 03/21/22 History Clopidogrel [Plavix] 75 mg PO HS 12/04/21 03/21/22 History Metoprolol Succinate (ER) [Toprol 12.5 mg PO HS 12/04/21 03/21/22 History XL] Aspirin 81 mg PO HS 12/28/21 03/21/22 History Midodrine [ProAmatine] 5 mg PO AC-TID #90 tab 01/23/22 03/21/22 Rx Potassium Chloride ER [K-Dur 10] 10 meq PO DAILY #30 tab 01/23/22 03/21/22 Rx Spironolactone [Aldactone] 12.5 mg PO DAILY #30 tablet 01/23/22 03/21/22 Rx polyethylene glycoL 3350 [Miralax] 17 gm PO DAILY packet 01/23/22 03/21/22 Rx Furosemide [Lasix] 60 mg PO BID@0900,1600 tab 01/27/22 03/21/22 Rx dexAMETHasone [Decadron] 6 mg PO DAILY #5 tab 03/20/22 03/21/22 Rx ALPRAZolam [Xanax] 0.5 mg PO HS 03/21/22 03/21/22 History Calcium Carbonate [Tums] 500 mg PO TID PRN 03/21/22 03/21/22 History HYDROcodone/APAP 10-325MG [[place] 1 tab PO Q6H PRN 03/21/22 03/21/22 History 10-325] metFORMIN HCL [Glucophage] 500 mg PO BID 03/21/22 03/21/22 History Allergies Allergy/AdvReac Type Severity Reaction Status Date / Time adhesive tape Allergy skin Verified 03/21/22 19:30 blisters morphine AdvReac Hallucinati Verified 03/21/22 19:30 ons Physical Exam Vitals: Vital Signs Temp Pulse Pulse Resp BP BP Pulse Ox 03/22/22 11:00 18 109/66 03/22/22 10:00 79 18 109/68 03/22/22 09:00 70 20 113/71 03/22/22 08:37 72 21 113/71 03/22/22 05:28 97.9 F 73 18 121/84 97 03/22/22 02:27 97.7 F 71 14 111/87 98 03/22/22 01:00 97.6 F 71 16 120/90 98 03/21/22 21:00 86 16 145/86 96 03/21/22 19:06 98 F 72 20 100/60 99 03/21/22 17:21 78 18 100/72 98 03/21/22 15:08 98 F 67 16 145/87 96 03/21/22 14:56 98.4 F 80 16 105/71 97 Intake and Output 03/21/22 03/22/22 03/22/22 22:59 06:59 14:59 Intake Total 226.167 Output Total 325 700 Balance -325 -473.833 Intake: Intake, IV Titration 226.167 Amount Heparin Sod,Pork in 0.45% 226.167 NaCl 25,000 unit In 0.45 % NaCl 1 250ml.bag @ 16. 463 UNITS/KG/HR 23 mls/hr IV .[id number] [facility] Rx#: [id number] Output: Urine 325 700 --GENERAL: The patient is alert and oriented x3, not in any acute distress. Morbid obesity generalized weakness HEENT: Pupils are round and equally reacting to light. EOMI. No scleral icterus. No conjunctival pallor. Normocephalic, atraumatic. No pharyngeal erythema. No thyromegaly. CARDIOVASCULAR: S1 and S2 present. No murmurs, rubs, or gallops. -PULMONARY: Chest is clear to auscultation, no wheezing. Bilateral basal crepitation ABDOMEN: Soft, nontender, nondistended, normoactive bowel sounds. No palpable organomegaly. MUSCULOSKELETAL: No joint swelling or deformity. EXTREMITIES: No cyanosis, clubbing, or pedal edema. NEUROLOGICAL: Gross neurological examination did not reveal any focal deficits. Patient has chronic hemiplegia/weakness of the lower extremities SKIN: No rashes. no petechiae. Results CBC & Chem 7: 03/22/22 06:50 03/21/22 16:38 Labs: Abnormal Lab Results - Last 24 Hours (Table) 03/21/22 03/21/22 03/21/22 Range/Units 16:38 16:38 16:38 WBC 12.1 H (3.8-10.6) k/uL MCHC (31.0-37.0) g/dL RDW 17.8 H (11.5-15.5) % Neutrophils # 10.7 H (1.3-7.7) k/uL Lymphocytes # 0.7 L (1.0-4.8) k/uL PT (9.0-12.0) sec INR (<1.2) APTT (22.0-30.0) sec D-Dimer 3.03 H (<0.60) mg/L FEU Sodium 132 L (137-145) mmol/L Chloride 97 L (98-107) mmol/L Carbon Dioxide 19 L (22-30) mmol/L BUN 22 H (7-17) mg/dL Glucose 147 H (74-99) mg/dL Plasma Lactic Acid Myles (0.7-2.0) mmol/L Total Bilirubin 3.0 H (0.2-1.3) mg/dL AST 43 H (14-36) U/L Alkaline Phosphatase 263 H (38-126) U/L Total Protein 8.3 H (6.3-8.2) g/dL Urine Appearance (Clear) Urine Protein (Negative) Urine Blood (Negative) Urine Bilirubin (Negative) Ur Leukocyte Esterase (Negative) Urine WBC (0-5) /hpf Urine Bacteria (None) /hpf Urine Mucus (None) /hpf Coronavirus (PCR) (Not Detectd) 03/21/22 03/21/22 03/21/22 Range/Units 16:38 18:49 21:35 WBC 11.8 H (3.8-10.6) k/uL MCHC 30.1 L (31.0-37.0) g/dL RDW 17.5 H (11.5-15.5) % Neutrophils # 10.4 H (1.3-7.7) k/uL Lymphocytes # 0.7 L (1.0-4.8) k/uL PT (9.0-12.0) sec INR (<1.2) APTT (22.0-30.0) sec D-Dimer (<0.60) mg/L FEU Sodium (137-145) mmol/L Chloride (98-107) mmol/L Carbon Dioxide (22-30) mmol/L BUN (7-17) mg/dL Glucose (74-99) mg/dL Plasma Lactic Acid Myles 2.3 H* (0.7-2.0) mmol/L Total Bilirubin (0.2-1.3) mg/dL AST (14-36) U/L Alkaline Phosphatase (38-126) U/L Total Protein (6.3-8.2) g/dL Urine Appearance Cloudy H (Clear) Urine Protein 2+ H (Negative) Urine Blood Small H (Negative) Urine Bilirubin 1+ H (Negative) Ur Leukocyte Esterase Large H (Negative) Urine WBC 58 H (0-5) /hpf Urine Bacteria Few H (None) /hpf Urine Mucus Rare H (None) /hpf Coronavirus (PCR) (Not Detectd) 03/21/22 03/22/22 03/22/22 Range/Units 21:35 02:30 06:50 WBC 13.2 H (3.8-10.6) k/uL MCHC 28.9 L (31.0-37.0) g/dL RDW 17.6 H (11.5-15.5) % Neutrophils # 11.8 H (1.3-7.7) k/uL Lymphocytes # 0.7 L (1.0-4.8) k/uL PT 12.8 H (9.0-12.0) sec INR 1.2 H (<1.2) APTT (22.0-30.0) sec D-Dimer (<0.60) mg/L FEU Sodium (137-145) mmol/L Chloride (98-107) mmol/L Carbon Dioxide (22-30) mmol/L BUN (7-17) mg/dL Glucose (74-99) mg/dL Plasma Lactic Acid Myles (0.7-2.0) mmol/L Total Bilirubin (0.2-1.3) mg/dL AST (14-36) U/L Alkaline Phosphatase (38-126) U/L Total Protein (6.3-8.2) g/dL Urine Appearance (Clear) Urine Protein (Negative) Urine Blood (Negative) Urine Bilirubin (Negative) Ur Leukocyte Esterase (Negative) Urine WBC (0-5) /hpf Urine Bacteria (None) /hpf Urine Mucus (None) /hpf Coronavirus (PCR) Detected A (Not Detectd) 03/22/22 Range/Units 06:50 WBC (3.8-10.6) k/uL MCHC (31.0-37.0) g/dL RDW (11.5-15.5) % Neutrophils # (1.3-7.7) k/uL Lymphocytes # (1.0-4.8) k/uL PT (9.0-12.0) sec INR (<1.2) APTT >200.0 H* (22.0-30.0) sec D-Dimer (<0.60) mg/L FEU Sodium (137-145) mmol/L Chloride (98-107) mmol/L Carbon Dioxide (22-30) mmol/L BUN (7-17) mg/dL Glucose (74-99) mg/dL Plasma Lactic Acid Myles (0.7-2.0) mmol/L Total Bilirubin (0.2-1.3) mg/dL AST (14-36) U/L Alkaline Phosphatase (38-126) U/L Total Protein (6.3-8.2) g/dL Urine Appearance (Clear) Urine Protein (Negative) Urine Blood (Negative) Urine Bilirubin (Negative) Ur Leukocyte Esterase (Negative) Urine WBC (0-5) /hpf Urine Bacteria (None) /hpf Urine Mucus (None) /hpf Coronavirus (PCR) (Not Detectd) Microbiology - Last 24 Hours (Table) 03/21/22 18:49 Urine Culture - Preliminary Urine,Voided Assessment and Plan Assessment: Acute pulmonary embolism Acute urinary tract infection Acute on chronic systolic congestive heart failure with ejection fraction 20% Generalized weakness secondary to above Frequent falling without syncope. Secondary to above Covid infection with no evidence of pneumonia or hypoxia. Patient is bedridden, immobile for 6 months due to bilateral lower community weakness. Chronic problem Moderate left pleural effusion History of coronary artery disease status post stenting Hypertension Hyperlipidemia 2 diabetes mellitus Chronic back pain History of osteoporosis Difficulty walking Morbid obesity Plan: This is a pleasant 71 years old female who presents with acute CHF and pulmonary embolism. Continue with IV Lasix Continue with Eliquis Cardioversion pulmonary consult Continue with ceftriaxone and follow-up urine culture Patient is not hypoxic Labs and medication were reviewed.. Continue same treatment. Continue with symptomatic treatment. Resume home medication. Monitor lytes and vitals. DVT and GI prophylaxis. Further recommendations as per clinical course of the patient DVT prophylaxis: heparin GI Prophylaxis: Pepcid PT/OT: Pending Prognosis is guarded
[2022-03-22] MEDS: CLOPIDOGREL 75 MG TAB PO SCH (21:47)
[2022-03-22] MEDS: ALPRAZolam 0.5 MG TAB PO SCH (21:47)
[2022-03-22] MEDS: ATORVASTATIN 80 MG TAB PO SCH (21:48)
[2022-03-22] MEDS: SODIUM CHLORIDE 0.9% 1,000 ML IV SCH ×2 (22:02)
[2022-03-22] MEDS: HYDROcodone/APAP 10-325MG 1 EACH TAB PO PRN (22:25)
[2022-03-23] MEDS: MIDODRINE 5 MG TAB PO SCH ×3 (06:31→15:43)
[2022-03-23] MEDS: SPIRONOLACTONE 25 MG TAB PO SCH (09:20)
[2022-03-23] MEDS: POTASSIUM CHLORIDE ER 10 MEQ TAB.ER.PRT PO SCH (09:20)
[2022-03-23] MEDS: dexAMETHasone 2 MG TAB PO SCH (09:21)
[2022-03-23] MEDS: CHOLECALCIFEROL 25 MCG (1000 IU) TABLET PO SCH (09:21)
[2022-03-23] MEDS: FERROUS SULFATE 325 MG TAB PO SCH (09:21)
[2022-03-23] MEDS: polyethylene glycoL 3350 17 GM POWD.PACK PO SCH (09:21)
[2022-03-23] MEDS: ASPIRIN 325 MG TAB PO SCH (09:21)
[2022-03-23] MEDS: FUROSEMIDE 40 MG TAB PO SCH ×3 (09:21→23:59)
[2022-03-23] MEDS: APIXABAN 5 MG TAB PO SCH ×2 (09:21→20:30)
[2022-03-23] MEDS: CALCIUM CARBONATE 500 MG CHEWABLE PO SCH (09:21)
[2022-03-23] MEDS: metFORMIN 500 MG TAB PO SCH ×2 (09:21→20:31)
[2022-03-23 09:44] LABS: Calcium 7.9 mg/dL (8.4-10.2); Magnesium 1.7 mg/dL (1.6-2.3); Potassium 3.6 mmol/L (3.5-5.1)
[2022-03-23 10:14] LABS: Anisocytosis Slight; Basophils % (A) 0 %; Eosinophils % (A) 0 %; HCT 37.7 % (34.0-46.0); HGB 11.6 gm/dL (11.4-16.0); Hypochromasia Marked; Lymphocytes % (A) 12 %; MCH 28.5 pg (25.0-35.0); MCHC 30.7 g/dL (31.0-37.0); MCV 92.7 fL (80.0-100.0); Mean Platelet Volume 9.2; Monocytes # (A) 0.2 k/uL (0-1.0); Monocytes % (A) 3 %; Neutrophils # (A) 6.9 k/uL (1.3-7.7); Neutrophils % (A) 83 %; Platelet Count 188 k/uL (150-450); RBC 4.07 m/uL (3.80-5.40); WBC 8.2 k/uL (3.8-10.6)
--- NOTE | 2022-03-23 10:21 | P.PN ---
Subjective This is a pleasant 71 years old male with past medical history of Coronary Artery Disease status post stent , chronic Heart Failure, Diabetes Mellitus, GERD/Reflux, Hyperlipidemia, Hypertension, , chronic back and bilateral hip pain, osteoporosis, bilateral lower leg edema/redness which is worse in the L leg, difficulty walking pt states d/t previous L knee and L hip replacements. Patient is awake and alert to time, place and person. Patient states she fell 2 times yesterday and actually he tells within over the last 2 days. She was going to the bathroom when she tripped and fell. She denies dysuria but she noticed increased frequency of urination Patient has recent history of cardiac cath last November where she has several stents 3 stents placed for her. Currently she denies chest pain or dyspnea, no abdominal pain or nausea or vomiting. No headache or dizziness or weakness or numbness. She has chronic numbness in her right arm and they told her that due to carpal tunnel syndrome but this is for many years. Patient states over the last 6 months she's been bedridden. Currently she is has external catheter placed for her. States that since his been discharged also she's been complaining of from exertional dyspnea for example when she does her laundry she become more winded than usual Vitals are stable. Labs showing mild leukocytosis 13.2, rest of CBC is unremarkable. INR 1.2. Urinalysis is suspicious for infection d-dimer is high 3.0. ProBNP EKG showing normal sinus rhythm at [address]-T changes. CT of the chest: Filling defect within the lower lobe segments pulmonary artery extending into the distal subsegmental branches concerning for pulmonary artery versus suboptimal bolus opacification with no evidence of right heart strain. Questionable right suboptimal pulmonary verbalized with moderate left pleural effusion. Cardiomegaly with mild pulmonary vascular congestion In the emergency room patient was started on heparin drip, received normal saline and then switched to Eliquis 03/23/2012 Patient breathing is improving today. No significant coughing. No significant chest pain. Blood pressure is 99/60 which looks close to her baseline and patient is asymptomatic. Her WBC increased to 13.2 but she is also on dexamethasone. Patient also on Eliquis therapeutic dose at 10 mg twice daily for her new onset pulmonary embolism. She's also on dexamethasone Continue with the Eliquis, aspirin and Plavix. She is getting ceftriaxone as well. Physical therapist is pending. Urine culture growing gram-negative bacilli pending final results Objective - Vital Signs Vital signs: Vital Signs Temp 98.0 F 03/22/22 23:52 Pulse 72 03/23/22 04:09 Resp 18 03/23/22 04:09 BP 99/60 03/23/22 04:09 Pulse Ox 95 03/23/22 04:09 FiO2 Intake & Output 03/22/22 03/23/22 03/23/22 18:59 06:59 18:59 Intake Total 226.167 Output Total 700 Balance -473.833 Intake: Intake, IV Titration 226.167 Amount Heparin Sod,Pork in 0.45% 226.167 NaCl 25,000 unit In 0.45 % NaCl 1 250ml.bag @ 16. 463 UNITS/KG/HR 23 mls/hr IV .[id number] [facility] Rx#: [id number] Output: Urine 700 Other: Voiding Method External Catheter # Voids 1 - Labs CBC & Chem 7: 03/22/22 06:50 03/23/22 08:26 Labs: Abnormal Lab Results - Last 24 Hours (Table) 03/22/22 Range/Units 15:05 APTT 114.2 H* (22.0-30.0) sec Microbiology - Last 24 Hours (Table) 03/21/22 18:49 Urine Culture - Preliminary Urine,Voided Gram Neg Bacilli Assessment and Plan Assessment: Acute pulmonary embolism Acute urinary tract infection Acute on chronic systolic congestive heart failure with ejection fraction 20% Generalized weakness secondary to above Frequent falling without syncope. Secondary to above Covid infection with no evidence of pneumonia or hypoxia. Patient is bedridden, immobile for 6 months due to bilateral lower community weakness. Chronic problem Moderate left pleural effusion History of coronary artery disease status post stenting Hypertension Hyperlipidemia 2 diabetes mellitus Chronic back pain History of osteoporosis Difficulty walking Morbid obesity Plan: This is a pleasant 71 years old female who presents with acute CHF and pulmonary embolism. Continue with IV Lasix Continue with Eliquis Cardioversion pulmonary consult Continue with ceftriaxone and follow-up urine culture Patient is not hypoxic Labs and medication were reviewed.. Continue same treatment. Continue with symptomatic treatment. Resume home medication. Monitor lytes and vitals. DVT and GI prophylaxis. Further recommendations as per clinical course of the patient DVT prophylaxis: heparin GI Prophylaxis: Pepcid PT/OT: Pending Prognosis is guarded
--- NOTE | 2022-03-23 13:24 | P.PN ---
Subjective Progress Note Date: 03/23/22 Principal diagnosis: Acute pulmonary embolism and acute COVID-19 infection This is 71-year-old female patient of those with Dr. Fall as her primary care provider. She has a history of hyperlipidemia, hypertension, diabetes mellitus, coronary artery disease with previous stent placement, morbid obesity status post gastric stapling and panniculectomy, osteoarthritis, anxiety/depression. Nonsmoker. She had been hospitalized in January 2022 after being found to have severe ischemic cardiomyopathy with ejection fraction of 20% and congestive heart failure. She presented here to the emergency room on 03/20/2022 with weakness fatigue and was found to be CoVID positive. Chest x-ray revealed pleural effusion and suspected pulmonary edema the patient refused to be admitted at that time. She re-presented to the hospital again yesterday 03/21/2022 with falls and ongoing weakness. This time she did agree to be admitted. Her also tested positive for COVID-19 and was hospitalized as well. She is seen today in the emergency department. She is sitting up in a stretcher. Awake and alert in no acute distress. She is maintaining O2 saturations in the 90s on 3 L/m per nasal cannula. Afebrile. Hemodynamically stable. Chest x-ray reveals cardiomegaly, pulmonary vascular congestion and left pleural effusion. CT angiogram revealed filling defects within the lower lobe subtle mental pulmonary arteries extending in the distal circumflex segmental branches. No evidence of right heart strain. Moderate left pleural effusion. Cardiomegaly with mild pulmonary vascular congestion. White count 13.2. His hemoglobin 11.4. Lymphocytes 0.7. Urinalysis with bacteria and elevated leukocytes. She had been initiated on a heparin drip. Given IV diuretics. Reevaluated today on 03/23/22, patient is doing well, feeling much better compared to status on admission. Patient denies any shortness of breath no cough no wheezing her heparin was transitioned yesterday to eliquis. Patient seems to have an E. coli urinary tract infection, and she has hardly any sym ptoms related to her COVID-19 infection. WBC count today is 8.2 hemoglobin 11.6 electrolytes are normal renal profile is normal, urine is positive for gram- negative bacilli. Culture is pending. Objective - Vital Signs Vital signs: Vital Signs Temp 97.5 F L 03/23/22 08:00 Pulse 88 03/23/22 08:00 Resp 14 03/23/22 08:00 BP 116/69 03/23/22 08:00 Pulse Ox 98 03/23/22 08:00 FiO2 Intake & Output 03/22/22 03/23/22 03/23/22 18:59 06:59 18:59 Intake Total 226.167 240 Output Total 700 750 Balance -473.833 -510 Intake: Intake, IV Titration 226.167 Amount Heparin Sod,Pork in 0.45% 226.167 NaCl 25,000 unit In 0.45 % NaCl 1 250ml.bag @ 16. 463 UNITS/KG/HR 23 mls/hr IV .[id number] [facility] Rx#: [id number] Oral 240 Output: Urine 700 750 Other: Voiding Method External Catheter Incontinent # Voids 1 # Bowel Movements 1 - Exam Physical Exam: Revealed a 71-year-old female in no distress. Head: Atraumatic, normocephalic. HEENT:[Neck is supple.] [No neck masses.] [No thyromegaly.] [No JVD.] Chest: [Clear throughout, no crackles, no rhonchi, no wheezes.] Cardiac Exam: [Normal S1 and S2, no S3 gallop, no murmur.] Abdomen: [Soft, nontender, no megaly, no rebound, no guarding, normal bowel sounds.] Extremities: [No clubbing, no edema, no cyanosis.] Neurological Exam: [No focal neurologic deficit.] Alert oriented 3. Psychiatric: Normal mood, affect and normal mental status examination. Skin: No rashes. - Labs CBC & Chem 7: 03/23/22 08:26 03/23/22 08:26 Labs: Abnormal Lab Results - Last 24 Hours (Table) 03/22/22 03/23/22 03/23/22 Range/Units 15:05 08:26 08:26 MCHC 30.7 L (31.0-37.0) g/dL RDW 18.0 H (11.5-15.5) % APTT 114.2 H* (22.0-30.0) sec Sodium 134 L (137-145) mmol/L Chloride 97 L (98-107) mmol/L BUN 21 H (7-17) mg/dL Glucose 122 H (74-99) mg/dL Calcium 7.9 L (8.4-10.2) mg/dL Microbiology - Last 24 Hours (Table) 03/21/22 18:49 Urine Culture - Preliminary Urine,Voided Gram Neg Bacilli Assessment and Plan Assessment: Impression: Acute hypoxic respiratory failure secondary to pulmonary embolism and secondary to acute on chronic systolic congestive heart failure Acute COVID-19 infection mostly with symptoms of generalized weakness Acute pulmonary embolism, most likely provoked by COVID-19 infection Acute exacerbation of chronic systolic congestive heart failure, ejection fraction of 20% Acute urinary tract infection History of coronary artery disease and previous stent placement Type 2 diabetes Generalized anxiety disorder Dyslipidemia History of obesity and previous gastric sleeve resection. Recommendation: Continue eliquis Continue Decadron Patient is now off oxygen and she is on room air Continue Rocephin for UTI and adjust antibiotics based on the final culture. Consider discharge planning in the next 24 hours. Time with Patient: Less than 30
[2022-03-23] MEDS: ATORVASTATIN 80 MG TAB PO SCH (20:30)
[2022-03-23] MEDS: ALPRAZolam 0.5 MG TAB PO SCH (20:30)
[2022-03-23] MEDS: CLOPIDOGREL 75 MG TAB PO SCH (20:31)
[2022-03-23] MEDS: METOPROLOL SUCCINATE (ER) 25 MG TAB.ER.24H PO SCH (20:31)
[2022-03-23] MEDS: HYDROcodone/APAP 10-325MG 1 EACH TAB PO PRN (20:36)
[2022-03-23] MEDS: SODIUM CHLORIDE 0.9% 1,000 ML IV SCH (22:15)
[2022-03-24] MEDS: MIDODRINE 5 MG TAB PO SCH ×3 (06:34→17:21)
[2022-03-24] MEDS: SPIRONOLACTONE 25 MG TAB PO SCH (09:50)
[2022-03-24] MEDS: FUROSEMIDE 40 MG TAB PO SCH ×2 (09:51→17:40)
[2022-03-24] MEDS: APIXABAN 5 MG TAB PO SCH ×2 (09:51→20:35)
[2022-03-24] MEDS: polyethylene glycoL 3350 17 GM POWD.PACK PO SCH (09:51)
[2022-03-24] MEDS: FERROUS SULFATE 325 MG TAB PO SCH (09:51)
[2022-03-24] MEDS: CHOLECALCIFEROL 25 MCG (1000 IU) TABLET PO SCH (09:51)
[2022-03-24] MEDS: CALCIUM CARBONATE 500 MG CHEWABLE PO SCH (09:51)
[2022-03-24] MEDS: dexAMETHasone 2 MG TAB PO SCH (09:51)
[2022-03-24] MEDS: POTASSIUM CHLORIDE ER 10 MEQ TAB.ER.PRT PO SCH (09:51)
[2022-03-24] MEDS: metFORMIN 500 MG TAB PO SCH ×2 (09:51→20:34)
[2022-03-24] MEDS: ASPIRIN 325 MG TAB PO SCH (09:51)
[2022-03-24] MEDS: HYDROcodone/APAP 10-325MG 1 EACH TAB PO PRN ×2 (10:03→20:34)
[2022-03-24 12:35] VITALS: BMI 46.8
--- NOTE | 2022-03-24 16:04 | P.PN ---
Progress Note - Text Progress Note Date: 03/24/22 Hospital course: This is a pleasant 71 years old with past medical history of Coronary Artery Di sease status post stent , chronic Heart Failure, Diabetes Mellitus, GERD/Reflux, Hyperlipidemia, Hypertension, , chronic back and bilateral hip pain, osteoporosis, bilateral lower leg edema/redness which is worse in the L leg, difficulty walking pt states d/t previous L knee and L hip replacements. Patient is awake and alert to time, place and person. Patient states she fell 2 times yesterday and actually he tells within over the last 2 days. She was going to the bathroom when she tripped and fell. She denies dysuria but she noticed increased frequency of urination Patient has recent history of cardiac cath last November where she has several stents 3 stents placed for her. Currently she denies chest pain or dyspnea, no abdominal pain or nausea or vomiting. No headache or dizziness or weakness or numbness. She has chronic numbness in her right arm and they told her that due to carpal tunnel syndrome but this is for many years. Patient states over the last 6 months she's been bedridden. Currently she is has external catheter placed for her. States that since his been discharged also she's been complaining of from exertional dyspnea for example when she does her laundry she become more winded than usual Vitals are stable. Labs showing mild leukocytosis 13.2, rest of CBC is unremarkable. INR 1.2. Urinalysis is suspicious for infection d-dimer is high 3.0. ProBNP 04191 EKG showing normal sinus rhythm at [address]-T changes. CT of the chest: Filling defect within the lower lobe segments pulmonary artery extending into the distal subsegmental branches concerning for pulmonary artery versus suboptimal bolus opacification with no evidence of right heart strain. Questionable right suboptimal pulmonary verbalized with moderate left pleural effusion. Cardiomegaly with mild pulmonary vascular congestion In the emergency room patient was started on heparin drip, received normal saline and then switched to Eliquis 03/23/2012 Patient breathing is improving today. No significant coughing. No significant chest pain. Blood pressure is 99/60 which looks close to her baseline and patient is asymptomatic. Her WBC increased to 13.2 but she is also on dexamethasone. Patient also on Eliquis therapeutic dose at 10 mg twice daily for her new onset pulmonary embolism. She's also on dexamethasone Continue with the Eliquis, aspirin and Plavix. She is getting ceftriaxone as well. Physical therapist is pending. Urine culture growing gram-negative bacilli pending final results March 24: I assumed the care of patient today. Admitted with acute pulmonary embolism, acute UTI, acute CHF exacerbations EF of 20%. Frequent falls at home. Cover infection negative for pneumonia/hypoxia. Given IV Lasix. IV ceftriaxone. Eliquis. Today sitting at edge of bed. Oral intake good. No fever. Has asked tunnel female catheter. Spoke to vocational case manager the patient. Looking into rehab assessment. Patient's is also admitted to the hospital. Active Medications Hydrocodone Bitart/Acetaminophen (Hydrocodone/Apap 10-325mg 1 Each Tab) 1 each PO Q6H PRN PRN Reason: Pain Last Admin: 03/24/22 10:03 Dose: 1 each Alprazolam (Alprazolam 0.5 Mg Tab) 0.5 mg PO [facility] Last Admin: 03/23/22 20:30 Dose: 0.5 mg Apixaban (Apixaban 5 Mg Tab) 10 mg PO BID [facility]; Protocol Stop: 03/28/22 21:01 Last Admin: 03/24/22 09:51 Dose: 10 mg Aspirin (Aspirin 325 Mg Tab) 325 mg PO DAILY [facility] Last Admin: 03/24/22 09:51 Dose: 325 mg Atorvastatin Calcium (Atorvastatin 80 Mg Tab) 80 mg PO HS [facility] Last Admin: 03/23/22 20:30 Dose: 80 mg Calcium Carbonate/Glycine (Calcium Carbonate 500 Mg Chewable) 500 mg PO TID PRN PRN Reason: GI Upset Calcium Carbonate/Glycine (Calcium Carbonate 500 Mg Chewable) 500 mg PO DAILY [facility] Last Admin: 03/24/22 09:51 Dose: 500 mg Cholecalciferol (Cholecalciferol 25 Mcg (1000 Iu) Tablet) 25 mcg PO DAILY [facility] Last Admin: 03/24/22 09:51 Dose: 25 mcg Clopidogrel Bisulfate (Clopidogrel 75 Mg Tab) 75 mg PO HS [facility] Last Admin: 03/23/22 20:31 Dose: 75 mg Dexamethasone (Dexamethasone 2 Mg Tab) 6 mg PO DAILY [facility] Last Admin: 03/24/22 09:51 Dose: 6 mg Ferrous Sulfate (Ferrous Sulfate 325 Mg Tab) 325 mg PO DAILY [facility] Last Admin: 03/24/22 09:51 Dose: 325 mg Furosemide (Furosemide 40 Mg Tab) 40 mg PO Q8HR [facility] Last Admin: 03/24/22 09:51 Dose: 40 mg Sodium Chloride (Saline 0.9%) 1,000 mls @ 20 mls/hr IV .Q24H [facility] Last Admin: 03/23/22 22:15 Dose: Not Given Ceftriaxone Sodium 2 gm/ (Sodium Chloride) 50 mls @ 100 mls/hr IVPB Q24HR [facility]; Protocol Last Admin: 03/24/22 09:50 Dose: 100 mls/hr Metformin HCl (Metformin 500 Mg Tab) 500 mg PO BID [facility] Last Admin: 03/24/22 09:51 Dose: 500 mg Metoprolol Succinate (Metoprolol Succinate (Er) 25 Mg Tab.Er.24h) 12.5 mg PO HS [facility] Last Admin: 03/23/22 20:31 Dose: 12.5 mg Midodrine (Midodrine 5 Mg Tab) 5 mg PO AC-TID [facility] Last Admin: 03/24/22 13:08 Dose: 5 mg Polyethylene Glycol (Polyethylene Glycol 3350 17 Gm Powd.Pack) 17 gm PO DAILY [facility] Last Admin: 03/24/22 09:51 Dose: Not Given Potassium Chloride (Potassium Chloride Er 10 Meq Tab.Er.Prt) 10 meq PO DAILY [facility] Last Admin: 03/24/22 09:51 Dose: 10 meq Spironolactone (Spironolactone 25 Mg Tab) 12.5 mg PO DAILY [facility] Last Admin: 03/24/22 09:50 Dose: 12.5 mg On examination: Vitals: 96.2, 68, 16, 102/64, 98% room air Gen. appearance: BMI 46.8, sitting at the edge the bed, awake, comfortable Eyes: Pupils equal, conjunctiva normal Respiratory: Effort normal, decreased breath sounds Cardiovascular: First sickle cell normal, some edema. Abdomen: Soft, nontender, liver spleen not palpable. Psychiatry: AO 3, mood and affect normal INVESTIGATIONS, reviewed in the clinical context: WBC 8.2 hemoglobin 11.6 platelets 188 sodium 134 potassium 3.6 creatinine 0.87 Coronavirus [PCR]: Detected UA: Positive Chest CTA: Filling defect lower lobe segmental pulmonary artery extension into the distal subsegmental branches. Moderate left pleural effusion. Assessment and plan: -Acute pulmonary embolism Eliquis -Acute urinary tract infection, from Pneumonia IV Ceftriaxone. Changed to Keflex. -Acute on chronic systolic congestive heart failure with ejection fraction 20% Aldactone 12.5 mg daily. Lasix 60 mg twice a day Fluid restriction. -Acute medical asthenia secondary to COVID 19 and CHF, causing falls PTOT -Covid infection with no evidence of pneumonia or hypoxia. DC dexamethasone -Chronic medical debility ; bedridden, immobile for 6 months due to bilateral lower community weakness. Chronic problem -Moderate left pleural effusion, secondary to CHF Aldactone. Lasix. -coronary artery disease status post stenting Aspirin, Lipitor, Plavix, Toprol-XL -Essential Hypertension Toprol-XL 12.5 -Hyperlipidemia Lipitor - diabetes mellitus type II on oral hypoglycemic Glucophage. Follow Accu-Cheks -DO NOT RESUSCITATE Spoke at length to the patient and the vocational case manager. PTOT. Looking to rehab. Change IV ceftriaxone to Keflex. Fluid restriction 2000 mL a day. 2-D echocardiogram. I spent today about 40 minutes with over 25 minutes of discussion.
[2022-03-24] MEDS: FUROSEMIDE 20 MG TAB PO SCH (17:22)
[2022-03-24] MEDS: CEPHALEXIN 500 MG CAP PO SCH ×2 (17:22→20:34)
[2022-03-24] MEDS: METOPROLOL SUCCINATE (ER) 25 MG TAB.ER.24H PO SCH (20:33)
[2022-03-24] MEDS: ATORVASTATIN 80 MG TAB PO SCH (20:33)
[2022-03-24] MEDS: ALPRAZolam 0.5 MG TAB PO SCH (20:33)
[2022-03-24] MEDS: CLOPIDOGREL 75 MG TAB PO SCH (20:34)
[2022-03-25 02:07] VITALS: PULSE 66; RESP 16; TEMP 97.4
--- NOTE | 2022-03-25 05:35 | P.CONS ---
History of Present Illness - Chief Complaint Medical debility - History of Present Illness I had the opportunity see patient for inpatient rehab consultation with regard to medical debility. Patient admitted to Dr. Albert March 31 with weakness, fall 3. Seen by Dr. Ross. Diagnosis PE, CHF and covert positive pneumonia. Chest x-ray demonstrated cardiomegaly left pleural effusion and CHF. Chest CTA with left lower lobe infiltrate. PT reports moderate assistance for bed mobility unable to sit or stand. OT reports independent with feeding, maximal assistance for upper dressing and bathing, total assistance for lower dressing and toileting and two-person total assistance functional mobility and toilet transfer. Previous functional history as elicited from patient: 71-year-old right-handed white female who is lives in one floor home with . Both retired. Patient does the cooking and laundry. Receives physical assistance for sponge bath. Describes independent with dressing, wheelchair mobility. To friends and friends for shopping and errands. Review of Systems Review of systems: ENT: Denies sneezes or discharge. Eyes: Denies discharge or photophobia. Cardiac: Denies chest pain or palpitation. Pulmonary: shortness of breath. Breast: Denies discharge or lumps. Gastrointestinal: Denies nausea, emesis, constipation, diarrhea. Genitourinary: Denies discharge or frequency. Musculoskeletal: Denies muscle or bone aches. Neurologic: Generalized weakness. Endocrine: Denies shakes or sweats. Oncology: Denies cancers. Dermatologic: Denies rash, itching, pruritus. ALLERGY/immunology: Denies sneezes, rashes. Past Medical History Past Medical History: Coronary Artery Disease (CAD), Heart Failure, Diabetes Mellitus, GERD/Reflux, Hyperlipidemia, Hypertension, Myocardial Infarction (NV), Pneumonia Additional Past Medical History / Comment(s): Pt recently admitted to [facility] on 12/28/21 with exacerbation CHF/NV. Other hx: Pt states she now has low blood pressure, chronic back and bilateral hip pain, osteoporosis, bilateral lower leg edema/redness which is worse in the L leg, difficulty walking pt states d/t previous L knee and L hip replacements. Last Myocardial Infarction Date:: 12/29/21 History of Any Multi-Drug Resistant Organisms: None Reported Past Surgical History: Adenoidectomy, Appendectomy, Bariatric Surgery, Cholecystectomy, Heart Catheterization With Stent, Joint Replacement, Orthopedic Surgery, Tonsillectomy, Tubal Ligation Additional Past Surgical History / Comment(s): Gastric stapling, panniculectomy, total L hip and L knee replacements, bone spurs removed L foot, Past Anesthesia/Blood Transfusion Reactions: No Reported Reaction Date of Last Stent Placement:: 12/29/21 Past Psychological History: Anxiety, Depression Smoking Status: Never smoker Past Alcohol Use History: None Reported Past Drug Use History: None Reported - Past Family History Father Family Medical History: COPD Additional Family Medical History / Comment(s): End stage COPD Mother Family Medical History: Congestive Heart Failure (CHF) Additional Family Medical History / Comment(s): Mother of CHF Medications and Allergies Home Medications Medication Instructions Recorded Confirmed Type Calcium Carbonate [Calcium] 600 mg PO DAILY 11/13/21 03/21/22 History Cholecalciferol [Vitamin D3 (25 25 mcg PO DAILY 11/13/21 03/21/22 History Mcg = 1000 Iu)] Ferrous Sulfate [Iron (65 MG 325 mg PO DAILY 11/13/21 03/21/22 History Elemental)] Atorvastatin [Lipitor] 80 mg PO HS 12/04/21 03/21/22 History Clopidogrel [Plavix] 75 mg PO HS 12/04/21 03/21/22 History Metoprolol Succinate (ER) [Toprol 12.5 mg PO HS 12/04/21 03/21/22 History XL] Aspirin 81 mg PO HS 12/28/21 03/21/22 History Midodrine [ProAmatine] 5 mg PO AC-TID #90 tab 01/23/22 03/21/22 Rx Potassium Chloride ER [K-Dur 10] 10 meq PO DAILY #30 tab 01/23/22 03/21/22 Rx Spironolactone [Aldactone] 12.5 mg PO DAILY #30 tablet 01/23/22 03/21/22 Rx polyethylene glycoL 3350 [Miralax] 17 gm PO DAILY packet 01/23/22 03/21/22 Rx Furosemide [Lasix] 60 mg PO BID@0900,1600 tab 01/27/22 03/21/22 Rx dexAMETHasone [Decadron] 6 mg PO DAILY #5 tab 03/20/22 03/21/22 Rx ALPRAZolam [Xanax] 0.5 mg PO HS 03/21/22 03/21/22 History Calcium Carbonate [Tums] 500 mg PO TID PRN 03/21/22 03/21/22 History HYDROcodone/APAP 10-325MG [[place] 1 tab PO Q6H PRN 03/21/22 03/21/22 History 10-325] metFORMIN HCL [Glucophage] 500 mg PO BID 03/21/22 03/21/22 History Allergies Allergy/AdvReac Type Severity Reaction Status Date / Time adhesive tape Allergy skin Verified 03/21/22 19:30 blisters morphine AdvReac Hallucinati Verified 03/21/22 19:30 ons Physical Exam Vitals: Vital Signs Temp Pulse Resp BP Pulse Ox 03/25/22 01:59 97.4 F L 66 16 123/75 98 03/24/22 20:00 97.5 F L 68 14 118/81 99 03/24/22 16:00 70 107/71 98 03/24/22 14:00 70 16 03/24/22 12:00 70 101/68 94 L 03/24/22 08:00 96.2 F L 68 16 102/64 98 Intake and Output 03/24/22 03/24/22 03/25/22 14:59 22:59 06:59 Intake Total 366 118 300 Output Total 1025 Balance 366 118 -725 Intake: Intake, IV Titration 130 Amount Sodium Chloride 0.9% 1, 30 000 ml @ 20 mls/hr IV . Q24H [facility] Rx#:[id number] cefTRIAXone 2 gm In 100 Sodium Chloride 0.9% 50 ml @ 100 mls/hr IVPB Q24HR [facility] Rx#:[id number] Oral 236 118 300 Output: Urine 1025 Other: Voiding Method External Catheter External Catheter Weight 139.706 kg Skin: Atrophic, intact. General: Overweight build and comfortable appearance. Head: Normocephalic, atraumatic. Eyes: Symmetric. Pupils equal round. Ears: Symmetric. Hearing within normal limits. Mouth: Clear. Neck: Supple. Carotid without bruit. Cardiac: Regular rate and rhythm. Lungs: Clear anteriorly and posteriorly. Abdomen: Soft active nontender, overweight. Extremities: Normal tone. Overweight. Neurological: Mental status: Alert, cooperative, pleasant. Cranial nerves: Symmetric facial tone and trapezius. Motor: Arms at least antigravity in legs poor. Sensation: Intact throughout. DTRs: Symmetric and equal throughout. Mobility: Requires physical assist for bed mobility. Results CBC & Chem 7: 03/23/22 08:26 03/23/22 08:26 Assessment and Plan (1) COVID-19 Current Visit: Yes Status: Acute Code(s): U07.1 - COVID-19 SNOMED Code(s): 356842069 (2) Congestive heart failure Current Visit: Yes Status: Acute Code(s): I50.9 - HEART FAILURE, UNSPECIFIED SNOMED Code(s): 72165237 (3) Failure to thrive in adult Current Visit: Yes Status: Acute Code(s): R62.7 - ADULT FAILURE TO THRIVE SNOMED Code(s): 627525941 (4) Acute pulmonary edema Current Visit: No Status: Acute Code(s): J81.0 - ACUTE PULMONARY EDEMA SNOMED Code(s): 33697946 (5) Generalized weakness Current Visit: No Status: Acute Code(s): R53.1 - WEAKNESS SNOMED Code(s): 45864931 Plan: Comments and plan: At this time patient endurance poor and rehab prognosis similar. We'll continue to follow with yourself but currently would require 24/7 care multiple persons.
[2022-03-25 06:32] VITALS: BP 111/75
[2022-03-25] MEDS: MIDODRINE 5 MG TAB PO SCH ×2 (06:48→11:47)
[2022-03-25] MEDS: FERROUS SULFATE 325 MG TAB PO SCH (08:20)
[2022-03-25] MEDS: APIXABAN 5 MG TAB PO SCH (08:20)
[2022-03-25] MEDS: ASPIRIN 325 MG TAB PO SCH (08:20)
[2022-03-25] MEDS: FUROSEMIDE 20 MG TAB PO SCH (08:20)
[2022-03-25] MEDS: CALCIUM CARBONATE 500 MG CHEWABLE PO SCH (08:20)
[2022-03-25] MEDS: CEPHALEXIN 500 MG CAP PO SCH ×2 (08:20→11:47)
[2022-03-25] MEDS: metFORMIN 500 MG TAB PO SCH (08:21)
[2022-03-25] MEDS: CHOLECALCIFEROL 25 MCG (1000 IU) TABLET PO SCH (08:21)
[2022-03-25] MEDS: polyethylene glycoL 3350 17 GM POWD.PACK PO SCH (08:21)
[2022-03-25] MEDS: SPIRONOLACTONE 25 MG TAB PO SCH (08:21)
[2022-03-25] MEDS: POTASSIUM CHLORIDE ER 10 MEQ TAB.ER.PRT PO SCH (08:23)
[2022-03-25] MEDS: HYDROcodone/APAP 10-325MG 1 EACH TAB PO PRN (08:30)
--- NOTE | 2022-03-25 12:41 | P.DS ---
Providers Date of admission: 03/21/22 20:48 Expected date of discharge: 03/25/22 Attending physician: Gilbert Albert Consults: 03/21/22 20:48 Consult Physician Routine Consulting Provider: Zoey Christensen Consult Reason/Comments: Pulmonary embolism suspected, CHF Do you want consulting provider notified?: Yes 03/24/22 14:08 Consult Physician Routine Consulting Provider: Filemon Talbot Consult Reason/Comments: eval for inpatient rehab Do you want consulting provider notified?: Yes Primary care physician: [facility] Course: Hospital course: This is a pleasant 71 years old with past medical history of Coronary Artery Disease status post stent , chronic Heart Failure, Diabetes Mellitus, GERD/Reflux, Hyperlipidemia, Hypertension, , chronic back and bilateral hip pain, osteoporosis, bilateral lower leg edema/redness which is worse in the L leg, difficulty walking pt states d/t previous L knee and L hip replacements. Patient is awake and alert to time, place and person. Patient states she fell 2 times yesterday and actually he tells within over the last 2 days. She was going to the bathroom when she tripped and fell. She denies dysuria but she noticed increased frequency of urination Patient has recent history of cardiac cath last November where she has several stents 3 stents placed for her. Currently she denies chest pain or dyspnea, no abdominal pain or nausea or vomiting. No headache or dizziness or weakness or numbness. She has chronic numbness in her right arm and they told her that due to carpal tunnel syndrome but this is for many years. Patient states over the last 6 months she's been bedridden. Currently she is has external catheter placed for her. States that since his been discharged also she's been complaining of from exertional dyspnea for example when she does her laundry she become more winded than usual Vitals are stable. Labs showing mild leukocytosis 13.2, rest of CBC is unremarkable. INR 1.2. Urinalysis is suspicious for infection d-dimer is high 3.0. ProBNP EKG showing normal sinus rhythm at [address]-T changes. CT of the chest: Filling defect within the lower lobe segments pulmonary artery extending into the distal subsegmental branches concerning for pulmonary artery versus suboptimal bolus opacification with no evidence of right heart strain. Questionable right suboptimal pulmonary verbalized with moderate left pleural effusion. Cardiomegaly with mild pulmonary vascular congestion In the emergency room patient was started on heparin drip, received normal saline and then switched to Eliquis 03/23/2012 Patient breathing is improving today. No significant coughing. No significant chest pain. Blood pressure is 99/60 which looks close to her baseline and patient is asymptomatic. Her WBC increased to 13.2 but she is also on dexamethasone. Patient also on Eliquis therapeutic dose at 10 mg twice daily for her new onset pulmonary embolism. She's also on dexamethasone Continue with the Eliquis, aspirin and Plavix. She is getting ceftriaxone as well. Physical therapist is pending. Urine culture growing gram-negative bacilli pending final results March 24: I assumed the care of patient today. Admitted with acute pulmonary embolism, acute UTI, acute CHF exacerbations EF of 20%. Frequent falls at home. Cover infection negative for pneumonia/hypoxia. Given IV Lasix. IV ceftriaxone. Eliquis. Today sitting at edge of bed. Oral intake good. No fever. Has asked tunnel female catheter. Spoke to director of casework the patient. Looking into rehab assessment. Patient's is also admitted to the hospital. March 25:Sitting up. Comfortable. Oral intake fair. Spoke to the director of casework. Patient be going home. Has a chair. Has a walker. Seen by Dr. Zurdo steele, not a candidate for rehab. On examination: Vitals: 96.2, 68, 16, 102/64, 98% room air Gen. appearance: BMI 46.8, sitting at the edge the bed, awake, comfortable Eyes: Pupils equal, conjunctiva normal Respiratory: Effort normal, decreased breath sounds Cardiovascular: First sickle cell normal, some edema. Abdomen: Soft, nontender, liver spleen not palpable. Psychiatry: AO 3, mood and affect normal INVESTIGATIONS, reviewed in the clinical context: WBC 8.2 hemoglobin 11.6 platelets 188 sodium 134 potassium 3.6 creatinine 0.87 Coronavirus [PCR]: Detected UA: Positive Chest CTA: Filling defect lower lobe segmental pulmonary artery extension into the distal subsegmental branches. Moderate left pleural effusion. Assessment and plan: -Acute pulmonary embolism Eliquis -Acute urinary tract infection, from Pneumonia IV Ceftriaxone. Changed to Keflex. -Acute on chronic systolic congestive heart failure with ejection fraction 20% Aldactone 12.5 mg daily. Lasix 60 mg twice a day Fluid restriction. -Acute medical asthenia secondary to COVID 19 and CHF, causing falls PTOT. Will be discharged home. Not accepted at rehab. -Covid infection with no evidence of pneumonia or hypoxia. DC dexamethasone -Chronic medical debility ; has a wheelchair at home. Discussed with director of casework. -Moderate left pleural effusion, secondary to CHF Aldactone. Lasix. -coronary artery disease status post stenting Aspirin, Lipitor, Plavix, Toprol-XL -Essential Hypertension Toprol-XL 12.5 -Hyperlipidemia Lipitor - diabetes mellitus type II on oral hypoglycemic Glucophage. Follow Accu-Cheks -DO NOT RESUSCITATE Disposition: Home Plan - Discharge Summary Discharge Rx Participant: Yes New Discharge Prescriptions: New Apixaban [Eliquis Starter Pack (for VTE)] 5 - 10 mg PO DIRECTED 30 Days #1 each Cephalexin [Keflex] 500 mg PO QID #8 cap Continue Ferrous Sulfate [Iron (65 MG Elemental)] 325 mg PO DAILY Calcium Carbonate [Calcium] 600 mg PO DAILY Metoprolol Succinate (ER) [Toprol XL] 12.5 mg PO HS Atorvastatin [Lipitor] 80 mg PO HS Midodrine [ProAmatine] 5 mg PO AC-TID #90 tab Spironolactone [Aldactone] 12.5 mg PO DAILY #30 tablet Potassium Chloride ER [K-Dur 10] 10 meq PO DAILY #30 tab Furosemide [Lasix] 60 mg PO BID@0900,1600 tab Calcium Carbonate [Tums] 500 mg PO TID PRN PRN Reason: Gi Upset ALPRAZolam [Xanax] 0.5 mg PO HS metFORMIN HCL [Glucophage] 500 mg PO BID Cholecalciferol [Vitamin D3 (25 Mcg = 1000 Iu)] 25 mcg PO DAILY Clopidogrel [Plavix] 75 mg PO HS Aspirin 81 mg PO HS polyethylene glycoL 3350 [Miralax] 17 gm PO DAILY packet HYDROcodone/APAP 10-325MG [[place] 10-325] 1 tab PO Q6H PRN PRN Reason: Pain Discontinued dexAMETHasone [Decadron] 6 mg PO DAILY #5 tab Discharge Medication List Calcium Carbonate [Calcium] 600 mg PO DAILY 11/13/21 [History] Cholecalciferol [Vitamin D3 (25 Mcg = 1000 Iu)] 25 mcg PO DAILY 11/13/21 [History] Ferrous Sulfate [Iron (65 MG Elemental)] 325 mg PO DAILY 11/13/21 [History] Atorvastatin [Lipitor] 80 mg PO HS 12/04/21 [History] Clopidogrel [Plavix] 75 mg PO HS 12/04/21 [History] Metoprolol Succinate (ER) [Toprol XL] 12.5 mg PO HS 12/04/21 [History] Aspirin 81 mg PO HS 12/28/21 [History] Midodrine [ProAmatine] 5 mg PO AC-TID #90 tab 01/23/22 [Rx] Potassium Chloride ER [K-Dur 10] 10 meq PO DAILY #30 tab 01/23/22 [Rx] Spironolactone [Aldactone] 12.5 mg PO DAILY #30 tablet 01/23/22 [Rx] polyethylene glycoL 3350 [Miralax] 17 gm PO DAILY packet 01/23/22 [Rx] Furosemide [Lasix] 60 mg PO BID@0900,1600 tab 01/27/22 [Rx] ALPRAZolam [Xanax] 0.5 mg PO HS 03/21/22 [History] Calcium Carbonate [Tums] 500 mg PO TID PRN 03/21/22 [History] HYDROcodone/APAP 10-325MG [[place] 10-325] 1 tab PO Q6H PRN 03/21/22 [History] metFORMIN HCL [Glucophage] 500 mg PO BID 03/21/22 [History] Apixaban [Eliquis Starter Pack (for VTE)] 5 - 10 mg PO DIRECTED 30 Days #1 each 03/25/22 [Rx] Cephalexin [Keflex] 500 mg PO QID #8 cap 03/25/22 [Rx] Follow up Appointment(s)/Referral(s): GIANA MARINA [Other] - 03/31/22 11:00 am ([facility] APPOINTMENT) [facility] [NON-STAFF] - Patient Instructions/Handouts: Coronavirus Disease 2019 (COVID-19), Pulmonary Embolism (DC), COVID-19: Slow the Coronavirus Spread (DC), Face Coverings (Masks) and COVID-19 (ED)
--- NOTE | 2022-03-26 14:19 | CA ---
Transthoracic Echo Report Name: Dayana Angel Age: 71 Gender: F : 1950 Exam Date: 03/25/2022 09:28 Exam Location: [place] Echo Ht (in): 68 Wt (lb): 308 Ordering Physician: Gilbert Albert MD Attending/Referring Phys: Vinyl Cutter Sara Cruz RDCS Procedure CPT: Indications: chf Cardiac Hx: Technical Quality: Technically difficult study Contrast 1: Lumason Total Dose (mL): 4 Contrast 2: Total Dose (mL): MEASUREMENTS (Male / Female) Normal Values 2D ECHO LV Diastolic Diameter PLAX 5.7 cm 4.2 - 5.9 / 3.9 - 5.3 cm LV Systolic Diameter PLAX 5.5 cm IVS Diastolic Thickness 1.3 cm 0.6 - 1.0 / 0.6 - 0.9 cm LVPW Diastolic Thickness 1.2 cm 0.6 - 1.0 / 0.6 - 0.9 cm LV Relative Wall Thickness 0.4 FINDINGS Left Ventricle Moderately increased left ventricular wall thickness. Mild left ventricular dilatation. Severely reduced global left ventricular systolic function. Left ventricular ejection fraction is estimated at 20 %. Right Ventricle Right Atrium Left Atrium Mitral Valve Aortic Valve Tricuspid Valve Pulmonic Valve Pericardium No pericardial effusion. Aorta CONCLUSIONS Dilated left ventricle with extremely severe LV dysfunction, less than 20% Previewed by: Dr. Dank Cuba MD (Electronically Signed) Final Date: 25 March 2022 13:23
== END 2022-03-25 14:31 | disposition home health service (06) | DRG 177 ==
LOC: EC 14:52 → 3SCARD 20:48
PROVIDERS: ADMIT Hospitalist; ATTEND Hospitalist
DX: U07.1 COVID-19 (principal); I26.99 Other pulmonary embolism without acute cor pulmonale; I50.23 Acute on chronic systolic (congestive) heart failure; J96.01 Acute respiratory failure with hypoxia; N39.0 Urinary tract infection, site not specified; Z66 Do not resuscitate; Z68.42 Body mass index [BMI] 45.0-49.9, adult; L03.119 Cellulitis of unspecified part of limb; R62.7 Adult failure to thrive; W19.XXXA Unspecified fall, initial encounter; R45.81 Low self-esteem; E11.9 Type 2 diabetes mellitus without complications; I25.10 Atherosclerotic heart disease of native coronary artery without angina pectoris; I11.0 Hypertensive heart disease with heart failure; E66.01 Morbid (severe) obesity due to excess calories; I25.5 Ischemic cardiomyopathy; W01.0XXA Fall on same level from slipping, tripping and stumbling without subsequent striking against object, initial encounter; I89.0 Lymphedema, not elsewhere classified; B96.20 Unspecified Escherichia coli [E. coli] as the cause of diseases classified elsewhere; K21.9 Gastro-esophageal reflux disease without esophagitis; R00.0 Tachycardia, unspecified; M25.551 Pain in right hip; M25.552 Pain in left hip; E78.5 Hyperlipidemia, unspecified; M81.0 Age-related osteoporosis without current pathological fracture; G56.00 Carpal tunnel syndrome, unspecified upper limb; G89.29 Other chronic pain; M54.9 Dorsalgia, unspecified; R29.6 Repeated falls; R53.1 Weakness; F32.A Depression, unspecified; F41.1 Generalized anxiety disorder; Z74.01 Bed confinement status; Z98.84 Bariatric surgery status; I25.2 Old myocardial infarction; Z96.652 Presence of left artificial knee joint; Z96.642 Presence of left artificial hip joint; Z95.5 Presence of coronary angioplasty implant and graft; Z79.899 Other long term (current) drug therapy; Z79.82 Long term (current) use of aspirin; Z79.84 Long term (current) use of oral hypoglycemic drugs; Z82.5 Family history of asthma and other chronic lower respiratory diseases; Z82.49 Family history of ischemic heart disease and other diseases of the circulatory system; Z88.5 Allergy status to narcotic agent; Z91.048 Other nonmedicinal substance allergy status; Z98.51 Tubal ligation status; Z90.49 Acquired absence of other specified parts of digestive tract
CPT/HCPCS: 36415; 71046; 71275; 80048; 80053; 81001; 83605; 83690; 83735; 83880; 84484; 85025; 85379; 85610; 85730; 87077; 87086; 87186; 87635; 93005; 93308; 96361; 96365; 96366; 96367; 96375; 99291

== ENCOUNTER 2022-05-12 13:18 | Inpatient (IN) | payer MEDICARE ==
[2022-05-12] MEDS ORDERED: SODIUM CHLORIDE 0.9% 500 ML 500 ML IV STA (13:32)
[2022-05-12 13:43] LABS: Anisocytosis Moderate; Basophils % (A) 0 %; Eosinophils # (A) 0.1 k/uL (0-0.7); Eosinophils % (A) 1 %; HCT 35.1 % (34.0-46.0); HGB 10.9 gm/dL (11.4-16.0); Hypochromasia Marked; Lymphocytes # (A) 0.8 k/uL (1.0-4.8); Lymphocytes % (A) 16 %; MCH 29.5 pg (25.0-35.0); MCV 95.1 fL (80.0-100.0); Macrocytosis Slight; Mean Platelet Volume 7.9; Monocytes # (A) 0.2 k/uL (0-1.0); Monocytes % (A) 4 %; Neutrophils # (A) 3.9 k/uL (1.3-7.7); Neutrophils % (A) 79 %; Platelet Count 271 k/uL (150-450); RBC 3.69 m/uL (3.80-5.40); RDW 20.5 % (11.5-15.5); WBC 4.9 k/uL (3.8-10.6)
[2022-05-12 13:57] LABS: INR 1.2 (<1.2); Partial Thromboplastin Time 25.2 sec (22.0-30.0); Prothrombin Time 12.7 sec (9.0-12.0)
[2022-05-12 14:03] LABS: ALT 40 U/L (4-34); African American GFR (CKD) >90 (>60 ml/min/1.73 sqM); Albumin 3.3 g/dL (3.5-5.0); Anion Gap 11 mmol/L; Blood Urea Nitrogen 20 mg/dL (7-17); Calcium 8.5 mg/dL (8.4-10.2); Carbon Dioxide 25 mmol/L (22-30); Chloride 103 mmol/L (98-107); Glucose 169 mg/dL (74-99); Non-African American GFR(CKD) 88 (>60 ml/min/1.73 sqM); Sodium 139 mmol/L (137-145); Total Bilirubin 3.1 mg/dL (0.2-1.3); Total Protein 7.6 g/dL (6.3-8.2)
[2022-05-12 14:05] LABS: AST 68 U/L (14-36); Alkaline Phosphatase 274 U/L (38-126); Magnesium 1.7 mg/dL (1.6-2.3); Potassium 4.8 mmol/L (3.5-5.1)
--- NOTE | 2022-05-12 14:06 | ED ---
General Adult HPI - General Chief complaint: Extremity Problem,Nontraumatic Stated complaint: lower leg edema Time Seen by Provider: 05/12/22 13:25 Source: patient, EMS, RN notes reviewed, old records reviewed Mode of arrival: EMS Limitations: physical limitation - History of Present Illness Initial comments: 71-year-old female who presents emergency Department complaining that she is no longer able to take care of herself. Patient states she's had chronic edema ever since she had surgery 2 years ago and is getting progressively worse and today even with the left she was unable to get up and get out and do her normal daily activity. Patient states she has no one to help her and at this point she is unable to live on her own because of the increase in swelling in her legs. Patient states the left leg is always more swollen than the right leg. Patient states on occasion she does get a little short of breath especially when she is exerting herself at all. Patient denies any chest pain. Patient denies any palpitations. Patient denies any recent fever chills or cough per patient denies any headache. Patient denies any loss of function either numbness or weakness. Patient denies any abdominal pain patient denies nausea vomiting diar isaak. - Related Data Home Medications Medication Instructions Recorded Confirmed Calcium Carbonate [Calcium] 600 mg PO DAILY 11/13/21 03/21/22 Cholecalciferol [Vitamin D3 (25 25 mcg PO DAILY 11/13/21 03/21/22 Mcg = 1000 Iu)] Ferrous Sulfate [Iron (65 MG 325 mg PO DAILY 11/13/21 03/21/22 Elemental)] Atorvastatin [Lipitor] 80 mg PO HS 12/04/21 03/21/22 Clopidogrel [Plavix] 75 mg PO HS 12/04/21 03/21/22 Metoprolol Succinate (ER) [Toprol 12.5 mg PO HS 12/04/21 03/21/22 XL] Aspirin 81 mg PO HS 12/28/21 03/21/22 ALPRAZolam [Xanax] 0.5 mg PO HS 03/21/22 03/21/22 Calcium Carbonate [Tums] 500 mg PO TID PRN 03/21/22 03/21/22 HYDROcodone/APAP 10-325MG [[place] 1 tab PO Q6H PRN 03/21/22 03/21/22 10-325] metFORMIN HCL [Glucophage] 500 mg PO BID 03/21/22 03/21/22 Previous Rx's Medication Instructions Recorded Midodrine [ProAmatine] 5 mg PO AC-TID #90 tab 01/23/22 Potassium Chloride ER [K-Dur 10] 10 meq PO DAILY #30 tab 01/23/22 Spironolactone [Aldactone] 12.5 mg PO DAILY #30 tablet 01/23/22 polyethylene glycoL 3350 [Miralax] 17 gm PO DAILY packet 01/23/22 Furosemide [Lasix] 60 mg PO BID@0900,1600 tab 01/27/22 Apixaban [Eliquis Starter Pack 5 - 10 mg PO DIRECTED 30 Days 03/25/22 (for VTE)] #1 each Cephalexin [Keflex] 500 mg PO QID #8 cap 03/25/22 Allergies Allergy/AdvReac Type Severity Reaction Status Date / Time adhesive tape Allergy skin Verified 03/21/22 19:30 blisters morphine AdvReac Hallucinati Verified 03/21/22 19:30 ons Review of Systems ROS Statement: Those systems with pertinent positive or pertinent negative responses have been documented in the HPI. ROS Other: All systems not noted in ROS Statement are negative. Past Medical History Past Medical History: Coronary Artery Disease (CAD), Heart Failure, Diabetes Mellitus, GERD/Reflux, Hyperlipidemia, Hypertension, Myocardial Infarction (MD), Pneumonia Additional Past Medical History / Comment(s): Pt recently admitted to [facility] on 12/28/21 with exacerbation CHF/MD. Other hx: Pt states she now has low blood pressure, chronic back and bilateral hip pain, osteoporosis, bilateral lower leg edema/redness which is worse in the L leg, difficulty walking pt states d/t previous L knee and L hip replacements. Last Myocardial Infarction Date:: 12/29/21 History of Any Multi-Drug Resistant Organisms: None Reported Past Surgical History: Adenoidectomy, Appendectomy, Bariatric Surgery, Cholecystectomy, Heart Catheterization With Stent, Joint Replacement, Orthopedic Surgery, Tonsillectomy, Tubal Ligation Additional Past Surgical History / Comment(s): Gastric stapling, panniculectomy, total L hip and L knee replacements, bone spurs removed L foot, Past Anesthesia/Blood Transfusion Reactions: No Reported Reaction Date of Last Stent Placement:: 12/29/21 Past Psychological History: Anxiety, Depression Smoking Status: Never smoker Past Alcohol Use History: None Reported Past Drug Use History: None Reported - Past Family History Father Family Medical History: COPD Additional Family Medical History / Comment(s): End stage COPD Mother Family Medical History: Congestive Heart Failure (CHF) Additional Family Medical History / Comment(s): Mother of CHF General Exam - General Exam Comments Initial Comments: GENERAL: Patient is well-developed and well-nourished. Patient is nontoxic and well- hydrated and is in mild distress. ENT: Neck is soft and supple. No significant lymphadenopathy is noted. Oropharynx is clear. Moist mucous membranes. Neck has full range of motion without eliciting any pain. EYES: The sclera were anicteric and conjunctiva were pink and moist. Extraocular movements were intact and pupils were equal round and reactive to light. Eyelids were unremarkable. PULMONARY: Unlabored respirations. Good breath sounds bilaterally. No audible rales rhonchi or wheezing was noted. CARDIOVASCULAR: There is a regular rate and rhythm without any murmurs gallops or rubs. ABDOMEN: Soft and nontender with normal bowel sounds. SKIN: Skin is clear with no lesions or rashes and otherwise unremarkable. NEUROLOGIC: Patient is alert and oriented x3. Cranial nerves II through XII are grossly intact. Motor and sensory are also intact. Normal speech, volume and content. Symmetrical smile. MUSCULOSKELETAL: Normal extremities with adequate strength and full range of motion. Patient has 2+ edema bilaterally however the left is considerably larger than the right. LYMPHATICS: No significant lymphadenopathy is noted PSYCHIATRIC: Normal psychiatric evaluation. Limitations: physical limitation Course Vital Signs 05/12/22 13:26 Temperature 97 F L Pulse Rate 94 Respiratory 16 Rate Blood Pressure 131/96 O2 Sat by Pulse 98 Oximetry Medical Decision Making - Medical Decision Making EKG was interpreted by me. EKG shows sinus rhythm at 89 bpm ME interval is 196 QRS is 106 QT interval 36 QTC is 433 per patient's EKG shows no ST segment elevation or depression. The x-ray was interpreted by me. X-ray showed pleural effusion on the left with signs of pulmonary edema. I spoke with Dr. Albert agreed to admit the patient admitted the patient remaining orders. I gave the patient Lasix in the emergency department I continued Lasix on the floor. - Lab Data Result diagrams: 05/12/22 13:35 05/12/22 13:35 Lab Results 05/12/22 05/12/22 05/12/22 Range/Units 13:35 13:35 13:35 WBC 4.9 (3.8-10.6) k/uL RBC 3.69 L (3.80-5.40) m/uL Hgb 10.9 L (11.4-16.0) gm/dL Hct 35.1 (34.0-46.0) % MCV 95.1 (80.0-100.0) fL MCH 29.5 (25.0-35.0) pg MCHC 31.0 (31.0-37.0) g/dL RDW 20.5 H (11.5-15.5) % Plt Count 271 (150-450) k/uL MPV 7.9 Neutrophils % 79 % Lymphocytes % 16 % Monocytes % 4 % Eosinophils % 1 % Basophils % 0 % Neutrophils # 3.9 (1.3-7.7) k/uL Lymphocytes # 0.8 L (1.0-4.8) k/uL Monocytes # 0.2 (0-1.0) k/uL Eosinophils # 0.1 (0-0.7) k/uL Basophils # 0.0 (0-0.2) k/uL Hypochromasia Marked Anisocytosis Moderate Macrocytosis Slight PT 12.7 H (9.0-12.0) sec INR 1.2 H (<1.2) APTT 25.2 (22.0-30.0) sec Sodium 139 (137-145) mmol/L Potassium 4.8 (3.5-5.1) mmol/L Chloride 103 (98-107) mmol/L Carbon Dioxide 25 (22-30) mmol/L Anion Gap 11 mmol/L BUN 20 H (7-17) mg/dL Creatinine 0.67 (0.52-1.04) mg/dL Est GFR (CKD-EPI)AfAm >90 (>60 ml/min/1.73 sqM) Est GFR (CKD-EPI)NonAf 88 (>60 ml/min/1.73 sqM) Glucose 169 H (74-99) mg/dL Plasma Lactic Acid Myles (0.7-2.0) mmol/L Calcium 8.5 (8.4-10.2) mg/dL Magnesium 1.7 (1.6-2.3) mg/dL Total Bilirubin 3.1 H (0.2-1.3) mg/dL AST 68 H (14-36) U/L ALT 40 H (4-34) U/L Alkaline Phosphatase 274 H (38-126) U/L Troponin I (0.000-0.034) ng/mL NT-Pro-B Natriuret Pep pg/mL Total Protein 7.6 (6.3-8.2) g/dL Albumin 3.3 L (3.5-5.0) g/dL 05/12/22 05/12/22 05/12/22 Range/Units 13:35 13:35 13:35 WBC (3.8-10.6) k/uL RBC (3.80-5.40) m/uL Hgb (11.4-16.0) gm/dL Hct (34.0-46.0) % MCV (80.0-100.0) fL MCH (25.0-35.0) pg MCHC (31.0-37.0) g/dL RDW (11.5-15.5) % Plt Count (150-450) k/uL MPV Neutrophils % % Lymphocytes % % Monocytes % % Eosinophils % % Basophils % % Neutrophils # (1.3-7.7) k/uL Lymphocytes # (1.0-4.8) k/uL Monocytes # (0-1.0) k/uL Eosinophils # (0-0.7) k/uL Basophils # (0-0.2) k/uL Hypochromasia Anisocytosis Macrocytosis PT (9.0-12.0) sec INR (<1.2) APTT (22.0-30.0) sec Sodium (137-145) mmol/L Potassium (3.5-5.1) mmol/L Chloride (98-107) mmol/L Carbon Dioxide (22-30) mmol/L Anion Gap mmol/L BUN (7-17) mg/dL Creatinine (0.52-1.04) mg/dL Est GFR (CKD-EPI)AfAm (>60 ml/min/1.73 sqM) Est GFR (CKD-EPI)NonAf (>60 ml/min/1.73 sqM) Glucose (74-99) mg/dL Plasma Lactic Acid Myles 2.2 H* (0.7-2.0) mmol/L Calcium (8.4-10.2) mg/dL Magnesium (1.6-2.3) mg/dL Total Bilirubin (0.2-1.3) mg/dL AST (14-36) U/L ALT (4-34) U/L Alkaline Phosphatase (38-126) U/L Troponin I 0.025 (0.000-0.034) ng/mL NT-Pro-B Natriuret Pep 61322 pg/mL Total Protein (6.3-8.2) g/dL Albumin (3.5-5.0) g/dL Disposition Clinical Impression: Pulmonary edema Disposition: ADMITTED IP TO THIS HOSP Referrals: Jose L Fall DO [Primary Care Provider] - 1-2 days Time of Disposition: 15:36
--- NOTE | 2022-05-12 14:44 | XR ---
EXAMINATION TYPE: XR chest 2V DATE OF EXAM: 05/12/2022 COMPARISON: 03/21/2022 TECHNIQUE: PA and lateral views submitted. HISTORY: Shortness of breath FINDINGS: Heart is enlarged and there is an interstitial pattern with bilateral pleural effusions and consolida tion greater on the left and similar to prior exam. Arthropathy of the shoulders with severe narrowin g of the glenohumeral joints bilaterally. No sizable pneumothorax. Suspected persistent elevated left hemidiaphragm. IMPRESSION: 1. Bilateral infiltrate and pleural effusion similar to prior exam correlate for CHF otherwise consid er pneumonia.
[2022-05-12 15:48] LABS: Appearance,Urine Cloudy (Clear); Bilirubin,Urine 2+ (Negative); Blood,Urine Negative (Negative); Color,Urine Dark Brown; Glucose,Urine (UA) Trace (Negative); Hyaline Casts,Urine 1 /lpf (0-2); Ketones,Urine Trace (Negative); Leukocyte Esterase,Urine Moderate (Negative); Mucus,Urine Rare /hpf; Nitrite,Urine Negative (Negative); PH, Urine 5.5 (5.0-8.0); Protein,Urine 1+ (Negative); RBC,Urine 3 /hpf (0-5); Specific Gravity,Urine 1.031 (1.001-1.035); Squamous Epithelial Cell,Urine 2 /hpf (0-4); WBC,Urine 12 /hpf (0-5)
[2022-05-12] MEDS ORDERED: FUROSEMIDE 40 MG TAB PO SCH (16:00)
[2022-05-12] MEDS ORDERED: CALCIUM CARBONATE 500 MG CHEWABLE PO PRN (18:41)
[2022-05-12] MEDS ORDERED: TEMAZEPAM 15 MG CAP PO PRN (18:42)
[2022-05-12] MEDS ORDERED: LACTULOSE 20 GM/30 ML CUP PO PRN (18:42)
[2022-05-12] MEDS ORDERED: NALOXONE 0.4 MG/ML 1 ML VIAL IV PRN (18:42)
[2022-05-12] MEDS ORDERED: DEXTROSE 50% SYRINGE 50 ML IVP PRN ×4 (18:42→18:43)
[2022-05-12] MEDS ORDERED: ONDANSETRON 4 MG/2 ML VIAL IVP PRN (18:42)
[2022-05-12] MEDS: CLOPIDOGREL 75 MG TAB PO SCH (22:03)
[2022-05-12] MEDS: ASPIRIN 81 MG PO SCH (22:03)
[2022-05-12] MEDS: METOPROLOL SUCCINATE (ER) 25 MG TAB.ER.24H PO SCH (22:03)
[2022-05-12] MEDS: ATORVASTATIN 80 MG TAB PO SCH (22:04)
[2022-05-12] MEDS: metFORMIN 500 MG TAB PO SCH (22:04)
[2022-05-12] MEDS: FUROSEMIDE 100 MG in SODIUM CHLORIDE 0.9% 90 ML IV SCH (22:04)
[2022-05-12] MEDS: ALPRAZolam 0.5 MG TAB PO SCH (22:04)
[2022-05-12] MEDS: HYDROcodone/APAP 10-325MG 1 EACH TAB PO PRN (22:04)
[2022-05-12 22:16] LABS: Glucose,Whole Blood 171 mg/dL (70-110)
[2022-05-12] MEDS: INSULIN ASPART (NovoLOG) 100 UNIT/ML VIAL SQ SCH (22:19)
[2022-05-13 05:54] LABS: Glucose,Whole Blood 118 mg/dL (70-110)
[2022-05-13] MEDS: FUROSEMIDE 100 MG in SODIUM CHLORIDE 0.9% 90 ML IV SCH ×2 (06:10→16:52)
[2022-05-13 06:21] LABS: African American GFR (CKD) >90 (>60 ml/min/1.73 sqM); Anion Gap 12 mmol/L; Blood Urea Nitrogen 21 mg/dL (7-17); Calcium 8.7 mg/dL (8.4-10.2); Carbon Dioxide 24 mmol/L (22-30); Chloride 103 mmol/L (98-107); Glucose 132 mg/dL (74-99); Non-African American GFR(CKD) 82 (>60 ml/min/1.73 sqM); Potassium 5.1 mmol/L (3.5-5.1); Sodium 139 mmol/L (137-145)
[2022-05-13] MEDS: INSULIN ASPART (NovoLOG) 100 UNIT/ML VIAL SQ SCH ×3 (06:30→16:51)
[2022-05-13] MEDS: metFORMIN 500 MG TAB PO SCH ×2 (06:52→16:52)
[2022-05-13] MEDS: MIDODRINE 5 MG TAB PO SCH ×3 (06:52→16:52)
[2022-05-13] MEDS: CHOLECALCIFEROL 25 MCG (1000 IU) TABLET PO SCH (08:21)
[2022-05-13] MEDS: lisinopriL 20 MG TAB PO SCH (08:21)
[2022-05-13] MEDS: FERROUS SULFATE 325 MG TAB PO SCH (08:21)
[2022-05-13] MEDS: POTASSIUM CHLORIDE ER 10 MEQ TAB.ER.PRT PO SCH (08:21)
[2022-05-13] MEDS: polyethylene glycoL 3350 17 GM POWD.PACK PO SCH (08:23)
[2022-05-13] MEDS: CALCIUM CARBONATE 500 MG CHEWABLE PO SCH (08:25)
[2022-05-13] MEDS: HYDROcodone/APAP 10-325MG 1 EACH TAB PO PRN ×2 (08:27→21:06)
[2022-05-13] MEDS ORDERED: SPIRONOLACTONE 25 MG TAB PO SCH (09:00)
[2022-05-13 10:49] LABS: Anisocytosis Moderate; HCT 34.6 % (34.0-46.0); HGB 10.4 gm/dL (11.4-16.0); Hypochromasia Marked; MCH 29.7 pg (25.0-35.0); MCHC 30.1 g/dL (31.0-37.0); MCV 98.9 fL (80.0-100.0); Macrocytosis Moderate; Mean Platelet Volume 9.7; Platelet Count 267 k/uL (150-450); RBC 3.49 m/uL (3.80-5.40); RDW 20.9 % (11.5-15.5)
[2022-05-13 11:29] LABS: Glucose,Whole Blood 118 mg/dL (70-110)
[2022-05-13] MEDS: DAPAGLIFLOZIN PROPANEDIOL 10 MG TABLET PO SCH (11:32)
--- NOTE | 2022-05-13 11:47 | P.CRDCN ---
History of Present Illness Consult date: 05/13/22 History of present illness: HISTORY OF PRESENT ILLNESS: This is a 71 year old female with a past medical history significant for coronary artery disease with previous stenting, ischemic cardiac myopathy, congestive heart failure, hypertension, hyperlipidemia, and diabetes. Patient follows in the office with Dr. Santos. We have been asked to see the patient in consultation for CHF. Patient examined at the bedside. Patient states over the past few weeks she has noticed increased lower extremity edema. She also reports SOB. She denies chest pain or pressure. She has been taking her medications as prescribed. She states she is not very active at home and has limited mobility. She states that she follows a low sodium diet but then stated she likes to eat canned chicken soup. * EKG reveals sinus mechanism with no signs of acute ischemic * Chest xray bilateral infiltrate and pleural effusion similar to prior exam. Correlate for CHF otherwise consider pneumonia. * Laboratory data: WBC 7.0. Hemoglobin 10.4. Platelet count 267. Sodium 139. Potassium 5.1. BUN 21. Creatinine 0.73. ProBNP 13,200 * Current home cardiac medications include lisinopril 20 mg daily, Aldactone 12.5 mg daily, metoprolol succinate 1.5 mg at night, Lasix 60 mg twice a day, Plavix 75 mg daily, Lipitor 80 mg daily, and aspirin 81 mg daily * Most recent echocardiogram obtained in March 2022 revealed ejection fraction of 20% * Cardiac catheterization history: December 2021 revealing 30-40% mid LAD stenosis, diagonal 1 branch 100% occluded, mid circumflex 100% occluded, RCA 100% occluded. Patient underwent stenting of the diagonal 1 branch REVIEW OF SYSTEMS: At the time of my exam: CONSTITUTIONAL: Denies fever or chills. HEENT: Denies blurred vision, vision changes, or eye pain. Denies hemoptysis CARDIOVASCULAR: Denies chest pain. Denies orthopnea. Denies PND. Denies palpitations RESPIRATORY: Denies shortness of breath. GASTROINTESTINAL: Denies abdominal pain. Denies nausea or vomiting. HEMATOLOGIC: Denies bleeding disorders. GENITOURINARY: Denies any blood in urine. SKIN: Denies pruitis. Denies rash. PHYSICAL EXAM: VITAL SIGNS: Reviewed. GENERAL: Well-developed in no acute distress. HEENT: Head is normocephalic. Pupils are equal, round. Sclerae anicteric. Mucous membranes of the mouth are moist. Neck supple. + JVD LUNGS: Respirations even and unlabored. Lungs diminished with fine bibasilar crackles. HEART: Regular rate and rhythm. S1 and S2 heard. + systolic murmur. ABDOMEN: Soft. Nondistended. Nontender. EXTREMITIES: Normal range of motion. No clubbing or cyanosis. Peripheral pulses intact. 3+ bilateral pitting lower extremity edema NEUROLOGIC: Awake and alert. Oriented x 3. ASSESSMENT: Shortness of breath Acute on chronic heart failure with reduced ejection fraction Coronary artery disease with previous PCI Ischemic cardiomyopathy, ejection fraction 20% Hypertension Hyperlipidemia Diabetes Debility Morbid obesity PLAN: No need to repeat echo at this was performed in March 2022 Continue IV lasix infusion Daily weights, accurate I&O, and monitoring of kidney function Continue additional home cardiac medications Add Farixga 10mg daily Consult CHF navigator due to diet noncompliance Further recommendations pending patient course Nurse practitioner note has been reviewed by physician. Signing provider agrees with the documented findings, assessment, and plan of care. Past Medical History Past Medical History: Coronary Artery Disease (CAD), Heart Failure, Diabetes Mellitus, GERD/Reflux, Hyperlipidemia, Hypertension, Myocardial Infarction (PR), Pneumonia Additional Past Medical History / Comment(s): Pt recently admitted to [facility] on 12/28/21 with exacerbation CHF/PR. Other hx: Pt states she now has low blood pressure, chronic back and bilateral hip pain, osteoporosis, bilateral lower leg edema/redness which is worse in the L leg, difficulty walking pt states d/t previous L knee and L hip replacements. Last Myocardial Infarction Date:: 12/29/21 History of Any Multi-Drug Resistant Organisms: None Reported Past Surgical History: Adenoidectomy, Appendectomy, Bariatric Surgery, Cholecystectomy, Heart Catheterization With Stent, Joint Replacement, Orthopedic Surgery, Tonsillectomy, Tubal Ligation Additional Past Surgical History / Comment(s): Gastric stapling, panniculectomy, total L hip and L knee replacements, bone spurs removed L foot, Past Anesthesia/Blood Transfusion Reactions: No Reported Reaction Date of Last Stent Placement:: 12/29/21 Past Psychological History: Anxiety, Depression Additional Psychological History / Comment(s): Pt resides with her spouse who has health issues. Pt states she receives home care thru [facility] [employer]. She has a cleaning person once a week. Pt states she has increased depression and had suicidal thought recently but no plan. She states her depression is increas ed d/t not being able to assist her spouse as much as she would like. Smoking Status: Never smoker Past Alcohol Use History: None Reported Past Drug Use History: None Reported - Past Family History Father Family Medical History: COPD Additional Family Medical History / Comment(s): End stage COPD Mother Family Medical History: Congestive Heart Failure (CHF) Additional Family Medical History / Comment(s): Mother of CHF Medications and Allergies Home Medications Medication Instructions Recorded Confirmed Type Calcium Carbonate [Calcium] 600 mg PO DAILY 11/13/21 05/12/22 History Cholecalciferol [Vitamin D3 (25 25 mcg PO DAILY 11/13/21 05/12/22 History Mcg = 1000 Iu)] Ferrous Sulfate [Iron (65 MG 325 mg PO DAILY 11/13/21 05/12/22 History Elemental)] Atorvastatin [Lipitor] 80 mg PO HS 12/04/21 05/12/22 History Clopidogrel [Plavix] 75 mg PO HS 12/04/21 05/12/22 History Metoprolol Succinate (ER) [Toprol 12.5 mg PO HS 12/04/21 05/12/22 History XL] Aspirin 81 mg PO HS 12/28/21 05/12/22 History Midodrine [ProAmatine] 5 mg PO AC-TID #90 tab 01/23/22 05/12/22 Rx Potassium Chloride ER [K-Dur 10] 10 meq PO DAILY #30 tab 01/23/22 05/12/22 Rx Spironolactone [Aldactone] 12.5 mg PO DAILY #30 tablet 01/23/22 05/12/22 Rx polyethylene glycoL 3350 [Miralax] 17 gm PO DAILY packet 01/23/22 05/12/22 Rx Furosemide [Lasix] 60 mg PO BID@0900,1600 tab 01/27/22 05/12/22 Rx ALPRAZolam [Xanax] 0.5 mg PO HS 03/21/22 05/12/22 History Calcium Carbonate [Tums] 500 mg PO TID PRN 03/21/22 05/12/22 History HYDROcodone/APAP 10-325MG [[place] 1 tab PO Q6H PRN 03/21/22 05/12/22 History 10-325] metFORMIN HCL [Glucophage] 500 mg PO BID 03/21/22 05/12/22 History lisinopriL [Zestril] 20 mg PO DAILY 05/12/22 05/12/22 History Allergies Allergy/AdvReac Type Severity Reaction Status Date / Time adhesive tape Allergy skin Verified 05/12/22 15:56 blisters morphine AdvReac Hallucinati Verified 05/12/22 15:56 ons Physical Exam Vitals: Vital Signs Temp Pulse Pulse Resp BP BP Pulse Ox 05/13/22 08:20 97.1 F L 70 17 105/74 98 05/13/22 04:00 97.1 F L 79 18 125/86 95 05/13/22 02:00 89 18 05/13/22 00:00 96.9 F L 89 18 120/84 96 05/12/22 21:40 96.9 F L 87 18 112/79 98 05/12/22 20:00 87 18 05/12/22 17:25 90 16 108/79 97 05/12/22 15:32 54 L 16 123/83 97 05/12/22 13:26 97 F L 94 16 131/96 98 Intake and Output 05/12/22 05/13/22 05/13/22 22:59 06:59 14:59 Intake Total 91 720 Output Total 600 2250 700 Balance -600 -2159 20 Intake: IV 10 Invasive Line 2 10 Intake, IV Titration 81 Amount Furosemide 100 mg In 81 Sodium Chloride 0.9% 90 ml @ 10 MG/HR 10 mls/hr IV .Q10H [facility] Rx#: [id number] Oral 720 Output: Urine 600 2250 700 Uretheral (Chavez) 600 400 700 Other: Voiding Method Indwelling Catheter Indwelling Catheter Indwelling Catheter Weight 155.129 kg Results 05/13/22 05:28 05/13/22 05:28 Cardiac Enzymes 05/12/22 05/12/22 Range/Units 13:35 13:35 AST 68 H (14-36) U/L Troponin I 0.025 (0.000-0.034) ng/mL Coagulation 05/12/22 Range/Units 13:35 PT 12.7 H (9.0-12.0) sec APTT 25.2 (22.0-30.0) sec CBC 05/12/22 05/13/22 Range/Units 13:35 05:28 WBC 4.9 7.0 (3.8-10.6) k/uL RBC 3.69 L 3.49 L (3.80-5.40) m/uL Hgb 10.9 L 10.4 L (11.4-16.0) gm/dL Hct 35.1 34.6 (34.0-46.0) % Plt Count 271 267 (150-450) k/uL Comprehensive Metabolic Panel 05/12/22 05/13/22 Range/Units 13:35 05:28 Sodium 139 139 (137-145) mmol/L Potassium 4.8 5.1 (3.5-5.1) mmol/L Chloride 103 103 (98-107) mmol/L Carbon Dioxide 25 24 (22-30) mmol/L BUN 20 H 21 H (7-17) mg/dL Creatinine 0.67 0.73 (0.52-1.04) mg/dL Glucose 169 H 132 H (74-99) mg/dL Calcium 8.5 8.7 (8.4-10.2) mg/dL AST 68 H (14-36) U/L ALT 40 H (4-34) U/L Alkaline Phosphatase 274 H (38-126) U/L Total Protein 7.6 (6.3-8.2) g/dL Albumin 3.3 L (3.5-5.0) g/dL Current Medications Generic Name Dose Route Start Last Admin Trade Name Freq PRN Reason Stop Dose Admin Hydrocodone Bitart/Acetaminophen 1 each 05/12/22 18:41 05/13/22 08:27 Hydrocodone/Apap 10-325mg 1 Each Tab PO 1 each Q6H PRN Administration Pain Alprazolam 0.5 mg 05/12/22 21:00 05/12/22 22:04 Alprazolam 0.5 Mg Tab PO 0.5 mg HS [facility] Administration Aspirin 81 mg 05/12/22 21:00 05/12/22 22:03 Aspirin 81 Mg PO 81 mg HS [facility] Administration Atorvastatin Calcium 80 mg 05/12/22 21:00 05/12/22 22:04 Atorvastatin 80 Mg Tab PO 80 mg HS [facility] Administration Calcium Carbonate/Glycine 500 mg 05/13/22 09:00 05/13/22 08:25 Calcium Carbonate 500 Mg Chewable PO Not Given DAILY [facility] Calcium Carbonate/Glycine 1,000 mg 05/12/22 18:42 Calcium Carbonate 500 Mg Chewable PO Q4HR PRN Dyspepsia Cholecalciferol 25 mcg 05/13/22 09:00 05/13/22 08:21 Cholecalciferol 25 Mcg (1000 Iu) Tablet PO 25 mcg DAILY [facility] Administration Clopidogrel Bisulfate 75 mg 05/12/22 21:00 05/12/22 22:03 Clopidogrel 75 Mg Tab PO 75 mg HS [facility] Administration Dapagliflozin 10 mg 05/13/22 11:00 Dapagliflozin Propanediol 10 Mg Tablet PO DAILY [facility] Dextrose/Water 25 ml 05/12/22 18:42 Dextrose 50% Syringe 50 Ml IVP PER PROTOCOL PRN Hypoglycemia Protocol Dextrose/Water 50 ml 05/12/22 18:42 Dextrose 50% Syringe 50 Ml IVP PER PROTOCOL PRN Hypoglycemia Protocol Dextrose/Water 25 ml 05/12/22 18:43 Dextrose 50% Syringe 50 Ml IVP PER PROTOCOL PRN Hypoglycemia Protocol Dextrose/Water 50 ml 05/12/22 18:43 Dextrose 50% Syringe 50 Ml IVP PER PROTOCOL PRN Hypoglycemia Protocol Ferrous Sulfate 325 mg 05/13/22 09:00 05/13/22 08:21 Ferrous Sulfate 325 Mg Tab PO 325 mg DAILY [facility] Administration Furosemide 100 mg/ Sodium 100 mls @ 10 mls/hr 05/12/22 20:30 05/13/22 06:10 Chloride IV 10 mg/hr .Q10H [facility] 10 mls/hr Administration 10 MG/HR Insulin Aspart 0 unit 05/12/22 18:45 05/13/22 06:30 Insulin Aspart (Novolog) 100 Unit/Ml Vial SQ Not Given AC-TID [facility] Protocol Lactulose 20 gm 05/12/22 18:42 Lactulose 20 Gm/30 Ml Cup PO DAILY PRN Constipation Lisinopril 20 mg 05/13/22 09:00 05/13/22 08:21 Lisinopril 20 Mg Tab PO 20 mg DAILY [facility] Administration Metformin HCl 500 mg 05/12/22 21:00 05/13/22 06:52 Metformin 500 Mg Tab PO 500 mg BID-W/MEALS [facility] Administration Metoprolol Succinate 12.5 mg 05/12/22 21:00 05/12/22 22:03 Metoprolol Succinate (Er) 25 Mg Tab.Er.24h PO 12.5 mg HS [facility] Administration Midodrine 5 mg 05/13/22 07:30 05/13/22 06:52 Midodrine 5 Mg Tab PO 5 mg AC-TID [facility] Administration Naloxone HCl 0.2 mg 05/12/22 18:42 Naloxone 0.4 Mg/Ml 1 Ml Vial IV Q2M PRN Opioid Reversal Ondansetron HCl 4 mg 05/12/22 18:42 Ondansetron 4 Mg/2 Ml Vial IVP Q8HR PRN Nausea And Vomiting Polyethylene Glycol 17 gm 05/13/22 09:00 05/13/22 08:23 Polyethylene Glycol 3350 17 Gm Powd.Pack PO Not Given DAILY [facility] Potassium Chloride 10 meq 05/13/22 09:00 05/13/22 08:21 Potassium Chloride Er 10 Meq Tab.Er.Prt PO 10 meq DAILY [facility] Administration Spironolactone 12.5 mg 05/13/22 09:00 05/13/22 08:21 Spironolactone 25 Mg Tab PO 12.5 mg DAILY [facility] Administration Temazepam 15 mg 05/12/22 18:42 Temazepam 15 Mg Cap PO HS PRN Insomnia Intake and Output 05/12/22 05/13/22 05/13/22 22:59 06:59 14:59 Intake Total 91 720 Output Total 600 2250 700 Balance -600 -2159 20 Intake: IV 10 Invasive Line 2 10 Intake, IV Titration 81 Amount Furosemide 100 mg In 81 Sodium Chloride 0.9% 90 ml @ 10 MG/HR 10 mls/hr IV .Q10H [facility] Rx#: [id number] Oral 720 Output: Urine 600 2250 700 Uretheral (Chavez) 600 400 700 Other: Voiding Method Indwelling Catheter Indwelling Catheter Indwelling Catheter Weight 155.129 kg 05/13/22 05:28 05/13/22 05:28
--- NOTE | 2022-05-13 12:15 | P.HPIM ---
History of Present Illness H&P Date: 05/12/22 Chief Complaint: Increasing edema This is a pleasant 71 years old with past medical history of Coronary Artery Disease status post stent , chronic Heart Failure EF 20%, Diabetes Mellitus, GERD/Reflux, Hyperlipidemia, Hypertension, , chronic back and bilateral hip pain, osteoporosis, bilateral lower leg edema/redness which is worse in the L leg, March 2022 acute PE on eliquis. Patient recently admitted to the hospital in March 2022 with acute PE, CHF exacerbation. EF 20%. UTI. Patient presents with significant swelling of the lower extremity. More short of breath. Not able to do any chores. Feels chilly all the time. Decreased appetite. Does use upon a chair. Patient's a month ago and finding it much more difficult to do things. No fever no chills. No cough. Patient has been drinking quite a bit of water. Review of systems: GEN.: Tired, decreased appetite EYES: None HEENT: None NECK: None RESPIRATORY: Short of breath CARDIOVASCULAR: Significant edema GASTROINTESTINAL: None GENITOURINARY: None MUSCULOSKELETAL: Joint pain LYMPHATICS: None HEMATOLOGICAL: None PSYCHIATRY: Bit anxious NEUROLOGICAL: Difficulty with ambulation Past medical history to include: Pulmonary embolism March 2022, CHF EF 20%, CAD with stent, hypertension, hyperlipidemia, diabetes mellitus type 2, chronic medical debility Social history: Patient's a month ago. Nonsmoker. No alcohol. Physical examination: VITAL SIGNS: 97, 94, 16, 131/ 96, 98% room air GENERAL: BMI 52, sitting on bed, awake, short of breath. EYES: Pupils equal. Conjunctiva normal. HEENT: External appearance of nose and ears normal, oral cavity grossly normal. NECK: JVD unable to assess; masses not palpable. HEART: First and second heart sounds are normal; gross edema up to the thighs. LUNGS: Respiratory rate increased; diminished breath sounds. ABDOMEN: Soft, nontender, liver spleen not palpable, no masses palpable. PSYCH: Alert and oriented x3; mood and affect normal. MUSCULOSKELETAL:No Clubbing/cyanosis;muscles-grossly intact, evidence of OA NEUROLOGICAL: Cranial nerves grossly intact; no facial asymmetry, power and sensation grossly intact. LYMPHATICS: No lymph nodes palpable in the axilla and neck INVESTIGATIONS, reviewed in the clinical context: WBC 4.9 hemoglobin 10.9 platelets 271 potassium 4.8 BUN 20 creatinine 0.67 lac tic acid 2.2 total bilirubin 3.1 AST 68 ALT 40 EKG tracing personally reviewed by me-normal sinus rhythm. Nonspecific T-wave changes. Chest x-ray film personally reviewed by me-pulmonary edema, left pleural effusion 2-D echocardiogram [March 2022]: EF 20% Assessment and plan: -Acute on chronic systolic congestive heart failure with ejection fraction 20% Aldactone 12.5 mg daily. Lasix drip at 10 mg an hour. Strict I's and O's. Fluid restriction -Chronic pulmonary embolism, March 2022 Eliquis -Acute medical asthenia secondary to above medical problems PTOT. Consult case management specialist -Chronic medical debility ; has a wheelchair at home. case management specialist. -Moderate left pleural effusion, secondary to CHF Aldactone. Lasix. -coronary artery disease status post stenting Aspirin, Lipitor, Plavix, Toprol-XL -Essential Hypertension Toprol-XL 12.5 -Hyperlipidemia Lipitor - diabetes mellitus type II on oral hypoglycemic Glucophage. Follow Accu-Cheks -DO NOT RESUSCITATE IV Lasix drip. Strict I's and O's. Resume home medications. 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 Discussed with patient. Follow labs. Past Medical History Past Medical History: Coronary Artery Disease (CAD), Heart Failure, Diabetes Mellitus, GERD/Reflux, Hyperlipidemia, Hypertension, Myocardial Infarction (DC), Pneumonia Additional Past Medical History / Comment(s): Pt recently admitted to [facility] on 12/28/21 with exacerbation CHF/DC. Other hx: Pt states she now has low blood pressure, chronic back and bilateral hip pain, osteoporosis, bilateral lower leg edema/redness which is worse in the L leg, difficulty walking pt states d/t previous L knee and L hip replacements. Last Myocardial Infarction Date:: 12/29/21 History of Any Multi-Drug Resistant Organisms: None Reported Past Surgical History: Adenoidectomy, Appendectomy, Bariatric Surgery, Cholecystectomy, Heart Catheterization With Stent, Joint Replacement, Orthopedic Surgery, Tonsillectomy, Tubal Ligation Additional Past Surgical History / Comment(s): Gastric stapling, panniculectomy, total L hip and L knee replacements, bone spurs removed L foot, Past Anesthesia/Blood Transfusion Reactions: No Reported Reaction Date of Last Stent Placement:: 12/29/21 Past Psychological History: Anxiety, Depression Smoking Status: Never smoker Past Alcohol Use History: None Reported Past Drug Use History: None Reported - Past Family History Father Family Medical History: COPD Additional Family Medical History / Comment(s): End stage COPD Mother Family Medical History: Congestive Heart Failure (CHF) Additional Family Medical History / Comment(s): Mother of CHF Medications and Allergies Home Medications Medication Instructions Recorded Confirmed Type Calcium Carbonate [Calcium] 600 mg PO DAILY 11/13/21 05/12/22 History Cholecalciferol [Vitamin D3 (25 25 mcg PO DAILY 11/13/21 05/12/22 History Mcg = 1000 Iu)] Ferrous Sulfate [Iron (65 MG 325 mg PO DAILY 11/13/21 05/12/22 History Elemental)] Atorvastatin [Lipitor] 80 mg PO HS 12/04/21 05/12/22 History Clopidogrel [Plavix] 75 mg PO HS 12/04/21 05/12/22 History Metoprolol Succinate (ER) [Toprol 12.5 mg PO HS 12/04/21 05/12/22 History XL] Aspirin 81 mg PO HS 12/28/21 05/12/22 History Midodrine [ProAmatine] 5 mg PO AC-TID #90 tab 01/23/22 05/12/22 Rx Potassium Chloride ER [K-Dur 10] 10 meq PO DAILY #30 tab 01/23/22 05/12/22 Rx Spironolactone [Aldactone] 12.5 mg PO DAILY #30 tablet 01/23/22 05/12/22 Rx polyethylene glycoL 3350 [Miralax] 17 gm PO DAILY packet 01/23/22 05/12/22 Rx Furosemide [Lasix] 60 mg PO BID@0900,1600 tab 01/27/22 05/12/22 Rx ALPRAZolam [Xanax] 0.5 mg PO HS 03/21/22 05/12/22 History Calcium Carbonate [Tums] 500 mg PO TID PRN 03/21/22 05/12/22 History HYDROcodone/APAP 10-325MG [Gallant 1 tab PO Q6H PRN 03/21/22 05/12/22 History 10-325] metFORMIN HCL [Glucophage] 500 mg PO BID 03/21/22 05/12/22 History lisinopriL [Zestril] 20 mg PO DAILY 05/12/22 05/12/22 History Allergies Allergy/AdvReac Type Severity Reaction Status Date / Time adhesive tape Allergy skin Verified 05/12/22 15:56 blisters morphine AdvReac Hallucinati Verified 05/12/22 15:56 ons Physical Exam Vitals: Vital Signs Temp Pulse Resp BP Pulse Ox 05/12/22 17:25 90 16 108/79 97 05/12/22 15:32 54 L 16 123/83 97 05/12/22 13:26 97 F L 94 16 131/96 98 Intake and Output 05/12/22 05/12/22 05/12/22 06:59 14:59 22:59 Other: Weight 155.129 kg Results CBC & Chem 7: 05/13/22 05:28 05/13/22 05:28 Labs: Abnormal Lab Results - Last 24 Hours (Table) 05/12/22 05/12/22 05/12/22 Range/Units 13:35 13:35 13:35 RBC 3.69 L (3.80-5.40) m/uL Hgb 10.9 L (11.4-16.0) gm/dL RDW 20.5 H (11.5-15.5) % Lymphocytes # 0.8 L (1.0-4.8) k/uL PT 12.7 H (9.0-12.0) sec INR 1.2 H (<1.2) BUN (7-17) mg/dL Glucose (74-99) mg/dL Plasma Lactic Acid Myles (0.7-2.0) mmol/L Total Bilirubin (0.2-1.3) mg/dL AST (14-36) U/L ALT (4-34) U/L Alkaline Phosphatase (38-126) U/L Albumin (3.5-5.0) g/dL Urine Appearance Cloudy H (Clear) Urine Protein 1+ H (Negative) Urine Glucose (UA) Trace H (Negative) Urine Ketones Trace H (Negative) Urine Bilirubin 2+ H (Negative) Ur Leukocyte Esterase Moderate H (Negative) Urine WBC 12 H (0-5) /hpf Urine Mucus Rare H (None) /hpf 05/12/22 05/12/22 Range/Units 13:35 13:35 RBC (3.80-5.40) m/uL Hgb (11.4-16.0) gm/dL RDW (11.5-15.5) % Lymphocytes # (1.0-4.8) k/uL PT (9.0-12.0) sec INR (<1.2) BUN 20 H (7-17) mg/dL Glucose 169 H (74-99) mg/dL Plasma Lactic Acid Myles 2.2 H* (0.7-2.0) mmol/L Total Bilirubin 3.1 H (0.2-1.3) mg/dL AST 68 H (14-36) U/L ALT 40 H (4-34) U/L Alkaline Phosphatase 274 H (38-126) U/L Albumin 3.3 L (3.5-5.0) g/dL Urine Appearance (Clear) Urine Protein (Negative) Urine Glucose (UA) (Negative) Urine Ketones (Negative) Urine Bilirubin (Negative) Ur Leukocyte Esterase (Negative) Urine WBC (0-5) /hpf Urine Mucus (None) /hpf
--- NOTE | 2022-05-13 12:19 | P.PN ---
Progress Note - Text Progress Note Date: 05/13/22 Chief Complaint: Increasing edema This is a pleasant 71 years old with past medical history of Coronary Artery Disease status post stent , chronic Heart Failure EF 20%, Diabetes Mellitus, GERD/Reflux, Hyperlipidemia, Hypertension, , chronic back and bilateral hip pain, osteoporosis, bilateral lower leg edema/redness which is worse in the L leg, March 2022 acute PE on eliquis. Patient recently admitted to the hospital in March 2022 with acute PE, CHF exacerbation. EF 20%. UTI. Patient presents with significant swelling of the lower extremity. More short of breath. Not able to do any chores. Feels chilly all the time. Decreased appetite. Does use upon a chair. Patient's a month ago and finding it much more difficult to do things. No fever no chills. No cough. Patient has been drinking quite a bit of water. Admitted with acute CHF exacerbation EF 20%. Started on Lasix drip 10 mg an hour. Strict I's and O's. 05/13/2022: On Lasix drip 10 mg hour. About 2715 negative fluid balance. Fluid restriction. Discussed with patient. PTOT. Active Medications Hydrocodone Bitart/Acetaminophen (Hydrocodone/Apap 10-325mg 1 Each Tab) 1 each PO Q6H PRN PRN Reason: Pain Last Admin: 05/13/22 08:27 Dose: 1 each Alprazolam (Alprazolam 0.5 Mg Tab) 0.5 mg PO [facility] Last Admin: 05/12/22 22:04 Dose: 0.5 mg Aspirin (Aspirin 81 Mg) 81 mg PO [facility] Last Admin: 05/12/22 22:03 Dose: 81 mg Atorvastatin Calcium (Atorvastatin 80 Mg Tab) 80 mg PO HS [facility] Last Admin: 05/12/22 22:04 Dose: 80 mg Calcium Carbonate/Glycine (Calcium Carbonate 500 Mg Chewable) 500 mg PO DAILY [facility] Last Admin: 05/13/22 08:25 Dose: Not Given Calcium Carbonate/Glycine (Calcium Carbonate 500 Mg Chewable) 1,000 mg PO Q4HR PRN PRN Reason: Dyspepsia Cholecalciferol (Cholecalciferol 25 Mcg (1000 Iu) Tablet) 25 mcg PO DAILY [facility] Last Admin: 05/13/22 08:21 Dose: 25 mcg Clopidogrel Bisulfate (Clopidogrel 75 Mg Tab) 75 mg PO [facility] Last Admin: 05/12/22 22:03 Dose: 75 mg Dapagliflozin (Dapagliflozin Propanediol 10 Mg Tablet) 10 mg PO DAILY [facility] Last Admin: 05/13/22 11:32 Dose: 10 mg Dextrose/Water (Dextrose 50% Syringe 50 Ml) 25 ml IVP PER PROTOCOL PRN; Protocol PRN Reason: Hypoglycemia Dextrose/Water (Dextrose 50% Syringe 50 Ml) 50 ml IVP PER PROTOCOL PRN; Protocol PRN Reason: Hypoglycemia Dextrose/Water (Dextrose 50% Syringe 50 Ml) 25 ml IVP PER PROTOCOL PRN; Protocol PRN Reason: Hypoglycemia Dextrose/Water (Dextrose 50% Syringe 50 Ml) 50 ml IVP PER PROTOCOL PRN; Protocol PRN Reason: Hypoglycemia Ferrous Sulfate (Ferrous Sulfate 325 Mg Tab) 325 mg PO DAILY [facility] Last Admin: 05/13/22 08:21 Dose: 325 mg Furosemide 100 mg/ Sodium (Chloride) 100 mls @ 10 mls/hr IV .Q10H [facility] Last Admin: 05/13/22 06:10 Dose: 10 mg/hr, 10 mls/hr Insulin Aspart (Insulin Aspart (Novolog) 100 Unit/Ml Vial) 0 unit SQ AC-TID [facility]; Protocol Last Admin: 05/13/22 11:33 Dose: Not Given Lactulose (Lactulose 20 Gm/30 Ml Cup) 20 gm PO DAILY PRN PRN Reason: Constipation Lisinopril (Lisinopril 20 Mg Tab) 20 mg PO DAILY [facility] Last Admin: 05/13/22 08:21 Dose: 20 mg Metformin HCl (Metformin 500 Mg Tab) 500 mg PO BID-W/MEALS [facility] Last Admin: 05/13/22 06:52 Dose: 500 mg Metoprolol Succinate (Metoprolol Succinate (Er) 25 Mg Tab.Er.24h) 12.5 mg PO [facility] Last Admin: 05/12/22 22:03 Dose: 12.5 mg Midodrine (Midodrine 5 Mg Tab) 5 mg PO AC-TID [facility] Last Admin: 05/13/22 11:32 Dose: 5 mg Naloxone HCl (Naloxone 0.4 Mg/Ml 1 Ml Vial) 0.2 mg IV Q2M PRN PRN Reason: Opioid Reversal Ondansetron HCl (Ondansetron 4 Mg/2 Ml Vial) 4 mg IVP Q8HR PRN PRN Reason: Nausea And Vomiting Polyethylene Glycol (Polyethylene Glycol 3350 17 Gm Powd.Pack) 17 gm PO DAILY [facility] Last Admin: 05/13/22 08:23 Dose: Not Given Potassium Chloride (Potassium Chloride Er 10 Meq Tab.Er.Prt) 10 meq PO DAILY [facility] Last Admin: 05/13/22 08:21 Dose: 10 meq Spironolactone (Spironolactone 25 Mg Tab) 12.5 mg PO DAILY [facility] Last Admin: 05/13/22 08:21 Dose: 12.5 mg Temazepam (Temazepam 15 Mg Cap) 15 mg PO HS PRN PRN Reason: Insomnia Past medical history to include: Pulmonary embolism March 2022, CHF EF 20%, CAD with stent, hypertension, hyperlipidemia, diabetes mellitus type 2, chronic medical debility Social history: Patient's a month ago. Nonsmoker. No alcohol. Physical examination: VITAL SIGNS: 97.1, 70, 17, 105/74, 98% room air GENERAL: sitting on bed, awake, short of breath. EYES: Pupils equal. Conjunctiva normal. HEENT: External appearance of nose and ears normal, oral cavity grossly normal. NECK: JVD unable to assess; masses not palpable. HEART: First and second heart sounds are normal; gross edema up to the thighs. LUNGS: Respiratory rate increased; diminished breath sounds. ABDOMEN: Soft, nontender, liver spleen not palpable, no masses palpable. PSYCH: Alert and oriented x3; mood and affect normal. MUSCULOSKELETAL:No Clubbing/cyanosis;muscles-grossly intact, evidence of OA INVESTIGATIONS, reviewed in the clinical context: 05/13/2022: WBC 7 hemoglobin 10.4 platelets 267 potassium 5.1 creatinine 0.73 WBC 4.9 hemoglobin 10.9 platelets 271 potassium 4.8 BUN 20 creatinine 0.67 lactic acid 2.2 total bilirubin 3.1 AST 68 ALT 40 EKG tracing personally reviewed by me-normal sinus rhythm. Nonspecific T-wave changes. Chest x-ray film personally reviewed by me-pulmonary edema, left pleural effusion 2-D echocardiogram [March 2022]: EF 20% Assessment and plan: -Acute on chronic systolic congestive heart failure with ejection fraction 20%, slow to respond Increase Aldactone 25 mg daily. Lasix drip at 10 mg an hour. Strict I's and O's. Fluid restriction -Chronic pulmonary embolism, March 2022 Eliquis -Acute medical asthenia secondary to above medical problems PTOT. Consult porter sample case -Chronic medical debility ; has a wheelchair at home. porter sample case. -Moderate left pleural effusion, secondary to CHF Aldactone. Lasix. -coronary artery disease status post stenting Aspirin, Lipitor, Plavix, Toprol-XL -Essential Hypertension Toprol-XL 12.5 -Hyperlipidemia Lipitor - diabetes mellitus type II on oral hypoglycemic Glucophage. Follow Accu-Cheks -DO NOT RESUSCITATE IV Lasix drip continues to. Strict I's and O's. Follow labs. Discussed with patient. Patient started on [facility] cardiology.
[2022-05-13] MEDS ORDERED: SPIRONOLACTONE 25 MG TAB PO ONE (12:30)
[2022-05-13 16:45] LABS: Glucose,Whole Blood 133 mg/dL (70-110)
[2022-05-13 20:08] LABS: Glucose,Whole Blood 98 mg/dL (70-110)
[2022-05-13] MEDS: ALPRAZolam 0.5 MG TAB PO SCH (21:05)
[2022-05-13] MEDS: METOPROLOL SUCCINATE (ER) 25 MG TAB.ER.24H PO SCH (21:05)
[2022-05-13] MEDS: CLOPIDOGREL 75 MG TAB PO SCH (21:06)
[2022-05-13] MEDS: ATORVASTATIN 80 MG TAB PO SCH (21:06)
[2022-05-13] MEDS: ASPIRIN 81 MG PO SCH (21:06)
[2022-05-14] MEDS: FUROSEMIDE 100 MG in SODIUM CHLORIDE 0.9% 90 ML IV SCH ×2 (04:09→17:03)
[2022-05-14 06:00] LABS: Glucose,Whole Blood 132 mg/dL (70-110)
[2022-05-14] MEDS: INSULIN ASPART (NovoLOG) 100 UNIT/ML VIAL SQ SCH ×3 (06:24→17:05)
[2022-05-14] MEDS: MIDODRINE 5 MG TAB PO SCH ×3 (06:25→17:07)
[2022-05-14] MEDS: metFORMIN 500 MG TAB PO SCH ×2 (06:25→17:08)
[2022-05-14 08:47] LABS: Calcium 8.5 mg/dL (8.4-10.2); Potassium 4.7 mmol/L (3.5-5.1)
[2022-05-14] MEDS: DAPAGLIFLOZIN PROPANEDIOL 10 MG TABLET PO SCH (09:07)
[2022-05-14] MEDS: FERROUS SULFATE 325 MG TAB PO SCH (09:09)
[2022-05-14] MEDS: POTASSIUM CHLORIDE ER 10 MEQ TAB.ER.PRT PO SCH (09:09)
[2022-05-14] MEDS: CALCIUM CARBONATE 500 MG CHEWABLE PO SCH (09:09)
[2022-05-14] MEDS: CHOLECALCIFEROL 25 MCG (1000 IU) TABLET PO SCH (09:09)
[2022-05-14] MEDS: polyethylene glycoL 3350 17 GM POWD.PACK PO SCH (09:10)
--- NOTE | 2022-05-14 09:59 | P.PN ---
Subjective Progress Note Date: 05/14/22 HISTORY OF PRESENT ILLNESS: This is a 71 year old female with a past medical history significant for coronary artery disease with previous stenting, ischemic cardiac myopathy, congestive heart failure, hypertension, hyperlipidemia, and diabetes. Patient follows in the office with Dr. Santos. We have been asked to see the patient in consultation for CHF. Patient examined at the bedside. Patient states over the past few weeks she has noticed increased lower extremity edema. She also reports SOB. She denies chest pain or pressure. She has been taking her medications as prescribed. She states she is not very active at home and has limited mobility. She states that she follows a low sodium diet but then stated she likes to eat canned chicken soup. * EKG reveals sinus mechanism with no signs of acute ischemic * Chest xray bilateral infiltrate and pleural effusion similar to prior exam. Correlate for CHF otherwise consider pneumonia. * Laboratory data: WBC 7.0. Hemoglobin 10.4. Platelet count 267. Sodium 139. Potassium 5.1. BUN 21. Creatinine 0.73. ProBNP 13,200 * Current home cardiac medications include lisinopril 20 mg daily, Aldactone 12.5 mg daily, metoprolol succinate 1.5 mg at night, Lasix 60 mg twice a day, Plavix 75 mg daily, Lipitor 80 mg daily, and aspirin 81 mg daily * Most recent echocardiogram obtained in March 2022 revealed ejection fraction of 20% * Cardiac catheterization history: December 2021 revealing 30-40% mid LAD stenosis, diagonal 1 branch 100% occluded, mid circumflex 100% occluded, RCA 100% occluded. Patient underwent stenting of the diagonal 1 branch 05/14/2022 Patient examined this morning at the bedside. Patient denies chest pain or pressure. She denies SOB. She remains on IV lasix infusion at 10mg/hr. Creati nine stable at 0.98. She has a baxter catheter. Fluid balance is -1800cc over the last 24 hours. PHYSICAL EXAM: VITAL SIGNS: Reviewed. GENERAL: Well-developed in no acute distress. HEENT: Head is normocephalic. Pupils are equal, round. Sclerae anicteric. Mucous membranes of the mouth are moist. Neck supple. + JVD LUNGS: Respirations even and unlabored. Lungs diminished with fine bibasilar crackles. HEART: Regular rate and rhythm. S1 and S2 heard. + systolic murmur. ABDOMEN: Soft. Nondistended. Nontender. EXTREMITIES: Normal range of motion. No clubbing or cyanosis. Peripheral pulses intact. 3+ bilateral pitting lower extremity edema NEUROLOGIC: Awake and alert. Oriented x 3. ASSESSMENT: Shortness of breath Acute on chronic heart failure with reduced ejection fraction Coronary artery disease with previous PCI Ischemic cardiomyopathy, ejection fraction 20% Hypertension Hyperlipidemia Diabetes Debility Morbid obesity PLAN: No need to repeat echo at this was performed in March 2022 Continue IV lasix infusion Daily weights, accurate I&O, and monitoring of kidney function Continue additional home cardiac medications Further recommendations pending patient course Nurse practitioner note has been reviewed by physician. Signing provider agrees with the documented findings, assessment, and plan of care. Objective - Vital Signs Vital signs: Vital Signs Temp 97.4 F L 05/14/22 03:32 Pulse 52 L 05/14/22 03:32 Resp 16 05/14/22 03:32 BP 90/60 05/14/22 03:32 Pulse Ox 94 L 05/14/22 08:28 FiO2 Intake & Output 05/13/22 05/14/22 05/14/22 18:59 06:59 18:59 Intake Total 945 100 240 Output Total 2000 850 400 Balance -1055 -750 -160 Weight 137.5 kg Intake: Intake, IV Titration 100 100 Amount Furosemide 100 mg In 100 100 Sodium Chloride 0.9% 90 ml @ 10 MG/HR 10 mls/hr IV .Q10H [facility] Rx#: [id number] Oral 845 240 Output: Urine 2000 850 400 Uretheral (Baxter) 700 850 Other: Voiding Method Indwelling Catheter Indwelling Catheter # Bowel Movements 1 - Labs CBC & Chem 7: 05/13/22 05:28 05/14/22 07:59 Labs: Abnormal Lab Results - Last 24 Hours (Table) 05/13/22 05/13/22 05/13/22 Range/Units 05:28 11: 16:44 RBC 3.49 L (3.80-5.40) m/uL Hgb 10.4 L (11.4-16.0) gm/dL MCHC 30.1 L (31.0-37.0) g/dL RDW 20.9 H (11.5-15.5) % BUN (7-17) mg/dL Glucose (74-99) mg/dL POC Glucose (mg/dL) 118 H 133 H (70-110) mg/dL 05/14/22 05/14/22 Range/Units 05:58 07:59 RBC (3.80-5.40) m/uL Hgb (11.4-16.0) gm/dL MCHC (31.0-37.0) g/dL RDW (11.5-15.5) % BUN 24 H (7-17) mg/dL Glucose 123 H (74-99) mg/dL POC Glucose (mg/dL) 132 H (70-110) mg/dL
[2022-05-14 11:34] LABS: Glucose,Whole Blood 124 mg/dL (70-110)
--- NOTE | 2022-05-14 12:35 | P.PN ---
Progress Note - Text Progress Note Date: 05/14/22 Chief Complaint: Increasing edema This is a pleasant 71 years old with past medical history of Coronary Artery Disease status post stent , chronic Heart Failure EF 20%, Diabetes Mellitus, GERD/Reflux, Hyperlipidemia, Hypertension, , chronic back and bilateral hip pain, osteoporosis, bilateral lower leg edema/redness which is worse in the L leg, March 2022 acute PE on eliquis. Patient recently admitted to the hospital in March 2022 with acute PE, CHF exacerbation. EF 20%. UTI. Patient presents with significant swelling of the lower extremity. More short of breath. Not able to do any chores. Feels chilly all the time. Decreased appetite. Does use upon a chair. Patient's a month ago and finding it much more difficult to do things. No fever no chills. No cough. Patient has been drinking quite a bit of water. Admitted with acute CHF exacerbation EF 20%. Started on Lasix drip 10 mg an hour. Strict I's and O's. 05/13/2022: On Lasix drip 10 mg hour. About 2715 negative fluid balance. Fluid restriction. Discussed with patient. PTOT. 05/14/2022: Remains a Lasix drip. About 4600 and negative fluid balance. Sitting up in a chair. Oral intake good. PTOT. 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 Active Medications Hydrocodone Bitart/Acetaminophen (Hydrocodone/Apap 10-325mg 1 Each Tab) 1 each PO Q6H PRN PRN Reason: Pain Last Admin: 05/13/22 21:06 Dose: 1 each Alprazolam (Alprazolam 0.5 Mg Tab) 0.5 mg PO HS [facility] Last Admin: 05/13/22 21:05 Dose: 0.5 mg Aspirin (Aspirin 81 Mg) 81 mg PO HS [facility] Last Admin: 05/13/22 21:06 Dose: 81 mg Atorvastatin Calcium (Atorvastatin 80 Mg Tab) 80 mg PO HS [facility] Last Admin: 05/13/22 21:06 Dose: 80 mg Calcium Carbonate/Glycine (Calcium Carbonate 500 Mg Chewable) 500 mg PO DAILY [facility] Last Admin: 05/14/22 09:09 Dose: 500 mg Calcium Carbonate/Glycine (Calcium Carbonate 500 Mg Chewable) 1,000 mg PO Q4HR PRN PRN Reason: Dyspepsia Cholecalciferol (Cholecalciferol 25 Mcg (1000 Iu) Tablet) 25 mcg PO DAILY [facility] Last Admin: 05/14/22 09:09 Dose: 25 mcg Clopidogrel Bisulfate (Clopidogrel 75 Mg Tab) 75 mg PO HS [facility] Last Admin: 05/13/22 21:06 Dose: 75 mg Dapagliflozin (Dapagliflozin Propanediol 10 Mg Tablet) 10 mg PO DAILY [facility] Last Admin: 05/14/22 09:07 Dose: 10 mg Dextrose/Water (Dextrose 50% Syringe 50 Ml) 25 ml IVP PER PROTOCOL PRN; Protocol PRN Reason: Hypoglycemia Dextrose/Water (Dextrose 50% Syringe 50 Ml) 50 ml IVP PER PROTOCOL PRN; Protocol PRN Reason: Hypoglycemia Dextrose/Water (Dextrose 50% Syringe 50 Ml) 25 ml IVP PER PROTOCOL PRN; Protocol PRN Reason: Hypoglycemia Dextrose/Water (Dextrose 50% Syringe 50 Ml) 50 ml IVP PER PROTOCOL PRN; Protocol PRN Reason: Hypoglycemia Ferrous Sulfate (Ferrous Sulfate 325 Mg Tab) 325 mg PO DAILY [facility] Last Admin: 05/14/22 09:09 Dose: 325 mg Furosemide 100 mg/ Sodium (Chloride) 100 mls @ 10 mls/hr IV .Q10H [facility] Last Admin: 05/14/22 04:09 Dose: 10 mg/hr, 10 mls/hr Insulin Aspart (Insulin Aspart (Novolog) 100 Unit/Ml Vial) 0 unit SQ AC-TID [facility]; Protocol Last Admin: 05/14/22 11:58 Dose: Not Given Lactulose (Lactulose 20 Gm/30 Ml Cup) 20 gm PO DAILY PRN PRN Reason: Constipation Lisinopril (Lisinopril 20 Mg Tab) 20 mg PO DAILY [facility] Last Admin: 05/13/22 08:21 Dose: 20 mg Metformin HCl (Metformin 500 Mg Tab) 500 mg PO BID-W/MEALS [facility] Last Admin: 05/14/22 06:25 Dose: 500 mg Metoprolol Succinate (Metoprolol Succinate (Er) 25 Mg Tab.Er.24h) 12.5 mg PO HS [facility] Last Admin: 05/13/22 21:05 Dose: 12.5 mg Midodrine (Midodrine 5 Mg Tab) 5 mg PO AC-TID [facility] Last Admin: 05/14/22 12:20 Dose: 5 mg Naloxone HCl (Naloxone 0.4 Mg/Ml 1 Ml Vial) 0.2 mg IV Q2M PRN PRN Reason: Opioid Reversal Ondansetron HCl (Ondansetron 4 Mg/2 Ml Vial) 4 mg IVP Q8HR PRN PRN Reason: Nausea And Vomiting Polyethylene Glycol (Polyethylene Glycol 3350 17 Gm Powd.Pack) 17 gm PO DAILY [facility] Last Admin: 05/14/22 09:10 Dose: Not Given Potassium Chloride (Potassium Chloride Er 10 Meq Tab.Er.Prt) 10 meq PO DAILY [facility] Last Admin: 05/14/22 09:09 Dose: 10 meq Spironolactone (Spironolactone 25 Mg Tab) 25 mg PO DAILY [facility] Temazepam (Temazepam 15 Mg Cap) 15 mg PO HS PRN PRN Reason: Insomnia Past medical history to include: Pulmonary embolism March 2022, CHF EF 20%, CAD with stent, hypertension, hyperlipidemia, diabetes mellitus type 2, chronic medical debility Social history: Patient's a month ago. Nonsmoker. No alcohol. Physical examination: VITAL SIGNS: 96.1, 60, 16, 82 x 56, 97% room air GENERAL: sitting on chair, awake, breathing better EYES: Pupils equal. Conjunctiva normal. HEENT: External appearance of nose and ears normal, oral cavity grossly normal. NECK: JVD unable to assess; masses not palpable. HEART: First and second heart sounds are normal; gross edema up to the thighs. LUNGS: Respiratory rate increased; diminished breath sounds. ABDOMEN: Soft, nontender, liver spleen not palpable, no masses palpable. PSYCH: Alert and oriented x3; mood and affect normal. MUSCULOSKELETAL:No Clubbing/cyanosis;muscles-grossly intact, evidence of OA INVESTIGATIONS, reviewed in the clinical context: 05/14/2022: Potassium 4.7 BUN 24 creatinine 0.98 05/13/2022: WBC 7 hemoglobin 10.4 platelets 267 potassium 5.1 creatinine 0.73 WBC 4.9 hemoglobin 10.9 platelets 271 potassium 4.8 BUN 20 creatinine 0.67 lactic acid 2.2 total bilirubin 3.1 AST 68 ALT 40 EKG tracing personally reviewed by me-normal sinus rhythm. Nonspecific T-wave changes. Chest x-ray film personally reviewed by me-pulmonary edema, left pleural effusion 2-D echocardiogram [March 2022]: EF 20% Assessment and plan: -Acute on chronic systolic congestive heart failure with ejection fraction 20%, slow to respond Aldactone 25 mg daily. Lasix drip at 10 mg an hour. Strict I's and O's. Fluid restriction -Chronic pulmonary embolism, March 2022 Eliquis -Acute medical asthenia secondary to above medical problems PTOT. Consult counter caser -Chronic medical debility ; has a wheelchair at home. counter caser. -Moderate left pleural effusion, secondary to CHF Aldactone. Lasix. -coronary artery disease status post stenting Aspirin, Lipitor, Plavix, Toprol-XL -Essential Hypertension Toprol-XL 12.5 -Hyperlipidemia Lipitor - diabetes mellitus type II on oral hypoglycemic Glucophage. Follow Accu-Cheks -DO NOT RESUSCITATE IV Lasix drip continues . Strict I's and O's. Discussed with patient. In counter caser. Looking at possible rehab.
[2022-05-14 12:43] VITALS: BMI 46.0
[2022-05-14 16:31] LABS: Glucose,Whole Blood 130 mg/dL (70-110)
[2022-05-14] MEDS: SPIRONOLACTONE 25 MG TAB PO SCH (17:02)
[2022-05-14] MEDS: lisinopriL 20 MG TAB PO SCH (17:02)
[2022-05-14] MEDS: FUROSEMIDE 10 MG/ML 4 ML VIAL IV SCH (17:05)
[2022-05-14 20:04] LABS: Glucose,Whole Blood 106 mg/dL (70-110)
[2022-05-14] MEDS: ATORVASTATIN 80 MG TAB PO SCH (20:38)
[2022-05-14] MEDS: CLOPIDOGREL 75 MG TAB PO SCH (20:38)
[2022-05-14] MEDS: ASPIRIN 81 MG PO SCH (20:38)
[2022-05-14] MEDS: ALPRAZolam 0.5 MG TAB PO SCH (20:38)
[2022-05-14] MEDS: METOPROLOL SUCCINATE (ER) 25 MG TAB.ER.24H PO SCH (20:38)
[2022-05-14] MEDS: HYDROcodone/APAP 10-325MG 1 EACH TAB PO PRN (20:38)
[2022-05-15] MEDS: FUROSEMIDE 10 MG/ML 4 ML VIAL IV SCH ×3 (00:04→17:22)
[2022-05-15 06:16] LABS: Glucose,Whole Blood 106 mg/dL (70-110)
[2022-05-15] MEDS: MIDODRINE 5 MG TAB PO SCH ×3 (06:28→17:22)
[2022-05-15] MEDS: INSULIN ASPART (NovoLOG) 100 UNIT/ML VIAL SQ SCH ×3 (06:28→16:38)
[2022-05-15] MEDS: metFORMIN 500 MG TAB PO SCH ×2 (06:28→17:22)
[2022-05-15 08:04] LABS: Calcium 8.3 mg/dL (8.4-10.2); Potassium 4.1 mmol/L (3.5-5.1)
[2022-05-15] MEDS: FERROUS SULFATE 325 MG TAB PO SCH (08:50)
[2022-05-15] MEDS: CALCIUM CARBONATE 500 MG CHEWABLE PO SCH (08:50)
[2022-05-15] MEDS: POTASSIUM CHLORIDE ER 10 MEQ TAB.ER.PRT PO SCH (08:50)
[2022-05-15] MEDS: CHOLECALCIFEROL 25 MCG (1000 IU) TABLET PO SCH (08:50)
[2022-05-15] MEDS: polyethylene glycoL 3350 17 GM POWD.PACK PO SCH (08:51)
[2022-05-15] MEDS: DAPAGLIFLOZIN PROPANEDIOL 10 MG TABLET PO SCH (08:51)
[2022-05-15] MEDS: lisinopriL 20 MG TAB PO SCH (09:00)
--- NOTE | 2022-05-15 10:18 | P.PN ---
Subjective Progress Note Date: 05/15/22 HISTORY OF PRESENT ILLNESS: This is a 71 year old female with a past medical history significant for coronary artery disease with previous stenting, ischemic cardiac myopathy, congestive heart failure, hypertension, hyperlipidemia, and diabetes. Patient follows in the office with Dr. Santos. We have been asked to see the patient in consultation for CHF. Patient examined at the bedside. Patient states over the past few weeks she has noticed increased lower extremity edema. She also reports SOB. She denies chest pain or pressure. She has been taking her medications as prescribed. She states she is not very active at home and has limited mobility. She states that she follows a low sodium diet but then stated she likes to eat canned chicken soup. * EKG reveals sinus mechanism with no signs of acute ischemic * Chest xray bilateral infiltrate and pleural effusion similar to prior exam. Correlate for CHF otherwise consider pneumonia. * Laboratory data: WBC 7.0. Hemoglobin 10.4. Platelet count 267. Sodium 139. Potassium 5.1. BUN 21. Creatinine 0.73. ProBNP 13,200 * Current home cardiac medications include lisinopril 20 mg daily, Aldactone 12.5 mg daily, metoprolol succinate 1.5 mg at night, Lasix 60 mg twice a day, Plavix 75 mg daily, Lipitor 80 mg daily, and aspirin 81 mg daily * Most recent echocardiogram obtained in March 2022 revealed ejection fraction of 20% * Cardiac catheterization history: December 2021 revealing 30-40% mid LAD stenosis, diagonal 1 branch 100% occluded, mid circumflex 100% occluded, RCA 100% occluded. Patient underwent stenting of the diagonal 1 branch 05/14/2022 Patient examined this morning at the bedside. Patient denies chest pain or pressure. She denies SOB. She remains on IV lasix infusion at 10mg/hr. Creati nine stable at 0.98. She has a baxter catheter. Fluid balance is -1800cc over the last 24 hours. 05/15/2022 Patient examined this morning at the bedside. She is sitting up in bed in no acute distress. She was changed to IV push Lasix yesterday from a Lasix infusion secondary to hypotension. Creatinine today remained stable at 1.12. Fluid balance over the last 24 hours is -1 L. Blood pressures this morning remains soft with a recent reading of 92/52. PHYSICAL EXAM: VITAL SIGNS: Reviewed. GENERAL: Well-developed in no acute distress. HEENT: Head is normocephalic. Pupils are equal, round. Sclerae anicteric. Mucous membranes of the mouth are moist. Neck supple. + JVD LUNGS: Respirations even and unlabored. Lungs diminished HEART: Regular rate and rhythm. S1 and S2 heard. + systolic murmur. ABDOMEN: Soft. Nondistended. Nontender. EXTREMITIES: Normal range of motion. No clubbing or cyanosis. Peripheral pulses intact. 3+ bilateral pitting lower extremity edema NEUROLOGIC: Awake and alert. Oriented x 3. ASSESSMENT: Shortness of breath Acute on chronic heart failure with reduced ejection fraction Coronary artery disease with previous PCI Ischemic cardiomyopathy, ejection fraction 20% Hypertension Hyperlipidemia Diabetes Debility Morbid obesity Hypotension, lisinopril discontinued PLAN: Discontinue lisinopril secondary to hypotension Continue Lasix 40 mg IVP every 8 hours Daily weights, accurate I&O, and monitoring of kidney function Continue additional home cardiac medications Further recommendations pending patient course Nurse practitioner note has been reviewed by physician. Signing provider agrees with the documented findings, assessment, and plan of care. Objective - Vital Signs Vital signs: Vital Signs Temp 97.4 F L 05/15/22 08:07 Pulse 63 05/15/22 08:07 Resp 20 05/15/22 08:07 BP 92/52 05/15/22 08:07 Pulse Ox 96 05/15/22 08:07 FiO2 Intake & Output 05/14/22 05/15/22 05/15/22 18:59 06:59 18:59 Intake Total 598 300 360 Output Total 1525 400 Balance -927 -100 360 Weight 137.5 kg 140 kg Intake: Oral 598 300 360 Output: Urine 1525 400 Other: Voiding Method Indwelling Catheter Indwelling Catheter Indwelling Catheter - Labs CBC & Chem 7: 05/13/22 05:28 05/15/22 06:54 Labs: Abnormal Lab Results - Last 24 Hours (Table) 05/14/22 05/14/22 05/15/22 Range/Units 11:33 16:30 06:54 BUN 25 H (7-17) mg/dL Creatinine 1.12 H (0.52-1.04) mg/dL POC Glucose (mg/dL) 124 H 130 H (70-110) mg/dL Calcium 8.3 L (8.4-10.2) mg/dL
[2022-05-15 11:46] LABS: Glucose,Whole Blood 99 mg/dL (70-110)
--- NOTE | 2022-05-15 13:51 | P.CN ---
Psychiatric Consult - . Consult date: 05/15/22 Consult:: 05/15/22 13:46 IDENTIFYING DATA: This patient is a 71-year-old female who currently lives alone in house, she has 2 sons. REASON FOR REFERRAL: Psychiatry was consulted for depression HISTORY OF PRESENT ILLNESS: The patient presented to the hospital on 05/12 claiming that she was no longer able to take care of herself according to ER report. Patient suffers from chronic bilateral lower leg edema and finding it difficult to walk and do her daily activities. Patient was complaining of a lack of support in her life. Patient has acute CHF exacerbation and several comorbidities. Patient was admitted to the medical unit and later saw patient today for consultation. Patient states that she "just wants to talk to someone" states that she's been dealing with depression and anxiety for the past several years. She states that since 2019 she lost her mother, son and also her . She states that she has been finding it more difficult with her medical condition 2 live her life. She states that she has had passive suicidal thoughts however no actual plan. She claims that she does have significant amount of guilt, poor energy and feels hopeless. She states that she doesn't want to go to rehab and improve her strength. She states that she has significant anxiety. Her sleep has been on and off. Appetite is fair. At this time patient denies any suicidal or homical ideations, intent or plan. Patient denies any auditory, visual hallucinations and denies any paranoia or delusions. Patients admits to using no recreational drugs or cigarettes PAST PSYCHIATRIC HISTORY: Patient has a a history of depression and anxiety. She is currently on Xanax 0.5 mg daily at bedtime for sleep. Patient denies any previous psychiatric hospitalizations. Patient denies any psychiatric outpatient follow-up. Patient denies any history of suicide attempts in the past. PAST MEDICAL HISTORY: As per medical H&P. ALLERGIES: as per EMR. CHEMICAL DEPENDENCY HISTORY: as per HPI. FAMILY PSYCHIATRIC/SUBSTANCE USE HISTORY: Claimed that her father had some type of mental illness. SOCIAL HISTORY: Patient was born and raised in [facility] and then moved to [place]. She claims that she completed up to 10th grade in school. 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 She claims that she does not have any legal history. She has 2 sons. She currently lives alone and has poor social support. MENTAL STATUS EXAM: General Appearance: Patient appears to be obese, significant swelling in bilateral lower extremities, stated age is alert, pleasant, and Severity cooperative. Patient appears to have fair hygiene and grooming wearing hospital gown with fair eye contact. Behavior: Patient is calmly lying in bed without any agitated behavior. Attempts to cooperate. Speech: Patient's speech is fluent and nonpressured. Mood/Affect: Patient reports their mood is "depressed and anxious", affect is congruent Suicidality/Homicidality: Patient denies having any suicidal or homicidal ideation intent or plan. Perceptions: Patient denies any visual hallucinations and denies any auditory hallucinations Though content/process: There is no evidence of any delusional thought content and thought process is linear and goal-directed. Rambles at times. Memory and concentration: AOX3, grossly intact for the purposes of this session. Can spell "WORLD" backwards Judgment and insight: Fair IMPRESSIONS: Major depressive disorder, without psychotic features Anxiety disorder unspecified PLAN: -At this time patient DOES NOT meet criteria for inpatient psychiatric admission. -Would recommend the following medication changes/additions: Attempt to cut down on patient Xanax to 0.25 daily at bedtime for insomnia. Melatonin 6 mg daily at bedtime for sleep. Lexapro 10 mg daily for mood/anxiety. -linen room worker to provide patient with outpatient mental health/psychiatry resources for appropriate follow up upon discharge -Communicated plan to patient's nurse -Will continue to follow along -Please contact with any questions.
[2022-05-15] MEDS: SPIRONOLACTONE 25 MG TAB PO SCH (16:20)
[2022-05-15 16:36] LABS: Glucose,Whole Blood 144 mg/dL (70-110)
[2022-05-15] MEDS: ESCITALOPRAM 10 MG TAB PO SCH (17:22)
--- NOTE | 2022-05-15 17:26 | P.PN ---
Progress Note - Text Progress Note Date: 05/15/22 Chief Complaint: Increasing edema This is a pleasant 71 years old with past medical history of Coronary Artery Disease status post stent , chronic Heart Failure EF 20%, Diabetes Mellitus, GERD/Reflux, Hyperlipidemia, Hypertension, , chronic back and bilateral hip pain, osteoporosis, bilateral lower leg edema/redness which is worse in the L leg, March 2022 acute PE on eliquis. Patient recently admitted to the hospital in March 2022 with acute PE, CHF exacerbation. EF 20%. UTI. Patient presents with significant swelling of the lower extremity. More short of breath. Not able to do any chores. Feels chilly all the time. Decreased appetite. Does use upon a chair. Patient's a month ago and finding it much more difficult to do things. No fever no chills. No cough. Patient has been drinking quite a bit of water. Admitted with acute CHF exacerbation EF 20%. Started on Lasix drip 10 mg an hour. Strict I's and O's. 05/13/2022: On Lasix drip 10 mg hour. About 2715 negative fluid balance. Fluid restriction. Discussed with patient. PTOT. 05/14/2022: Remains a Lasix drip. About 4600 and negative fluid balance. Sitting up in a chair. Oral intake good. PTOT. account financial manager looking at rehab 05/15/2022: Patient changed to IV bolus Lasix 40 mg every 8 per cardiology. About 6 L and negative fluid balance. Significant edema still present. Fluid restriction. Up in a recliner Active Medications Hydrocodone Bitart/Acetaminophen (Hydrocodone/Apap 10-325mg 1 Each Tab) 1 each PO Q6H PRN PRN Reason: Pain Last Admin: 05/14/22 20:38 Dose: 1 each Alprazolam (Alprazolam 0.25 Mg Tab) 0.25 mg PO HS [facility] Aspirin (Aspirin 81 Mg) 81 mg PO HS [facility] Last Admin: 05/14/22 20:38 Dose: 81 mg Atorvastatin Calcium (Atorvastatin 80 Mg Tab) 80 mg PO HS [facility] Last Admin: 05/14/22 20:38 Dose: 80 mg Calcium Carbonate/Glycine (Calcium Carbonate 500 Mg Chewable) 500 mg PO DAILY [facility] Last Admin: 05/15/22 08:50 Dose: 500 mg Calcium Carbonate/Glycine (Calcium Carbonate 500 Mg Chewable) 1,000 mg PO Q4HR PRN PRN Reason: Dyspepsia Cholecalciferol (Cholecalciferol 25 Mcg (1000 Iu) Tablet) 25 mcg PO DAILY [facility] Last Admin: 05/15/22 08:50 Dose: 25 mcg Clopidogrel Bisulfate (Clopidogrel 75 Mg Tab) 75 mg PO HS [facility] Last Admin: 05/14/22 20:38 Dose: 75 mg Dapagliflozin (Dapagliflozin Propanediol 10 Mg Tablet) 10 mg PO DAILY [facility] Last Admin: 05/15/22 08:51 Dose: 10 mg Dextrose/Water (Dextrose 50% Syringe 50 Ml) 25 ml IVP PER PROTOCOL PRN; Protocol PRN Reason: Hypoglycemia Dextrose/Water (Dextrose 50% Syringe 50 Ml) 50 ml IVP PER PROTOCOL PRN; Protocol PRN Reason: Hypoglycemia Dextrose/Water (Dextrose 50% Syringe 50 Ml) 25 ml IVP PER PROTOCOL PRN; Protocol PRN Reason: Hypoglycemia Dextrose/Water (Dextrose 50% Syringe 50 Ml) 50 ml IVP PER PROTOCOL PRN; Protocol PRN Reason: Hypoglycemia Escitalopram Oxalate (Escitalopram 10 Mg Tab) 10 mg PO DAILY [facility] Last Admin: 05/15/22 17:22 Dose: 10 mg Ferrous Sulfate (Ferrous Sulfate 325 Mg Tab) 325 mg PO DAILY [facility] Last Admin: 05/15/22 08:50 Dose: 325 mg Furosemide (Furosemide 10 Mg/Ml 4 Ml Vial) 40 mg IV Q8HR [facility] Last Admin: 05/15/22 17:22 Dose: 40 mg Insulin Aspart (Insulin Aspart (Novolog) 100 Unit/Ml Vial) 0 unit SQ AC-TID [facility]; Protocol Last Admin: 05/15/22 16:38 Dose: Not Given Lactulose (Lactulose 20 Gm/30 Ml Cup) 20 gm PO DAILY PRN PRN Reason: Constipation Melatonin (Melatonin 3 Mg Tablet) 6 mg PO [facility] Metformin HCl (Metformin 500 Mg Tab) 500 mg PO BID-W/MEALS [facility] Last Admin: 05/15/22 17:22 Dose: 500 mg Metoprolol Succinate (Metoprolol Succinate (Er) 25 Mg Tab.Er.24h) 12.5 mg PO [facility] Last Admin: 05/14/22 20:38 Dose: 12.5 mg Midodrine (Midodrine 5 Mg Tab) 5 mg PO AC-TID [facility] Last Admin: 05/15/22 17:22 Dose: 5 mg Naloxone HCl (Naloxone 0.4 Mg/Ml 1 Ml Vial) 0.2 mg IV Q2M PRN PRN Reason: Opioid Reversal Ondansetron HCl (Ondansetron 4 Mg/2 Ml Vial) 4 mg IVP Q8HR PRN PRN Reason: Nausea And Vomiting Polyethylene Glycol (Polyethylene Glycol 3350 17 Gm Powd.Pack) 17 gm PO DAILY [facility] Last Admin: 05/15/22 08:51 Dose: Not Given Potassium Chloride (Potassium Chloride Er 10 Meq Tab.Er.Prt) 10 meq PO DAILY [facility] Last Admin: 05/15/22 08:50 Dose: 10 meq Spironolactone (Spironolactone 25 Mg Tab) 25 mg PO DAILY [facility] Last Admin: 05/15/22 16:20 Dose: Not Given Past medical history to include: Pulmonary embolism March 2022, CHF EF 20%, CAD with stent, hypertension, hyperlipidemia, diabetes mellitus type 2, chronic medical debility Social history: Patient's a month ago. Nonsmoker. No alcohol. Physical examination: VITAL SIGNS: 97.4, 61, 20, 91/52, 97% room air GENERAL: In a recliner awake, EYES: Pupils equal. Conjunctiva normal. HEENT: External appearance of nose and ears normal, oral cavity grossly normal. NECK: JVD unable to assess; masses not palpable. HEART: First and second heart sounds are normal; edema up to the thighs. LUNGS: Respiratory rate increased; diminished breath sounds. ABDOMEN: Soft, nontender, liver spleen not palpable, no masses palpable. PSYCH: Alert and oriented x3; mood and affect normal. MUSCULOSKELETAL:No Clubbing/cyanosis;muscles-grossly intact, evidence of OA INVESTIGATIONS, reviewed in the clinical context: 05/15/2022: Potassium 4.1 BUN 25 creatinine 1.12 05/14/2022: Potassium 4.7 BUN 24 creatinine 0.98 05/13/2022: WBC 7 hemoglobin 10.4 platelets 267 potassium 5.1 creatinine 0.73 WBC 4.9 hemoglobin 10.9 platelets 271 potassium 4.8 BUN 20 creatinine 0.67 lactic acid 2.2 total bilirubin 3.1 AST 68 ALT 40 EKG tracing personally reviewed by me-normal sinus rhythm. Nonspecific T-wave c hanges. Chest x-ray film personally reviewed by me-pulmonary edema, left pleural effusion 2-D echocardiogram [March 2022]: EF 20% Assessment and plan: -Acute on chronic systolic congestive heart failure with ejection fraction 20%, better Aldactone 25 mg daily. Lasix drip changed to IV Lasix 40 mg every 8. Strict I's and O's. Fluid restriction -Chronic pulmonary embolism, March 2022 Eliquis -Acute medical asthenia secondary to above medical problems PTOT. Consult case consultant -Chronic medical debility ; has a wheelchair at home. case consultant. -Moderate left pleural effusion, secondary to CHF Aldactone. Lasix. -coronary artery disease status post stenting Aspirin, Lipitor, Plavix, Toprol-XL -Essential Hypertension Toprol-XL 12.5 -Hyperlipidemia Lipitor - diabetes mellitus type II on oral hypoglycemic Glucophage. Follow Accu-Cheks -DO NOT RESUSCITATE IV Lasix changed to 40 mg IV every 8. Other medications to continue. Follow labs. Plan to go to rehab.
[2022-05-15 19:49] LABS: Glucose,Whole Blood 144 mg/dL (70-110)
[2022-05-15] MEDS: ASPIRIN 81 MG PO SCH (20:31)
[2022-05-15] MEDS: ATORVASTATIN 80 MG TAB PO SCH (20:31)
[2022-05-15] MEDS: ALPRAZolam 0.25 MG TAB PO SCH (20:31)
[2022-05-15] MEDS: MELATONIN 3 MG TABLET PO SCH (20:31)
[2022-05-15] MEDS: METOPROLOL SUCCINATE (ER) 25 MG TAB.ER.24H PO SCH (20:31)
[2022-05-15] MEDS: CLOPIDOGREL 75 MG TAB PO SCH (20:31)
[2022-05-16] MEDS: FUROSEMIDE 10 MG/ML 4 ML VIAL IV SCH ×4 (00:04→23:29)
[2022-05-16 05:59] LABS: Glucose,Whole Blood 135 mg/dL (70-110)
[2022-05-16] MEDS: INSULIN ASPART (NovoLOG) 100 UNIT/ML VIAL SQ SCH ×3 (06:16→16:28)
[2022-05-16] MEDS: MIDODRINE 5 MG TAB PO SCH ×3 (06:21→16:30)
[2022-05-16] MEDS: metFORMIN 500 MG TAB PO SCH ×2 (06:21→16:30)
[2022-05-16] MEDS: POTASSIUM CHLORIDE ER 10 MEQ TAB.ER.PRT PO SCH (07:36)
[2022-05-16] MEDS: HYDROcodone/APAP 10-325MG 1 EACH TAB PO PRN ×2 (07:36→20:19)
[2022-05-16] MEDS: DAPAGLIFLOZIN PROPANEDIOL 10 MG TABLET PO SCH (07:36)
[2022-05-16] MEDS: CALCIUM CARBONATE 500 MG CHEWABLE PO SCH (07:36)
[2022-05-16] MEDS: FERROUS SULFATE 325 MG TAB PO SCH (07:36)
[2022-05-16] MEDS: SPIRONOLACTONE 25 MG TAB PO SCH (07:37)
[2022-05-16] MEDS: ESCITALOPRAM 10 MG TAB PO SCH (07:37)
[2022-05-16] MEDS: CHOLECALCIFEROL 25 MCG (1000 IU) TABLET PO SCH (07:37)
[2022-05-16] MEDS: polyethylene glycoL 3350 17 GM POWD.PACK PO SCH (07:37)
[2022-05-16 08:35] LABS: Calcium 8.4 mg/dL (8.4-10.2); Potassium 4.1 mmol/L (3.5-5.1)
--- NOTE | 2022-05-16 10:16 | P.PN ---
Subjective Progress Note Date: 05/16/22 HISTORY OF PRESENT ILLNESS: This is a 71 year old female with a past medical history significant for coronary artery disease with previous stenting, ischemic cardiac myopathy, congestive heart failure, hypertension, hyperlipidemia, and diabetes. Patient follows in the office with Dr. Santos. We have been asked to see the patient in consultation for CHF. Patient examined at the bedside. Patient states over the past few weeks she has noticed increased lower extremity edema. She also reports SOB. She denies chest pain or pressure. She has been taking her medications as prescribed. She states she is not very active at home and has limited mobility. She states that she follows a low sodium diet but then stated she likes to eat canned chicken soup. * EKG reveals sinus mechanism with no signs of acute ischemic * Chest xray bilateral infiltrate and pleural effusion similar to prior exam. Correlate for CHF otherwise consider pneumonia. * Laboratory data: WBC 7.0. Hemoglobin 10.4. Platelet count 267. Sodium 139. Potassium 5.1. BUN 21. Creatinine 0.73. ProBNP 13,200 * Current home cardiac medications include lisinopril 20 mg daily, Aldactone 12.5 mg daily, metoprolol succinate 1.5 mg at night, Lasix 60 mg twice a day, Plavix 75 mg daily, Lipitor 80 mg daily, and aspirin 81 mg daily * Most recent echocardiogram obtained in March 2022 revealed ejection fraction of 20% * Cardiac catheterization history: December 2021 revealing 30-40% mid LAD stenosis, diagonal 1 branch 100% occluded, mid circumflex 100% occluded, RCA 100% occluded. Patient underwent stenting of the diagonal 1 branch 05/14/2022 Patient examined this morning at the bedside. Patient denies chest pain or pressure. She denies SOB. She remains on IV lasix infusion at 10mg/hr. Creati nine stable at 0.98. She has a baxter catheter. Fluid balance is -1800cc over the last 24 hours. 05/15/2022 Patient examined this morning at the bedside. She is sitting up in bed in no acute distress. She was changed to IV push Lasix yesterday from a Lasix infusion secondary to hypotension. Creatinine today remained stable at 1.12. Fluid balance over the last 24 hours is -1 L. Blood pressures this morning remains soft with a recent reading of 92/52. 05/16/2022 Patient examined this morning at the bedside. She is working with physical therapy at the time of examination. Patient denies any chest pain or pressure. She denies any shortness of breath. She continues to have lower extremity edema. She remains on IV Lasix 40 mg every 8 hours. Blood pressures remain on the soft side with a systolic in the 90s. PHYSICAL EXAM: VITAL SIGNS: Reviewed. GENERAL: Well-developed in no acute distress. HEENT: Head is normocephalic. Pupils are equal, round. Sclerae anicteric. Mucous membranes of the mouth are moist. Neck supple. + JVD LUNGS: Respirations even and unlabored. Lungs diminished HEART: Regular rate and rhythm. S1 and S2 heard. + systolic murmur. ABDOMEN: Soft. Nondistended. Nontender. EXTREMITIES: Normal range of motion. No clubbing or cyanosis. Peripheral pulses intact. 2-3+ bilateral pitting lower extremity edema NEUROLOGIC: Awake and alert. Oriented x 3. ASSESSMENT: Shortness of breath Acute on chronic heart failure with reduced ejection fraction Coronary artery disease with previous PCI Ischemic cardiomyopathy, ejection fraction 20% Hypertension Hyperlipidemia Diabetes Debility Morbid obesity Hypotension, lisinopril discontinued PLAN: Continue to hold lisinopril secondary to hypotension Continue Lasix 40 mg IVP every 8 hours Daily weights, accurate I&O, and monitoring of kidney function Continue additional home cardiac medications Further recommendations pending patient course Nurse practitioner note has been reviewed by physician. Signing provider agrees with the documented findings, assessment, and plan of care. Objective - Vital Signs Vital signs: Vital Signs Temp 98.0 F 05/16/22 07:42 Pulse 54 L 05/16/22 07:42 Resp 18 05/16/22 07:42 BP 99/60 05/16/22 07:42 Pulse Ox 94 L 05/16/22 07:42 FiO2 Intake & Output 05/15/22 05/16/22 05/16/22 18:59 06:59 18:59 Intake Total 598 240 Output Total 2049 1225 Balance -1452 -1225 240 Weight 135.5 kg Intake: Oral 598 240 Output: Urine 2049 1224 Other: Voiding Method Indwelling Catheter Indwelling Catheter Indwelling Catheter # Bowel Movements 1 - Labs CBC & Chem 7: 05/13/22 05:28 05/16/22 08:02 Labs: Abnormal Lab Results - Last 24 Hours (Table) 05/15/22 05/15/22 05/16/22 Range/Units 16:35 19:46 05:56 Sodium (137-145) mmol/L Chloride (98-107) mmol/L BUN (7-17) mg/dL Creatinine (0.52-1.04) mg/dL Glucose (74-99) mg/dL POC Glucose (mg/dL) 144 H 144 H 135 H (70-110) mg/dL 05/16/22 Range/Units 08:02 Sodium 135 L (137-145) mmol/L Chloride 97 L (98-107) mmol/L BUN 27 H (7-17) mg/dL Creatinine 1.17 H (0.52-1.04) mg/dL Glucose 152 H (74-99) mg/dL POC Glucose (mg/dL) (70-110) mg/dL
[2022-05-16 11:53] LABS: Glucose,Whole Blood 136 mg/dL (70-110)
--- NOTE | 2022-05-16 12:06 | P.PN ---
Progress Note - Text Progress Note Date: 05/16/22 Interval History: Patient was seen today for psychiatric follow up. Patient claims that she is doing "bit better" compared to yesterday. She continues to state that she does miss her loved ones that have however is trying to remain optimistic. She spoke about going to rehab to "get better" and also regain her strength to be able to go home. She states that she will be most likely going to a rehab that's very close to her son that we'll be able to check on her. She states that she wants to live for her family and also her health. We spoke more about her medical condition and also the swelling in her legs which they are attempting to help at this time. She is denying any anxiety at this time. She claims that she slept a bit more last night about 4 hours. At this time patient denies any suicidal or homical ideations, intent or plan. Patient denies any auditory, visual hallucinations and denies any paranoia or delusions. She did state that she felt "a little funny" after taking the melatonin and also the Lexapro however technical writer spoke with patient about the side effects of the medications and to continue monitoring them to see if they improve over time. Patient was agreeable to this and understood. Mental Status Exam: General Appearance: Patient appears to be obese, significant swelling in bilateral lower extremities, stated age is alert, pleasant, cooperative. Patient appears to have fair hygiene and grooming wearing hospital gown with fair eye contact. Behavior: Patient is calmly lying in bed without any agitated behavior. Speech: Patient's speech is fluent and nonpressured. Mood/Affect: Patient reports their mood is "a bit better", affect is congruent Suicidality/Homicidality: Patient denies having any suicidal or homicidal ideation intent or plan. Perceptions: Patient denies any visual hallucinations and denies any auditory hallucinations Though content/process: There is no evidence of any delusional thought content and thought process is linear and goal-directed. Memory and concentration: AOX3, grossly intact for the purposes of this session. Judgment and insight: Fair IMPRESSIONS: Major depressive disorder, without psychotic features Anxiety disorder unspecified PLAN: -At this time patient DOES NOT meet criteria for inpatient psychiatric admission. -Would recommend the following medication changes/additions: Xanax 0.25 QHS for insomnia. Melatonin 6 mg daily at bedtime for sleep. Lexapro 10 mg daily for mood/anxiety. -plant maintenance worker to provide patient with outpatient mental health/psychiatry resources for appropriate follow up upon discharge -Communicated plan to patient's nurse -at this time will sign off -Please contact with any questions.
--- NOTE | 2022-05-16 16:19 | P.PN ---
Progress Note - Text Progress Note Date: 05/16/22 Chief Complaint: Increasing edema This is a pleasant 71 years old with past medical history of Coronary Artery Disease status post stent , chronic Heart Failure EF 20%, Diabetes Mellitus, GERD/Reflux, Hyperlipidemia, Hypertension, , chronic back and bilateral hip pain, osteoporosis, bilateral lower leg edema/redness which is worse in the L leg, March 2022 acute PE on eliquis. Patient recently admitted to the hospital in March 2022 with acute PE, CHF exacerbation. EF 20%. UTI. Patient presents with significant swelling of the lower extremity. More short of breath. Not able to do any chores. Feels chilly all the time. Decreased appetite. Does use upon a chair. Patient's a month ago and finding it much more difficult to do things. No fever no chills. No cough. Patient has been drinking quite a bit of water. Admitted with acute CHF exacerbation EF 20%. Started on Lasix drip 10 mg an hour. Strict I's and O's. 05/13/2022: On Lasix drip 10 mg hour. About 2715 negative fluid balance. Fluid restriction. Discussed with patient. PTOT. 05/14/2022: Remains a Lasix drip. About 4600 and negative fluid balance. Sitting up in a chair. Oral intake good. PTOT. assistant restaurant general manager looking at rehab 05/15/2022: Patient changed to IV bolus Lasix 40 mg every 8 per cardiology. About 6 L and negative fluid balance. Significant edema still present. Fluid restriction. Up in a recliner 05/16/2022: Up in a recliner. On IV Lasix 40 mg every 8. Significant edema still present. The restriction. Oral intake fair. About 8 L and negative fluid balance. Active Medications Hydrocodone Bitart/Acetaminophen (Hydrocodone/Apap 10-325mg 1 Each Tab) 1 each PO Q6H PRN PRN Reason: Pain Last Admin: 05/16/22 07:36 Dose: 1 each Alprazolam (Alprazolam 0.25 Mg Tab) 0.25 mg PO HS [facility] Last Admin: 05/15/22 20:31 Dose: 0.25 mg Aspirin (Aspirin 81 Mg) 81 mg PO HS [facility] Last Admin: 05/15/22 20:31 Dose: 81 mg Atorvastatin Calcium (Atorvastatin 80 Mg Tab) 80 mg PO HS [facility] Last Admin: 05/15/22 20:31 Dose: 80 mg Calcium Carbonate/Glycine (Calcium Carbonate 500 Mg Chewable) 500 mg PO DAILY [facility] Last Admin: 05/16/22 07:36 Dose: 500 mg Calcium Carbonate/Glycine (Calcium Carbonate 500 Mg Chewable) 1,000 mg PO Q4HR PRN PRN Reason: Dyspepsia Cholecalciferol (Cholecalciferol 25 Mcg (1000 Iu) Tablet) 25 mcg PO DAILY [facility] Last Admin: 05/16/22 07:37 Dose: 25 mcg Clopidogrel Bisulfate (Clopidogrel 75 Mg Tab) 75 mg PO [facility] Last Admin: 05/15/22 20:31 Dose: 75 mg Dapagliflozin (Dapagliflozin Propanediol 10 Mg Tablet) 10 mg PO DAILY [facility] Last Admin: 05/16/22 07:36 Dose: 10 mg Dextrose/Water (Dextrose 50% Syringe 50 Ml) 25 ml IVP PER PROTOCOL PRN; Protocol PRN Reason: Hypoglycemia Dextrose/Water (Dextrose 50% Syringe 50 Ml) 50 ml IVP PER PROTOCOL PRN; Protocol PRN Reason: Hypoglycemia Dextrose/Water (Dextrose 50% Syringe 50 Ml) 25 ml IVP PER PROTOCOL PRN; Protocol PRN Reason: Hypoglycemia Dextrose/Water (Dextrose 50% Syringe 50 Ml) 50 ml IVP PER PROTOCOL PRN; Protocol PRN Reason: Hypoglycemia Escitalopram Oxalate (Escitalopram 10 Mg Tab) 10 mg PO DAILY [facility] Last Admin: 05/16/22 07:37 Dose: 10 mg Ferrous Sulfate (Ferrous Sulfate 325 Mg Tab) 325 mg PO DAILY [facility] Last Admin: 05/16/22 07:36 Dose: 325 mg Furosemide (Furosemide 10 Mg/Ml 4 Ml Vial) 40 mg IV Q8HR [facility] Last Admin: 05/16/22 07:36 Dose: 40 mg Insulin Aspart (Insulin Aspart (Novolog) 100 Unit/Ml Vial) 0 unit SQ AC-TID [facility]; Protocol Last Admin: 05/16/22 11:56 Dose: Not Given Lactulose (Lactulose 20 Gm/30 Ml Cup) 20 gm PO DAILY PRN PRN Reason: Constipation Melatonin (Melatonin 3 Mg Tablet) 6 mg PO [facility] Last Admin: 05/15/22 20:31 Dose: 6 mg Metformin HCl (Metformin 500 Mg Tab) 500 mg PO BID-W/MEALS [facility] Last Admin: 05/16/22 06:21 Dose: 500 mg Metoprolol Succinate (Metoprolol Succinate (Er) 25 Mg Tab.Er.24h) 12.5 mg PO HS [facility] Last Admin: 05/15/22 20:31 Dose: 12.5 mg Midodrine (Midodrine 5 Mg Tab) 5 mg PO AC-TID [facility] Last Admin: 05/16/22 12:02 Dose: 5 mg Naloxone HCl (Naloxone 0.4 Mg/Ml 1 Ml Vial) 0.2 mg IV Q2M PRN PRN Reason: Opioid Reversal Ondansetron HCl (Ondansetron 4 Mg/2 Ml Vial) 4 mg IVP Q8HR PRN PRN Reason: Nausea And Vomiting Polyethylene Glycol (Polyethylene Glycol 3350 17 Gm Powd.Pack) 17 gm PO DAILY [facility] Last Admin: 05/16/22 07:37 Dose: Not Given Potassium Chloride (Potassium Chloride Er 10 Meq Tab.Er.Prt) 10 meq PO DAILY [facility] Last Admin: 05/16/22 07:36 Dose: 10 meq Spironolactone (Spironolactone 25 Mg Tab) 25 mg PO DAILY [facility] Last Admin: 05/16/22 07:37 Dose: 25 mg Past medical history to include: Pulmonary embolism March 2022, CHF EF 20%, CAD with stent, hypertension, hyperlipidemia, diabetes mellitus type 2, chronic medical debility Social history: Patient's a month ago. Nonsmoker. No alcohol. Physical examination: VITAL SIGNS: 97.4, 56, 18, 10 6 x 61, 95% room air GENERAL: In a recliner awake, EYES: Pupils equal. Conjunctiva normal. HEENT: External appearance of nose and ears normal, oral cavity grossly normal. NECK: JVD unable to assess; masses not palpable. HEART: First and second heart sounds are normal; significant edema LUNGS: Respiratory rate increased; diminished breath sounds. ABDOMEN: Soft, nontender, liver spleen not palpable, no masses palpable. PSYCH: Alert and oriented x3; mood and affect normal. MUSCULOSKELETAL:No Clubbing/cyanosis;muscles-grossly intact, evidence of OA INVESTIGATIONS, reviewed in the clinical context: 05/16/2022: Potassium 4.1 BUN 27 creatinine 1.17 05/15/2022: Potassium 4.1 BUN 25 creatinine 1.12 05/14/2022: Potassium 4.7 BUN 24 creatinine 0.98 05/13/2022: WBC 7 hemoglobin 10.4 platelets 267 potassium 5.1 creatinine 0.73 WBC 4.9 hemoglobin 10.9 platelets 271 potassium 4.8 BUN 20 creatinine 0.67 lactic acid 2.2 total bilirubin 3.1 AST 68 ALT 40 EKG tracing personally reviewed by me-normal sinus rhythm. Nonspecific T-wave changes. Chest x-ray film personally reviewed by me-pulmonary edema, left pleural effusion 2-D echocardiogram [March 2022]: EF 20% Assessment and plan: -Acute on chronic systolic congestive heart failure with ejection fraction 20%,: Slow to respond Aldactone 25 mg daily. Initially Lasix drip. IV Lasix 40 mg every 8. Strict I's and O's. Fluid restriction -Chronic pulmonary embolism, March 2022 Eliquis -Acute medical asthenia secondary to above medical problems PTOT. Consult pillowcase maker -Chronic medical debility ; has a wheelchair at home. pillowcase maker. -Moderate left pleural effusion, secondary to CHF Aldactone. Lasix. -coronary artery disease status post stenting Aspirin, Lipitor, Plavix, Toprol-XL -Essential Hypertension Toprol-XL 12.5 -Hyperlipidemia Lipitor - diabetes mellitus type II on oral hypoglycemic Glucophage. Follow Accu-Cheks -DO NOT RESUSCITATE Lasix 40 mg IV every 8. Other medications to continue. Follow labs. Discussed with patient. Other medications to continue.
[2022-05-16 16:21] LABS: Glucose,Whole Blood 134 mg/dL (70-110)
[2022-05-16] MEDS: MAGNESIUM OXIDE 400 MG TAB PO SCH (16:30)
[2022-05-16 20:15] LABS: Glucose,Whole Blood 137 mg/dL (70-110)
[2022-05-16] MEDS: CLOPIDOGREL 75 MG TAB PO SCH (20:20)
[2022-05-16] MEDS: ATORVASTATIN 80 MG TAB PO SCH (20:20)
[2022-05-16] MEDS: MELATONIN 3 MG TABLET PO SCH (20:20)
[2022-05-16] MEDS: ASPIRIN 81 MG PO SCH (20:20)
[2022-05-16] MEDS: METOPROLOL SUCCINATE (ER) 25 MG TAB.ER.24H PO SCH (20:20)
[2022-05-16] MEDS: ALPRAZolam 0.25 MG TAB PO SCH (20:20)
--- NOTE | 2022-05-17 10:14 | P.PN ---
Subjective Progress Note Date: 05/17/22 PROGRESS NOTE The patient is a 73-year-old female with a known history of CAD, cardiomyopathy, congestive heart failure, hypertension, hyperlipidemia and diabetes who presented with progressive peripheral edema and worsening dyspnea. The patient is quite limited in her physical activity. She is feeling better today. Her breathing is better. She denies any chest discomfort, dizziness or palpitations. Her systolic function was severely impaired and she has a known occluded RCA circumflex and first diagonal branch. She has underwent stenting of the diagonal branch. She continues to be on IV diuretics. She feels tired but otherwise feels that her breathing is better. She continues to be in sinus mechanism. Medications: Aspirin, Lipitor 80 mg daily, Plavix 75 mg daily, Lasix 40 mg IV every 8 hours, metoprolol succinate 12.5 mg at bedtime, midodrine 5 mg daily. Aldactone 25 mg daily and Farxiga 10 mg daily, metformin 500 mg twice a day PHYSICAL EXAMINATION: Blood pressure 102/50 heart rate 60, morbidly obese LUNGS: Clear to auscultation HEART: Regular rate and rhythm, S1, S2. No S3. systolic ejection murmur ABDOMEN: Soft, nontender, no organomegaly EXTREMETIES: +1-2 No edema, improved LAB: Pending IMPRESSION: 1. CHF with known reduced ejection fraction, improving 2. History of CAD 3. Morbid obesity 4. History of hyperlipidemia 5. Medical debilitation 6. Diabetes PLAN: 1. Continue IV diuresis 2. Follow renal functions 3. Physical therapy 4. Depending on her progress further recommendations will be made Objective - Vital Signs Vital signs: Vital Signs Temp 98.3 F 05/16/22 20:00 Pulse 51 L 05/17/22 00:00 Resp 16 05/17/22 00:00 BP 102/55 05/17/22 00:00 Pulse Ox 90 L 05/17/22 00:00 FiO2 Intake & Output 05/16/22 05/17/22 05/17/22 18:59 06:59 18:59 Intake Total 600 600 60 Output Total 1950 800 300 Balance -1350 -200 -240 Intake: Oral 600 600 60 Output: Urine 1950 800 300 Other: Voiding Method Indwelling Catheter Indwelling Catheter - Labs CBC & Chem 7: 05/13/22 05:28 05/16/22 08:02 Labs: Abnormal Lab Results - Last 24 Hours (Table) 05/16/22 05/16/22 05/16/22 Range/Units 11:50 16:19 20:13 POC Glucose (mg/dL) 136 H 134 H 137 H (70-110) mg/dL
[2022-05-17] MEDS: MIDODRINE 5 MG TAB PO SCH ×3 (10:52→16:55)
[2022-05-17] MEDS: metFORMIN 500 MG TAB PO SCH ×2 (10:52→16:55)
[2022-05-17] MEDS: INSULIN ASPART (NovoLOG) 100 UNIT/ML VIAL SQ SCH ×3 (10:52→16:55)
[2022-05-17] MEDS: FUROSEMIDE 10 MG/ML 4 ML VIAL IV SCH ×3 (10:53→23:23)
[2022-05-17] MEDS: FERROUS SULFATE 325 MG TAB PO SCH (10:53)
[2022-05-17] MEDS: DAPAGLIFLOZIN PROPANEDIOL 10 MG TABLET PO SCH (10:53)
[2022-05-17] MEDS: CALCIUM CARBONATE 500 MG CHEWABLE PO SCH (10:53)
[2022-05-17] MEDS: MAGNESIUM OXIDE 400 MG TAB PO SCH (10:53)
[2022-05-17] MEDS: POTASSIUM CHLORIDE ER 10 MEQ TAB.ER.PRT PO SCH (10:53)
[2022-05-17] MEDS: SPIRONOLACTONE 25 MG TAB PO SCH (10:53)
[2022-05-17] MEDS: ESCITALOPRAM 10 MG TAB PO SCH (10:53)
[2022-05-17] MEDS: CHOLECALCIFEROL 25 MCG (1000 IU) TABLET PO SCH (10:53)
[2022-05-17] MEDS: polyethylene glycoL 3350 17 GM POWD.PACK PO SCH (10:53)
[2022-05-17 11:36] LABS: Glucose,Whole Blood 115 mg/dL (70-110)
[2022-05-17 11:51] LABS: Glucose,Whole Blood 137 mg/dL (70-110)
[2022-05-17 16:41] LABS: Glucose,Whole Blood 142 mg/dL (70-110)
--- NOTE | 2022-05-17 17:46 | P.PN ---
Progress Note - Text Progress Note Date: 05/17/22 Chief Complaint: Increasing edema This is a pleasant 71 years old with past medical history of Coronary Artery Disease status post stent , chronic Heart Failure EF 20%, Diabetes Mellitus, GERD/Reflux, Hyperlipidemia, Hypertension, , chronic back and bilateral hip pain, osteoporosis, bilateral lower leg edema/redness which is worse in the L leg, March 2022 acute PE on eliquis. Patient recently admitted to the hospital in March 2022 with acute PE, CHF exacerbation. EF 20%. UTI. Patient presents with significant swelling of the lower extremity. More short of breath. Not able to do any chores. Feels chilly all the time. Decreased appetite. Does use upon a chair. Patient's a month ago and finding it much more difficult to do things. No fever no chills. No cough. Patient has been drinking quite a bit of water. Admitted with acute CHF exacerbation EF 20%. Started on Lasix drip 10 mg an hour. Strict I's and O's. 05/13/2022: On Lasix drip 10 mg hour. About 2715 negative fluid balance. Fluid restriction. Discussed with patient. PTOT. 05/14/2022: Remains a Lasix drip. About 4600 and negative fluid balance. Sitting up in a chair. Oral intake good. PTOT. clinical education manager looking at rehab 05/15/2022: Patient changed to IV bolus Lasix 40 mg every 8 per cardiology. About 6 L and negative fluid balance. Significant edema still present. Fluid restriction. Up in a recliner 05/16/2022: Up in a recliner. On IV Lasix 40 mg every 8. Significant edema still present. The restriction. Oral intake fair. About 8 L and negative fluid balance. 05/17/2022: Patient continues to have significant edema. IV Lasix 40 mg every 8. Oral intake fair. Active Medications Hydrocodone Bitart/Acetaminophen (Hydrocodone/Apap 10-325mg 1 Each Tab) 1 each PO Q6H PRN PRN Reason: Pain Last Admin: 05/16/22 20:19 Dose: 1 each Alprazolam (Alprazolam 0.25 Mg Tab) 0.25 mg PO HS [facility] Last Admin: 05/16/22 20:20 Dose: 0.25 mg Aspirin (Aspirin 81 Mg) 81 mg PO HS [facility] Last Admin: 05/16/22 20:20 Dose: 81 mg Atorvastatin Calcium (Atorvastatin 80 Mg Tab) 80 mg PO HS [facility] Last Admin: 05/16/22 20:20 Dose: 80 mg Calcium Carbonate/Glycine (Calcium Carbonate 500 Mg Chewable) 500 mg PO DAILY [facility] Last Admin: 05/17/22 10:53 Dose: Not Given Calcium Carbonate/Glycine (Calcium Carbonate 500 Mg Chewable) 1,000 mg PO Q4HR PRN PRN Reason: Dyspepsia Cholecalciferol (Cholecalciferol 25 Mcg (1000 Iu) Tablet) 25 mcg PO DAILY [facility] Last Admin: 05/17/22 10:53 Dose: Not Given Clopidogrel Bisulfate (Clopidogrel 75 Mg Tab) 75 mg PO [facility] Last Admin: 05/16/22 20:20 Dose: 75 mg Dapagliflozin (Dapagliflozin Propanediol 10 Mg Tablet) 10 mg PO DAILY [facility] Last Admin: 05/17/22 10:53 Dose: Not Given Dextrose/Water (Dextrose 50% Syringe 50 Ml) 25 ml IVP PER PROTOCOL PRN; Protocol PRN Reason: Hypoglycemia Dextrose/Water (Dextrose 50% Syringe 50 Ml) 50 ml IVP PER PROTOCOL PRN; Protocol PRN Reason: Hypoglycemia Dextrose/Water (Dextrose 50% Syringe 50 Ml) 25 ml IVP PER PROTOCOL PRN; Protocol PRN Reason: Hypoglycemia Dextrose/Water (Dextrose 50% Syringe 50 Ml) 50 ml IVP PER PROTOCOL PRN; Protocol PRN Reason: Hypoglycemia Escitalopram Oxalate (Escitalopram 10 Mg Tab) 10 mg PO DAILY [facility] Last Admin: 05/17/22 10:53 Dose: Not Given Ferrous Sulfate (Ferrous Sulfate 325 Mg Tab) 325 mg PO DAILY [facility] Last Admin: 05/17/22 10:53 Dose: Not Given Furosemide (Furosemide 10 Mg/Ml 4 Ml Vial) 40 mg IV Q8HR [facility] Last Admin: 05/17/22 16:56 Dose: 40 mg Insulin Aspart (Insulin Aspart (Novolog) 100 Unit/Ml Vial) 0 unit SQ AC-TID [facility]; Protocol Last Admin: 05/17/22 16:55 Dose: Not Given Lactulose (Lactulose 20 Gm/30 Ml Cup) 20 gm PO DAILY PRN PRN Reason: Constipation Magnesium Oxide (Magnesium Oxide 400 Mg Tab) 400 mg PO DAILY [facility] Last Admin: 05/17/22 10:53 Dose: Not Given Melatonin (Melatonin 3 Mg Tablet) 6 mg PO [facility] Last Admin: 05/16/22 20:20 Dose: 6 mg Metformin HCl (Metformin 500 Mg Tab) 500 mg PO BID-W/MEALS [facility] Last Admin: 05/17/22 16:55 Dose: 500 mg Metoprolol Succinate (Metoprolol Succinate (Er) 25 Mg Tab.Er.24h) 12.5 mg PO HS [facility] Last Admin: 05/16/22 20:20 Dose: 12.5 mg Midodrine (Midodrine 5 Mg Tab) 5 mg PO AC-TID [facility] Last Admin: 05/17/22 16:55 Dose: 5 mg Naloxone HCl (Naloxone 0.4 Mg/Ml 1 Ml Vial) 0.2 mg IV Q2M PRN PRN Reason: Opioid Reversal Ondansetron HCl (Ondansetron 4 Mg/2 Ml Vial) 4 mg IVP Q8HR PRN PRN Reason: Nausea And Vomiting Polyethylene Glycol (Polyethylene Glycol 3350 17 Gm Powd.Pack) 17 gm PO DAILY [facility] Last Admin: 05/17/22 10:53 Dose: Not Given Potassium Chloride (Potassium Chloride Er 10 Meq Tab.Er.Prt) 10 meq PO DAILY [facility] Last Admin: 05/17/22 10:53 Dose: Not Given Spironolactone (Spironolactone 25 Mg Tab) 25 mg PO DAILY [facility] Last Admin: 05/17/22 10:53 Dose: Not Given Past medical history to include: Pulmonary embolism March 2022, CHF EF 20%, CAD with stent, hypertension, hyperlipidemia, diabetes mellitus type 2, chronic medical debility Social history: Patient's a month ago. Nonsmoker. No alcohol. Physical examination: VITAL SIGNS: 97.6, 54, 18, 88/56, 94% room air GENERAL: Reclining in bed awake, EYES: Pupils equal. Conjunctiva normal. HEENT: External appearance of nose and ears normal, oral cavity grossly normal. NECK: JVD unable to assess; masses not palpable. HEART: First and second heart sounds are normal; significant edema LUNGS: Respiratory rate increased; diminished breath sounds. ABDOMEN: Soft, nontender, liver spleen not palpable, no masses palpable. PSYCH: Alert and oriented x3; mood and affect normal. MUSCULOSKELETAL:No Clubbing/cyanosis;muscles-grossly intact, evidence of OA INVESTIGATIONS, reviewed in the clinical context: 05/16/2022: Potassium 4.1 BUN 27 creatinine 1.17 05/15/2022: Potassium 4.1 BUN 25 creatinine 1.12 05/14/2022: Potassium 4.7 BUN 24 creatinine 0.98 05/13/2022: WBC 7 hemoglobin 10.4 platelets 267 potassium 5.1 creatinine 0.73 WBC 4.9 hemoglobin 10.9 platelets 271 potassium 4.8 BUN 20 creatinine 0.67 lactic acid 2.2 total bilirubin 3.1 AST 68 ALT 40 EKG tracing personally reviewed by me-normal sinus rhythm. Nonspecific T-wave changes. Chest x-ray film personally reviewed by me-pulmonary edema, left pleural effusion 2-D echocardiogram [March 2022]: EF 20% Assessment and plan: -Acute on chronic systolic congestive heart failure with ejection fraction 20%,: Slow to respond Aldactone 25 mg daily. Initially Lasix drip. IV Lasix 40 mg every 8. Strict I's and O's. Fluid restriction -Chronic pulmonary embolism, March 2022 Eliquis -Acute medical asthenia secondary to above medical problems PTOT. Consult sample case porter -Chronic medical debility ; has a wheelchair at home. sample case porter. -Moderate left pleural effusion, secondary to CHF Aldactone. Lasix. -coronary artery disease status post stenting Aspirin, Lipitor, Plavix, Toprol-XL -Essential Hypertension Toprol-XL 12.5 -Hyperlipidemia Lipitor - diabetes mellitus type II on oral hypoglycemic Glucophage. Follow Accu-Cheks -DO NOT RESUSCITATE Continue Lasix 40 mg IV every 8. Other medications to continue. Follow with cardiology.
[2022-05-17 19:00] LABS: Anisocytosis Moderate; Basophils % (A) 1 %; Eosinophils # (A) 0.1 k/uL (0-0.7); Eosinophils % (A) 2 %; HCT 32.3 % (34.0-46.0); HGB 10.2 gm/dL (11.4-16.0); Hypochromasia Marked; Lymphocytes # (A) 0.8 k/uL (1.0-4.8); Lymphocytes % (A) 13 %; MCH 29.8 pg (25.0-35.0); MCHC 31.5 g/dL (31.0-37.0); MCV 94.6 fL (80.0-100.0); Macrocytosis Slight; Mean Platelet Volume 8.9; Monocytes # (A) 0.4 k/uL (0-1.0); Monocytes % (A) 6 %; Neutrophils # (A) 4.6 k/uL (1.3-7.7); Neutrophils % (A) 76 %; Platelet Count 232 k/uL (150-450); RBC 3.41 m/uL (3.80-5.40); RDW 20.2 % (11.5-15.5)
[2022-05-17 19:01] LABS: Poikilocytosis (M) Present; Polychromasia Present
[2022-05-17 19:43] LABS: Glucose,Whole Blood 144 mg/dL (70-110)
[2022-05-17 19:59] LABS: Calcium 8.2 mg/dL (8.4-10.2)
[2022-05-17] MEDS: ALPRAZolam 0.25 MG TAB PO SCH (20:00)
[2022-05-17] MEDS: HYDROcodone/APAP 10-325MG 1 EACH TAB PO PRN (20:00)
[2022-05-17] MEDS: ASPIRIN 81 MG PO SCH (20:00)
[2022-05-17] MEDS: CLOPIDOGREL 75 MG TAB PO SCH (20:01)
[2022-05-17] MEDS: MELATONIN 3 MG TABLET PO SCH (20:01)
[2022-05-17] MEDS: METOPROLOL SUCCINATE (ER) 25 MG TAB.ER.24H PO SCH (20:01)
[2022-05-17] MEDS: ATORVASTATIN 80 MG TAB PO SCH (20:01)
[2022-05-18 06:30] LABS: Glucose,Whole Blood 108 mg/dL (70-110)
[2022-05-18] MEDS: INSULIN ASPART (NovoLOG) 100 UNIT/ML VIAL SQ SCH ×3 (06:45→16:38)
[2022-05-18] MEDS: metFORMIN 500 MG TAB PO SCH ×2 (06:47→16:41)
[2022-05-18] MEDS: MIDODRINE 5 MG TAB PO SCH ×3 (06:47→16:41)
[2022-05-18] MEDS: FUROSEMIDE 10 MG/ML 4 ML VIAL IV SCH ×3 (09:03→23:43)
[2022-05-18] MEDS: DAPAGLIFLOZIN PROPANEDIOL 10 MG TABLET PO SCH (09:03)
[2022-05-18] MEDS: CALCIUM CARBONATE 500 MG CHEWABLE PO SCH (09:03)
[2022-05-18] MEDS: ESCITALOPRAM 10 MG TAB PO SCH (09:04)
[2022-05-18] MEDS: SPIRONOLACTONE 25 MG TAB PO SCH (09:04)
[2022-05-18] MEDS: MAGNESIUM OXIDE 400 MG TAB PO SCH (09:04)
[2022-05-18] MEDS: POTASSIUM CHLORIDE ER 10 MEQ TAB.ER.PRT PO SCH (09:04)
[2022-05-18] MEDS: CHOLECALCIFEROL 25 MCG (1000 IU) TABLET PO SCH (09:04)
[2022-05-18] MEDS: FERROUS SULFATE 325 MG TAB PO SCH (09:04)
[2022-05-18] MEDS: polyethylene glycoL 3350 17 GM POWD.PACK PO SCH ×2 (09:04→09:15)
[2022-05-18] MEDS: HYDROcodone/APAP 10-325MG 1 EACH TAB PO PRN ×2 (09:07→20:53)
--- NOTE | 2022-05-18 10:40 | P.PN ---
Subjective Progress Note Date: 05/18/22 PROGRESS NOTE The patient is a 73-year-old female with a known history of CAD, cardiomyopathy, congestive heart failure, hypertension, hyperlipidemia and diabetes who presented with progressive peripheral edema and worsening dyspnea. The patient is quite limited in her physical activity. She is feeling better today. Her breathing is better. She denies any chest discomfort, dizziness or palpitations. Her systolic function was severely impaired and she has a known occluded RCA circumflex and first diagonal branch. She has underwent stenting of the diagonal branch. She continues to be on IV diuretics. She feels tired but otherwise feels that her breathing is better. She continues to be in sinus mechanism. May 18: The patient is feeling better today, she continues to be dyspneic but denies any chest discomfort, dizziness or palpitations. Her activity level has been limited. She continues to be on IV diuretics. She denies any nausea or vomiting. She continues to have significant peripheral edema. Medications: Aspirin, Lipitor 80 mg daily, Plavix 75 mg daily, Lasix 40 mg IV every 8 hours, metoprolol succinate 12.5 mg at bedtime, midodrine 5 mg daily. Aldactone 25 mg daily and Farxiga 10 mg daily, metformin 500 mg twice a day PHYSICAL EXAMINATION: Blood pressure 96/60 heart rate 55, morbidly obese LUNGS: Clear to auscultation HEART: Regular rate and rhythm, S1, S2. No S3. systolic ejection murmur ABDOMEN: Soft, nontender, no organomegaly EXTREMETIES: +1-2 No edema, LAB: On May 17 BUN 28, creatinine 1.05, potassium 4 IMPRESSION: 1. CHF with known reduced ejection fraction, improving. Her low blood pressure his limiting the addition of her medication. 2. History of CAD 3. Morbid obesity 4. History of hyperlipidemia 5. Medical debilitation 6. Diabetes PLAN: 1. Continue IV diuresis 2. Follow renal functions 3. Physical therapy 4. Depending on her progress further recommendations will be made Objective - Vital Signs Vital signs: Vital Signs Temp 97.8 F 05/18/22 09:17 Pulse 55 L 05/18/22 09:17 Resp 18 05/18/22 09:17 BP 96/61 05/18/22 09:17 Pulse Ox 94 L 05/18/22 09:17 FiO2 Intake & Output 05/17/22 05/18/22 05/18/22 19:59 06:59 18:59 Intake Total 358 Output Total 500 Balance -142 Intake: Oral 358 Output: Urine 500 Uretheral (Chavez) 500 Other: Voiding Method Indwelling Catheter # Bowel Movements 1 - Labs CBC & Chem 7: 05/17/22 08:35 05/17/22 08:35 Labs: Abnormal Lab Results - Last 24 Hours (Table) 05/17/22 05/17/22 05/17/22 Range/Units 08:35 08:35 11:49 RBC 3.41 L (3.80-5.40) m/uL Hgb 10.2 L (11.4-16.0) gm/dL Hct 32.3 L (34.0-46.0) % RDW 20.2 H (11.5-15.5) % Lymphocytes # 0.8 L (1.0-4.8) k/uL Sodium 131 L (137-145) mmol/L Chloride 94 L (98-107) mmol/L BUN 28 H (7-17) mg/dL Creatinine 1.05 H (0.52-1.04) mg/dL Glucose 125 H (74-99) mg/dL POC Glucose (mg/dL) 137 H (70-110) mg/dL Calcium 8.2 L (8.4-10.2) mg/dL 05/17/22 05/17/22 Range/Units 16:40 19:42 RBC (3.80-5.40) m/uL Hgb (11.4-16.0) gm/dL Hct (34.0-46.0) % RDW (11.5-15.5) % Lymphocytes # (1.0-4.8) k/uL Sodium (137-145) mmol/L Chloride (98-107) mmol/L BUN (7-17) mg/dL Creatinine (0.52-1.04) mg/dL Glucose (74-99) mg/dL POC Glucose (mg/dL) 142 H 144 H (70-110) mg/dL Calcium (8.4-10.2) mg/dL
[2022-05-18 11:38] LABS: Glucose,Whole Blood 122 mg/dL (70-110)
[2022-05-18 12:03] LABS: Calcium 8.2 mg/dL (8.4-10.2); Potassium 4.4 mmol/L (3.5-5.1)
[2022-05-18 16:36] LABS: Glucose,Whole Blood 111 mg/dL (70-110)
--- NOTE | 2022-05-18 17:58 | P.PN ---
Progress Note - Text Progress Note Date: 05/18/22 Chief Complaint: Increasing edema This is a pleasant 71 years old with past medical history of Coronary Artery Disease status post stent , chronic Heart Failure EF 20%, Diabetes Mellitus, GERD/Reflux, Hyperlipidemia, Hypertension, , chronic back and bilateral hip pain, osteoporosis, bilateral lower leg edema/redness which is worse in the L leg, March 2022 acute PE on eliquis. Patient recently admitted to the hospital in March 2022 with acute PE, CHF exacerbation. EF 20%. UTI. Patient presents with significant swelling of the lower extremity. More short of breath. Not able to do any chores. Feels chilly all the time. Decreased appetite. Does use upon a chair. Patient's a month ago and finding it much more difficult to do things. No fever no chills. No cough. Patient has been drinking quite a bit of water. Admitted with acute CHF exacerbation EF 20%. Started on Lasix drip 10 mg an hour. Strict I's and O's. 05/13/2022: On Lasix drip 10 mg hour. About 2715 negative fluid balance. Fluid restriction. Discussed with patient. PTOT. 05/14/2022: Remains a Lasix drip. About 4600 and negative fluid balance. Sitting up in a chair. Oral intake good. PTOT. air battle manager looking at rehab 05/15/2022: Patient changed to IV bolus Lasix 40 mg every 8 per cardiology. About 6 L and negative fluid balance. Significant edema still present. Fluid restriction. Up in a recliner 05/16/2022: Up in a recliner. On IV Lasix 40 mg every 8. Significant edema still present. The restriction. Oral intake fair. About 8 L and negative fluid balance. 05/17/2022: Patient continues to have significant edema. IV Lasix 40 mg every 8. Oral intake fair. 05/18/2022: Edema still present. Making good urine. Apparently previous some Lasix was held because of low blood pressure. Instructed to continue with Lasix if systolic above 80. Patient actually feeling much better. Sitting with edge of the bed. Oral intake good. Active Medications Hydrocodone Bitart/Acetaminophen (Hydrocodone/Apap 10-325mg 1 Each Tab) 1 each PO Q6H PRN PRN Reason: Pain Last Admin: 05/18/22 09:07 Dose: 1 each Alprazolam (Alprazolam 0.25 Mg Tab) 0.25 mg PO HS [facility] Last Admin: 05/17/22 20:00 Dose: 0.25 mg Aspirin (Aspirin 81 Mg) 81 mg PO HS [facility] Last Admin: 05/17/22 20:00 Dose: 81 mg Atorvastatin Calcium (Atorvastatin 80 Mg Tab) 80 mg PO HS [facility] Last Admin: 05/17/22 20:01 Dose: 80 mg Calcium Carbonate/Glycine (Calcium Carbonate 500 Mg Chewable) 500 mg PO DAILY [facility] Last Admin: 05/18/22 09:03 Dose: 500 mg Calcium Carbonate/Glycine (Calcium Carbonate 500 Mg Chewable) 1,000 mg PO Q4HR PRN PRN Reason: Dyspepsia Cholecalciferol (Cholecalciferol 25 Mcg (1000 Iu) Tablet) 25 mcg PO DAILY [facility] Last Admin: 05/18/22 09:04 Dose: 25 mcg Clopidogrel Bisulfate (Clopidogrel 75 Mg Tab) 75 mg PO [facility] Last Admin: 05/17/22 20:01 Dose: 75 mg Dapagliflozin (Dapagliflozin Propanediol 10 Mg Tablet) 10 mg PO DAILY [facility] Last Admin: 05/18/22 09:03 Dose: 10 mg Dextrose/Water (Dextrose 50% Syringe 50 Ml) 25 ml IVP PER PROTOCOL PRN; Protocol PRN Reason: Hypoglycemia Dextrose/Water (Dextrose 50% Syringe 50 Ml) 50 ml IVP PER PROTOCOL PRN; Protocol PRN Reason: Hypoglycemia Dextrose/Water (Dextrose 50% Syringe 50 Ml) 25 ml IVP PER PROTOCOL PRN; Protocol PRN Reason: Hypoglycemia Dextrose/Water (Dextrose 50% Syringe 50 Ml) 50 ml IVP PER PROTOCOL PRN; Protocol PRN Reason: Hypoglycemia Escitalopram Oxalate (Escitalopram 10 Mg Tab) 10 mg PO DAILY [facility] Last Admin: 05/18/22 09:04 Dose: 10 mg Ferrous Sulfate (Ferrous Sulfate 325 Mg Tab) 325 mg PO DAILY [facility] Last Admin: 05/18/22 09:04 Dose: 325 mg Furosemide (Furosemide 10 Mg/Ml 4 Ml Vial) 40 mg IV Q8HR [facility] Last Admin: 05/18/22 16:41 Dose: 40 mg Insulin Aspart (Insulin Aspart (Novolog) 100 Unit/Ml Vial) 0 unit SQ AC-TID [facility]; Protocol Last Admin: 05/18/22 16:38 Dose: Not Given Lactulose (Lactulose 20 Gm/30 Ml Cup) 20 gm PO DAILY PRN PRN Reason: Constipation Magnesium Oxide (Magnesium Oxide 400 Mg Tab) 400 mg PO DAILY [facility] Last Admin: 05/18/22 09:04 Dose: 400 mg Melatonin (Melatonin 3 Mg Tablet) 6 mg PO HS [facility] Last Admin: 05/17/22 20:01 Dose: Not Given Metformin HCl (Metformin 500 Mg Tab) 500 mg PO BID-W/MEALS [facility] Last Admin: 05/18/22 16:41 Dose: 500 mg Metoprolol Succinate (Metoprolol Succinate (Er) 25 Mg Tab.Er.24h) 12.5 mg PO HS [facility] Last Admin: 05/17/22 20:01 Dose: Not Given Midodrine (Midodrine 5 Mg Tab) 5 mg PO AC-TID [facility] Last Admin: 05/18/22 16:41 Dose: 5 mg Naloxone HCl (Naloxone 0.4 Mg/Ml 1 Ml Vial) 0.2 mg IV Q2M PRN PRN Reason: Opioid Reversal Ondansetron HCl (Ondansetron 4 Mg/2 Ml Vial) 4 mg IVP Q8HR PRN PRN Reason: Nausea And Vomiting Polyethylene Glycol (Polyethylene Glycol 3350 17 Gm Powd.Pack) 17 gm PO DAILY [facility] Last Admin: 05/18/22 09:15 Dose: Not Given Potassium Chloride (Potassium Chloride Er 10 Meq Tab.Er.Prt) 10 meq PO DAILY [facility] Last Admin: 05/18/22 09:04 Dose: 10 meq Spironolactone (Spironolactone 25 Mg Tab) 25 mg PO DAILY [facility] Last Admin: 05/18/22 09:04 Dose: 25 mg Past medical history to include: Pulmonary embolism March 2022, CHF EF 20%, CAD with stent, hypertension, hyperlipidemia, diabetes mellitus type 2, chronic medical debility Social history: Patient's a month ago. Nonsmoker. No alcohol. Physical examination: VITAL SIGNS: 98.2, 60, 18, 105/69, 96% room air GENERAL: Sitting of edge of the bed, awake, comfortable EYES: Pupils equal. Conjunctiva normal. HEENT: External appearance of nose and ears normal, oral cavity grossly normal. NECK: JVD unable to assess; masses not palpable. HEART: First and second heart sounds are normal; significant edema LUNGS: Respiratory rate increased; diminished breath sounds. ABDOMEN: Soft, nontender, liver spleen not palpable, no masses palpable. PSYCH: Alert and oriented x3; mood and affect normal. MUSCULOSKELETAL:No Clubbing/cyanosis;muscles-grossly intact, evidence of OA INVESTIGATIONS, reviewed in the clinical context: 05/18/2022: Potassium 4.4 BUN 31 creatinine 1.09 05/16/2022: Potassium 4.1 BUN 27 creatinine 1.17 05/15/2022: Potassium 4.1 BUN 25 creatinine 1.12 05/14/2022: Potassium 4.7 BUN 24 creatinine 0.98 05/13/2022: WBC 7 hemoglobin 10.4 platelets 267 potassium 5.1 creatinine 0.73 WBC 4.9 hemoglobin 10.9 platelets 271 potassium 4.8 BUN 20 creatinine 0.67 lactic acid 2.2 total bilirubin 3.1 AST 68 ALT 40 EKG tracing personally reviewed by me-normal sinus rhythm. Nonspecific T-wave changes. Chest x-ray film personally reviewed by me-pulmonary edema, left pleural effusion 2-D echocardiogram [March 2022]: EF 20% Assessment and plan: -Acute on chronic systolic congestive heart failure with ejection fraction 20%,: Slow to respond Aldactone 25 mg daily. . IV Lasix 40 mg every 8. Strict I's and O's. Fluid restriction -Chronic pulmonary embolism, March 2022 Eliquis -Acute medical asthenia secondary to above medical problems PTOT. Consult community case manager -Chronic medical debility ; has a wheelchair at home. community case manager. -Moderate left pleural effusion, secondary to CHF Aldactone. Lasix. -coronary artery disease status post stenting Aspirin, Lipitor, Plavix, Toprol-XL -Essential Hypertension Toprol-XL 12.5 -Hyperlipidemia Lipitor - diabetes mellitus type II on oral hypoglycemic Glucophage. Follow Accu-Cheks -DO NOT RESUSCITATE Continue Lasix 40 mg IV every 8. Discussed with patient. Fluid restriction. Follow labs.
[2022-05-18 19:46] LABS: Glucose,Whole Blood 126 mg/dL (70-110)
[2022-05-18] MEDS: ASPIRIN 81 MG PO SCH (20:44)
[2022-05-18] MEDS: ALPRAZolam 0.25 MG TAB PO SCH (20:45)
[2022-05-18] MEDS: CLOPIDOGREL 75 MG TAB PO SCH (20:45)
[2022-05-18] MEDS: METOPROLOL SUCCINATE (ER) 25 MG TAB.ER.24H PO SCH (20:45)
[2022-05-18] MEDS: ATORVASTATIN 80 MG TAB PO SCH (20:45)
[2022-05-19 05:50] LABS: Glucose,Whole Blood 101 mg/dL (70-110)
[2022-05-19] MEDS: INSULIN ASPART (NovoLOG) 100 UNIT/ML VIAL SQ SCH ×3 (06:57→16:53)
[2022-05-19] MEDS: metFORMIN 500 MG TAB PO SCH ×2 (06:59→16:58)
[2022-05-19] MEDS: MIDODRINE 5 MG TAB PO SCH ×3 (06:59→16:58)
[2022-05-19 08:49] LABS: Albumin 3.1 g/dL (3.5-5.0); Calcium 8.2 mg/dL (8.4-10.2); Magnesium 1.5 mg/dL (1.6-2.3); Potassium 3.8 mmol/L (3.5-5.1); Total Bilirubin 2.8 mg/dL (0.2-1.3); Total Protein 6.9 g/dL (6.3-8.2)
[2022-05-19 08:50] LABS: Anisocytosis Moderate; HCT 32.2 % (34.0-46.0); HGB 10.1 gm/dL (11.4-16.0); Hypochromasia Marked; MCH 29.9 pg (25.0-35.0); MCHC 31.3 g/dL (31.0-37.0); MCV 95.3 fL (80.0-100.0); Macrocytosis Slight; Mean Platelet Volume 8.5; Platelet Count 225 k/uL (150-450); RBC 3.38 m/uL (3.80-5.40); RDW 20.4 % (11.5-15.5); WBC 5.1 k/uL (3.8-10.6)
[2022-05-19] MEDS: DAPAGLIFLOZIN PROPANEDIOL 10 MG TABLET PO SCH (09:08)
[2022-05-19] MEDS: SPIRONOLACTONE 25 MG TAB PO SCH (09:08)
[2022-05-19] MEDS: POTASSIUM CHLORIDE ER 10 MEQ TAB.ER.PRT PO SCH (09:08)
[2022-05-19] MEDS: FUROSEMIDE 10 MG/ML 4 ML VIAL IV SCH ×3 (09:08→23:14)
[2022-05-19] MEDS: MAGNESIUM OXIDE 400 MG TAB PO SCH ×2 (09:08→20:37)
[2022-05-19] MEDS: FERROUS SULFATE 325 MG TAB PO SCH (09:09)
[2022-05-19] MEDS: CALCIUM CARBONATE 500 MG CHEWABLE PO SCH (09:09)
[2022-05-19] MEDS: CHOLECALCIFEROL 25 MCG (1000 IU) TABLET PO SCH (09:09)
[2022-05-19] MEDS: ESCITALOPRAM 10 MG TAB PO SCH (09:09)
[2022-05-19] MEDS: polyethylene glycoL 3350 17 GM POWD.PACK PO SCH (11:00)
[2022-05-19] MEDS: HYDROcodone/APAP 10-325MG 1 EACH TAB PO PRN ×2 (11:01→20:36)
[2022-05-19 11:53] LABS: Glucose,Whole Blood 126 mg/dL (70-110)
--- NOTE | 2022-05-19 12:54 | P.PN ---
Progress Note - Text Progress Note Date: 05/19/22 Chief Complaint: Increasing edema This is a pleasant 71 years old with past medical history of Coronary Artery Disease status post stent , chronic Heart Failure EF 20%, Diabetes Mellitus, GERD/Reflux, Hyperlipidemia, Hypertension, , chronic back and bilateral hip pain, osteoporosis, bilateral lower leg edema/redness which is worse in the L leg, March 2022 acute PE on eliquis. Patient recently admitted to the hospital in March 2022 with acute PE, CHF exacerbation. EF 20%. UTI. Patient presents with significant swelling of the lower extremity. More short of breath. Not able to do any chores. Feels chilly all the time. Decreased appetite. Does use upon a chair. Patient's a month ago and finding it much more difficult to do things. No fever no chills. No cough. Patient has been drinking quite a bit of water. Admitted with acute CHF exacerbation EF 20%. Started on Lasix drip 10 mg an hour. Strict I's and O's. 05/13/2022: On Lasix drip 10 mg hour. About 2715 negative fluid balance. Fluid restriction. Discussed with patient. PTOT. 05/14/2022: Remains a Lasix drip. About 4600 and negative fluid balance. Sitting up in a chair. Oral intake good. PTOT. manager water wastewater looking at rehab 05/15/2022: Patient changed to IV bolus Lasix 40 mg every 8 per cardiology. About 6 L and negative fluid balance. Significant edema still present. Fluid restriction. Up in a recliner 05/16/2022: Up in a recliner. On IV Lasix 40 mg every 8. Significant edema still present. The restriction. Oral intake fair. About 8 L and negative fluid balance. 05/17/2022: Patient continues to have significant edema. IV Lasix 40 mg every 8. Oral intake fair. 05/18/2022: Edema still present. Making good urine. Apparently previous some Lasix was held because of low blood pressure. Instructed to continue with Lasix if systolic above 80. Patient actually feeling much better. Sitting with edge of the bed. Oral intake good. 05/19/2022: Remains on IV Lasix. About 11 L in negative fluid balance. Decrease edema. Oral intake fair. Active Medications Hydrocodone Bitart/Acetaminophen (Hydrocodone/Apap 10-325mg 1 Each Tab) 1 each PO Q6H PRN PRN Reason: Pain Last Admin: 05/19/22 11:01 Dose: 1 each Alprazolam (Alprazolam 0.25 Mg Tab) 0.25 mg PO HS [facility] Last Admin: 05/18/22 20:45 Dose: 0.25 mg Aspirin (Aspirin 81 Mg) 81 mg PO HS [facility] Last Admin: 05/18/22 20:44 Dose: 81 mg Atorvastatin Calcium (Atorvastatin 80 Mg Tab) 80 mg PO HS [facility] Last Admin: 05/18/22 20:45 Dose: 80 mg Calcium Carbonate/Glycine (Calcium Carbonate 500 Mg Chewable) 500 mg PO DAILY [facility] Last Admin: 05/19/22 09:09 Dose: 500 mg Calcium Carbonate/Glycine (Calcium Carbonate 500 Mg Chewable) 1,000 mg PO Q4HR PRN PRN Reason: Dyspepsia Cholecalciferol (Cholecalciferol 25 Mcg (1000 Iu) Tablet) 25 mcg PO DAILY [facility] Last Admin: 05/19/22 09:09 Dose: 25 mcg Clopidogrel Bisulfate (Clopidogrel 75 Mg Tab) 75 mg PO HS [facility] Last Admin: 05/18/22 20:45 Dose: 75 mg Dapagliflozin (Dapagliflozin Propanediol 10 Mg Tablet) 10 mg PO DAILY [facility] Last Admin: 05/19/22 09:08 Dose: 10 mg Dextrose/Water (Dextrose 50% Syringe 50 Ml) 25 ml IVP PER PROTOCOL PRN; Protocol PRN Reason: Hypoglycemia Dextrose/Water (Dextrose 50% Syringe 50 Ml) 50 ml IVP PER PROTOCOL PRN; Protocol PRN Reason: Hypoglycemia Dextrose/Water (Dextrose 50% Syringe 50 Ml) 25 ml IVP PER PROTOCOL PRN; Protocol PRN Reason: Hypoglycemia Dextrose/Water (Dextrose 50% Syringe 50 Ml) 50 ml IVP PER PROTOCOL PRN; Protocol PRN Reason: Hypoglycemia Escitalopram Oxalate (Escitalopram 10 Mg Tab) 10 mg PO DAILY [facility] Last Admin: 05/19/22 09:09 Dose: 10 mg Ferrous Sulfate (Ferrous Sulfate 325 Mg Tab) 325 mg PO DAILY [facility] Last Admin: 05/19/22 09:09 Dose: 325 mg Furosemide (Furosemide 10 Mg/Ml 4 Ml Vial) 40 mg IV Q8HR [facility] Last Admin: 05/19/22 09:08 Dose: 40 mg Insulin Aspart (Insulin Aspart (Novolog) 100 Unit/Ml Vial) 0 unit SQ AC-TID [facility]; Protocol Last Admin: 05/19/22 06:57 Dose: Not Given Lactulose (Lactulose 20 Gm/30 Ml Cup) 20 gm PO DAILY PRN PRN Reason: Constipation Magnesium Oxide (Magnesium Oxide 400 Mg Tab) 400 mg PO DAILY [facility] Last Admin: 05/19/22 09:08 Dose: 400 mg Metformin HCl (Metformin 500 Mg Tab) 500 mg PO BID-W/MEALS [facility] Last Admin: 05/19/22 06:59 Dose: 500 mg Metoprolol Succinate (Metoprolol Succinate (Er) 25 Mg Tab.Er.24h) 12.5 mg PO HS [facility] Last Admin: 05/18/22 20:45 Dose: 12.5 mg Midodrine (Midodrine 5 Mg Tab) 5 mg PO AC-TID [facility] Last Admin: 05/19/22 11:01 Dose: 5 mg Naloxone HCl (Naloxone 0.4 Mg/Ml 1 Ml Vial) 0.2 mg IV Q2M PRN PRN Reason: Opioid Reversal Ondansetron HCl (Ondansetron 4 Mg/2 Ml Vial) 4 mg IVP Q8HR PRN PRN Reason: Nausea And Vomiting Polyethylene Glycol (Polyethylene Glycol 3350 17 Gm Powd.Pack) 17 gm PO DAILY [facility] Last Admin: 05/19/22 11:00 Dose: Not Given Potassium Chloride (Potassium Chloride Er 10 Meq Tab.Er.Prt) 10 meq PO DAILY [facility] Last Admin: 05/19/22 09:08 Dose: 10 meq Spironolactone (Spironolactone 25 Mg Tab) 25 mg PO DAILY [facility] Last Admin: 05/19/22 09:08 Dose: 25 mg Past medical history to include: Pulmonary embolism March 2022, CHF EF 20%, CAD with stent, hypertension, hyperlipidemia, diabetes mellitus type 2, chronic medical debility Social history: Patient's a month ago. Nonsmoker. No alcohol. Physical examination: VITAL SIGNS: 97.9, 61, 14, 96 x 60, 92% room air GENERAL: Sitting of edge of the bed, comfortable EYES: Pupils equal. Conjunctiva normal. HEENT: External appearance of nose and ears normal, oral cavity grossly normal. NECK: JVD unable to assess; masses not palpable. HEART: First and second heart sounds are normal; edema decreasing LUNGS: Respiratory rate normal diminished breath sounds. ABDOMEN: Soft, nontender, liver spleen not palpable, no masses palpable. PSYCH: Alert and oriented x3; mood and affect normal. MUSCULOSKELETAL:No Clubbing/cyanosis;muscles-grossly intact, evidence of OA INVESTIGATIONS, reviewed in the clinical context: 05/19/2022: WBC 5.1 hemoglobin 10.1 progression 3.8. 28 creatinine 1.13 and lesion 1.5 05/18/2022: Potassium 4.4 BUN 31 creatinine 1.09 05/16/2022: Potassium 4.1 BUN 27 creatinine 1.17 05/15/2022: Potassium 4.1 BUN 25 creatinine 1.12 05/14/2022: Potassium 4.7 BUN 24 creatinine 0.98 05/13/2022: WBC 7 hemoglobin 10.4 platelets 267 potassium 5.1 creatinine 0.73 WBC 4.9 hemoglobin 10.9 platelets 271 potassium 4.8 BUN 20 creatinine 0.67 lactic acid 2.2 total bilirubin 3.1 AST 68 ALT 40 EKG tracing personally reviewed by me-normal sinus rhythm. Nonspecific T-wave changes. Chest x-ray film personally reviewed by me-pulmonary edema, left pleural effusion 2-D echocardiogram [March 2022]: EF 20% Assessment and plan: -Acute on chronic systolic congestive heart failure with ejection fraction 20%,: Slow to respond Aldactone 25 mg daily. IV Lasix 40 mg every 8. Strict I's and O's. Fluid restriction -Chronic pulmonary embolism, March 2022 Eliquis -Metabolic alkalosis from diuresis Add Diamox -Acute medical asthenia secondary to above medical problems PTOT. Consult case assistant -Chronic medical debility ; has a wheelchair at home. case assistant. -Moderate left pleural effusion, secondary to CHF Aldactone. Lasix. -coronary artery disease status post stenting Aspirin, Lipitor, Plavix, Toprol-XL -Essential Hypertension Toprol-XL 12.5 -Hyperlipidemia Lipitor - diabetes mellitus type II on oral hypoglycemic Glucophage. Follow Accu-Cheks -DO NOT RESUSCITATE Continue Lasix 40 mg IV every 8. Discussed with patient. And case assistant. Another 24-48 hours of IV Lasix. Increase magnesium oxide.
--- NOTE | 2022-05-19 13:52 | P.PN ---
Subjective This is a 71 year old female with a past medical history significant for coronary artery disease with previous stenting, ischemic cardiac myopathy, c ongestive heart failure, hypertension, hyperlipidemia, and diabetes. Patient follows in the office with Dr. Santos. We have been asked to see the patient in consultation for CHF. Patient presented with a fall and states over the past few weeks she has noticed increased lower extremity edema. She also reports SOB * Most recent echocardiogram obtained in March 2022 revealed ejection fraction of 20% * Cardiac catheterization history: December 2021 revealing 30-40% mid LAD stenosis, diagonal 1 branch 100% occluded, mid circumflex 100% occluded, RCA 100% occluded. Patient underwent stenting of the diagonal 1 branch 05/19/2022 Patient examined this morning at the bedside. Patient denies any chest pain or pressure. She denies any shortness of breath. She continues to have lower extremity edema. She remains on IV Lasix 40 mg every 8 hours. Blood pressures remain on the soft side with a systolic in the 90s. Patient with 4.1L urine output over the past 24 hours. Decrease in weight noted. Labs: Sodium 133, potassium 3.8, BUN 28, serum creatinine 1.13 PHYSICAL EXAM: VITAL SIGNS: Reviewed. GENERAL: Well-developed in no acute distress. HEENT: Head is normocephalic. Neck supple. No JVD LUNGS: Respirations even and unlabored. Lungs diminished HEART: Regular rate and rhythm. S1 and S2 heard. + systolic murmur. ABDOMEN: Soft. Nondistended. Nontender. EXTREMITIES: Normal range of motion. No clubbing or cyanosis. Peripheral pulses intact. 3+ bilateral pitting lower extremity edema up to buttocks NEUROLOGIC: Awake and alert. Oriented x 3. ASSESSMENT: Shortness of breath Acute on chronic heart failure with reduced ejection fraction Coronary artery disease with previous PCI Ischemic cardiomyopathy, ejection fraction 20% Hypertension Hyperlipidemia Diabetes Debility Morbid obesity Hypotension, lisinopril discontinued PLAN: Continue to hold lisinopril secondary to hypotension Continue Lasix 40 mg IVP every 8 hours Daily weights, accurate I&O, and monitoring of kidney function Continue additional home cardiac medications Patient likely will need 2-3 more days of diuresis Further recommendations pending patient course Nurse practitioner note has been reviewed by physician. Signing provider agrees with the documented findings, assessment, and plan of care. Objective - Vital Signs Vital signs: Vital Signs Temp 97.9 F 05/19/22 04:00 Pulse 61 05/19/22 04:00 Resp 14 05/19/22 04:00 BP 96/60 05/19/22 04:00 Pulse Ox 92 L 05/19/22 04:00 FiO2 Intake & Output 05/18/22 05/19/22 05/19/22 18:59 06:59 18:59 Intake Total 590 240 Output Total 1850 2275 Balance -1260 -2275 240 Weight 130 kg Intake: IV 10 Invasive Line 2 10 Oral 580 240 Output: Urine 1850 2275 Uretheral (Chavez) 1850 850 Other: Voiding Method Indwelling Catheter Indwelling Catheter # Bowel Movements 1 1 - Labs CBC & Chem 7: 05/19/22 07:56 05/19/22 07:56 Labs: Abnormal Lab Results - Last 24 Hours (Table) 05/18/22 05/18/22 05/18/22 Range/Units 11:11 11:37 16:34 Sodium 134 L (137-145) mmol/L Chloride 93 L (98-107) mmol/L BUN 31 H (7-17) mg/dL Creatinine 1.09 H (0.52-1.04) mg/dL Glucose 118 H (74-99) mg/dL POC Glucose (mg/dL) 122 H 111 H (70-110) mg/dL Calcium 8.2 L (8.4-10.2) mg/dL 05/18/22 Range/Units 19:43 Sodium (137-145) mmol/L Chloride (98-107) mmol/L BUN (7-17) mg/dL Creatinine (0.52-1.04) mg/dL Glucose (74-99) mg/dL POC Glucose (mg/dL) 126 H (70-110) mg/dL Calcium (8.4-10.2) mg/dL
[2022-05-19 16:55] LABS: Glucose,Whole Blood 143 mg/dL (70-110)
[2022-05-19] MEDS: acetaZOLAMIDE 250 MG TAB PO SCH ×2 (16:58→20:37)
[2022-05-19 19:41] LABS: Glucose,Whole Blood 158 mg/dL (70-110)
[2022-05-19] MEDS: ALPRAZolam 0.25 MG TAB PO SCH (20:36)
[2022-05-19] MEDS: ATORVASTATIN 80 MG TAB PO SCH (20:36)
[2022-05-19] MEDS: CLOPIDOGREL 75 MG TAB PO SCH (20:36)
[2022-05-19] MEDS: METOPROLOL SUCCINATE (ER) 25 MG TAB.ER.24H PO SCH (20:36)
[2022-05-19] MEDS: ASPIRIN 81 MG PO SCH (20:36)
[2022-05-20 05:44] LABS: Glucose,Whole Blood 107 mg/dL (70-110)
[2022-05-20] MEDS: INSULIN ASPART (NovoLOG) 100 UNIT/ML VIAL SQ SCH ×3 (06:11→17:03)
[2022-05-20] MEDS: metFORMIN 500 MG TAB PO SCH ×2 (06:13→17:02)
[2022-05-20] MEDS: MIDODRINE 5 MG TAB PO SCH ×3 (06:13→17:02)
[2022-05-20] MEDS: acetaZOLAMIDE 250 MG TAB PO SCH ×2 (09:49→20:32)
[2022-05-20] MEDS: ESCITALOPRAM 10 MG TAB PO SCH (09:49)
[2022-05-20] MEDS: FERROUS SULFATE 325 MG TAB PO SCH (09:49)
[2022-05-20] MEDS: FUROSEMIDE 10 MG/ML 4 ML VIAL IV SCH ×2 (09:50→15:47)
[2022-05-20] MEDS: DAPAGLIFLOZIN PROPANEDIOL 10 MG TABLET PO SCH (09:50)
[2022-05-20] MEDS: MAGNESIUM OXIDE 400 MG TAB PO SCH ×2 (09:50→20:33)
[2022-05-20] MEDS: CALCIUM CARBONATE 500 MG CHEWABLE PO SCH (09:50)
[2022-05-20] MEDS: CHOLECALCIFEROL 25 MCG (1000 IU) TABLET PO SCH (09:50)
[2022-05-20] MEDS: POTASSIUM CHLORIDE ER 10 MEQ TAB.ER.PRT PO SCH (09:50)
[2022-05-20] MEDS: polyethylene glycoL 3350 17 GM POWD.PACK PO SCH (09:51)
[2022-05-20 10:01] LABS: Calcium 8.2 mg/dL (8.4-10.2); Potassium 3.7 mmol/L (3.5-5.1); Total Bilirubin 2.4 mg/dL (0.2-1.3); Total Protein 6.8 g/dL (6.3-8.2)
[2022-05-20] MEDS: HYDROcodone/APAP 10-325MG 1 EACH TAB PO PRN ×2 (10:04→20:32)
[2022-05-20 11:36] LABS: Glucose,Whole Blood 127 mg/dL (70-110)
[2022-05-20] MEDS ORDERED: POTASSIUM CHLORIDE ER 20 MEQ TAB.ER PO STA (13:18)
--- NOTE | 2022-05-20 14:20 | P.PN ---
Subjective This is a 71 year old female with a past medical history significant for coronary artery disease with previous stenting, ischemic cardiac myopathy, c ongestive heart failure, hypertension, hyperlipidemia, and diabetes. Patient follows in the office with Dr. Santos. We have been asked to see the patient in consultation for CHF. Patient presented with a fall and states over the past few weeks she has noticed increased lower extremity edema. She also reports SOB * Most recent echocardiogram obtained in March 2022 revealed ejection fraction of 20% * Cardiac catheterization history: December 2021 revealing 30-40% mid LAD stenosis, diagonal 1 branch 100% occluded, mid circumflex 100% occluded, RCA 100% occluded. Patient underwent stenting of the diagonal 1 branch 05/20/2022 Patient examined this morning at the bedside. Patient denies any chest pain or pressure. She denies any shortness of breath. She continues to have lower extremity edema. She remains on IV Lasix 40 mg every 8 hours. Blood pressures remain on the soft side with a systolic in the 80s. Patient with 3.4L urine output over the past 24 hours. Decrease in weight noted. Labs: Sodium 135, potassium 3.7, BUN 26, serum creatinine 1.25 PHYSICAL EXAM: VITAL SIGNS: Reviewed. GENERAL: Well-developed in no acute distress. HEENT: Head is normocephalic. Neck supple. No JVD LUNGS: Respirations even and unlabored. Lungs diminished HEART: Regular rate and rhythm. S1 and S2 heard. + systolic murmur. ABDOMEN: Soft. Nondistended. Nontender. EXTREMITIES: Normal range of motion. No clubbing or cyanosis. Peripheral pulses intact. 3+ bilateral pitting lower extremity edema up to buttocks NEUROLOGIC: Awake and alert. Oriented x 3. ASSESSMENT: Shortness of breath Acute on chronic heart failure with reduced ejection fraction Coronary artery disease with previous PCI Ischemic cardiomyopathy, ejection fraction 20% Hypertension Hyperlipidemia Diabetes Debility Morbid obesity Hypotension, lisinopril discontinued PLAN: Continue to hold lisinopril secondary to hypotension Continue Lasix 40 mg IVP every 8 hours Daily weights, accurate I&O, and monitoring of kidney function Continue additional home cardiac medications Further recommendations pending patient course Nurse practitioner note has been reviewed by physician. Signing provider agrees with the documented findings, assessment, and plan of care. Objective - Vital Signs Vital signs: Vital Signs Temp 98.1 F 05/20/22 11:58 Pulse 62 05/20/22 11:58 Resp 18 05/20/22 11:58 BP 86/51 05/20/22 11:58 Pulse Ox 93 L 05/20/22 11:58 FiO2 Intake & Output 05/19/22 05/20/22 05/20/22 18:59 06:59 18:59 Intake Total 360 720 Output Total 2500 925 Balance -2140 -925 720 Weight 128.5 kg Intake: Oral 360 720 Output: Urine 2500 925 Uretheral (Chavez) 850 Other: Voiding Method Indwelling Catheter Indwelling Catheter Indwelling Catheter # Bowel Movements 0 - Labs CBC & Chem 7: 05/19/22 07:56 05/20/22 09:22 Labs: Abnormal Lab Results - Last 24 Hours (Table) 05/19/22 05/19/22 05/20/22 Range/Units 16:52 19:38 09:22 Sodium 135 L (137-145) mmol/L Chloride 92 L (98-107) mmol/L Carbon Dioxide 35 H (22-30) mmol/L BUN 26 H (7-17) mg/dL Creatinine 1.25 H (0.52-1.04) mg/dL Glucose 133 H (74-99) mg/dL POC Glucose (mg/dL) 143 H 158 H (70-110) mg/dL Calcium 8.2 L (8.4-10.2) mg/dL Total Bilirubin 2.4 H (0.2-1.3) mg/dL Alkaline Phosphatase 257 H (38-126) U/L Albumin 3.0 L (3.5-5.0) g/dL 05/20/22 Range/Units 11:34 Sodium (137-145) mmol/L Chloride (98-107) mmol/L Carbon Dioxide (22-30) mmol/L BUN (7-17) mg/dL Creatinine (0.52-1.04) mg/dL Glucose (74-99) mg/dL POC Glucose (mg/dL) 127 H (70-110) mg/dL Calcium (8.4-10.2) mg/dL Total Bilirubin (0.2-1.3) mg/dL Alkaline Phosphatase (38-126) U/L Albumin (3.5-5.0) g/dL
--- NOTE | 2022-05-20 15:15 | P.PN ---
Progress Note - Text Progress Note Date: 05/20/22 Chief Complaint: Increasing edema This is a pleasant 71 years old with past medical history of Coronary Artery Disease status post stent , chronic Heart Failure EF 20%, Diabetes Mellitus, GERD/Reflux, Hyperlipidemia, Hypertension, , chronic back and bilateral hip pain, osteoporosis, bilateral lower leg edema/redness which is worse in the L leg, March 2022 acute PE on eliquis. Patient recently admitted to the hospital in March 2022 with acute PE, CHF exacerbation. EF 20%. UTI. Patient presents with significant swelling of the lower extremity. More short of breath. Not able to do any chores. Feels chilly all the time. Decreased appetite. Does use upon a chair. Patient's a month ago and finding it much more difficult to do things. No fever no chills. No cough. Patient has been drinking quite a bit of water. Admitted with acute CHF exacerbation EF 20%. Started on Lasix drip 10 mg an hour. Strict I's and O's. 05/13/2022: On Lasix drip 10 mg hour. About 2715 negative fluid balance. Fluid restriction. Discussed with patient. PTOT. 05/14/2022: Remains a Lasix drip. About 4600 and negative fluid balance. Sitting up in a chair. Oral intake good. PTOT. security program manager looking at rehab 05/15/2022: Patient changed to IV bolus Lasix 40 mg every 8 per cardiology. About 6 L and negative fluid balance. Significant edema still present. Fluid restriction. Up in a recliner 05/16/2022: Up in a recliner. On IV Lasix 40 mg every 8. Significant edema still present. The restriction. Oral intake fair. About 8 L and negative fluid balance. 05/17/2022: Patient continues to have significant edema. IV Lasix 40 mg every 8. Oral intake fair. 05/18/2022: Edema still present. Making good urine. Apparently previous some Lasix was held because of low blood pressure. Instructed to continue with Lasix if systolic above 80. Patient actually feeling much better. Sitting with edge of the bed. Oral intake good. 05/19/2022: Remains on IV Lasix. About 11 L in negative fluid balance. Decrease edema. Oral intake fair. 05/20/2022: On IV Lasix. About 13 L in negative fluid balance. Edema slowly coming down. Reminded the patient to better Harpreet wrap. Oral intake good. Up in bed. Patient started on Diamox yesterday for contraction alkalosis Active Medications Hydrocodone Bitart/Acetaminophen (Hydrocodone/Apap 10-325mg 1 Each Tab) 1 each PO Q6H PRN PRN Reason: Pain Last Admin: 05/20/22 10:04 Dose: 1 each Acetazolamide (Acetazolamide 250 Mg Tab) 250 mg PO BID [facility] Last Admin: 05/20/22 09:49 Dose: 250 mg Alprazolam (Alprazolam 0.25 Mg Tab) 0.25 mg PO HS [facility] Last Admin: 05/19/22 20:36 Dose: 0.25 mg Aspirin (Aspirin 81 Mg) 81 mg PO HS [facility] Last Admin: 05/19/22 20:36 Dose: 81 mg Atorvastatin Calcium (Atorvastatin 80 Mg Tab) 80 mg PO HS [facility] Last Admin: 05/19/22 20:36 Dose: 80 mg Calcium Carbonate/Glycine (Calcium Carbonate 500 Mg Chewable) 500 mg PO DAILY [facility] Last Admin: 05/20/22 09:50 Dose: 500 mg Calcium Carbonate/Glycine (Calcium Carbonate 500 Mg Chewable) 1,000 mg PO Q4HR PRN PRN Reason: Dyspepsia Cholecalciferol (Cholecalciferol 25 Mcg (1000 Iu) Tablet) 25 mcg PO DAILY [facility] Last Admin: 05/20/22 09:50 Dose: 25 mcg Clopidogrel Bisulfate (Clopidogrel 75 Mg Tab) 75 mg PO HS [facility] Last Admin: 05/19/22 20:36 Dose: 75 mg Dapagliflozin (Dapagliflozin Propanediol 10 Mg Tablet) 10 mg PO DAILY [facility] Last Admin: 05/20/22 09:50 Dose: 10 mg Dextrose/Water (Dextrose 50% Syringe 50 Ml) 25 ml IVP PER PROTOCOL PRN; Protocol PRN Reason: Hypoglycemia Dextrose/Water (Dextrose 50% Syringe 50 Ml) 50 ml IVP PER PROTOCOL PRN; Protocol PRN Reason: Hypoglycemia Dextrose/Water (Dextrose 50% Syringe 50 Ml) 25 ml IVP PER PROTOCOL PRN; Protocol PRN Reason: Hypoglycemia Dextrose/Water (Dextrose 50% Syringe 50 Ml) 50 ml IVP PER PROTOCOL PRN; Pro tocol PRN Reason: Hypoglycemia Escitalopram Oxalate (Escitalopram 10 Mg Tab) 10 mg PO DAILY [facility] Last Admin: 05/20/22 09:49 Dose: 10 mg Ferrous Sulfate (Ferrous Sulfate 325 Mg Tab) 325 mg PO DAILY [facility] Last Admin: 05/20/22 09:49 Dose: 325 mg Furosemide (Furosemide 10 Mg/Ml 4 Ml Vial) 40 mg IV Q8HR [facility] Last Admin: 05/20/22 09:50 Dose: 40 mg Insulin Aspart (Insulin Aspart (Novolog) 100 Unit/Ml Vial) 0 unit SQ AC-TID [facility]; Protocol Last Admin: 05/20/22 11:58 Dose: Not Given Lactulose (Lactulose 20 Gm/30 Ml Cup) 20 gm PO DAILY PRN PRN Reason: Constipation Magnesium Oxide (Magnesium Oxide 400 Mg Tab) 400 mg PO BID [facility] Last Admin: 05/20/22 09:50 Dose: 400 mg Metformin HCl (Metformin 500 Mg Tab) 500 mg PO BID-W/MEALS [facility] Last Admin: 05/20/22 06:13 Dose: 500 mg Metoprolol Succinate (Metoprolol Succinate (Er) 25 Mg Tab.Er.24h) 12.5 mg PO HS [facility] Last Admin: 05/19/22 20:36 Dose: 12.5 mg Midodrine (Midodrine 5 Mg Tab) 5 mg PO AC-TID [facility] Last Admin: 05/20/22 12:04 Dose: 5 mg Naloxone HCl (Naloxone 0.4 Mg/Ml 1 Ml Vial) 0.2 mg IV Q2M PRN PRN Reason: Opioid Reversal Ondansetron HCl (Ondansetron 4 Mg/2 Ml Vial) 4 mg IVP Q8HR PRN PRN Reason: Nausea And Vomiting Polyethylene Glycol (Polyethylene Glycol 3350 17 Gm Powd.Pack) 17 gm PO DAILY [facility] Last Admin: 05/20/22 09:51 Dose: Not Given Potassium Chloride (Potassium Chloride Er 10 Meq Tab.Er.Prt) 10 meq PO DAILY [facility] Last Admin: 05/20/22 09:50 Dose: 10 meq Spironolactone (Spironolactone 25 Mg Tab) 25 mg PO DAILY [facility] Last Admin: 05/19/22 09:08 Dose: 25 mg Past medical history to include: Pulmonary embolism March 2022, CHF EF 20%, CAD with stent, hypertension, hyperlipidemia, diabetes mellitus type 2, chronic medical debility Social history: Patient's a month ago. Nonsmoker. No alcohol. Physical examination: VITAL SIGNS: 97.4, 60, 18, 87 x 83, 93% room air GENERAL: Sitting up in bed, comfortable EYES: Pupils equal. Conjunctiva normal. HEENT: External appearance of nose and ears normal, oral cavity grossly normal. NECK: JVD unable to assess; masses not palpable. HEART: First and second heart sounds are normal; edema decreased LUNGS: Respiratory rate normal diminished breath sounds. ABDOMEN: Soft, nontender, liver spleen not palpable, no masses palpable. PSYCH: Alert and oriented x3; mood and affect normal. MUSCULOSKELETAL:No Clubbing/cyanosis;muscles-grossly intact, evidence of OA INVESTIGATIONS, reviewed in the clinical context: 05/20/2022: Potassium 3.7 bicarbonate 35 (creatinine 1.25 05/19/2022: WBC 5.1 hemoglobin 10.1 progression 3.8. 28 creatinine 1.13 and lesion 1.5 05/18/2022: Potassium 4.4 BUN 31 creatinine 1.09 05/16/2022: Potassium 4.1 BUN 27 creatinine 1.17 05/15/2022: Potassium 4.1 BUN 25 creatinine 1.12 05/14/2022: Potassium 4.7 BUN 24 creatinine 0.98 05/13/2022: WBC 7 hemoglobin 10.4 platelets 267 potassium 5.1 creatinine 0.73 WBC 4.9 hemoglobin 10.9 platelets 271 potassium 4.8 BUN 20 creatinine 0.67 lacti c acid 2.2 total bilirubin 3.1 AST 68 ALT 40 EKG tracing personally reviewed by me-normal sinus rhythm. Nonspecific T-wave changes. Chest x-ray film personally reviewed by me-pulmonary edema, left pleural effusion 2-D echocardiogram [March 2022]: EF 20% Assessment and plan: -Acute on chronic systolic congestive heart failure with ejection fraction 20%,: Slow to respond Aldactone 25 mg daily. IV Lasix 40 mg every 8. Strict I's and O's. Fluid restriction -Chronic pulmonary embolism, March 2022 Eliquis -Metabolic alkalosis from diuresis Diamox -Acute medical asthenia secondary to above medical problems PTOT. Follow with case supervisor -Chronic medical debility ; has a wheelchair at home. case supervisor. -Moderate left pleural effusion, secondary to CHF Aldactone. Lasix. -coronary artery disease status post stenting Aspirin, Lipitor, Plavix, Toprol-XL -Essential Hypertension Toprol-XL 12.5 -Hyperlipidemia Lipitor - diabetes mellitus type II on oral hypoglycemic Glucophage. Follow Accu-Cheks -DO NOT RESUSCITATE Continue Lasix 40 mg IV every 8. Diamox added yesterday. Continue to follow eyes and nose. Discussed with patient. Patient will need rehab at discharge.
[2022-05-20 16:23] LABS: Glucose,Whole Blood 143 mg/dL (70-110)
[2022-05-20 20:20] LABS: Glucose,Whole Blood 133 mg/dL (70-110)
[2022-05-20] MEDS: SPIRONOLACTONE 25 MG TAB PO SCH (20:28)
[2022-05-20] MEDS: ALPRAZolam 0.25 MG TAB PO SCH (20:32)
[2022-05-20] MEDS: ASPIRIN 81 MG PO SCH (20:32)
[2022-05-20] MEDS: CLOPIDOGREL 75 MG TAB PO SCH (20:32)
[2022-05-20] MEDS: ATORVASTATIN 80 MG TAB PO SCH (20:32)
[2022-05-20] MEDS: METOPROLOL SUCCINATE (ER) 25 MG TAB.ER.24H PO SCH (20:33)
[2022-05-21] MEDS: FUROSEMIDE 10 MG/ML 4 ML VIAL IV SCH ×4 (00:37→23:43)
[2022-05-21 06:21] LABS: Glucose,Whole Blood 102 mg/dL (70-110)
[2022-05-21] MEDS: INSULIN ASPART (NovoLOG) 100 UNIT/ML VIAL SQ SCH ×3 (06:23→18:08)
[2022-05-21] MEDS: MIDODRINE 5 MG TAB PO SCH ×3 (06:25→18:08)
[2022-05-21] MEDS: metFORMIN 500 MG TAB PO SCH ×2 (06:25→18:08)
[2022-05-21 08:14] LABS: Calcium 8.3 mg/dL (8.4-10.2); Potassium 3.8 mmol/L (3.5-5.1)
[2022-05-21] MEDS: polyethylene glycoL 3350 17 GM POWD.PACK PO SCH (09:19)
[2022-05-21] MEDS: HYDROcodone/APAP 10-325MG 1 EACH TAB PO PRN ×2 (09:22→23:43)
[2022-05-21] MEDS: CHOLECALCIFEROL 25 MCG (1000 IU) TABLET PO SCH (09:23)
[2022-05-21] MEDS: CALCIUM CARBONATE 500 MG CHEWABLE PO SCH (09:23)
[2022-05-21] MEDS: POTASSIUM CHLORIDE ER 10 MEQ TAB.ER.PRT PO SCH (09:23)
[2022-05-21] MEDS: SPIRONOLACTONE 25 MG TAB PO SCH (09:23)
[2022-05-21] MEDS: FERROUS SULFATE 325 MG TAB PO SCH (09:23)
[2022-05-21] MEDS: MAGNESIUM OXIDE 400 MG TAB PO SCH ×2 (09:23→21:04)
[2022-05-21] MEDS: ESCITALOPRAM 10 MG TAB PO SCH (09:23)
[2022-05-21] MEDS: DAPAGLIFLOZIN PROPANEDIOL 10 MG TABLET PO SCH (09:23)
[2022-05-21] MEDS: acetaZOLAMIDE 250 MG TAB PO SCH ×2 (09:23→21:04)
[2022-05-21 11:57] LABS: Glucose,Whole Blood 147 mg/dL (70-110)
--- NOTE | 2022-05-21 13:08 | P.PN ---
Subjective This is a 71 year old female with a past medical history significant for coronary artery disease with previous stenting, ischemic cardiac myopathy, c ongestive heart failure, hypertension, hyperlipidemia, and diabetes. Patient follows in the office with Dr. Santos. We have been asked to see the patient in consultation for CHF. Patient presented with a fall and states over the past few weeks she has noticed increased lower extremity edema. She also reports SOB * Most recent echocardiogram obtained in March 2022 revealed ejection fraction of 20% * Cardiac catheterization history: December 2021 revealing 30-40% mid LAD stenosis, diagonal 1 branch 100% occluded, mid circumflex 100% occluded, RCA 100% occluded. Patient underwent stenting of the diagonal 1 branch 05/21/2022 Patient examined this morning at the bedside. Patient denies any chest pain or pressure. She denies any shortness of breath. She continues to have lower extremity edema, appears to be tolerating diuresis well. She remains on IV Lasix 40 mg every 8 hours. Blood pressures stable 105/64. Patient with -1640mL over the past 24 hours. sCr stable at 1.25. PHYSICAL EXAM: VITAL SIGNS: Reviewed. GENERAL: Well-developed in no acute distress. HEENT: Head is normocephalic. Neck supple. No JVD LUNGS: Respirations even and unlabored. Lungs diminished HEART: Regular rate and rhythm. S1 and S2 heard. + systolic murmur. ABDOMEN: Soft. Nondistended. Nontender. EXTREMITIES: Normal range of motion. No clubbing or cyanosis. Peripheral pulses intact. 3+ bilateral pitting lower extremity edema up to buttocks NEUROLOGIC: Awake and alert. Oriented x 3. ASSESSMENT: Shortness of breath Acute on chronic heart failure with reduced ejection fraction Coronary artery disease with previous PCI Ischemic cardiomyopathy, ejection fraction 20% Hypertension Hyperlipidemia Diabetes Debility Morbid obesity Hypotension, lisinopril discontinued PLAN: Continue Lasix 40 mg IVP every 8 hours Daily weights, accurate I&O, and monitoring of kidney function Continue to hold lisinopril secondary to hypotension Continue additional home cardiac medications with aspirin, statin, plavix, metoprolol succinate and aldactone Further recommendations pending patient course Nurse practitioner note has been reviewed by physician. Signing provider agrees with the documented findings, assessment, and plan of care. Objective - Vital Signs Vital signs: Vital Signs Temp 98 F 05/21/22 04:00 Pulse 59 L 05/21/22 04:00 Resp 18 05/21/22 04:00 BP 96/58 05/21/22 04:00 Pulse Ox 98 05/21/22 08:37 FiO2 21 05/21/22 08:37 Intake & Output 05/20/22 05/21/22 05/21/22 18:59 06:59 18:59 Intake Total 960 240 Output Total 1750 850 Balance -790 -850 240 Weight 137 kg Intake: Oral 960 240 Output: Urine 1750 850 Other: Voiding Method Indwelling Catheter Indwelling Catheter - Labs CBC & Chem 7: 05/19/22 07:56 05/21/22 07:17 Labs: Abnormal Lab Results - Last 24 Hours (Table) 05/20/22 05/20/22 05/20/22 Range/Units 09:22 11:34 16:21 Sodium 135 L (137-145) mmol/L Chloride 92 L (98-107) mmol/L Carbon Dioxide 35 H (22-30) mmol/L BUN 26 H (7-17) mg/dL Creatinine 1.25 H (0.52-1.04) mg/dL Glucose 133 H (74-99) mg/dL POC Glucose (mg/dL) 127 H 143 H (70-110) mg/dL Calcium 8.2 L (8.4-10.2) mg/dL Total Bilirubin 2.4 H (0.2-1.3) mg/dL Alkaline Phosphatase 257 H (38-126) U/L Albumin 3.0 L (3.5-5.0) g/dL 05/20/22 05/21/22 Range/Units 20:19 07:17 Sodium 134 L (137-145) mmol/L Chloride 92 L (98-107) mmol/L Carbon Dioxide 37 H (22-30) mmol/L BUN 26 H (7-17) mg/dL Creatinine 1.25 H (0.52-1.04) mg/dL Glucose 103 H (74-99) mg/dL POC Glucose (mg/dL) 133 H (70-110) mg/dL Calcium 8.3 L (8.4-10.2) mg/dL Total Bilirubin (0.2-1.3) mg/dL Alkaline Phosphatase (38-126) U/L Albumin (3.5-5.0) g/dL
--- NOTE | 2022-05-21 16:46 | P.PN ---
Progress Note - Text Progress Note Date: 05/21/22 Chief Complaint: Increasing edema This is a pleasant 71 years old with past medical history of Coronary Artery Disease status post stent , chronic Heart Failure EF 20%, Diabetes Mellitus, GERD/Reflux, Hyperlipidemia, Hypertension, , chronic back and bilateral hip pain, osteoporosis, bilateral lower leg edema/redness which is worse in the L leg, March 2022 acute PE on eliquis. Patient recently admitted to the hospital in March 2022 with acute PE, CHF exacerbation. EF 20%. UTI. Patient presents with significant swelling of the lower extremity. More short of breath. Not able to do any chores. Feels chilly all the time. Decreased appetite. Does use upon a chair. Patient's a month ago and finding it much more difficult to do things. No fever no chills. No cough. Patient has been drinking quite a bit of water. Admitted with acute CHF exacerbation EF 20%. Started on Lasix drip 10 mg an hour. Strict I's and O's. 05/13/2022: On Lasix drip 10 mg hour. About 2715 negative fluid balance. Fluid restriction. Discussed with patient. PTOT. 05/14/2022: Remains a Lasix drip. About 4600 and negative fluid balance. Sitting up in a chair. Oral intake good. PTOT. manager call center looking at rehab 05/15/2022: Patient changed to IV bolus Lasix 40 mg every 8 per cardiology. About 6 L and negative fluid balance. Significant edema still present. Fluid restriction. Up in a recliner 05/16/2022: Up in a recliner. On IV Lasix 40 mg every 8. Significant edema still present. The restriction. Oral intake fair. About 8 L and negative fluid balance. 05/17/2022: Patient continues to have significant edema. IV Lasix 40 mg every 8. Oral intake fair. 05/18/2022: Edema still present. Making good urine. Apparently previous some Lasix was held because of low blood pressure. Instructed to continue with Lasix if systolic above 80. Patient actually feeling much better. Sitting with edge of the bed. Oral intake good. 05/19/2022: Remains on IV Lasix. About 11 L in negative fluid balance. Decrease edema. Oral intake fair. 05/20/2022: On IV Lasix. About 13 L in negative fluid balance. Edema slowly coming down. Reminded the patient to better Harpreet wrap. Oral intake good. Up in bed. Patient started on Diamox yesterday for contraction alkalosis 05/21/2022: Remains on IV Lasix. Harpreet wrap lower extremity. Eating well. Diamox. Edema decreasing. Active Medications Hydrocodone Bitart/Acetaminophen (Hydrocodone/Apap 10-325mg 1 Each Tab) 1 each PO Q6H PRN PRN Reason: Pain Last Admin: 05/21/22 09:22 Dose: 1 each Acetazolamide (Acetazolamide 250 Mg Tab) 250 mg PO BID [facility] Last Admin: 05/21/22 09:23 Dose: 250 mg Alprazolam (Alprazolam 0.25 Mg Tab) 0.25 mg PO HS [facility] Last Admin: 05/20/22 20:32 Dose: 0.25 mg Aspirin (Aspirin 81 Mg) 81 mg PO HS [facility] Last Admin: 05/20/22 20:32 Dose: 81 mg Atorvastatin Calcium (Atorvastatin 80 Mg Tab) 80 mg PO HS [facility] Last Admin: 05/20/22 20:32 Dose: 80 mg Calcium Carbonate/Glycine (Calcium Carbonate 500 Mg Chewable) 500 mg PO DAILY [facility] Last Admin: 05/21/22 09:23 Dose: 500 mg Calcium Carbonate/Glycine (Calcium Carbonate 500 Mg Chewable) 1,000 mg PO Q4HR PRN PRN Reason: Dyspepsia Cholecalciferol (Cholecalciferol 25 Mcg (1000 Iu) Tablet) 25 mcg PO DAILY [facility] Last Admin: 05/21/22 09:23 Dose: 25 mcg Clopidogrel Bisulfate (Clopidogrel 75 Mg Tab) 75 mg PO HS [facility] Last Admin: 05/20/22 20:32 Dose: 75 mg Dapagliflozin (Dapagliflozin Propanediol 10 Mg Tablet) 10 mg PO DAILY [facility] Last Admin: 05/21/22 09:23 Dose: 10 mg Dextrose/Water (Dextrose 50% Syringe 50 Ml) 25 ml IVP PER PROTOCOL PRN; Protocol PRN Reason: Hypoglycemia Dextrose/Water (Dextrose 50% Syringe 50 Ml) 50 ml IVP PER PROTOCOL PRN; Protocol PRN Reason: Hypoglycemia Dextrose/Water (Dextrose 50% Syringe 50 Ml) 25 ml IVP PER PROTOCOL PRN; Protocol PRN Reason: Hypoglycemia Dextrose/Water (Dextrose 50% Syringe 50 Ml) 50 ml IVP PER PROTOCOL PRN; Protocol PRN Reason: Hypoglycemia Escitalopram Oxalate (Escitalopram 10 Mg Tab) 10 mg PO DAILY [facility] Last Admin: 05/21/22 09:23 Dose: 10 mg Ferrous Sulfate (Ferrous Sulfate 325 Mg Tab) 325 mg PO DAILY [facility] Last Admin: 05/21/22 09:23 Dose: 325 mg Furosemide (Furosemide 10 Mg/Ml 4 Ml Vial) 40 mg IV Q8HR [facility] Last Admin: 05/21/22 09:23 Dose: 40 mg Insulin Aspart (Insulin Aspart (Novolog) 100 Unit/Ml Vial) 0 unit SQ AC-TID [facility]; Protocol Last Admin: 05/21/22 12:22 Dose: Not Given Lactulose (Lactulose 20 Gm/30 Ml Cup) 20 gm PO DAILY PRN PRN Reason: Constipation Magnesium Oxide (Magnesium Oxide 400 Mg Tab) 400 mg PO BID [facility] Last Admin: 05/21/22 09:23 Dose: 400 mg Metformin HCl (Metformin 500 Mg Tab) 500 mg PO BID-W/MEALS [facility] Last Admin: 05/21/22 06:25 Dose: 500 mg Metoprolol Succinate (Metoprolol Succinate (Er) 25 Mg Tab.Er.24h) 12.5 mg PO HS [facility] Last Admin: 05/20/22 20:33 Dose: Not Given Midodrine (Midodrine 5 Mg Tab) 5 mg PO AC-TID [facility] Last Admin: 05/21/22 12:44 Dose: 5 mg Naloxone HCl (Naloxone 0.4 Mg/Ml 1 Ml Vial) 0.2 mg IV Q2M PRN PRN Reason: Opioid Reversal Ondansetron HCl (Ondansetron 4 Mg/2 Ml Vial) 4 mg IVP Q8HR PRN PRN Reason: Nausea And Vomiting Polyethylene Glycol (Polyethylene Glycol 3350 17 Gm Powd.Pack) 17 gm PO DAILY [facility] Last Admin: 05/21/22 09:19 Dose: Not Given Potassium Chloride (Potassium Chloride Er 10 Meq Tab.Er.Prt) 10 meq PO DAILY [facility] Last Admin: 05/21/22 09:23 Dose: 10 meq Spironolactone (Spironolactone 25 Mg Tab) 25 mg PO DAILY [facility] Last Admin: 05/21/22 09:23 Dose: 25 mg Past medical history to include: Pulmonary embolism March 2022, CHF EF 20%, CAD with stent, hypertension, hyperlipidemia, diabetes mellitus type 2, chronic medical debility Social history: Patient's a month ago. Nonsmoker. No alcohol. Physical examination: VITAL SIGNS: 98.1, 55, 18, 92 x 56, 94% room air GENERAL: Sitting up , comfortable EYES: Pupils equal. Conjunctiva normal. HEENT: External appearance of nose and ears normal, oral cavity grossly normal. NECK: JVD unable to assess; masses not palpable. HEART: First and second heart sounds are normal; edema decreased LUNGS: Respiratory rate normal diminished breath sounds. ABDOMEN: Soft, nontender, liver spleen not palpable, no masses palpable. PSYCH: Alert and oriented x3; mood and affect normal. MUSCULOSKELETAL:No Clubbing/cyanosis;muscles-grossly intact, evidence of OA INVESTIGATIONS, reviewed in the clinical context: 05/21/2022: Potassium 3.8. 26 creatinine 1.25 05/20/2022: Potassium 3.7 bicarbonate 35 (creatinine 1.25 05/19/2022: WBC 5.1 hemoglobin 10.1 progression 3.8. 28 creatinine 1.13 and lesion 1.5 05/18/2022: Potassium 4.4 BUN 31 creatinine 1.09 05/16/2022: Potassium 4.1 BUN 27 creatinine 1.17 05/15/2022: Potassium 4.1 BUN 25 creatinine 1.12 05/14/2022: Potassium 4.7 BUN 24 creatinine 0.98 05/13/2022: WBC 7 hemoglobin 10.4 platelets 267 potassium 5.1 creatinine 0.73 WBC 4.9 hemoglobin 10.9 platelets 271 potassium 4.8 BUN 20 creatinine 0.67 lactic acid 2.2 total bilirubin 3.1 AST 68 ALT 40 EKG tracing personally reviewed by me-normal sinus rhythm. Nonspecific T-wave changes. Chest x-ray film personally reviewed by me-pulmonary edema, left pleural effusion 2-D echocardiogram [March 2022]: EF 20% Assessment and plan: -Acute on chronic systolic congestive heart failure with ejection fraction 20%,: Slow to respond Aldactone 25 mg daily. IV Lasix 40 mg every 8. Strict I's and O's. Fluid restriction -Chronic pulmonary embolism, March 2022 Eliquis -Metabolic alkalosis from diuresis Diamox -Acute medical asthenia secondary to above medical problems PTOT. Follow with telephonic case manager -Chronic medical debility ; has a wheelchair at home. telephonic case manager. -Moderate left pleural effusion, secondary to CHF Aldactone. Lasix. -coronary artery disease status post stenting Aspirin, Lipitor, Plavix, Toprol-XL -Essential Hypertension Toprol-XL 12.5 -Hyperlipidemia Lipitor - diabetes mellitus type II on oral hypoglycemic Glucophage. Follow Accu-Cheks -DO NOT RESUSCITATE Lasix 40 mg IV every 8. Diamox Discussed with patient. Probable discharge by Thursday
[2022-05-21 16:58] LABS: Glucose,Whole Blood 163 mg/dL (70-110)
[2022-05-21 20:03] LABS: Glucose,Whole Blood 151 mg/dL (70-110)
[2022-05-21] MEDS: ATORVASTATIN 80 MG TAB PO SCH (21:04)
[2022-05-21] MEDS: ALPRAZolam 0.25 MG TAB PO SCH (21:04)
[2022-05-21] MEDS: CALCIUM CARBONATE 500 MG CHEWABLE PO PRN (21:04)
[2022-05-21] MEDS: ASPIRIN 81 MG PO SCH (21:04)
[2022-05-21] MEDS: METOPROLOL SUCCINATE (ER) 25 MG TAB.ER.24H PO SCH (21:04)
[2022-05-21] MEDS: CLOPIDOGREL 75 MG TAB PO SCH (21:04)
[2022-05-22 06:11] LABS: Glucose,Whole Blood 107 mg/dL (70-110)
[2022-05-22] MEDS: INSULIN ASPART (NovoLOG) 100 UNIT/ML VIAL SQ SCH ×3 (06:13→17:51)
[2022-05-22] MEDS: metFORMIN 500 MG TAB PO SCH ×2 (06:47→17:51)
[2022-05-22] MEDS: MIDODRINE 5 MG TAB PO SCH ×3 (06:47→17:51)
[2022-05-22] MEDS: polyethylene glycoL 3350 17 GM POWD.PACK PO SCH (08:16)
--- NOTE | 2022-05-22 08:40 | P.PN ---
Subjective This is a 71 year old female with a past medical history significant for coronary artery disease with previous stenting, ischemic cardiac myopathy, congestive heart failure, hypertension, hyperlipidemia, and diabetes. Patient follows in the office with Dr. Santos. We have been asked to see the patient in consultation for CHF. Patient presented with a fall and states over the past few weeks she has noticed increased lower extremity edema. She also reports SOB * Most recent echocardiogram obtained in March 2022 revealed ejection fraction of 20% * Cardiac catheterization history: December 2021 revealing 30-40% mid LAD stenosis, diagonal 1 branch 100% occluded, mid circumflex 100% occluded, RCA 100% occluded. Patient underwent stenting of the diagonal 1 branch 05/21/2022 Patient examined this morning at the bedside. Patient denies any chest pain or pressure. She denies any shortness of breath. She continues to have lower extremity edema, appears to be tolerating diuresis well. She remains on IV Lasix 40 mg every 8 hours. Blood pressures stable 105/64. Patient with -1640mL over the past 24 hours. sCr stable at 1.25. 05/22 Patient seen and examined. Blood work not back yet today. Denies any chest pain or pressure. Still diuresing well. -3600 mL yesterday. PHYSICAL EXAM: VITAL SIGNS: Reviewed. GENERAL: Well-developed in no acute distress. HEENT: Head is normocephalic. Neck supple. No JVD LUNGS: Respirations even and unlabored. Lungs diminished HEART: Regular rate and rhythm. S1 and S2 heard. + systolic murmur. ABDOMEN: Soft. Nondistended. Nontender. EXTREMITIES: Normal range of motion. No clubbing or cyanosis. Peripheral pulses intact. 3+ bilateral pitting lower extremity edema up to buttocks NEUROLOGIC: Awake and alert. Oriented x 3. ASSESSMENT: Shortness of breath Acute on chronic heart failure with reduced ejection fraction Coronary artery disease with previous PCI Ischemic cardiomyopathy, ejection fraction 20% Hypertension Hyperlipidemia Diabetes Debility Morbid obesity Hypotension, lisinopril discontinued PLAN: Continue Lasix 40 mg IVP every 8 hours Daily weights, accurate I&O, and monitoring of kidney function Continue to hold lisinopril secondary to hypotension Continue additional home cardiac medications with aspirin, statin, plavix, metoprolol succinate and aldactone Patient has slowly been diuresing however still has large amount of fluid. Continue IV diuresis. Add additional dose of Zarolxolyn in addition to IV Lasix and Diamox. Objective - Vital Signs Vital signs: Vital Signs Temp 98.1 F 05/22/22 08:00 Pulse 62 05/22/22 08:00 Resp 16 05/22/22 08:00 BP 87/54 05/22/22 08:00 Pulse Ox 97 05/22/22 08:00 FiO2 21 05/21/22 08:37 Intake & Output 05/21/22 05/22/22 05/22/22 18:59 06:59 18:59 Intake Total 600 240 Output Total 1200 3000 Balance -600 -3000 240 Weight 125 kg Intake: Oral 600 240 Output: Urine 1200 3000 Uretheral (Chavez) 1500 Other: Voiding Method Indwelling Catheter Indwelling Catheter # Bowel Movements 1 - Labs CBC & Chem 7: 05/19/22 07:56 05/21/22 07:17 Labs: Abnormal Lab Results - Last 24 Hours (Table) 05/21/22 05/21/22 05/21/22 Range/Units 11:56 16:57 20:01 POC Glucose (mg/dL) 147 H 163 H 151 H (70-110) mg/dL
[2022-05-22 08:48] LABS: Calcium 8.7 mg/dL (8.4-10.2); Potassium 4.3 mmol/L (3.5-5.1)
[2022-05-22] MEDS ORDERED: metOLazone 5 MG TAB PO SCH (09:00)
[2022-05-22] MEDS: acetaZOLAMIDE 250 MG TAB PO SCH ×2 (09:31→20:28)
[2022-05-22] MEDS: MAGNESIUM OXIDE 400 MG TAB PO SCH ×2 (09:31→20:28)
[2022-05-22] MEDS: FUROSEMIDE 10 MG/ML 4 ML VIAL IV SCH ×3 (09:31→23:26)
[2022-05-22] MEDS: FERROUS SULFATE 325 MG TAB PO SCH (09:31)
[2022-05-22] MEDS: CALCIUM CARBONATE 500 MG CHEWABLE PO SCH (09:32)
[2022-05-22] MEDS: CHOLECALCIFEROL 25 MCG (1000 IU) TABLET PO SCH (09:32)
[2022-05-22] MEDS: SPIRONOLACTONE 25 MG TAB PO SCH (09:32)
[2022-05-22] MEDS: POTASSIUM CHLORIDE ER 10 MEQ TAB.ER.PRT PO SCH (09:32)
[2022-05-22] MEDS: ESCITALOPRAM 10 MG TAB PO SCH (09:32)
[2022-05-22] MEDS: DAPAGLIFLOZIN PROPANEDIOL 10 MG TABLET PO SCH (09:32)
[2022-05-22] MEDS ORDERED: diphenhydrAMINE 2% CREAM 28.4 GM TUBE TOPICAL PRN (10:50)
[2022-05-22 11:41] LABS: Glucose,Whole Blood 134 mg/dL (70-110)
[2022-05-22] MEDS: HYDROcodone/APAP 10-325MG 1 EACH TAB PO PRN ×2 (12:27→20:28)
--- NOTE | 2022-05-22 15:07 | P.PN ---
Progress Note - Text Progress Note Date: 05/22/22 Chief Complaint: Increasing edema This is a pleasant 71 years old with past medical history of Coronary Artery Disease status post stent , chronic Heart Failure EF 20%, Diabetes Mellitus, GERD/Reflux, Hyperlipidemia, Hypertension, , chronic back and bilateral hip pain, osteoporosis, bilateral lower leg edema/redness which is worse in the L leg, March 2022 acute PE on eliquis. Patient recently admitted to the hospital in March 2022 with acute PE, CHF exacerbation. EF 20%. UTI. Patient presents with significant swelling of the lower extremity. More short of breath. Not able to do any chores. Feels chilly all the time. Decreased appetite. Does use upon a chair. Patient's a month ago and finding it much more difficult to do things. No fever no chills. No cough. Patient has been drinking quite a bit of water. Admitted with acute CHF exacerbation EF 20%. Started on Lasix drip 10 mg an hour. Strict I's and O's. 05/13/2022: On Lasix drip 10 mg hour. About 2715 negative fluid balance. Fluid restriction. Discussed with patient. PTOT. 05/14/2022: Remains a Lasix drip. About 4600 and negative fluid balance. Sitting up in a chair. Oral intake good. PTOT. network manager looking at rehab 05/15/2022: Patient changed to IV bolus Lasix 40 mg every 8 per cardiology. About 6 L and negative fluid balance. Significant edema still present. Fluid restriction. Up in a recliner 05/16/2022: Up in a recliner. On IV Lasix 40 mg every 8. Significant edema still present. The restriction. Oral intake fair. About 8 L and negative fluid balance. 05/17/2022: Patient continues to have significant edema. IV Lasix 40 mg every 8. Oral intake fair. 05/18/2022: Edema still present. Making good urine. Apparently previous some Lasix was held because of low blood pressure. Instructed to continue with Lasix if systolic above 80. Patient actually feeling much better. Sitting with edge of the bed. Oral intake good. 05/19/2022: Remains on IV Lasix. About 11 L in negative fluid balance. Decrease edema. Oral intake fair. 05/20/2022: On IV Lasix. About 13 L in negative fluid balance. Edema slowly coming down. Reminded the patient to better Harpreet wrap. Oral intake good. Up in bed. Patient started on Diamox yesterday for contraction alkalosis 05/21/2022: Remains on IV Lasix. Harpreet wrap lower extremity. Eating well. Diamox. Edema decreasing. 05/22/2022: Patient remains on IV Lasix 40 mg every 8. Negative fluid balance. Eating well. Harpreet wrap. About 18 L in negative fluid balance Active Medications Hydrocodone Bitart/Acetaminophen (Hydrocodone/Apap 10-325mg 1 Each Tab) 1 each PO Q6H PRN PRN Reason: Pain Last Admin: 05/22/22 12:27 Dose: 1 each Acetazolamide (Acetazolamide 250 Mg Tab) 250 mg PO BID [facility] Last Admin: 05/22/22 09:31 Dose: 250 mg Alprazolam (Alprazolam 0.25 Mg Tab) 0.25 mg PO HS [facility] Last Admin: 05/21/22 21:04 Dose: 0.25 mg Aspirin (Aspirin 81 Mg) 81 mg PO HS [facility] Last Admin: 05/21/22 21:04 Dose: 81 mg Atorvastatin Calcium (Atorvastatin 80 Mg Tab) 80 mg PO HS [facility] Last Admin: 05/21/22 21:04 Dose: 80 mg Calcium Carbonate/Glycine (Calcium Carbonate 500 Mg Chewable) 500 mg PO DAILY [facility] Last Admin: 05/22/22 09:32 Dose: 500 mg Calcium Carbonate/Glycine (Calcium Carbonate 500 Mg Chewable) 1,000 mg PO Q4HR PRN PRN Reason: Dyspepsia Last Admin: 05/21/22 21:04 Dose: 1,000 mg Cholecalciferol (Cholecalciferol 25 Mcg (1000 Iu) Tablet) 25 mcg PO DAILY [facility] Last Admin: 05/22/22 09:32 Dose: 25 mcg Clopidogrel Bisulfate (Clopidogrel 75 Mg Tab) 75 mg PO HS [facility] Last Admin: 05/21/22 21:04 Dose: 75 mg Dapagliflozin (Dapagliflozin Propanediol 10 Mg Tablet) 10 mg PO DAILY [facility] Last Admin: 05/22/22 09:32 Dose: 10 mg Dextrose/Water (Dextrose 50% Syringe 50 Ml) 25 ml IVP PER PROTOCOL PRN; Protocol PRN Reason: Hypoglycemia Dextrose/Water (Dextrose 50% Syringe 50 Ml) 50 ml IVP PER PROTOCOL PRN; Protocol PRN Reason: Hypoglycemia Dextrose/Water (Dextrose 50% Syringe 50 Ml) 25 ml IVP PER PROTOCOL PRN; Protocol PRN Reason: Hypoglycemia Dextrose/Water (Dextrose 50% Syringe 50 Ml) 50 ml IVP PER PROTOCOL PRN; Protocol PRN Reason: Hypoglycemia Escitalopram Oxalate (Escitalopram 10 Mg Tab) 10 mg PO DAILY [facility] Last Admin: 05/22/22 09:32 Dose: 10 mg Ferrous Sulfate (Ferrous Sulfate 325 Mg Tab) 325 mg PO DAILY [facility] Last Admin: 05/22/22 09:31 Dose: 325 mg Furosemide (Furosemide 10 Mg/Ml 4 Ml Vial) 40 mg IV Q8HR [facility] Last Admin: 05/22/22 09:31 Dose: 40 mg Insulin Aspart (Insulin Aspart (Novolog) 100 Unit/Ml Vial) 0 unit SQ AC-TID [facility]; Protocol Last Admin: 05/22/22 12:07 Dose: Not Given Lactulose (Lactulose 20 Gm/30 Ml Cup) 20 gm PO DAILY PRN PRN Reason: Constipation Magnesium Oxide (Magnesium Oxide 400 Mg Tab) 400 mg PO BID [facility] Last Admin: 05/22/22 09:31 Dose: 400 mg Metformin HCl (Metformin 500 Mg Tab) 500 mg PO BID-W/MEALS [facility] Last Admin: 05/22/22 06:47 Dose: 500 mg Metoprolol Succinate (Metoprolol Succinate (Er) 25 Mg Tab.Er.24h) 12.5 mg PO HS [facility] Last Admin: 05/21/22 21:04 Dose: Not Given Midodrine (Midodrine 5 Mg Tab) 5 mg PO AC-TID [facility] Last Admin: 05/22/22 12:27 Dose: 5 mg Naloxone HCl (Naloxone 0.4 Mg/Ml 1 Ml Vial) 0.2 mg IV Q2M PRN PRN Reason: Opioid Reversal Ondansetron HCl (Ondansetron 4 Mg/2 Ml Vial) 4 mg IVP Q8HR PRN PRN Reason: Nausea And Vomiting Polyethylene Glycol (Polyethylene Glycol 3350 17 Gm Powd.Pack) 17 gm PO DAILY [facility] Last Admin: 05/22/22 08:16 Dose: Not Given Potassium Chloride (Potassium Chloride Er 10 Meq Tab.Er.Prt) 10 meq PO DAILY [facility] Last Admin: 05/22/22 09:32 Dose: 10 meq Spironolactone (Spironolactone 25 Mg Tab) 25 mg PO DAILY [facility] Last Admin: 05/22/22 09:32 Dose: 25 mg Zinc Acetate/Diphenhydramine (Diphenhydramine 2% Cream 28.4 Gm Tube) 1 applic TOPICAL TID PRN; Protocol PRN Reason: Itching Past medical history to include: Pulmonary embolism March 2022, CHF EF 20%, CAD with stent, hypertension, hyperlipidemia, diabetes mellitus type 2, chronic medical debility Social history: Patient's a month ago. Nonsmoker. No alcohol. Physical examination: VITAL SIGNS: 97.7, 58, 18, 92/59, 94% room air GENERAL: Sitting up in bed , comfortable EYES: Pupils equal. Conjunctiva normal. HEENT: External appearance of nose and ears normal, oral cavity grossly normal. NECK: JVD unable to assess; masses not palpable. HEART: First and second heart sounds are normal; edema decreasing LUNGS: Respiratory rate normal diminished breath sounds. ABDOMEN: Soft, nontender, liver spleen not palpable, no masses palpable. PSYCH: Alert and oriented x3; mood and affect normal. MUSCULOSKELETAL:No Clubbing/cyanosis;muscles-grossly intact, evidence of OA INVESTIGATIONS, reviewed in the clinical context: 05/22/2022: Potassium 4.3 BUN 27 creatinine 1.29 bicarbonate 36 05/21/2022: Potassium 3.8. 26 creatinine 1.25 05/20/2022: Potassium 3.7 bicarbonate 35 (creatinine 1.25 05/19/2022: WBC 5.1 hemoglobin 10.1 progression 3.8. 28 creatinine 1.13 and lesion 1.5 05/18/2022: Potassium 4.4 BUN 31 creatinine 1.09 05/16/2022: Potassium 4.1 BUN 27 creatinine 1.17 05/15/2022: Potassium 4.1 BUN 25 creatinine 1.12 05/14/2022: Potassium 4.7 BUN 24 creatinine 0.98 05/13/2022: WBC 7 hemoglobin 10.4 platelets 267 potassium 5.1 creatinine 0.73 WBC 4.9 hemoglobin 10.9 platelets 271 potassium 4.8 BUN 20 creatinine 0.67 lactic acid 2.2 total bilirubin 3.1 AST 68 ALT 40 EKG tracing personally reviewed by me-normal sinus rhythm. Nonspecific T-wave changes. Chest x-ray film personally reviewed by me-pulmonary edema, left pleural effusion 2-D echocardiogram [March 2022]: EF 20% Assessment and plan: -Acute on chronic systolic congestive heart failure with ejection fraction 20%,: Slow to respond Aldactone 25 mg daily. IV Lasix 40 mg every 8. Strict I's and O's. Fluid restriction. -Chronic pulmonary embolism, March 2022 Eliquis -Metabolic alkalosis from diuresis Diamox -Acute medical asthenia secondary to above medical problems PTOT. Follow with watch case polisher -Chronic medical debility ; has a wheelchair at home. watch case polisher. -Moderate left pleural effusion, secondary to CHF Aldactone. Lasix. -coronary artery disease status post stenting Aspirin, Lipitor, Plavix, Toprol-XL -Essential Hypertension Toprol-XL 12.5 -Hyperlipidemia Lipitor - diabetes mellitus type II on oral hypoglycemic Glucophage. Follow Accu-Cheks -DO NOT RESUSCITATE Lasix 40 mg IV every 8. Diamox Discussed with patient. About 18 L in negative fluid balance. Discussed with watch case polisher.
[2022-05-22 16:22] LABS: Glucose,Whole Blood 151 mg/dL (70-110)
[2022-05-22 19:51] LABS: Glucose,Whole Blood 138 mg/dL (70-110)
[2022-05-22] MEDS: ASPIRIN 81 MG PO SCH (20:28)
[2022-05-22] MEDS: ATORVASTATIN 80 MG TAB PO SCH (20:28)
[2022-05-22] MEDS: ALPRAZolam 0.25 MG TAB PO SCH (20:28)
[2022-05-22] MEDS: CLOPIDOGREL 75 MG TAB PO SCH (20:28)
[2022-05-22] MEDS: METOPROLOL SUCCINATE (ER) 25 MG TAB.ER.24H PO SCH (20:29)
[2022-05-23 06:09] LABS: Glucose,Whole Blood 116 mg/dL (70-110)
[2022-05-23] MEDS: INSULIN ASPART (NovoLOG) 100 UNIT/ML VIAL SQ SCH ×3 (06:12→17:06)
[2022-05-23] MEDS: MIDODRINE 5 MG TAB PO SCH ×3 (06:26→17:06)
[2022-05-23] MEDS: metFORMIN 500 MG TAB PO SCH ×2 (06:26→17:06)
[2022-05-23] MEDS: acetaZOLAMIDE 250 MG TAB PO SCH ×2 (08:26→20:35)
[2022-05-23] MEDS: DAPAGLIFLOZIN PROPANEDIOL 10 MG TABLET PO SCH (08:26)
[2022-05-23] MEDS: FERROUS SULFATE 325 MG TAB PO SCH (08:27)
[2022-05-23] MEDS: ESCITALOPRAM 10 MG TAB PO SCH (08:27)
[2022-05-23] MEDS: polyethylene glycoL 3350 17 GM POWD.PACK PO SCH (08:27)
[2022-05-23] MEDS: POTASSIUM CHLORIDE ER 10 MEQ TAB.ER.PRT PO SCH (08:27)
[2022-05-23] MEDS: SPIRONOLACTONE 25 MG TAB PO SCH (08:27)
[2022-05-23] MEDS: CHOLECALCIFEROL 25 MCG (1000 IU) TABLET PO SCH (08:27)
[2022-05-23] MEDS: CALCIUM CARBONATE 500 MG CHEWABLE PO SCH (08:27)
[2022-05-23] MEDS: FUROSEMIDE 10 MG/ML 4 ML VIAL IV SCH ×3 (08:27→23:45)
[2022-05-23] MEDS: MAGNESIUM OXIDE 400 MG TAB PO SCH ×2 (08:27→20:35)
--- NOTE | 2022-05-23 10:39 | P.PN ---
Subjective This is a 71 year old female with a past medical history significant for coronary artery disease with previous stenting, ischemic cardiac myopathy, congestive heart failure, hypertension, hyperlipidemia, and diabetes. Patient follows in the office with Dr. Santos. We have been asked to see the patient in consultation for CHF. Patient presented with a fall and states over the past few weeks she has noticed increased lower extremity edema. She also reports SOB * Most recent echocardiogram obtained in March 2022 revealed ejection fraction of 20% * Cardiac catheterization history: December 2021 revealing 30-40% mid LAD stenosis, diagonal 1 branch 100% occluded, mid circumflex 100% occluded, RCA 100% occluded. Patient underwent stenting of the diagonal 1 branch 05/21/2022 Patient examined this morning at the bedside. Patient denies any chest pain or pressure. She denies any shortness of breath. She continues to have lower extremity edema, appears to be tolerating diuresis well. She remains on IV Lasix 40 mg every 8 hours. Blood pressures stable 105/64. Patient with -1640mL over the past 24 hours. sCr stable at 1.25. 05/22 Patient seen and examined. Blood work not back yet today. Denies any chest pain or pressure. Still diuresing well. -3600 mL yesterday. 05/23 Patient seen and examined. Patient did have significant urine output yesterday -7 L. She denies any chest pain or pressure. Denies any lightheadedness. Blood work from this morning and has not resulted. PHYSICAL EXAM: VITAL SIGNS: Reviewed. GENERAL: Well-developed in no acute distress. HEENT: Head is normocephalic. Neck supple. No JVD LUNGS: Respirations even and unlabored. Lungs diminished HEART: Regular rate and rhythm. S1 and S2 heard. + systolic murmur. ABDOMEN: Soft. Nondistended. Nontender. EXTREMITIES: Normal range of motion. No clubbing or cyanosis. Peripheral pulses intact. 3+ bilateral pitting lower extremity edema up to buttocks NEUROLOGIC: Awake and alert. Oriented x 3. ASSESSMENT: Shortness of breath Acute on chronic heart failure with reduced ejection fraction Coronary artery disease with previous PCI Ischemic cardiomyopathy, ejection fraction 20% Hypertension Hyperlipidemia Diabetes Debility Morbid obesity Hypotension, lisinopril discontinued PLAN: Daily weights, accurate I&O, and monitoring of kidney function Continue to hold lisinopril secondary to hypotension Continue additional home cardiac medications with aspirin, statin, plavix, metoprolol succinate and aldactone With dramatic improvement in urine output with addition of Zaroxolyn. Recheck blood work this morning and if kidney function and electrolytes stable likely additional dose of Zaroxolyn. Objective - Vital Signs Vital signs: Vital Signs Temp 98.2 F 05/23/22 08:00 Pulse 59 L 05/23/22 08:00 Resp 16 05/23/22 08:00 BP 86/48 05/23/22 08:00 Pulse Ox 97 05/23/22 08:00 FiO2 21 05/21/22 08:37 Intake & Output 05/22/22 05/23/22 05/23/22 18:59 06:59 18:59 Intake Total 480 300 120 Output Total 5250 3000 900 Balance -4770 -2700 -780 Weight 120 kg Intake: Oral 480 300 120 Output: Urine 5250 3000 900 Uretheral (Chavez) 3000 Other: Voiding Method Indwelling Catheter Indwelling Catheter # Bowel Movements 1 - Labs CBC & Chem 7: 05/19/22 07:56 05/22/22 07:41 Labs: Abnormal Lab Results - Last 24 Hours (Table) 05/22/22 05/22/22 05/22/22 Range/Units 11:40 16:20 19:50 POC Glucose (mg/dL) 134 H 151 H 138 H (70-110) mg/dL 05/23/22 Range/Units 06:08 POC Glucose (mg/dL) 116 H (70-110) mg/dL
[2022-05-23 11:37] LABS: Glucose,Whole Blood 123 mg/dL (70-110)
[2022-05-23 11:40] LABS: Albumin 3.1 g/dL (3.5-5.0); Calcium 9.1 mg/dL (8.4-10.2); Phosphorus 4.7 mg/dL (2.5-4.5); Potassium 3.2 mmol/L (3.5-5.1)
[2022-05-23] MEDS: HYDROcodone/APAP 10-325MG 1 EACH TAB PO PRN ×2 (12:58→20:35)
[2022-05-23] MEDS ORDERED: POTASSIUM CHLORIDE ER 20 MEQ TAB.ER PO STA (13:40)
--- NOTE | 2022-05-23 13:40 | P.PN ---
Progress Note - Text Progress Note Date: 05/23/22 Chief Complaint: Increasing edema This is a pleasant 71 years old with past medical history of Coronary Artery Disease status post stent , chronic Heart Failure EF 20%, Diabetes Mellitus, GERD/Reflux, Hyperlipidemia, Hypertension, , chronic back and bilateral hip pain, osteoporosis, bilateral lower leg edema/redness which is worse in the L leg, March 2022 acute PE on eliquis. Patient recently admitted to the hospital in March 2022 with acute PE, CHF exacerbation. EF 20%. UTI. Patient presents with significant swelling of the lower extremity. More short of breath. Not able to do any chores. Feels chilly all the time. Decreased appetite. Does use upon a chair. Patient's a month ago and finding it much more difficult to do things. No fever no chills. No cough. Patient has been drinking quite a bit of water. Admitted with acute CHF exacerbation EF 20%. Started on Lasix drip 10 mg an hour. Strict I's and O's. 05/13/2022: On Lasix drip 10 mg hour. About 2715 negative fluid balance. Fluid restriction. Discussed with patient. PTOT. 05/14/2022: Remains a Lasix drip. About 4600 and negative fluid balance. Sitting up in a chair. Oral intake good. PTOT. global program manager looking at rehab 05/15/2022: Patient changed to IV bolus Lasix 40 mg every 8 per cardiology. About 6 L and negative fluid balance. Significant edema still present. Fluid restriction. Up in a recliner 05/16/2022: Up in a recliner. On IV Lasix 40 mg every 8. Significant edema still present. The restriction. Oral intake fair. About 8 L and negative fluid balance. 05/17/2022: Patient continues to have significant edema. IV Lasix 40 mg every 8. Oral intake fair. 05/18/2022: Edema still present. Making good urine. Apparently previous some Lasix was held because of low blood pressure. Instructed to continue with Lasix if systolic above 80. Patient actually feeling much better. Sitting with edge of the bed. Oral intake good. 05/19/2022: Remains on IV Lasix. About 11 L in negative fluid balance. Decrease edema. Oral intake fair. 05/20/2022: On IV Lasix. About 13 L in negative fluid balance. Edema slowly coming down. Reminded the patient to better Harpreet wrap. Oral intake good. Up in bed. Patient started on Diamox yesterday for contraction alkalosis 05/21/2022: Remains on IV Lasix. Harpreet wrap lower extremity. Eating well. Diamox. Edema decreasing. 05/22/2022: Patient remains on IV Lasix 40 mg every 8. Negative fluid balance. Eating well. Harpreet wrap. About 18 L in negative fluid balance 05/23/2022: Remains on IV Lasix 40 mg every 8. Aldactone. Significant urine output. About 20 L in negative fluid balance. Active Medications Hydrocodone Bitart/Acetaminophen (Hydrocodone/Apap 10-325mg 1 Each Tab) 1 each PO Q6H PRN PRN Reason: Pain Last Admin: 05/23/22 12:58 Dose: 1 each Acetazolamide (Acetazolamide 250 Mg Tab) 250 mg PO BID [facility] Last Admin: 05/23/22 08:26 Dose: 250 mg Alprazolam (Alprazolam 0.25 Mg Tab) 0.25 mg PO HS [facility] Last Admin: 05/22/22 20:28 Dose: 0.25 mg Aspirin (Aspirin 81 Mg) 81 mg PO HS [facility] Last Admin: 05/22/22 20:28 Dose: 81 mg Atorvastatin Calcium (Atorvastatin 80 Mg Tab) 80 mg PO HS [facility] Last Admin: 05/22/22 20:28 Dose: 80 mg Calcium Carbonate/Glycine (Calcium Carbonate 500 Mg Chewable) 500 mg PO DAILY [facility] Last Admin: 05/23/22 08:27 Dose: 500 mg Calcium Carbonate/Glycine (Calcium Carbonate 500 Mg Chewable) 1,000 mg PO Q4HR PRN PRN Reason: Dyspepsia Last Admin: 05/21/22 21:04 Dose: 1,000 mg Cholecalciferol (Cholecalciferol 25 Mcg (1000 Iu) Tablet) 25 mcg PO DAILY [facility] Last Admin: 05/23/22 08:27 Dose: 25 mcg Clopidogrel Bisulfate (Clopidogrel 75 Mg Tab) 75 mg PO HS [facility] Last Admin: 05/22/22 20:28 Dose: 75 mg Dapagliflozin (Dapagliflozin Propanediol 10 Mg Tablet) 10 mg PO DAILY [facility] Last Admin: 05/23/22 08:26 Dose: 10 mg Dextrose/Water (Dextrose 50% Syringe 50 Ml) 25 ml IVP PER PROTOCOL PRN; Protocol PRN Reason: Hypoglycemia Dextrose/Water (Dextrose 50% Syringe 50 Ml) 50 ml IVP PER PROTOCOL PRN; Pro tocol PRN Reason: Hypoglycemia Dextrose/Water (Dextrose 50% Syringe 50 Ml) 25 ml IVP PER PROTOCOL PRN; Protocol PRN Reason: Hypoglycemia Dextrose/Water (Dextrose 50% Syringe 50 Ml) 50 ml IVP PER PROTOCOL PRN; Protocol PRN Reason: Hypoglycemia Escitalopram Oxalate (Escitalopram 10 Mg Tab) 10 mg PO DAILY [facility] Last Admin: 05/23/22 08:27 Dose: 10 mg Ferrous Sulfate (Ferrous Sulfate 325 Mg Tab) 325 mg PO DAILY [facility] Last Admin: 05/23/22 08:27 Dose: 325 mg Furosemide (Furosemide 10 Mg/Ml 4 Ml Vial) 40 mg IV Q8HR [facility] Last Admin: 05/23/22 08:27 Dose: 40 mg Insulin Aspart (Insulin Aspart (Novolog) 100 Unit/Ml Vial) 0 unit SQ AC-TID [facility]; Protocol Last Admin: 05/23/22 11:41 Dose: Not Given Lactulose (Lactulose 20 Gm/30 Ml Cup) 20 gm PO DAILY PRN PRN Reason: Constipation Magnesium Oxide (Magnesium Oxide 400 Mg Tab) 400 mg PO BID [facility] Last Admin: 05/23/22 08:27 Dose: 400 mg Metformin HCl (Metformin 500 Mg Tab) 500 mg PO BID-W/MEALS [facility] Last Admin: 05/23/22 06:26 Dose: 500 mg Metoprolol Succinate (Metoprolol Succinate (Er) 25 Mg Tab.Er.24h) 12.5 mg PO HS [facility] Last Admin: 05/22/22 20:29 Dose: 12.5 mg Midodrine (Midodrine 5 Mg Tab) 5 mg PO AC-TID [facility] Last Admin: 05/23/22 12:58 Dose: 5 mg Naloxone HCl (Naloxone 0.4 Mg/Ml 1 Ml Vial) 0.2 mg IV Q2M PRN PRN Reason: Opioid Reversal Ondansetron HCl (Ondansetron 4 Mg/2 Ml Vial) 4 mg IVP Q8HR PRN PRN Reason: Nausea And Vomiting Polyethylene Glycol (Polyethylene Glycol 3350 17 Gm Powd.Pack) 17 gm PO DAILY [facility] Last Admin: 05/23/22 08:27 Dose: Not Given Potassium Chloride (Potassium Chloride Er 10 Meq Tab.Er.Prt) 10 meq PO DAILY [facility] Last Admin: 05/23/22 08:27 Dose: 10 meq Spironolactone (Spironolactone 25 Mg Tab) 25 mg PO DAILY [facility] Last Admin: 05/23/22 08:27 Dose: 25 mg Zinc Acetate/Diphenhydramine (Diphenhydramine 2% Cream 28.4 Gm Tube) 1 applic TOPICAL TID PRN; Protocol PRN Reason: Itching Past medical history to include: Pulmonary embolism March 2022, CHF EF 20%, CAD with stent, hypertension, hyperlipidemia, diabetes mellitus type 2, chronic medical debility Social history: Patient's a month ago. Nonsmoker. No alcohol. Physical examination: VITAL SIGNS: 98.2, 60, 18, 89 with 53, 95% room air GENERAL: Sitting up in bed , comfortable EYES: Pupils equal. Conjunctiva normal. HEENT: External appearance of nose and ears normal, oral cavity grossly normal. NECK: JVD unable to assess; masses not palpable. HEART: First and second heart sounds are normal; edema decreasing LUNGS: Respiratory rate normal diminished breath sounds. ABDOMEN: Soft, nontender, liver spleen not palpable, no masses palpable. PSYCH: Alert and oriented x3; mood and affect normal. MUSCULOSKELETAL:No Clubbing/cyanosis;muscles-grossly intact, evidence of OA INVESTIGATIONS, reviewed in the clinical context: 05/23/2022: Potassium 3.2 BUN 28 creatinine 1.27 05/13/2022: WBC 7 hemoglobin 10.4 platelets 267 potassium 5.1 creatinine 0.73 WBC 4.9 hemoglobin 10.9 platelets 271 potassium 4.8 BUN 20 creatinine 0.67 lactic acid 2.2 total bilirubin 3.1 AST 68 ALT 40 EKG tracing personally reviewed by me-normal sinus rhythm. Nonspecific T-wave changes. Chest x-ray film personally reviewed by me-pulmonary edema, left pleural effusion 2-D echocardiogram [March 2022]: EF 20% Assessment and plan: -Acute on chronic systolic congestive heart failure with ejection fraction 20%,: Aldactone 25 mg daily. IV Lasix 40 mg every 8. Strict I's and O's. Fluid restriction. -Chronic pulmonary embolism, March 2022 Eliquis -Metabolic alkalosis from diuresis Diamox -Acute medical asthenia secondary to above medical problems PTOT. Follow with briefcase sewer -Chronic medical debility ; has a wheelchair at home. briefcase sewer. -Moderate left pleural effusion, secondary to CHF Aldactone. Lasix. -coronary artery disease status post stenting Aspirin, Lipitor, Plavix, Toprol-XL -Essential Hypertension Toprol-XL 12.5 -Hyperlipidemia Lipitor - diabetes mellitus type II on oral hypoglycemic Glucophage. Follow Accu-Cheks -DO NOT RESUSCITATE Lasix 40 mg IV every 8. Diamox Aldactone Discussed with patient. Probably DC to [facility] on Thursday.
[2022-05-23 16:10] LABS: Glucose,Whole Blood 146 mg/dL (70-110)
[2022-05-23] MEDS: CALCIUM CARBONATE 500 MG CHEWABLE PO PRN (18:05)
[2022-05-23 19:44] LABS: Glucose,Whole Blood 198 mg/dL (70-110)
[2022-05-23] MEDS: ALPRAZolam 0.25 MG TAB PO SCH (20:35)
[2022-05-23] MEDS: METOPROLOL SUCCINATE (ER) 25 MG TAB.ER.24H PO SCH (20:35)
[2022-05-23] MEDS: ASPIRIN 81 MG PO SCH (20:35)
[2022-05-23] MEDS: CLOPIDOGREL 75 MG TAB PO SCH (20:35)
[2022-05-23] MEDS: ATORVASTATIN 80 MG TAB PO SCH (20:35)
[2022-05-24] MEDS: HYDROcodone/APAP 10-325MG 1 EACH TAB PO PRN ×2 (04:50→20:25)
[2022-05-24 06:05] LABS: Glucose,Whole Blood 117 mg/dL (70-110)
[2022-05-24] MEDS: INSULIN ASPART (NovoLOG) 100 UNIT/ML VIAL SQ SCH ×3 (06:06→16:56)
[2022-05-24] MEDS: metFORMIN 500 MG TAB PO SCH ×2 (06:38→16:56)
[2022-05-24] MEDS: MIDODRINE 5 MG TAB PO SCH ×3 (06:38→16:56)
[2022-05-24] MEDS: SPIRONOLACTONE 25 MG TAB PO SCH (08:30)
[2022-05-24] MEDS: FERROUS SULFATE 325 MG TAB PO SCH (08:30)
[2022-05-24] MEDS: ESCITALOPRAM 10 MG TAB PO SCH (08:30)
[2022-05-24] MEDS: CHOLECALCIFEROL 25 MCG (1000 IU) TABLET PO SCH (08:30)
[2022-05-24] MEDS: acetaZOLAMIDE 250 MG TAB PO SCH ×2 (08:30→20:24)
[2022-05-24] MEDS: MAGNESIUM OXIDE 400 MG TAB PO SCH ×2 (08:30→20:25)
[2022-05-24] MEDS: POTASSIUM CHLORIDE ER 20 MEQ TAB.ER PO SCH (08:30)
[2022-05-24] MEDS: DAPAGLIFLOZIN PROPANEDIOL 10 MG TABLET PO SCH (08:31)
[2022-05-24] MEDS: polyethylene glycoL 3350 17 GM POWD.PACK PO SCH (08:31)
[2022-05-24] MEDS: CALCIUM CARBONATE 500 MG CHEWABLE PO SCH (08:31)
[2022-05-24] MEDS: FUROSEMIDE 10 MG/ML 4 ML VIAL IV SCH ×3 (08:31→23:54)
[2022-05-24 11:40] LABS: Glucose,Whole Blood 142 mg/dL (70-110)
--- NOTE | 2022-05-24 12:17 | P.PN ---
Subjective This is a 71 year old female with a past medical history significant for coronary artery disease with previous stenting, ischemic cardiac myopathy, congestive heart failure, hypertension, hyperlipidemia, and diabetes. Patient follows in the office with Dr. Santos. We have been asked to see the patient in consultation for CHF. Patient presented with a fall and states over the past few weeks she has noticed increased lower extremity edema. She also reports SOB * Most recent echocardiogram obtained in March 2022 revealed ejection fraction of 20% * Cardiac catheterization history: December 2021 revealing 30-40% mid LAD stenosis, diagonal 1 branch 100% occluded, mid circumflex 100% occluded, RCA 100% occluded. Patient underwent stenting of the diagonal 1 branch 05/21/2022 Patient examined this morning at the bedside. Patient denies any chest pain or pressure. She denies any shortness of breath. She continues to have lower extremity edema, appears to be tolerating diuresis well. She remains on IV Lasix 40 mg every 8 hours. Blood pressures stable 105/64. Patient with -1640mL over the past 24 hours. sCr stable at 1.25. 05/22 Patient seen and examined. Blood work not back yet today. Denies any chest pain or pressure. Still diuresing well. -3600 mL yesterday. 05/23 Patient seen and examined. Patient did have significant urine output yesterday -7 L. She denies any chest pain or pressure. Denies any lightheadedness. Blood work from this morning and has not resulted. 05/24 Patient seen and examined. Blood pressures have continued to be somewhat borderline 90s over 50s. She denies any lightheadedness or dizziness however. Patient still with significant urine output with -6 L. Lower extremity edema appears to be improving. PHYSICAL EXAM: VITAL SIGNS: Reviewed. GENERAL: Well-developed in no acute distress. HEENT: Head is normocephalic. Neck supple. No JVD LUNGS: Respirations even and unlabored. Lungs diminished HEART: Regular rate and rhythm. S1 and S2 heard. + systolic murmur. ABDOMEN: Soft. Nondistended. Nontender. EXTREMITIES: Normal range of motion. No clubbing or cyanosis. Peripheral pulses intact. 3+ bilateral pitting lower extremity edema up to buttocks NEUROLOGIC: Awake and alert. Oriented x 3. ASSESSMENT: Shortness of breath Acute on chronic heart failure with reduced ejection fraction Coronary artery disease with previous PCI Ischemic cardiomyopathy, ejection fraction 20% Hypertension Hyperlipidemia Diabetes Debility Morbid obesity Hypotension, lisinopril discontinued PLAN: Daily weights, accurate I&O, and monitoring of kidney function Continue to hold lisinopril secondary to hypotension Continue additional home cardiac medications with aspirin, statin, plavix, metoprolol succinate and aldactone Continue with IV diuretics another 24 hours and then likely transition to oral diuretics. Has been diuresing well. Mild hyponatremia and mild increase in BUN/creatinine however appears stable. Hopeful discharge 48 hours. Objective - Vital Signs Vital signs: Vital Signs Temp 97.7 F 05/24/22 08:30 Pulse 61 05/24/22 11:15 Resp 18 05/24/22 11:15 BP 93/58 05/24/22 11:15 Pulse Ox 93 L 05/24/22 11:15 FiO2 21 05/21/22 08:37 Intake & Output 05/23/22 05/24/22 05/24/22 18:59 06:59 18:59 Intake Total 480 240 Output Total 3750 3575 500 Balance -3270 -3575 -260 Weight 112 kg Intake: Oral 480 240 Output: Urine 3750 3575 500 Uretheral (Chavez) 775 Other: Voiding Method Indwelling Catheter Indwelling Catheter Indwelling Catheter - Labs CBC & Chem 7: 05/19/22 07:56 05/23/22 11:05 Labs: Abnormal Lab Results - Last 24 Hours (Table) 05/23/22 05/23/22 05/24/22 Range/Units 16:09 19:43 06:04 POC Glucose (mg/dL) 146 H 198 H 117 H (70-110) mg/dL 05/24/22 Range/Units 11:39 POC Glucose (mg/dL) 142 H (70-110) mg/dL
--- NOTE | 2022-05-24 13:28 | P.PN ---
Progress Note - Text Progress Note Date: 05/24/22 Chief Complaint: Increasing edema This is a pleasant 71 years old with past medical history of Coronary Artery Disease status post stent , chronic Heart Failure EF 20%, Diabetes Mellitus, GERD/Reflux, Hyperlipidemia, Hypertension, , chronic back and bilateral hip pain, osteoporosis, bilateral lower leg edema/redness which is worse in the L leg, March 2022 acute PE on eliquis. Patient recently admitted to the hospital in March 2022 with acute PE, CHF exacerbation. EF 20%. UTI. Patient presents with significant swelling of the lower extremity. More short of breath. Not able to do any chores. Feels chilly all the time. Decreased appetite. Does use upon a chair. Patient's a month ago and finding it much more difficult to do things. No fever no chills. No cough. Patient has been drinking quite a bit of water. Admitted with acute CHF exacerbation EF 20%. Started on Lasix drip 10 mg an hour. Strict I's and O's. 05/13/2022: On Lasix drip 10 mg hour. About 2715 negative fluid balance. Fluid restriction. Discussed with patient. PTOT. 05/14/2022: Remains a Lasix drip. About 4600 and negative fluid balance. Sitting up in a chair. Oral intake good. PTOT. retention manager looking at rehab 05/15/2022: Patient changed to IV bolus Lasix 40 mg every 8 per cardiology. About 6 L and negative fluid balance. Significant edema still present. Fluid restriction. Up in a recliner 05/16/2022: Up in a recliner. On IV Lasix 40 mg every 8. Significant edema still present. The restriction. Oral intake fair. About 8 L and negative fluid balance. 05/17/2022: Patient continues to have significant edema. IV Lasix 40 mg every 8. Oral intake fair. 05/18/2022: Edema still present. Making good urine. Apparently previous some Lasix was held because of low blood pressure. Instructed to continue with Lasix if systolic above 80. Patient actually feeling much better. Sitting with edge of the bed. Oral intake good. 05/19/2022: Remains on IV Lasix. About 11 L in negative fluid balance. Decrease edema. Oral intake fair. 05/20/2022: On IV Lasix. About 13 L in negative fluid balance. Edema slowly coming down. Reminded the patient to better Harpreet wrap. Oral intake good. Up in bed. Patient started on Diamox yesterday for contraction alkalosis 05/21/2022: Remains on IV Lasix. Harpreet wrap lower extremity. Eating well. Diamox. Edema decreasing. 05/22/2022: Patient remains on IV Lasix 40 mg every 8. Negative fluid balance. Eating well. Harpreet wrap. About 18 L in negative fluid balance 05/23/2022: Remains on IV Lasix 40 mg every 8. Aldactone. Significant urine output. About 20 L in negative fluid balance. 05/24/2022: IV Lasix 40 mg every 8, Aldactone, about 22 L in negative fluid balance. Edema coming down. Active Medications Hydrocodone Bitart/Acetaminophen (Hydrocodone/Apap 10-325mg 1 Each Tab) 1 each PO Q6H PRN PRN Reason: Pain Last Admin: 05/24/22 04:50 Dose: 1 each Acetazolamide (Acetazolamide 250 Mg Tab) 250 mg PO BID [facility] Last Admin: 05/24/22 08:30 Dose: 250 mg Alprazolam (Alprazolam 0.25 Mg Tab) 0.25 mg PO HS [facility] Last Admin: 05/23/22 20:35 Dose: 0.25 mg Aspirin (Aspirin 81 Mg) 81 mg PO HS [facility] Last Admin: 05/23/22 20:35 Dose: 81 mg Atorvastatin Calcium (Atorvastatin 80 Mg Tab) 80 mg PO HS [facility] Last Admin: 05/23/22 20:35 Dose: 80 mg Calcium Carbonate/Glycine (Calcium Carbonate 500 Mg Chewable) 500 mg PO DAILY [facility] Last Admin: 05/24/22 08:31 Dose: 500 mg Calcium Carbonate/Glycine (Calcium Carbonate 500 Mg Chewable) 1,000 mg PO Q4HR PRN PRN Reason: Dyspepsia Last Admin: 05/23/22 18:05 Dose: 1,000 mg Cholecalciferol (Cholecalciferol 25 Mcg (1000 Iu) Tablet) 25 mcg PO DAILY [facility] Last Admin: 05/24/22 08:30 Dose: 25 mcg Clopidogrel Bisulfate (Clopidogrel 75 Mg Tab) 75 mg PO HS [facility] Last Admin: 05/23/22 20:35 Dose: 75 mg Dapagliflozin (Dapagliflozin Propanediol 10 Mg Tablet) 10 mg PO DAILY [facility] Last Admin: 05/24/22 08:31 Dose: 10 mg Dextrose/Water (Dextrose 50% Syringe 50 Ml) 25 ml IVP PER PROTOCOL PRN; Protoc ol PRN Reason: Hypoglycemia Dextrose/Water (Dextrose 50% Syringe 50 Ml) 50 ml IVP PER PROTOCOL PRN; Protocol PRN Reason: Hypoglycemia Dextrose/Water (Dextrose 50% Syringe 50 Ml) 25 ml IVP PER PROTOCOL PRN; Protocol PRN Reason: Hypoglycemia Dextrose/Water (Dextrose 50% Syringe 50 Ml) 50 ml IVP PER PROTOCOL PRN; Protocol PRN Reason: Hypoglycemia Escitalopram Oxalate (Escitalopram 10 Mg Tab) 10 mg PO DAILY [facility] Last Admin: 05/24/22 08:30 Dose: 10 mg Ferrous Sulfate (Ferrous Sulfate 325 Mg Tab) 325 mg PO DAILY [facility] Last Admin: 05/24/22 08:30 Dose: 325 mg Furosemide (Furosemide 10 Mg/Ml 4 Ml Vial) 40 mg IV Q8HR [facility] Last Admin: 05/24/22 08:31 Dose: 40 mg Insulin Aspart (Insulin Aspart (Novolog) 100 Unit/Ml Vial) 0 unit SQ AC-TID [facility]; Protocol Last Admin: 05/24/22 12:03 Dose: Not Given Lactulose (Lactulose 20 Gm/30 Ml Cup) 20 gm PO DAILY PRN PRN Reason: Constipation Magnesium Oxide (Magnesium Oxide 400 Mg Tab) 400 mg PO BID [facility] Last Admin: 05/24/22 08:30 Dose: 400 mg Metformin HCl (Metformin 500 Mg Tab) 500 mg PO BID-W/MEALS [facility] Last Admin: 05/24/22 06:38 Dose: 500 mg Metoprolol Succinate (Metoprolol Succinate (Er) 25 Mg Tab.Er.24h) 12.5 mg PO HS [facility] Last Admin: 05/23/22 20:35 Dose: 12.5 mg Midodrine (Midodrine 5 Mg Tab) 5 mg PO AC-TID [facility] Last Admin: 05/24/22 12:05 Dose: 5 mg Naloxone HCl (Naloxone 0.4 Mg/Ml 1 Ml Vial) 0.2 mg IV Q2M PRN PRN Reason: Opioid Reversal Ondansetron HCl (Ondansetron 4 Mg/2 Ml Vial) 4 mg IVP Q8HR PRN PRN Reason: Nausea And Vomiting Polyethylene Glycol (Polyethylene Glycol 3350 17 Gm Powd.Pack) 17 gm PO DAILY [facility] Last Admin: 05/24/22 08:31 Dose: Not Given Potassium Chloride (Potassium Chloride Er 20 Meq Tab.Er) 20 meq PO DAILY [facility] Last Admin: 05/24/22 08:30 Dose: 20 meq Spironolactone (Spironolactone 25 Mg Tab) 25 mg PO DAILY [facility] Last Admin: 05/24/22 08:30 Dose: 25 mg Zinc Acetate/Diphenhydramine (Diphenhydramine 2% Cream 28.4 Gm Tube) 1 applic TOPICAL TID PRN; Protocol PRN Reason: Itching Last Admin: 05/23/22 17:09 Dose: 1 applic Past medical history to include: Pulmonary embolism March 2022, CHF EF 20%, CAD with stent, hypertension, hyperlipidemia, diabetes mellitus type 2, chronic medical debility Social history: Patient's a month ago. Nonsmoker. No alcohol. Physical examination: VITAL SIGNS: 97.7, 94, 17, 90/53, 94% room air GENERAL: Reclining in bed , comfortable EYES: Pupils equal. Conjunctiva normal. HEENT: External appearance of nose and ears normal, oral cavity grossly normal. NECK: JVD unable to assess; masses not palpable. HEART: First and second heart sounds are normal; edema coming down LUNGS: Respiratory rate normal diminished breath sounds. ABDOMEN: Soft, nontender, liver spleen not palpable, no masses palpable. PSYCH: Alert and oriented x3; mood and affect normal. MUSCULOSKELETAL:No Clubbing/cyanosis;muscles-grossly intact, evidence of OA INVESTIGATIONS, reviewed in the clinical context: 05/23/2022: Potassium 3.2 BUN 28 creatinine 1.27 05/13/2022: WBC 7 hemoglobin 10.4 platelets 267 potassium 5.1 creatinine 0.73 WBC 4.9 hemoglobin 10.9 platelets 271 potassium 4.8 BUN 20 creatinine 0.67 lactic acid 2.2 total bilirubin 3.1 AST 68 ALT 40 EKG tracing personally reviewed by me-normal sinus rhythm. Nonspecific T-wave changes. Chest x-ray film personally reviewed by me-pulmonary edema, left pleural ef fusion 2-D echocardiogram [March 2022]: EF 20% Assessment and plan: -Acute on chronic systolic congestive heart failure with ejection fraction 20%,: Aldactone 25 mg daily. IV Lasix 40 mg every 8. Strict I's and O's. Fluid restriction. -Chronic pulmonary embolism, March 2022 Eliquis -Metabolic alkalosis from diuresis Diamox -Acute medical asthenia secondary to above medical problems PTOT. Follow with lead case manager -Chronic medical debility ; has a wheelchair at home. lead case manager. -Moderate left pleural effusion, secondary to CHF Aldactone. Lasix. -coronary artery disease status post stenting Aspirin, Lipitor, Plavix, Toprol-XL -Essential Hypertension Toprol-XL 12.5 -Hyperlipidemia Lipitor - diabetes mellitus type II on oral hypoglycemic Glucophage. Follow Accu-Cheks -DO NOT RESUSCITATE Continue Lasix 40 mg IV every 8. Diamox , Aldactone Discussed with patient. Probably DC to ECF on Thursday. Good diuresis
[2022-05-24 13:49] LABS: Potassium 3.5 mmol/L (3.5-5.1)
[2022-05-24 16:55] LABS: Glucose,Whole Blood 135 mg/dL (70-110)
[2022-05-24] MEDS: ALPRAZolam 0.25 MG TAB PO SCH (20:24)
[2022-05-24] MEDS: CLOPIDOGREL 75 MG TAB PO SCH (20:24)
[2022-05-24] MEDS: ASPIRIN 81 MG PO SCH (20:25)
[2022-05-24] MEDS: ATORVASTATIN 80 MG TAB PO SCH (20:25)
[2022-05-24 20:27] LABS: Glucose,Whole Blood 171 mg/dL (70-110)
[2022-05-25] MEDS: METOPROLOL SUCCINATE (ER) 25 MG TAB.ER.24H PO SCH ×2 (00:25→19:50)
[2022-05-25 06:08] LABS: Glucose,Whole Blood 131 mg/dL (70-110)
[2022-05-25] MEDS: INSULIN ASPART (NovoLOG) 100 UNIT/ML VIAL SQ SCH ×3 (06:14→16:48)
[2022-05-25] MEDS: HYDROcodone/APAP 10-325MG 1 EACH TAB PO PRN ×2 (06:36→19:50)
[2022-05-25] MEDS: metFORMIN 500 MG TAB PO SCH ×2 (06:36→16:52)
[2022-05-25] MEDS: MIDODRINE 5 MG TAB PO SCH ×3 (06:36→16:52)
[2022-05-25 07:19] LABS: Calcium 8.6 mg/dL (8.4-10.2); Potassium 3.3 mmol/L (3.5-5.1)
[2022-05-25] MEDS: ESCITALOPRAM 10 MG TAB PO SCH (08:41)
[2022-05-25] MEDS: MAGNESIUM OXIDE 400 MG TAB PO SCH ×2 (08:41→19:50)
[2022-05-25] MEDS: POTASSIUM CHLORIDE ER 20 MEQ TAB.ER PO SCH (08:41)
[2022-05-25] MEDS: acetaZOLAMIDE 250 MG TAB PO SCH ×2 (08:41→19:50)
[2022-05-25] MEDS: SPIRONOLACTONE 25 MG TAB PO SCH (08:41)
[2022-05-25] MEDS: CALCIUM CARBONATE 500 MG CHEWABLE PO SCH (08:41)
[2022-05-25] MEDS: CHOLECALCIFEROL 25 MCG (1000 IU) TABLET PO SCH (08:41)
[2022-05-25] MEDS: FERROUS SULFATE 325 MG TAB PO SCH (08:41)
[2022-05-25] MEDS: DAPAGLIFLOZIN PROPANEDIOL 10 MG TABLET PO SCH (08:42)
[2022-05-25] MEDS: FUROSEMIDE 10 MG/ML 4 ML VIAL IV SCH (08:42)
[2022-05-25] MEDS: polyethylene glycoL 3350 17 GM POWD.PACK PO SCH (08:42)
[2022-05-25 11:54] LABS: Glucose,Whole Blood 157 mg/dL (70-110)
[2022-05-25] MEDS: hydroCHLOROthiazide 25 MG TAB PO SCH ×2 (13:07→19:57)
--- NOTE | 2022-05-25 14:37 | P.PN ---
Subjective This is a 71 year old female with a past medical history significant for coronary artery disease with previous stenting, ischemic cardiac myopathy, congestive heart failure, hypertension, hyperlipidemia, and diabetes. Patient follows in the office with Dr. Santos. We have been asked to see the patient in consultation for CHF. Patient presented with a fall and states over the past few weeks she has noticed increased lower extremity edema. She also reports SOB * Most recent echocardiogram obtained in March 2022 revealed ejection fraction of 20% * Cardiac catheterization history: December 2021 revealing 30-40% mid LAD stenosis, diagonal 1 branch 100% occluded, mid circumflex 100% occluded, RCA 100% occluded. Patient underwent stenting of the diagonal 1 branch 05/21/2022 Patient examined this morning at the bedside. Patient denies any chest pain or pressure. She denies any shortness of breath. She continues to have lower extremity edema, appears to be tolerating diuresis well. She remains on IV Lasix 40 mg every 8 hours. Blood pressures stable 105/64. Patient with -1640mL over the past 24 hours. sCr stable at 1.25. 05/22 Patient seen and examined. Blood work not back yet today. Denies any chest pain or pressure. Still diuresing well. -3600 mL yesterday. 05/23 Patient seen and examined. Patient did have significant urine output yesterday -7 L. She denies any chest pain or pressure. Denies any lightheadedness. Blood work from this morning and has not resulted. 05/24 Patient seen and examined. Blood pressures have continued to be somewhat borderline 90s over 50s. She denies any lightheadedness or dizziness however. Patient still with significant urine output with -6 L. Lower extremity edema appears to be improving. 05/25 Patient seen and examined. Patient's with -2.5 L over last 24 hours. Denies any chest pain or pressure. No shortness breath. Creatinine mildly increased to 1.37. PHYSICAL EXAM: VITAL SIGNS: Reviewed. GENERAL: Well-developed in no acute distress. HEENT: Head is normocephalic. Neck supple. No JVD LUNGS: Respirations even and unlabored. Lungs diminished HEART: Regular rate and rhythm. S1 and S2 heard. + systolic murmur. ABDOMEN: Soft. Nondistended. Nontender. EXTREMITIES: Normal range of motion. No clubbing or cyanosis. Peripheral pulses intact. 1-2+ bilateral pitting lower extremity edema up to buttocks NEUROLOGIC: Awake and alert. Oriented x 3. ASSESSMENT: Shortness of breath Acute on chronic heart failure with reduced ejection fraction Coronary artery disease with previous PCI Ischemic cardiomyopathy, ejection fraction 20% Hypertension Hyperlipidemia Diabetes Debility Morbid obesity Hypotension, lisinopril discontinued PLAN: Daily weights, accurate I&O, and monitoring of kidney function Continue to hold lisinopril secondary to hypotension Continue additional home cardiac medications with aspirin, statin, plavix, metoprolol succinate and aldactone patient has been diuresed a significant amount with much improvement in lower extremity edema. Some residual lower extremity edema however suspect component of venous insufficiency additionally. We will exchange operator to oral diuretics. Hopeful discharge tomorrow if remains stable. Objective - Vital Signs Vital signs: Vital Signs Temp 97.6 F 05/25/22 08:40 Pulse 57 L 05/25/22 12:00 Resp 17 05/25/22 12:00 BP 91/58 05/25/22 12:00 Pulse Ox 93 L 05/25/22 12:00 FiO2 21 05/21/22 08:37 Intake & Output 05/24/22 05/25/22 05/25/22 18:59 06:59 18:59 Intake Total 240 237 480 Output Total 1100 1875 1275 Balance -860 -1638 -795 Weight 111 kg Intake: Oral 240 237 480 Output: Urine 1100 1875 1275 Uretheral (Chavez) 675 Other: Voiding Method Indwelling Catheter Indwelling Catheter Indwelling Catheter # Bowel Movements 1 - Labs CBC & Chem 7: 05/19/22 07:56 05/25/22 06:25 Labs: Abnormal Lab Results - Last 24 Hours (Table) 05/24/22 05/24/22 05/25/22 Range/Units 16:53 20:25 06:06 Sodium (137-145) mmol/L Potassium (3.5-5.1) mmol/L Chloride (98-107) mmol/L Carbon Dioxide (22-30) mmol/L BUN (7-17) mg/dL Creatinine (0.52-1.04) mg/dL Glucose (74-99) mg/dL POC Glucose (mg/dL) 135 H 171 H 131 H (70-110) mg/dL 05/25/22 05/25/22 Range/Units 06:25 11:47 Sodium 131 L (137-145) mmol/L Potassium 3.3 L (3.5-5.1) mmol/L Chloride 81 L (98-107) mmol/L Carbon Dioxide 41 H* (22-30) mmol/L BUN 30 H (7-17) mg/dL Creatinine 1.37 H (0.52-1.04) mg/dL Glucose 121 H (74-99) mg/dL POC Glucose (mg/dL) 157 H (70-110) mg/dL
--- NOTE | 2022-05-25 15:39 | P.PN ---
Progress Note - Text Progress Note Date: 05/25/22 Chief Complaint: Increasing edema This is a pleasant 71 years old with past medical history of Coronary Artery Disease status post stent , chronic Heart Failure EF 20%, Diabetes Mellitus, GERD/Reflux, Hyperlipidemia, Hypertension, , chronic back and bilateral hip pain, osteoporosis, bilateral lower leg edema/redness which is worse in the L leg, March 2022 acute PE on eliquis. Patient recently admitted to the hospital in March 2022 with acute PE, CHF exacerbation. EF 20%. UTI. Patient presents with significant swelling of the lower extremity. More short of breath. Not able to do any chores. Feels chilly all the time. Decreased appetite. Does use upon a chair. Patient's a month ago and finding it much more difficult to do things. No fever no chills. No cough. Patient has been drinking quite a bit of water. Admitted with acute CHF exacerbation EF 20%. Started on Lasix drip 10 mg an hour. Strict I's and O's. 05/13/2022: On Lasix drip 10 mg hour. About 2715 negative fluid balance. Fluid restriction. Discussed with patient. PTOT. 05/14/2022: Remains a Lasix drip. About 4600 and negative fluid balance. Sitting up in a chair. Oral intake good. PTOT. 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 About 6 L and negative fluid balance. Significant edema still present. Fluid restriction. Up in a recliner 05/16/2022: Up in a recliner. On IV Lasix 40 mg every 8. Significant edema still present. The restriction. Oral intake fair. About 8 L and negative fluid balance. 05/17/2022: Patient continues to have significant edema. IV Lasix 40 mg every 8. Oral intake fair. 05/18/2022: Edema still present. Making good urine. Apparently previous some Lasix was held because of low blood pressure. Instructed to continue with Lasix if systolic above 80. Patient actually feeling much better. Sitting with edge of the bed. Oral intake good. 05/19/2022: Remains on IV Lasix. About 11 L in negative fluid balance. Decrease edema. Oral intake fair. 05/20/2022: On IV Lasix. About 13 L in negative fluid balance. Edema slowly coming down. Reminded the patient to better Harpreet wrap. Oral intake good. Up in bed. Patient started on Diamox yesterday for contraction alkalosis 05/21/2022: Remains on IV Lasix. Harpreet wrap lower extremity. Eating well. Diamox. Edema decreasing. 05/22/2022: Patient remains on IV Lasix 40 mg every 8. Negative fluid balance. Eating well. Harpreet wrap. About 18 L in negative fluid balance 05/23/2022: Remains on IV Lasix 40 mg every 8. Aldactone. Significant urine output. About 20 L in negative fluid balance. 05/24/2022: IV Lasix 40 mg every 8, Aldactone, about 22 L in negative fluid balance. Edema coming down. 05/25/2022: Been on IV Lasix.Over 22 L in negative fluid balance. Change her to by mouth Lasix. Discussed with patient. Trial of ALISTAIR Chavez. Active Medications Hydrocodone Bitart/Acetaminophen (Hydrocodone/Apap 10-325mg 1 Each Tab) 1 each PO Q6H PRN PRN Reason: Pain Last Admin: 05/25/22 06:36 Dose: 1 each Acetazolamide (Acetazolamide 250 Mg Tab) 250 mg PO BID [facility] Last Admin: 05/25/22 08:41 Dose: 250 mg Alprazolam (Alprazolam 0.25 Mg Tab) 0.25 mg PO HS [facility] Last Admin: 05/24/22 20:24 Dose: 0.25 mg Aspirin (Aspirin 81 Mg) 81 mg PO HS [facility] Last Admin: 05/24/22 20:25 Dose: 81 mg Atorvastatin Calcium (Atorvastatin 80 Mg Tab) 80 mg PO HS [facility] Last Admin: 05/24/22 20:25 Dose: 80 mg Calcium Carbonate/Glycine (Calcium Carbonate 500 Mg Chewable) 500 mg PO DAILY [facility] Last Admin: 05/25/22 08:41 Dose: 500 mg Calcium Carbonate/Glycine (Calcium Carbonate 500 Mg Chewable) 1,000 mg PO Q4HR PRN PRN Reason: Dyspepsia Last Admin: 05/23/22 18:05 Dose: 1,000 mg Cholecalciferol (Cholecalciferol 25 Mcg (1000 Iu) Tablet) 25 mcg PO DAILY [facility] Last Admin: 05/25/22 08:41 Dose: 25 mcg Clopidogrel Bisulfate (Clopidogrel 75 Mg Tab) 75 mg PO HS [facility] Last Admin: 05/24/22 20:24 Dose: 75 mg Dapagliflozin (Dapagliflozin Propanediol 10 Mg Tablet) 10 mg PO DAILY [facility] Last Admin: 05/25/22 08:42 Dose: 10 mg Dextrose/Water (Dextrose 50% Syringe 50 Ml) 25 ml IVP PER PROTOCOL PRN; Protocol PRN Reason: Hypoglycemia Dextrose/Water (Dextrose 50% Syringe 50 Ml) 50 ml IVP PER PROTOCOL PRN; Protocol PRN Reason: Hypoglycemia Dextrose/Water (Dextrose 50% Syringe 50 Ml) 25 ml IVP PER PROTOCOL PRN; Protocol PRN Reason: Hypoglycemia Dextrose/Water (Dextrose 50% Syringe 50 Ml) 50 ml IVP PER PROTOCOL PRN; Protocol PRN Reason: Hypoglycemia Escitalopram Oxalate (Escitalopram 10 Mg Tab) 10 mg PO DAILY [facility] Last Admin: 05/25/22 08:41 Dose: 10 mg Ferrous Sulfate (Ferrous Sulfate 325 Mg Tab) 325 mg PO DAILY [facility] Last Admin: 05/25/22 08:41 Dose: 325 mg Furosemide (Furosemide 40 Mg Tab) 40 mg PO BID@0900,1600 [facility] Hydrochlorothiazide (Hydrochlorothiazide 25 Mg Tab) 25 mg PO BID [facility] Last Admin: 05/25/22 13:07 Dose: 25 mg Insulin Aspart (Insulin Aspart (Novolog) 100 Unit/Ml Vial) 0 unit SQ AC-TID [facility]; Protocol Last Admin: 05/25/22 11:55 Dose: 2 unit Lactulose (Lactulose 20 Gm/30 Ml Cup) 20 gm PO DAILY PRN PRN Reason: Constipation Magnesium Oxide (Magnesium Oxide 400 Mg Tab) 400 mg PO BID [facility] Last Admin: 05/25/22 08:41 Dose: 400 mg Metformin HCl (Metformin 500 Mg Tab) 500 mg PO BID-W/MEALS [facility] Last Admin: 05/25/22 06:36 Dose: 500 mg Metoprolol Succinate (Metoprolol Succinate (Er) 25 Mg Tab.Er.24h) 12.5 mg PO [facility] Last Admin: 05/25/22 00:25 Dose: Not Given Midodrine (Midodrine 5 Mg Tab) 5 mg PO AC-TID [facility] Last Admin: 05/25/22 11:55 Dose: 5 mg Naloxone HCl (Naloxone 0.4 Mg/Ml 1 Ml Vial) 0.2 mg IV Q2M PRN PRN Reason: Opioid Reversal Ondansetron HCl (Ondansetron 4 Mg/2 Ml Vial) 4 mg IVP Q8HR PRN PRN Reason: Nausea And Vomiting Polyethylene Glycol (Polyethylene Glycol 3350 17 Gm Powd.Pack) 17 gm PO DAILY [facility] Last Admin: 05/25/22 08:42 Dose: Not Given Potassium Chloride (Potassium Chloride Er 20 Meq Tab.Er) 20 meq PO DAILY [facility] Last Admin: 05/25/22 08:41 Dose: 20 meq Spironolactone (Spironolactone 25 Mg Tab) 25 mg PO DAILY [facility] Last Admin: 05/25/22 08:41 Dose: 25 mg Zinc Acetate/Diphenhydramine (Diphenhydramine 2% Cream 28.4 Gm Tube) 1 applic TOPICAL TID PRN; Protocol PRN Reason: Itching Last Admin: 05/23/22 17:09 Dose: 1 applic Past medical history to include: Pulmonary embolism March 2022, CHF EF 20%, CAD with stent, hypertension, hyperlipidemia, diabetes mellitus type 2, chronic medical debility Social history: Patient's a month ago. Nonsmoker. No alcohol. Physical examination: VITAL SIGNS: 97.6, 56, 16, 99 x 59, 94% room air GENERAL: Reclining in bed , comfortable EYES: Pupils equal. Conjunctiva normal. HEENT: External appearance of nose and ears normal, oral cavity grossly normal. NECK: JVD unable to assess; masses not palpable. HEART: First and second heart sounds are normal; edema much decreased LUNGS: Respiratory rate normal diminished breath sounds. ABDOMEN: Soft, nontender, liver spleen not palpable, no masses palpable. PSYCH: Alert and oriented x3; mood and affect normal. MUSCULOSKELETAL:No Clubbing/cyanosis;muscles-grossly intact, evidence of OA INVESTIGATIONS, reviewed in the clinical context: 05/25/2022: Potassium 3.3 sodium 131 BUN 30 creatinine 1.37 05/23/2022: Potassium 3.2 BUN 28 creatinine 1.27 05/13/2022: WBC 7 hemoglobin 10.4 platelets 267 potassium 5.1 creatinine 0.73 WBC 4.9 hemoglobin 10.9 platelets 271 potassium 4.8 BUN 20 creatinine 0.67 lactic acid 2.2 total bilirubin 3.1 AST 68 ALT 40 EKG tracing personally reviewed by me-normal sinus rhythm. Nonspecific T-wave changes. Chest x-ray film personally reviewed by me-pulmonary edema, left pleural effusion 2-D echocardiogram [March 2022]: EF 20% Assessment and plan: -Acute on chronic systolic congestive heart failure with ejection fraction 20%,: Aldactone 25 mg daily. 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 Fluid restriction. -Chronic pulmonary embolism, March 2022 Eliquis -Metabolic alkalosis from diuresis Diamox -Acute medical asthenia secondary to above medical problems PTOT. Follow with case finisher -Chronic medical debility ; has a wheelchair at home. case finisher. -Moderate left pleural effusion, secondary to CHF Aldactone. Lasix. -coronary artery disease status post stenting Aspirin, Lipitor, Plavix, Toprol-XL -Essential Hypertension Toprol-XL 12.5 -Hyperlipidemia Lipitor - diabetes mellitus type II on oral hypoglycemic Glucophage. 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 Repeat labs in the morning. ALISTAIR Chavez. ALISTAIR to rehab tomorrow.
[2022-05-25 16:45] LABS: Glucose,Whole Blood 120 mg/dL (70-110)
[2022-05-25] MEDS: FUROSEMIDE 40 MG TAB PO SCH (16:52)
[2022-05-25 19:36] LABS: Glucose,Whole Blood 122 mg/dL (70-110)
[2022-05-25] MEDS: ASPIRIN 81 MG PO SCH (19:49)
[2022-05-25] MEDS: ALPRAZolam 0.25 MG TAB PO SCH (19:49)
[2022-05-25] MEDS: CLOPIDOGREL 75 MG TAB PO SCH (19:49)
[2022-05-25] MEDS: ATORVASTATIN 80 MG TAB PO SCH (19:49)
[2022-05-26 06:07] LABS: Glucose,Whole Blood 122 mg/dL (70-110)
[2022-05-26] MEDS: INSULIN ASPART (NovoLOG) 100 UNIT/ML VIAL SQ SCH ×2 (06:07→11:53)
[2022-05-26] MEDS: metFORMIN 500 MG TAB PO SCH (06:22)
[2022-05-26] MEDS: MIDODRINE 5 MG TAB PO SCH ×2 (06:23→11:53)
[2022-05-26] MEDS: HYDROcodone/APAP 10-325MG 1 EACH TAB PO PRN (06:25)
[2022-05-26] MEDS: FERROUS SULFATE 325 MG TAB PO SCH (08:39)
[2022-05-26] MEDS: MAGNESIUM OXIDE 400 MG TAB PO SCH (08:39)
[2022-05-26] MEDS: hydroCHLOROthiazide 25 MG TAB PO SCH (08:39)
[2022-05-26] MEDS: FUROSEMIDE 40 MG TAB PO SCH (08:39)
[2022-05-26] MEDS: DAPAGLIFLOZIN PROPANEDIOL 10 MG TABLET PO SCH (08:39)
[2022-05-26] MEDS: SPIRONOLACTONE 25 MG TAB PO SCH (08:39)
[2022-05-26] MEDS: CALCIUM CARBONATE 500 MG CHEWABLE PO SCH (08:39)
[2022-05-26] MEDS: polyethylene glycoL 3350 17 GM POWD.PACK PO SCH (08:39)
[2022-05-26] MEDS: ESCITALOPRAM 10 MG TAB PO SCH (08:39)
[2022-05-26] MEDS: CHOLECALCIFEROL 25 MCG (1000 IU) TABLET PO SCH (08:39)
[2022-05-26] MEDS: acetaZOLAMIDE 250 MG TAB PO SCH (08:39)
[2022-05-26 09:42] VITALS: TEMP 97.9
[2022-05-26 09:42] LABS: Calcium 8.9 mg/dL (8.4-10.2); Potassium 3.7 mmol/L (3.5-5.1)
[2022-05-26 11:46] LABS: Glucose,Whole Blood 140 mg/dL (70-110)
--- NOTE | 2022-05-26 11:58 | P.PN ---
Subjective Progress Note Date: 05/26/22 HISTORY OF PRESENT ILLNESS: This is a 71 year old female with a past medical history significant for coronary artery disease with previous stenting, ischemic cardiac myopathy, congestive heart failure, hypertension, hyperlipidemia, and diabetes. Patient follows in the office with Dr. Santos. We have been asked to see the patient in consultation for CHF. Patient examined at the bedside. Patient states over the past few weeks she has noticed increased lower extremity edema. She also reports SOB. She denies chest pain or pressure. She has been taking her medications as prescribed. She states she is not very active at home and has limited mobility. She states that she follows a low sodium diet but then stated she likes to eat canned chicken soup. * EKG reveals sinus mechanism with no signs of acute ischemic * Chest xray bilateral infiltrate and pleural effusion similar to prior exam. Correlate for CHF otherwise consider pneumonia. * Laboratory data: WBC 7.0. Hemoglobin 10.4. Platelet count 267. Sodium 139. Potassium 5.1. BUN 21. Creatinine 0.73. ProBNP 13,200 * Current home cardiac medications include lisinopril 20 mg daily, Aldactone 12.5 mg daily, metoprolol succinate 1.5 mg at night, Lasix 60 mg twice a day, Plavix 75 mg daily, Lipitor 80 mg daily, and aspirin 81 mg daily * Most recent echocardiogram obtained in March 2022 revealed ejection fraction of 20% * Cardiac catheterization history: December 2021 revealing 30-40% mid LAD stenosis, diagonal 1 branch 100% occluded, mid circumflex 100% occluded, RCA 100% occluded. Patient underwent stenting of the diagonal 1 branch 05/14/2022 Patient examined this morning at the bedside. Patient denies chest pain or pressure. She denies SOB. She remains on IV lasix infusion at 10mg/hr. Creati nine stable at 0.98. She has a baxter catheter. Fluid balance is -1800cc over the last 24 hours. 05/15/2022 Patient examined this morning at the bedside. She is sitting up in bed in no acute distress. She was changed to IV push Lasix yesterday from a Lasix infusion secondary to hypotension. Creatinine today remained stable at 1.12. Fluid balance over the last 24 hours is -1 L. Blood pressures this morning remains soft with a recent reading of 92/52. 05/16/2022 Patient examined this morning at the bedside. She is working with physical therapy at the time of examination. Patient denies any chest pain or pressure. She denies any shortness of breath. She continues to have lower extremity edema. She remains on IV Lasix 40 mg every 8 hours. Blood pressures remain on the soft side with a systolic in the 90s. 05/26/2022 Patient examined this morning at the bedside. She is working with physical therapy at the time of examination. Patient has been transitioned to oral Lasix. She denies any shortness of breath. Denies chest pain or pressure. Blood pressures remained soft with a systolic in the 90s. PHYSICAL EXAM: VITAL SIGNS: Reviewed. GENERAL: Well-developed in no acute distress. HEENT: Head is normocephalic. Pupils are equal, round. Sclerae anicteric. Mucous membranes of the mouth are moist. Neck supple. No JVD LUNGS: Respirations even and unlabored. Lungs diminished HEART: Regular rate and rhythm. S1 and S2 heard. + systolic murmur. ABDOMEN: Soft. Nondistended. Nontender. EXTREMITIES: Normal range of motion. No clubbing or cyanosis. Peripheral pulses intact. 1+ bilateral lower extremity edema NEUROLOGIC: Awake and alert. Oriented x 3. ASSESSMENT: Shortness of breath Acute on chronic heart failure with reduced ejection fraction Coronary artery disease with previous PCI Ischemic cardiomyopathy, ejection fraction 20% Hypertension Hyperlipidemia Diabetes Debility Morbid obesity Hypotension, lisinopril discontinued PLAN: Continue to hold lisinopril secondary to hypotension Continue current cardiac medications Patient is currently stable from a cardiac perspective Further recommendations pending patient's course Nurse practitioner note has been reviewed by physician. Signing provider agrees with the documented findings, assessment, and plan of care. Objective - Vital Signs Vital signs: Vital Signs Temp 97.9 F 05/26/22 08:35 Pulse 58 L 05/26/22 08:35 Resp 16 05/26/22 08:35 BP 94/57 05/26/22 08:35 Pulse Ox 91 L 05/26/22 08:35 FiO2 21 05/21/22 08:37 Intake & Output 05/25/22 05/26/22 05/26/22 18:59 06:59 18:59 Intake Total 750 240 Output Total 2775 400 Balance -2024 240 Intake: Oral 750 240 Output: Urine 2775 400 Uretheral (Baxter) 250 Other: Voiding Method Indwelling Catheter Indwelling Catheter Diaper # Voids 2 # Bowel Movements 1 - Labs CBC & Chem 7: 05/19/22 07:56 05/26/22 09:01 Labs: Abnormal Lab Results - Last 24 Hours (Table) 05/25/22 05/25/22 05/26/22 Range/Units 16:44 19:34 06:03 Sodium (137-145) mmol/L Chloride (98-107) mmol/L Carbon Dioxide (22-30) mmol/L BUN (7-17) mg/dL Creatinine (0.52-1.04) mg/dL Glucose (74-99) mg/dL POC Glucose (mg/dL) 120 H 122 H 122 H (70-110) mg/dL 05/26/22 05/26/22 Range/Units 09:01 11:44 Sodium 131 L (137-145) mmol/L Chloride 79 L (98-107) mmol/L Carbon Dioxide 43 H* (22-30) mmol/L BUN 34 H (7-17) mg/dL Creatinine 1.56 H (0.52-1.04) mg/dL Glucose 129 H (74-99) mg/dL POC Glucose (mg/dL) 140 H (70-110) mg/dL
[2022-05-26 12:13] VITALS: BP 97/61; PULSE 57; RESP 17
--- NOTE | 2022-05-26 14:21 | P.DS ---
Providers Date of admission: 05/12/22 15:45 Expected date of discharge: 05/26/22 Attending physician: Gilbert Albert Consults: 05/12/22 15:44 Consult Physician Routine Consulting Provider: [facility] Reason/Comments: Acute pulmonary edema Do you want consulting provider notified?: Yes 05/14/22 12:58 Consult Physician Routine Consulting Provider: Jose L Valerio Reason/Comments: depression Do you want consulting provider notified?: Yes Primary care physician: [facility] Course: Chief Complaint: Increasing edema This is a pleasant 71 years old with past medical history of Coronary Artery Disease status post stent , chronic Heart Failure EF 20%, Diabetes Mellitus, GERD/Reflux, Hyperlipidemia, Hypertension, , chronic back and bilateral hip pain, osteoporosis, bilateral lower leg edema/redness which is worse in the L leg, March 2022 acute PE on eliquis. Patient recently admitted to the hospital in March 2022 with acute PE, CHF exacerbation. EF 20%. UTI. Patient presents with significant swelling of the lower extremity. More short of breath. Not able to do any chores. Feels chilly all the time. Decreased appetite. Does use upon a chair. Patient's a month ago and finding it much more difficult to do things. No fever no chills. No cough. Patient has been drinking quite a bit of water. Admitted with acute CHF exacerbation EF 20%. Started on Lasix drip 10 mg an hour. Strict I's and O's. 05/13/2022: On Lasix drip 10 mg hour. About 2715 negative fluid balance. Fluid restriction. Discussed with patient. PTOT. 05/14/2022: Remains a Lasix drip. About 4600 and negative fluid balance. Sitting up in a chair. Oral intake good. 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 About 6 L and negative fluid balance. Significant edema still present. Fluid restriction. Up in a recliner 05/16/2022: Up in a recliner. On IV Lasix 40 mg every 8. Significant edema still present. The restriction. Oral intake fair. About 8 L and negative fluid balance. 05/17/2022: Patient continues to have significant edema. IV Lasix 40 mg every 8. Oral intake fair. 05/18/2022: Edema still present. Making good urine. Apparently previous some Lasix was held because of low blood pressure. Instructed to continue with Lasix if systolic above 80. Patient actually feeling much better. Sitting with edge of the bed. Oral intake good. 05/19/2022: Remains on IV Lasix. About 11 L in negative fluid balance. Decrease edema. Oral intake fair. 05/20/2022: On IV Lasix. About 13 L in negative fluid balance. Edema slowly coming down. Reminded the patient to better Harpreet wrap. Oral intake good. Up in bed. Patient started on Diamox yesterday for contraction alkalosis 05/21/2022: Remains on IV Lasix. Harpreet wrap lower extremity. Eating well. Diamox. Edema decreasing. 05/22/2022: Patient remains on IV Lasix 40 mg every 8. Negative fluid balance. Eating well. Harpreet wrap. About 18 L in negative fluid balance 05/23/2022: Remains on IV Lasix 40 mg every 8. Aldactone. Significant urine output. About 20 L in negative fluid balance. 05/24/2022: IV Lasix 40 mg every 8, Aldactone, about 22 L in negative fluid balance. Edema coming down. 05/25/2022: Been on IV Lasix.Over 22 L in negative fluid balance. Change her to by mouth Lasix. Discussed with patient. Trial of DC Kathy. 05/26/2022: Patient on oral diuretics. Stable. We will related to ECF today. Questions answered. Communicated with shelter case manager. Fluid restriction to continue. In total about 24 L of negative fluid balance. Follow-up outpatient with cardiology. Discussion and discharge planning more than 35 minutes Past medical history to include: Pulmonary embolism March 2022, CHF EF 20%, CAD with stent, hypertension, hyperlipidemia, diabetes mellitus type 2, chronic medical debility Social history: Patient's a month ago. Nonsmoker. No alcohol. Physical examination: VITAL SIGNS: 97.9, 58, 16, 94 x 57, 91% on room air GENERAL: Reclining in bed , comfortable EYES: Pupils equal. Conjunctiva normal. HEENT: External appearance of nose and ears normal, oral cavity grossly normal. NECK: JVD unable to assess; masses not palpable. HEART: First and second heart sounds are normal; edema much improved LUNGS: Respiratory rate normal diminished breath sounds. ABDOMEN: Soft, nontender, liver spleen not palpable, no masses palpable. PSYCH: Alert and oriented x3; mood and affect normal. MUSCULOSKELETAL:No Clubbing/cyanosis;muscles-grossly intact, evidence of OA INVESTIGATIONS, reviewed in the clinical context: 05/26/2022: Potassium 3.7 bicarb 43 BUN 34 creatinine 1.56 05/13/2022: WBC 7 hemoglobin 10.4 platelets 267 potassium 5.1 creatinine 0.73 WBC 4.9 hemoglobin 10.9 platelets 271 potassium 4.8 BUN 20 creatinine 0.67 lactic acid 2.2 total bilirubin 3.1 AST 68 ALT 40 EKG tracing personally reviewed by me-normal sinus rhythm. Nonspecific T-wave changes. Chest x-ray film personally reviewed by me-pulmonary edema, left pleural effusion 2-D echocardiogram [March 2022]: EF 20% Assessment and plan: -Acute on chronic systolic congestive heart failure with ejection fraction 20%,: Better Aldactone 25 mg daily. 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 Fluid restriction. -Acute kidney injury, prerenal from diuresis Follow BNP -Chronic pulmonary embolism, March 2022 Eliquis -Metabolic alkalosis from diuresis Diamox for 2 weeks -Acute medical asthenia secondary to above medical problems PTOT. Follow with shelter case manager -Chronic medical debility ; has a wheelchair at home. shelter case manager. -Moderate left pleural effusion, secondary to CHF Aldactone. Lasix. -coronary artery disease status post stenting Aspirin, Lipitor, Plavix, Toprol-XL -Essential Hypertension Toprol-XL 12.5 -Hyperlipidemia Lipitor - diabetes mellitus type II on oral hypoglycemic Glucophage. Follow Accu-Cheks -DO NOT RESUSCITATE Disposition: [facility] Labs: CBC BMP 5 days Plan - Discharge Summary New Discharge Prescriptions: New acetaZOLAMIDE [Diamox] 250 mg PO BID #30 tab Dapagliflozin Propanediol [Farxiga] 10 mg PO DAILY tab Escitalopram [Lexapro] 10 mg PO DAILY tab INSULIN ASPART (NovoLOG) [NovoLOG (formulary)] 0 unit SQ AC-TID each Magnesium Oxide [Mag-Ox] 400 mg PO DAILY tab Continue Ferrous Sulfate [Iron (65 MG Elemental)] 325 mg PO DAILY Calcium Carbonate [Calcium] 600 mg PO DAILY Metoprolol Succinate (ER) [Toprol XL] 12.5 mg PO HS Atorvastatin [Lipitor] 80 mg PO HS Midodrine [ProAmatine] 5 mg PO AC-TID #90 tab Potassium Chloride ER [K-Dur 10] 10 meq PO DAILY #30 tab Furosemide [Lasix] 60 mg PO BID@0900,1600 tab Calcium Carbonate [Tums] 500 mg PO TID PRN PRN Reason: Gi Upset metFORMIN HCL [Glucophage] 500 mg PO BID Cholecalciferol [Vitamin D3 (25 Mcg = 1000 Iu)] 25 mcg PO DAILY Clopidogrel [Plavix] 75 mg PO HS Aspirin 81 mg PO HS polyethylene glycoL 3350 [Miralax] 17 gm PO DAILY packet HYDROcodone/APAP 10-325MG [Fenton 10-325] 1 tab PO Q6H PRN #12 tab PRN Reason: Pain ALPRAZolam [Xanax] 0.5 mg PO HS #3 tab Changed Spironolactone [Aldactone] 25 mg PO DAILY #30 tablet Discontinued lisinopriL [Zestril] 20 mg PO DAILY Discharge Medication List Calcium Carbonate [Calcium] 600 mg PO DAILY 11/13/21 [History] Cholecalciferol [Vitamin D3 (25 Mcg = 1000 Iu)] 25 mcg PO DAILY 11/13/21 [History] Ferrous Sulfate [Iron (65 MG Elemental)] 325 mg PO DAILY 11/13/21 [History] Atorvastatin [Lipitor] 80 mg PO HS 12/04/21 [History] Clopidogrel [Plavix] 75 mg PO HS 12/04/21 [History] Metoprolol Succinate (ER) [Toprol XL] 12.5 mg PO HS 12/04/21 [History] Aspirin 81 mg PO HS 12/28/21 [History] Midodrine [ProAmatine] 5 mg PO AC-TID #90 tab 01/23/22 [Rx] Potassium Chloride ER [K-Dur 10] 10 meq PO DAILY #30 tab 01/23/22 [Rx] polyethylene glycoL 3350 [Miralax] 17 gm PO DAILY packet 01/23/22 [Rx] Furosemide [Lasix] 60 mg PO BID@0900,1600 tab 01/27/22 [Rx] Calcium Carbonate [Tums] 500 mg PO TID PRN 03/21/22 [History] metFORMIN HCL [Glucophage] 500 mg PO BID 03/21/22 [History] ALPRAZolam [Xanax] 0.5 mg PO HS #3 tab 05/26/22 [Rx] Dapagliflozin Propanediol [Farxiga] 10 mg PO DAILY tab 05/26/22 [Rx] Escitalopram [Lexapro] 10 mg PO DAILY tab 05/26/22 [Rx] HYDROcodone/APAP 10-325MG [Fenton 10-325] 1 tab PO Q6H PRN #12 tab 05/26/22 [Rx] INSULIN ASPART (NovoLOG) [NovoLOG (formulary)] 0 unit SQ AC-TID each 05/26/22 [Rx] Magnesium Oxide [Mag-Ox] 400 mg PO DAILY tab 05/26/22 [Rx] Spironolactone [Aldactone] 25 mg PO DAILY #30 tablet 05/26/22 [Rx] acetaZOLAMIDE [Diamox] 250 mg PO BID #30 tab 05/26/22 [Rx] Follow up Appointment(s)/Referral(s): Jose L Fall DO [Primary Care Provider] - 1-2 days Maxim Santos MD [STAFF PHYSICIAN] - 1 Week
== END 2022-05-26 16:27 | DRG 291 ==
LOC: EC 13:18 → 3SCARD 15:45
PROVIDERS: ADMIT Hospitalist; ATTEND Hospitalist
PROC: 05HD33Z Insertion of Infusion Device into Right Cephalic Vein, Percutaneous Approach (ICD-10-PCS; principal; 2022-05-19 07:30)
DX: I11.0 Hypertensive heart disease with heart failure (principal); I50.23 Acute on chronic systolic (congestive) heart failure; N17.9 Acute kidney failure, unspecified; E87.3 Alkalosis; I27.82 Chronic pulmonary embolism; R45.851 Suicidal ideations; F32.2 Major depressive disorder, single episode, severe without psychotic features; E66.01 Morbid (severe) obesity due to excess calories; E11.9 Type 2 diabetes mellitus without complications; Z68.37 Body mass index [BMI] 37.0-37.9, adult; I95.9 Hypotension, unspecified; I25.82 Chronic total occlusion of coronary artery; I25.10 Atherosclerotic heart disease of native coronary artery without angina pectoris; E78.5 Hyperlipidemia, unspecified; I25.5 Ischemic cardiomyopathy; R53.81 Other malaise; Z66 Do not resuscitate; F41.9 Anxiety disorder, unspecified; R26.2 Difficulty in walking, not elsewhere classified; Z74.2 Need for assistance at home and no other household member able to render care; Z96.659 Presence of unspecified artificial knee joint; Z96.649 Presence of unspecified artificial hip joint; Z79.01 Long term (current) use of anticoagulants; Z95.5 Presence of coronary angioplasty implant and graft; Z79.899 Other long term (current) drug therapy; Z79.84 Long term (current) use of oral hypoglycemic drugs; Z79.82 Long term (current) use of aspirin; Z79.02 Long term (current) use of antithrombotics/antiplatelets; Z91.048 Other nonmedicinal substance allergy status; Z88.5 Allergy status to narcotic agent; I25.2 Old myocardial infarction; Z63.4 Disappearance and death of family member
CPT/HCPCS: 36410; 36415; 71046; 76937; 80048; 80053; 80069; 81001; 83036; 83605; 83735; 83880; 84484; 85025; 85027; 85610; 85730; 93005; 94760; 96360; 96361; 99285